=== PATIENT | female | born 1930 | race Caucasian/White ===

== ENCOUNTER 2018-04-16 12:32 | Emergency (ER) | payer MEDICARE, OTHER ==
[2018-04-16 13:40] LABS: INR 1.74 (0.85-1.17); PROTIME 19.8 SECONDS (11.6-15.0)
== END 2018-04-16 17:46 | disposition home or self-care (01) ==
LOC: D.ER 12:32
PROVIDERS: Family Medicine
DX: M54.5 Low back pain (principal); I48.2 Chronic atrial fibrillation; Z79.01 Long term (current) use of anticoagulants; E11.9 Type 2 diabetes mellitus without complications; I10 Essential (primary) hypertension; Z95.0 Presence of cardiac pacemaker

== ENCOUNTER 2018-04-19 23:12 | Inpatient (IN) | payer MEDICARE, OTHER ==
[~2018-04-19] VITALS: Ht 165.1 cm; Wt 57.2 kg
--- NOTE | ~2018-04-19 | MORECARE ---
CASE MANAGEMENT DISCHARGE SUMMARY PATIENT: MADELEINE WONG UNIT: [id number] ADM DATE: 04/20/18 AGE: 87 : [birth year] SEX: F ROOM/BED: D.2140 AUTHOR: BELINDA DICKINSON PHYSICIAN: REFERRING PHYSICIAN: JOVANNI KENYON MD DATE OF SERVICE: 04/25/18 Discharge Plan Patient Name: MADELEINE WONG Facility: [facility]:[place] : 1930 Planned Disposition: Inpatient Rehab Anticipated Discharge Date: 04/25/18 Discharge Date: Expected LOS: 5 Initial Reviewer: [id number] Initial Review Date: 04/20/2018 Generated: 04/25/18 12:41 pm Comments DCP- Discharge Planning Updated by [email or web address]: Akhil Song on 04/25/18 10:[address] Patient Name: MADELEINE WONG Encounter No: [id number] : 1930 Primary Insurance: MEDICARE A & B Anticipated DC Date: 04-25-2018 Planned Disposition: Inpatient Rehab External Planned Provider: [facility] DCP follow-up note: CM RECEIVED MESSAGE FROM [facility] OF INPATIENT REHAB, THEY PLAN TO ACCEPT PT TODAY FOR REHAB. PT NOTIFIED, IN AGREEMENT WITH DISCHARGE TO INPATIENT REHAB. [facility] TO CONTACT MED 2 NURSE WITH ROOM NUMBER WHEN READY TO ACCEPT PT AND NURSE REPORT. HIEN Dai DCP- Discharge Planning Updated by [email or web address]: Akhil Song on 04/24/18 4:[address] Patient Name: MADELEINE WONG Admission Status: ER Accout number: [id number] Admission Date: 04-20-2018 : 1930 Admission Diagnosis:COLLAPSED VERTEBRA, NEC, THORACIC REGION, INIT Attending: JOVANNI KENYON Current LOS: 4 Anticipated DC Date: 04-25-2018 Planned Disposition: Inpatient Rehab Primary Insurance: MEDICARE A & B PLANNED EXTERNAL PROVIDER: [facility] Discharge Planning Comments: CM RECEIVED ORDER FOR INPATIENT REHAB PRESCREENING. CM MET WITH PT IN ROOM TO DISCUSS DISCHARGE PLANNING AND NEEDS. PT REPORTS LIVING AT HOME INDEPENDENTLY WITH SIGNIFICANT OTHER. PT HAS A CANE WITH NO MEDICAL EQUIPMENT PROVIDER PREFERENCE. PT HAS NO OUTSIDE SERVICES ASSISTING IN THE HOME. CM DISCUSSED AVAILABILITY OF HOME HEALTH, REHAB SERVICES AND MEDICAL EQUIPMENT. PT WOULD LIKE REHAB AT [place], FEELS SHE CAN PARTICIPATE IN THREE HOURS OF PROGRESSIVE THERAPY AND REPORTS SHE DID PARTICIPATE TODAY AND FEELS WHEN SHE HAS HER BRACE, SHE WILL BE ABLE TO DO MORE. PT REPORTS HER SIGNIFICANT OTHER WILL PICK HER UP FOR DISCHARGE HOME. IMPORTANT MESSAGE FROM MEDICARE PROVIDED AND EXPLAINED. PT'S SECOND CHOICE IF DECLINED BY [facility] IS [facility], CHOICE SIGNED. CM WAITING COMPLETION OF INPATIENT REHAB PRESCREENING AND ADMISSION DETERMINATION BY [facility]. Seed Core Operator: Akhil Song DCPIA - Discharge Planning Initial Assessment Updated by [id number]: Akhil Song on 04/24/18 5:04 pm * Is the patient Alert and Oriented? Yes * How many steps to enter\exit or inside your home? * PCP DR. PONCE * Pharmacy [facility] * Preadmission Environment Home with Family * ADLs Independent * Equipment Cane * Other Equipment NO MEDICAL EQUIPMENT PROVIDER PREFERENCE * List name and contact numbers for known caregivers / representatives who currently or will assist patient after discharge: KARINA QUINN, SIGNIFICANT OTHER, * Verbal permission to speak to the caregivers and representatives has been obtained from the patient. Yes * Community resources currently utilized None * Please name any agencies selected above. NONE * Additional services required to return to the preadmission environment? Yes * Can the patient safely return to the preadmission environment? Yes * Has this patient been hospitalized within the prior 30 days at any hospital? No Coverage Notice Reviewer: [email or web address] Adriel Song Notice Issued Date-Time: 04/24/2018 15:00 Notice Type: IM Discharge Notice Notice Delivered To: Patient Relationship to Patient: Home Care Associate Name: Delivery Method: HAND - Hand Delivered Dawna Days: Prior Verbal Notification: Recipient Understood Notice: Yes Recipient Signature: Yes Med Rec Note Co-signed by Attending: Coverage Notice Comment: Reviewer: [id number] Adriel Song Notice Issued Date-Time: 04/24/2018 15:00 Notice Type: Patient Choice Letter Notice Delivered To: Patient Relationship to Patient: Home Care Associate Name: Delivery Method: HAND - Hand Delivered Dawna Days: Prior Verbal Notification: Recipient Understood Notice: Yes Recipient Signature: Yes Med Rec Note Co-signed by Attending: Coverage Notice Comment: LUIS KURTZ, SECOND CHOICE FOR REHAB IF DECLINED BY [facility] IP. Last DP export: 04/24/18 4:07 Patient Name: MADELEINE WONG Page 35685 at 1141 All edits/amendments must be made on the electronic document DICTATION DATE: 04/25/18 1140 CAFETERIA MANAGER: JULIA 04/25/18 1140 RPT#: [id number] DC DATE: STATUS: ADM IN [facility] [address] [place] [address] END OF REPORT
--- NOTE | ~2018-04-19 | MORECARE ---
CASE MANAGEMENT DISCHARGE SUMMARY PATIENT: MADELEINE WONG UNIT: [id number] ADM DATE: 04/20/18 AGE: 87 : [birth year] SEX: F ROOM/BED: D.2140 AUTHOR: BELINDA DICKINSON PHYSICIAN: REFERRING PHYSICIAN: JOVANNI KENYON MD DATE OF SERVICE: 04/24/18 Discharge Plan Patient Name: MADELEINE WONG [facility] [facility] 1930 Planned Disposition: Inpatient Rehab Anticipated Discharge Date: 04/25/18 Discharge Date: Expected LOS: 5 Initial Reviewer: [email or web address] Initial Review Date: 04/20/2018 Generated: 04/24/18 6:07 pm Comments DCP- Discharge Planning Updated by [email or web address]: Akhil Song on 04/24/18 4:[address] Patient Name: MADELEINE WONG Admission Status: ER Accout number: [id number] Admission Date: 04-20-2018 : 1930 Admission Diagnosis:COLLAPSED VERTEBRA, NEC, THORACIC REGION, INIT Attending: JOVANNI KENYON Current LOS: 4 Anticipated DC Date: 04-25-2018 Planned Disposition: Inpatient Rehab Primary Insurance: MEDICARE A & B PLANNED EXTERNAL PROVIDER: [facility] Discharge Planning Comments: CM RECEIVED ORDER FOR INPATIENT REHAB PRESCREENING. CM MET WITH PT IN ROOM TO DISCUSS DISCHARGE PLANNING AND NEEDS. PT REPORTS LIVING AT HOME INDEPENDENTLY WITH SIGNIFICANT OTHER. PT HAS A CANE WITH NO MEDICAL EQUIPMENT PROVIDER PREFERENCE. PT HAS NO OUTSIDE SERVICES ASSISTING IN THE HOME. CM DISCUSSED AVAILABILITY OF HOME HEALTH, REHAB SERVICES AND MEDICAL EQUIPMENT. PT WOULD LIKE REHAB AT [facility], FEELS SHE CAN PARTICIPATE IN THREE HOURS OF PROGRESSIVE THERAPY AND REPORTS SHE DID PARTICIPATE TODAY AND FEELS WHEN SHE HAS HER BRACE, SHE WILL BE ABLE TO DO MORE. PT REPORTS HER SIGNIFICANT OTHER WILL PICK HER UP FOR DISCHARGE HOME. IMPORTANT MESSAGE FROM MEDICARE PROVIDED AND EXPLAINED. PT'S SECOND CHOICE IF DECLINED BY [facility] INPAT[facility] IS [facility], CHOICE SIGNED. CM WAITING COMPLETION OF INPATIENT REHAB PRESCREENING AND ADMISSION DETERMINATION BY [facility]. Materials Handling Coordinator: Akhil Song DCPIA - Discharge Planning Initial Assessment Updated by [id number]: Akhil Song on 04/24/18 5:04 pm * Is the patient Alert and Oriented? Yes * How many steps to enter\exit or inside your home? * PCP DR. PONCE * Pharmacy [facility] * Preadmission Environment Home with Family * ADLs Independent * Equipment Cane * Other Equipment NO MEDICAL EQUIPMENT PROVIDER PREFERENCE * List name and contact numbers for known caregivers / representatives who currently or will assist patient after discharge: KARINA QUINN, SIGNIFICANT OTHER, * Verbal permission to speak to the caregivers and representatives has been obtained from the patient. Yes * Community resources currently utilized None * Please name any agencies selected above. NONE * Additional services required to return to the preadmission environment? Yes * Can the patient safely return to the preadmission environment? Yes * Has this patient been hospitalized within the prior 30 days at any hospital? No Patient Name: MADELEINE WONG Page 54724 at 1707 All edits/amendments must be made on the electronic document DICTATION DATE: 04/24/181706 VOIP ENGINEER: JULIA 04/24/181706 RPT#: [id number] DC DATE: STATUS: ADM IN [facility] [address] [place] [address] END OF REPORT
[~2018-04-19 23:12] MED LIST: ASPIRIN EC81 M1 PO; CALCIUM 500 +1 EAC3 PO; COUMADIN2 MG PO; COUMADIN4 MG PO; GLUCOPHAGE500 MG PO; K-DUR20 MEQ PO; LASIX80 MG PO; LEVOXYL75 MCG PO; METOPROLOL TART50 MG PO; PRINIVIL20 MG PO; TYLENOL W/CODEI1 TAB PO
[2018-04-20 01:10] LABS: BASOPHILS 0.3 % (0-2); EOSINOPHILS 0.5 % (0-7); HEMATOCRIT 34.9 % (36.0-48.0); IMMATURE GRANULOCYTES 0.3 % (0-5); LYMPHOCYTES 8.6 % (15-50); MCH 31.6 pg (26.0-34.0); MCHC 31.5 g/dL (31.0-37.0); MCV 100.3 fL (80.0-100.0); MEAN PLATELET VOLUME 10.7 fL (7.4-10.4); MONOCYTES 14.7 % (2-11); NEUTROPHILS 75.6 % (40-80); PLATELET COUNT 321 10x3/uL (130-400); RBC 3.48 10x6/uL (4.00-5.40); RDW 15.3 % (11.5-14.5); WBC 7.9 10x3/uL (4.8-10.8)
[2018-04-20 01:23] LABS: ALBUMIN 2.5 g/dL (3.4-5.0); ANION GAP 17.9 mmol/L (8-16); BILIRUBIN - TOTAL 0.95 mg/dL (0.2-1.3); CALCIUM 8.6 mg/dL (8.5-10.1); CARBON DIOXIDE 25.4 mmol/L (21.0-32.0); CREATININE - SERUM 2.7 mg/dL (0.6-1.3); PROTEIN - SERUM 6.4 g/dL (6.4-8.2)
[2018-04-20 01:26] LABS: POTASSIUM - SERUM 6.3 mmol/L (3.5-5.1)
[2018-04-20 03:53] VITALS: BP 130/61; BMI 21.0
[2018-04-20 08:34] VITALS: BP 128/65
[2018-04-20 09:40] LABS: BASOPHILS 0.2 % (0-2); EOSINOPHILS 0.6 % (0-7); HEMATOCRIT 34.8 % (36.0-48.0); HEMOGLOBIN 10.9 g/dL (12-16); IMMATURE GRANULOCYTES 0.3 % (0-5); LYMPHOCYTES 10.6 % (15-50); MCH 31.7 pg (26.0-34.0); MCHC 31.3 g/dL (31.0-37.0); MCV 101.2 fL (80.0-100.0); MEAN PLATELET VOLUME 10.5 fL (7.4-10.4); MONOCYTES 16.9 % (2-11); NEUTROPHILS 71.4 % (40-80); PLATELET COUNT 329 10x3/uL (130-400); RBC 3.44 10x6/uL (4.00-5.40); RDW 15.5 % (11.5-14.5); WBC 6.6 10x3/uL (4.8-10.8)
[2018-04-20 09:46] LABS: ALBUMIN 2.4 g/dL (3.4-5.0); BILIRUBIN - TOTAL 0.88 mg/dL (0.2-1.3); CARBON DIOXIDE 27.1 mmol/L (21.0-32.0); CREATININE - SERUM 2.6 mg/dL (0.6-1.3); MAGNESIUM - SERUM 2.6 mg/dL (1.8-2.4); PROTEIN - SERUM 6.1 g/dL (6.4-8.2)
[2018-04-20 09:47] LABS: ANION GAP 13.8 mmol/L (8-16); POTASSIUM - SERUM 4.9 mmol/L (3.5-5.1)
[2018-04-20 11:28] VITALS: BP 122/62
[2018-04-20 13:23] VITALS: BMI 20.9
[2018-04-20 14:19] LABS: APTT 37.8 SECONDS (22.8-39.4); INR 2.05 (0.85-1.17); PROTIME 22.5 SECONDS (11.6-15.0)
[2018-04-20 16:09] VITALS: BP 123/64
[2018-04-20 20:00] VITALS: BP 131/41
[2018-04-21] VITALS: BP 144/42
[2018-04-21 04:00] VITALS: BP 107/48
[2018-04-21 05:49] LABS: BASOPHILS 0.3 % (0-2); EOSINOPHILS 0.3 % (0-7); HEMATOCRIT 32.4 % (36.0-48.0); HEMOGLOBIN 9.9 g/dL (12-16); IMMATURE GRANULOCYTES 0.4 % (0-5); LYMPHOCYTES 8.2 % (15-50); MCH 31.1 pg (26.0-34.0); MCHC 30.6 g/dL (31.0-37.0); MCV 101.9 fL (80.0-100.0); MEAN PLATELET VOLUME 10.6 fL (7.4-10.4); MONOCYTES 14.6 % (2-11); NEUTROPHILS 76.2 % (40-80); PLATELET COUNT 339 10x3/uL (130-400); RBC 3.18 10x6/uL (4.00-5.40); RDW 15.4 % (11.5-14.5); WBC 7.2 10x3/uL (4.8-10.8)
[2018-04-21 05:59] LABS: INR 2.11 (0.85-1.17)
[2018-04-21 06:11] LABS: ALBUMIN 1.9 g/dL (3.4-5.0); ANION GAP 16.2 mmol/L (8-16); BILIRUBIN - TOTAL 0.51 mg/dL (0.2-1.3); CALCIUM 7.5 mg/dL (8.5-10.1); CARBON DIOXIDE 22.4 mmol/L (21.0-32.0); CREATININE - SERUM 2.6 mg/dL (0.6-1.3); MAGNESIUM - SERUM 2.5 mg/dL (1.8-2.4); POTASSIUM - SERUM 4.6 mmol/L (3.5-5.1); PROTEIN - SERUM 5.5 g/dL (6.4-8.2)
[2018-04-21 09:02] VITALS: BP 103/77
[2018-04-21 13:32] VITALS: BP 84/59
[2018-04-21 13:37] VITALS: Ht 165.1 cm; Wt 57.2 kg
[2018-04-21 14:28] LABS: APPEARANCE CLEAR (CLEAR); BILIRUBIN NEGATIVE (NEGATIVE); COLOR DK YELLOW (YELLOW); GLUCOSE NEGATIVE (NEGATIVE); KETONE NEGATIVE (NEGATIVE); NITRITE NEGATIVE (NEGATIVE); PROTEIN NEGATIVE (NEGATIVE); SPECIFIC GRAVITY 1.015 (1.005-1.020); UROBILINOGEN NORMAL (NORMAL)
[2018-04-21 16:49] VITALS: BP 148/61
[2018-04-21 20:30] VITALS: BP 146/65
[2018-04-22 00:30] VITALS: BP 144/50
[2018-04-22 04:30] VITALS: BP 157/52
[2018-04-22 06:13] LABS: BASOPHILS 0.1 % (0-2); EOSINOPHILS 0.3 % (0-7); HEMATOCRIT 31.6 % (36.0-48.0); HEMOGLOBIN 9.9 g/dL (12-16); IMMATURE GRANULOCYTES 0.8 % (0-5); LYMPHOCYTES 11.2 % (15-50); MCH 31.5 pg (26.0-34.0); MCHC 31.3 g/dL (31.0-37.0); MCV 100.6 fL (80.0-100.0); MEAN PLATELET VOLUME 10.1 fL (7.4-10.4); MONOCYTES 10.3 % (2-11); NEUTROPHILS 77.3 % (40-80); PLATELET COUNT 336 10x3/uL (130-400); RBC 3.14 10x6/uL (4.00-5.40); RDW 15.6 % (11.5-14.5); WBC 7.9 10x3/uL (4.8-10.8)
[2018-04-22 06:32] LABS: PROTIME 18.5 SECONDS (11.6-15.0)
[2018-04-22 06:34] LABS: INR 1.61 (0.85-1.17)
[2018-04-22 06:47] LABS: ALBUMIN 1.7 g/dL (3.4-5.0); BILIRUBIN - TOTAL 0.53 mg/dL (0.2-1.3); CALCIUM 7.4 mg/dL (8.5-10.1); CARBON DIOXIDE 21.3 mmol/L (21.0-32.0); MAGNESIUM - SERUM 2.4 mg/dL (1.8-2.4); PROTEIN - SERUM 5.4 g/dL (6.4-8.2)
[2018-04-22 06:48] LABS: ANION GAP 19.1 mmol/L (8-16); CREATININE - SERUM 1.9 mg/dL (0.6-1.3); POTASSIUM - SERUM 3.4 mmol/L (3.5-5.1)
[2018-04-22 09:32] VITALS: BP 142/58
[2018-04-22 13:17] VITALS: BP 130/53
[2018-04-22 17:22] VITALS: BP 149/47
[2018-04-22 20:30] VITALS: BP 167/58
[2018-04-23 00:30] VITALS: BP 135/64
[2018-04-23 04:30] VITALS: BP 135/61
[2018-04-23 06:08] LABS: BASOPHILS 0.1 % (0-2); EOSINOPHILS 0.4 % (0-7); HEMATOCRIT 31.3 % (36.0-48.0); IMMATURE GRANULOCYTES 0.9 % (0-5); LYMPHOCYTES 7.2 % (15-50); MCH 32.2 pg (26.0-34.0); MCHC 31.9 g/dL (31.0-37.0); MCV 100.6 fL (80.0-100.0); MEAN PLATELET VOLUME 9.8 fL (7.4-10.4); MONOCYTES 7.2 % (2-11); NEUTROPHILS 84.2 % (40-80); PLATELET COUNT 317 10x3/uL (130-400); RBC 3.11 10x6/uL (4.00-5.40); RDW 15.4 % (11.5-14.5); WBC 8.1 10x3/uL (4.8-10.8)
[2018-04-23 06:28] LABS: INR 1.39 (0.85-1.17); PROTIME 16.5 SECONDS (11.6-15.0)
[2018-04-23 06:41] LABS: ALBUMIN 1.7 g/dL (3.4-5.0); BILIRUBIN - TOTAL 0.38 mg/dL (0.2-1.3); CALCIUM 7.5 mg/dL (8.5-10.1); CREATININE - SERUM 1.5 mg/dL (0.6-1.3); MAGNESIUM - SERUM 2.3 mg/dL (1.8-2.4); PROTEIN - SERUM 5.2 g/dL (6.4-8.2)
[2018-04-23 06:56] LABS: ANION GAP 14.5 mmol/L (8-16)
[2018-04-23 06:58] LABS: POTASSIUM - SERUM 2.5 mmol/L (3.5-5.1)
[2018-04-23 08:24] VITALS: BP 131/68
[2018-04-23 10:59] VITALS: BP 122/66
[2018-04-23 15:55] VITALS: BP 129/72
[2018-04-23 20:00] VITALS: BP 112/72
[2018-04-24] VITALS: BP 120/70
[2018-04-24 04:00] VITALS: BP 124/66
[2018-04-24 06:22] LABS: BASOPHILS 0.3 % (0-2); EOSINOPHILS 0.7 % (0-7); HEMATOCRIT 34.5 % (36.0-48.0); HEMOGLOBIN 10.8 g/dL (12-16); IMMATURE GRANULOCYTES 1.5 % (0-5); LYMPHOCYTES 5.9 % (15-50); MCH 31.6 pg (26.0-34.0); MCHC 31.3 g/dL (31.0-37.0); MCV 100.9 fL (80.0-100.0); MEAN PLATELET VOLUME 10.3 fL (7.4-10.4); MONOCYTES 8.5 % (2-11); NEUTROPHILS 83.1 % (40-80); RBC 3.42 10x6/uL (4.00-5.40); RDW 15.6 % (11.5-14.5)
[2018-04-24 06:25] LABS: PLATELET COUNT 400 10x3/uL (130-400); WBC 11.4 10x3/uL (4.8-10.8)
[2018-04-24 06:49] LABS: ALBUMIN 1.7 g/dL (3.4-5.0); BILIRUBIN - TOTAL 0.32 mg/dL (0.2-1.3); CALCIUM 8.1 mg/dL (8.5-10.1); CREATININE - SERUM 1.5 mg/dL (0.6-1.3); MAGNESIUM - SERUM 2.3 mg/dL (1.8-2.4); PROTEIN - SERUM 5.6 g/dL (6.4-8.2)
[2018-04-24 06:50] LABS: ANION GAP 14.9 mmol/L (8-16); POTASSIUM - SERUM 3.9 mmol/L (3.5-5.1)
[2018-04-24 07:04] LABS: INR 1.39 (0.85-1.17); PROTIME 16.5 SECONDS (11.6-15.0)
[2018-04-24 08:05] VITALS: BP 140/58
[2018-04-24 11:21] VITALS: BP 118/68
[2018-04-24 16:50] VITALS: BP 126/59
[2018-04-24 21:02] VITALS: BP 158/60
[2018-04-25 01:14] VITALS: BP 135/64
[2018-04-25 05:43] LABS: BASOPHILS 0.2 % (0-2); EOSINOPHILS 0.6 % (0-7); HEMATOCRIT 32.2 % (36.0-48.0); HEMOGLOBIN 10.1 g/dL (12-16); IMMATURE GRANULOCYTES 3.1 % (0-5); LYMPHOCYTES 7.8 % (15-50); MCH 31.4 pg (26.0-34.0); MCHC 31.4 g/dL (31.0-37.0); MONOCYTES 8.2 % (2-11); NEUTROPHILS 80.1 % (40-80); PLATELET COUNT 404 10x3/uL (130-400); RBC 3.22 10x6/uL (4.00-5.40); RDW 15.3 % (11.5-14.5)
[2018-04-25 05:44] LABS: WBC 14.7 10x3/uL (4.8-10.8)
[2018-04-25 05:54] VITALS: BP 150/59
[2018-04-25 06:18] LABS: INR 1.31 (0.85-1.17); PROTIME 15.7 SECONDS (11.6-15.0)
[2018-04-25 06:35] LABS: ALBUMIN 1.7 g/dL (3.4-5.0); BILIRUBIN - TOTAL 0.35 mg/dL (0.2-1.3); CALCIUM 8.3 mg/dL (8.5-10.1); CARBON DIOXIDE 21.4 mmol/L (21.0-32.0); CREATININE - SERUM 1.4 mg/dL (0.6-1.3); MAGNESIUM - SERUM 2.1 mg/dL (1.8-2.4); POTASSIUM - SERUM 4.2 mmol/L (3.5-5.1); PROTEIN - SERUM 5.3 g/dL (6.4-8.2)
[2018-04-25 06:44] LABS: ANION GAP 13.8 mmol/L (8-16)
[2018-04-25 08:44] VITALS: BP 176/73
[2018-04-25 13:07] VITALS: BP 175/69
== END 2018-04-25 18:30 | DRG 543 ==
LOC: D.ER 23:12 → OBSVTIME 04-20 00:42 → D.EDHOLD 04-20 00:42 → D.M2 04-20 00:42
PROVIDERS: Family Medicine; Family Medicine Adult Medicine; Internal Medicine
DX: M48.54XA Collapsed vertebra, not elsewhere classified, thoracic region, initial encounter for fracture (principal); N17.9 Acute kidney failure, unspecified; M48.56XA Collapsed vertebra, not elsewhere classified, lumbar region, initial encounter for fracture; W19.XXXA Unspecified fall, initial encounter; I10 Essential (primary) hypertension; E87.5 Hyperkalemia; I48.91 Unspecified atrial fibrillation; E03.9 Hypothyroidism, unspecified; Z79.01 Long term (current) use of anticoagulants; E11.9 Type 2 diabetes mellitus without complications; D75.89 Other specified diseases of blood and blood-forming organs; Z86.73 Personal history of transient ischemic attack (TIA), and cerebral infarction without residual deficits

== ENCOUNTER 2018-04-25 18:25 | Inpatient (IN) | payer MEDICARE, OTHER ==
[~2018-04-25] VITALS: Ht 165.1 cm; Wt 63.5 kg
--- NOTE | ~2018-04-25 | RHP ---
PATIENT: MADELEINE WONG MEDICAL RECORD: [id number] ACCOUNT: [id number] LOCATION:[facility] [id number] : [birth year] ADMISSION DATE: 04/25/18 REHABILITATION HISTORY AND PHYSICAL EXAMINATION POST ADMISSION PHYSICIAN EXAMINATION DATE OF ADMISSION: 04/25/2018 ADMITTING DIAGNOSIS: Compression fracture and pain associated with that. HISTORY OF PRESENT ILLNESS: The patient is an 87-year-old female patient who was admitted under an orthopedic impairment group with a T12 compression fracture. She recently moved here to [place], has been seeing Dr. Jeffers. She presented to the ED with falls and back pain, increased pain with bending and stooping. She was admitted to the acute care hospital with compression fracture, hyperkalemia, atrial fib, chronic anticoagulation therapy, permanent pacemaker, history of CVA, hypertension, hypothyroidism, diabetes and macrocytosis. All listed comorbidities require continued medical management during her acute rehabilitation stay by and also RN. She had an x-ray of her lumbar spine, which showed an age indeterminate compression fracture of T12 with approximately 50% loss of vertebral body height, age indeterminate, but chronic appearing partial compression of L2 with approximately 20% loss of vertebral body height. She continues to have a great deal of pain, seen by Dr. Santillan on 04/21/2018, he recommended PT, OT and return to clinic in 3 weeks. Nephrology was consulted as well for her acute kidney injury, recommend increasing her IV fluids, get a renal ultrasound and a UA. Her ultrasound showed echogenic kidneys consistent with intrinsic renal disease in the left renal cyst. The patient's prior level of functioning was completely independent, living home with her significant other. She is currently max assist on ambulation, getting 4 feet with noted weakness, more proximal than distal. She is mod-to-max assist with ADLs and mod with instructions from speech therapy for swallowing strategies. She is on a mechanical soft diet and thin liquids. Barriers for her discharge includes loss of mobility, pain management, electrolyte protocol, bowel and bladder changing training, self-care deficit. She will require intensive therapy for PT, OT and speech therapy in order to return home at her prior level of functioning. COMORBIDITIES: In this patient include age indeterminate compression fracture, oropharyngeal dysphagia, lower back pain, acute kidney injury, chronic atrial fib, lumbar radiculopathy, dehydration, advanced age, impaired mobility, self-care deficit, tobacco use. PAST MEDICAL HISTORY: Significant for CVA, cataracts, diabetes, thyroid problems, hypertension, pacemaker placement, atrial fib, chronic back pain, hysterectomy and tobacco use. PAST SURGICAL HISTORY: Includes colon surgery, hysterectomy and pacemaker placement. ALLERGIES: SULFA AND PLAVIX. CURRENT MEDICATIONS: Include Coumadin 2 mg daily, potassium 20 mEq daily, metformin 500 mg b.i.d. with meals, lisinopril 20 mg daily, Synthroid 75 mcg daily, furosemide 80 mg daily, Os-Bill 500 mg daily, aspirin 81 mg daily, polyethylene glycol 17 grams in 8 ounces of water daily, metoprolol 50 mg HISTORY AND PHYSICAL [id number] WONG,MADELEINE b.i.d., Tylenol No. 3 one every 6 hours p.r.n. HABITS: No alcohol or tobacco use. FAMILY HISTORY: Noncontributory. SOCIAL HISTORY: The patient hopes to return back home with her and get back to her prior level of functioning. REVIEW OF SYSTEMS: GENERAL: Does complain of weakness and fatigue. HEENT: She denies cold, cough, or congestion. CARDIOVASCULAR: Denies chest pain. PHYSICAL EXAMINATION: VITAL SIGNS: Stable, afebrile. GENERAL: Thin female in no acute distress, alert upon exam. HEENT: Normocephalic and atraumatic. Mucosa moist. NECK: Supple. No lymphadenopathy. LUNGS: Clear in upper wong. HEART: Irregular rate and rhythm. ABDOMEN: Benign. EXTREMITIES: No clubbing, cyanosis or edema. NEUROLOGIC: She does have noted pain with movement. She has proximal muscle weakness. LABORATORY DATA: White count is 13.6, H&H of 9 and 32 and platelet count is noted to be 391. Sodium is 148, potassium 4.3, BUN and creatinine of 33 and 1.3 and blood sugar was noted to be 87. Her admit UA did show trace leukocyte esterase. She did have moderate bacteria. ASSESSMENT AND PLAN: This is an 87-year-old female patient admitted to the rehabilitation with working diagnosis of debility secondary to pain from a T12 compression fracture. The patient has potential to make improvement. We instituted the following multiple additional therapies include, but not limited to, physical, occupational, respiratory, speech, nutritional services, prosthetics and orthotics. Given her complex medical condition and risks for more complications, rehabilitation services cannot be provided at a low level of care such as a long term facility. PLAN: 1. Admit to [facility] for intensive inpatient therapy to include the following disciplines: A. Physical therapy to improve gait, all transfer skills and bed mobility to a modified independent level. B. Occupational therapy to a modified independent level. C. Case management to assist with discharge planning and placement options. D. Nutrition to assist with nutritional needs. E. Rehabilitation nursing to assist in monitoring the patient's underlying medical conditions and to assist with any type of bowel or bladder management. 2. The patient's current medications and medical care will be continued. 3. The patient will be placed on standard fall precautions. 4. The patient's estimated length of stay is approximately 7-10 days. 5. We will discuss this patient during care team staff meeting this week and I will see her again in the a.m. HISTORY AND PHYSICAL [id number] MADELEINE WONG TRANSINT:[id number] Voice Confirmation ID: [id number] DOCUMENT ID: [id number] 05/07/18 Editd for job type and chapis BROCK. DELMY notes whether there has been none or any medical/functional change since admission: - No change since preadmission screen. DELMY attests patient continues to be appropriate for IRF: - Continues to be appropriate. LEXA BENAVIDES MD CC: [id number] DICTATION DATE: 04/26/18 1312 ETHNOLOGY TEACHER: 04/26/18 1526 ADM IN [facility] [address] [place] [address]
[2018-04-25 23:09] VITALS: BP 143/46; BMI 23.3
[2018-04-26 06:13] LABS: APPEARANCE CLEAR (CLEAR); BILIRUBIN NEGATIVE (NEGATIVE); COLOR YELLOW (YELLOW); GLUCOSE NEGATIVE (NEGATIVE); KETONE NEGATIVE (NEGATIVE); NITRITE NEGATIVE (NEGATIVE); PROTEIN TRACE mg/dL (NEGATIVE); UROBILINOGEN NORMAL (NORMAL)
[2018-04-26 06:16] LABS: EPITHELIAL CELLS RARE /hpf (0-5); WHITE CELLS - URINE 0-5 /hpf (0-5)
[2018-04-26 06:17] LABS: BACTERIA MODERATE /hpf (NONE SEEN); GRANULAR CAST RARE /lpf (NONE SEEN); HYALINE CAST RARE /lpf (NONE SEEN)
[2018-04-26 06:50] LABS: BASOPHILS 0.2 % (0-2); EOSINOPHILS 1.2 % (0-7); HEMATOCRIT 32.1 % (36.0-48.0); HEMOGLOBIN 9.9 g/dL (12-16); IMMATURE GRANULOCYTES 3.7 % (0-5); LYMPHOCYTES 6.8 % (15-50); MCH 30.9 pg (26.0-34.0); MCHC 30.8 g/dL (31.0-37.0); MCV 100.3 fL (80.0-100.0); MEAN PLATELET VOLUME 10.1 fL (7.4-10.4); MONOCYTES 6.8 % (2-11); NEUTROPHILS 81.3 % (40-80); PLATELET COUNT 391 10x3/uL (130-400); RDW 15.5 % (11.5-14.5); WBC 13.6 10x3/uL (4.8-10.8)
[2018-04-26 07:03] LABS: ANION GAP 14.1 mmol/L (8-16); CALCIUM 8.4 mg/dL (8.5-10.1); CARBON DIOXIDE 23.2 mmol/L (21.0-32.0); CREATININE - SERUM 1.3 mg/dL (0.6-1.3); POTASSIUM - SERUM 4.3 mmol/L (3.5-5.1)
[2018-04-26 08:00] VITALS: BP 154/56
[2018-04-26 12:18] VITALS: Ht 165.1 cm; Wt 63.5 kg
[2018-04-26 19:00] VITALS: BP 123/36
[2018-04-27 07:09] LABS: BASOPHILS 0.2 % (0-2); HEMATOCRIT 30.9 % (36.0-48.0); HEMOGLOBIN 9.8 g/dL (12-16); IMMATURE GRANULOCYTES 2.6 % (0-5); LYMPHOCYTES 7.5 % (15-50); MCH 31.7 pg (26.0-34.0); MCHC 31.7 g/dL (31.0-37.0); MEAN PLATELET VOLUME 9.8 fL (7.4-10.4); MONOCYTES 5.9 % (2-11); NEUTROPHILS 82.8 % (40-80); PLATELET COUNT 347 10x3/uL (130-400); RBC 3.09 10x6/uL (4.00-5.40); RDW 15.4 % (11.5-14.5); WBC 11.2 10x3/uL (4.8-10.8)
[2018-04-27 07:21] LABS: INR 1.19 (0.85-1.17); PROTIME 14.5 SECONDS (11.6-15.0)
[2018-04-27 07:23] LABS: ANION GAP 14.5 mmol/L (8-16); CALCIUM 8.1 mg/dL (8.5-10.1); CARBON DIOXIDE 24.4 mmol/L (21.0-32.0); CREATININE - SERUM 1.3 mg/dL (0.6-1.3); POTASSIUM - SERUM 3.9 mmol/L (3.5-5.1)
[2018-04-27 08:00] VITALS: BP 137/58
[2018-04-27 19:00] VITALS: BP 165/55
[2018-04-28 07:23] LABS: INR 1.14 (0.85-1.17)
[2018-04-28 08:00] VITALS: BP 130/52
[2018-04-28 20:00] VITALS: BP 148/51
[2018-04-29 07:39] LABS: INR 1.36 (0.85-1.17); PROTIME 16.2 SECONDS (11.6-15.0)
[2018-04-29 11:29] VITALS: BP 112/46
[2018-04-30 00:12] VITALS: BP 131/65
[2018-04-30 06:53] LABS: BASOPHILS 0.2 % (0-2); EOSINOPHILS 2.5 % (0-7); HEMATOCRIT 31.1 % (36.0-48.0); HEMOGLOBIN 9.6 g/dL (12-16); IMMATURE GRANULOCYTES 1.2 % (0-5); LYMPHOCYTES 7.6 % (15-50); MCH 30.8 pg (26.0-34.0); MCHC 30.9 g/dL (31.0-37.0); MCV 99.7 fL (80.0-100.0); MEAN PLATELET VOLUME 10.1 fL (7.4-10.4); MONOCYTES 6.7 % (2-11); NEUTROPHILS 81.8 % (40-80); PLATELET COUNT 388 10x3/uL (130-400); RBC 3.12 10x6/uL (4.00-5.40); RDW 15.1 % (11.5-14.5)
[2018-04-30 06:58] LABS: ANION GAP 12.2 mmol/L (8-16); CALCIUM 8.2 mg/dL (8.5-10.1); CARBON DIOXIDE 27.5 mmol/L (21.0-32.0); CREATININE - SERUM 1.2 mg/dL (0.6-1.3); POTASSIUM - SERUM 3.7 mmol/L (3.5-5.1)
[2018-04-30 07:20] LABS: INR 1.73 (0.85-1.17); PROTIME 19.6 SECONDS (11.6-15.0)
[2018-04-30 08:00] VITALS: BP 129/55
[2018-04-30 19:02] VITALS: BP 122/46
[2018-05-01 07:02] LABS: INR 2.19 (0.85-1.17); PROTIME 23.7 SECONDS (11.6-15.0)
[2018-05-01 07:55] VITALS: BP 159/58
[2018-05-01 21:00] VITALS: BP 119/35
[2018-05-02 06:34] LABS: INR 2.77 (0.85-1.17); PROTIME 28.5 SECONDS (11.6-15.0)
[2018-05-02 08:00] VITALS: BP 152/56
[2018-05-02 21:00] VITALS: BP 125/45
[2018-05-03 08:00] VITALS: BP 143/48
[2018-05-03 08:16] LABS: INR 3.24 (0.85-1.17); PROTIME 32.3 SECONDS (11.6-15.0)
[2018-05-03 20:25] VITALS: BP 111/48
[2018-05-04 08:00] VITALS: BP 121/45
[2018-05-04 11:26] LABS: BASOPHILS 0.3 % (0-2); EOSINOPHILS 1.3 % (0-7); HEMATOCRIT 31.6 % (36.0-48.0); HEMOGLOBIN 9.8 g/dL (12-16); IMMATURE GRANULOCYTES 0.7 % (0-5); LYMPHOCYTES 6.6 % (15-50); MCH 31.6 pg (26.0-34.0); MCV 101.9 fL (80.0-100.0); MEAN PLATELET VOLUME 10.3 fL (7.4-10.4); MONOCYTES 8.7 % (2-11); NEUTROPHILS 82.4 % (40-80); PLATELET COUNT 416 10x3/uL (130-400); RDW 15.7 % (11.5-14.5); WBC 11.6 10x3/uL (4.8-10.8)
[2018-05-04 11:42] LABS: ANION GAP 13.6 mmol/L (8-16); CALCIUM 8.3 mg/dL (8.5-10.1); CARBON DIOXIDE 28.8 mmol/L (21.0-32.0); CREATININE - SERUM 2.8 mg/dL (0.6-1.3); POTASSIUM - SERUM 5.4 mmol/L (3.5-5.1)
[2018-05-04 11:44] LABS: INR 3.32 (0.85-1.17); PROTIME 32.9 SECONDS (11.6-15.0)
[2018-05-05 07:12] LABS: INR 3.41 (0.85-1.17); PROTIME 33.6 SECONDS (11.6-15.0)
[2018-05-05 08:04] VITALS: BP 133/55
[2018-05-05 19:41] VITALS: BP 113/37
[2018-05-06 07:02] LABS: INR 3.14 (0.85-1.17); PROTIME 31.5 SECONDS (11.6-15.0)
[2018-05-06 09:09] VITALS: BP 115/36
[2018-05-06 23:43] VITALS: BP 127/62
[2018-05-07 06:03] LABS: BASOPHILS 0.2 % (0-2); EOSINOPHILS 0.6 % (0-7); HEMATOCRIT 31.4 % (36.0-48.0); HEMOGLOBIN 9.8 g/dL (12-16); IMMATURE GRANULOCYTES 0.3 % (0-5); LYMPHOCYTES 10.5 % (15-50); MCH 31.1 pg (26.0-34.0); MCHC 31.2 g/dL (31.0-37.0); MCV 99.7 fL (80.0-100.0); MEAN PLATELET VOLUME 10.2 fL (7.4-10.4); MONOCYTES 9.1 % (2-11); NEUTROPHILS 79.3 % (40-80); PLATELET COUNT 439 10x3/uL (130-400); RBC 3.15 10x6/uL (4.00-5.40); RDW 16.2 % (11.5-14.5); WBC 10.4 10x3/uL (4.8-10.8)
[2018-05-07 06:17] LABS: ANION GAP 13.6 mmol/L (8-16); CALCIUM 8.1 mg/dL (8.5-10.1); CARBON DIOXIDE 29.1 mmol/L (21.0-32.0); CREATININE - SERUM 2.7 mg/dL (0.6-1.3); POTASSIUM - SERUM 4.7 mmol/L (3.5-5.1)
[2018-05-07 06:24] LABS: INR 2.88 (0.85-1.17); PROTIME 29.4 SECONDS (11.6-15.0)
[2018-05-07 08:22] VITALS: BP 135/46
[2018-05-08 05:55] LABS: APPEARANCE CLOUDY (CLEAR); BILIRUBIN NEGATIVE (NEGATIVE); COLOR YELLOW (YELLOW); GLUCOSE NEGATIVE (NEGATIVE); KETONE NEGATIVE (NEGATIVE); NITRITE NEGATIVE (NEGATIVE); PROTEIN 1+ mg/dL (NEGATIVE); SPECIFIC GRAVITY 1.005 (1.005-1.020); UROBILINOGEN NORMAL (NORMAL)
[2018-05-08 05:56] LABS: BACTERIA MANY /hpf (NONE SEEN); EPITHELIAL CELLS 0-5 /hpf (0-5); RED CELLS - URINE 0-5 /hpf (0-5)
[2018-05-08 08:00] VITALS: BP 109/33
[2018-05-08 19:00] VITALS: BP 103/35
[2018-05-09 05:59] LABS: BASOPHILS 0.1 % (0-2); EOSINOPHILS 0.1 % (0-7); HEMATOCRIT 31.2 % (36.0-48.0); HEMOGLOBIN 9.8 g/dL (12-16); IMMATURE GRANULOCYTES 0.3 % (0-5); LYMPHOCYTES 9.6 % (15-50); MCH 31.4 pg (26.0-34.0); MCHC 31.4 g/dL (31.0-37.0); MEAN PLATELET VOLUME 10.2 fL (7.4-10.4); MONOCYTES 8.9 % (2-11); PLATELET COUNT 466 10x3/uL (130-400); RBC 3.12 10x6/uL (4.00-5.40); RDW 16.3 % (11.5-14.5); WBC 11.7 10x3/uL (4.8-10.8)
[2018-05-09 06:41] LABS: ANION GAP 18.2 mmol/L (8-16); CALCIUM 8.1 mg/dL (8.5-10.1); CREATININE - SERUM 4.1 mg/dL (0.6-1.3); POTASSIUM - SERUM 5.2 mmol/L (3.5-5.1)
[2018-05-09 08:00] VITALS: BP 111/38
== END 2018-05-09 15:43 | disposition short-term general hospital (02) | DRG 560 ==
LOC: D.REHAB 18:25
PROVIDERS: ADMIT Emergency Medicine
DX: S22.089D Unspecified fracture of T11-T12 vertebra, subsequent encounter for fracture with routine healing (principal); N17.9 Acute kidney failure, unspecified; R13.12 Dysphagia, oropharyngeal phase; M54.5 Low back pain; I48.2 Chronic atrial fibrillation; M54.16 Radiculopathy, lumbar region; E86.0 Dehydration; F17.200 Nicotine dependence, unspecified, uncomplicated; I10 Essential (primary) hypertension

== ENCOUNTER 2018-05-09 14:45 | Inpatient (IN) | payer MEDICARE, OTHER ==
[~2018-05-09] VITALS: Ht 165.1 cm; Wt 65.4 kg
--- NOTE | ~2018-05-09 | HEMODYNAMI ---
PATIENT:MADELEINE WONG MEDICAL RECORD: [id number] : [birth year] LOCATION:[facility] [id number] ADMISSION DATE: 05/09/18 Generatedon:05/30/201816:16 Patient name: MADELEINE WONG Patient #: [id number] SSN: : 1930 Date of study: 05/30/2018 Page: Of Hemodynamic Procedure Report Patient Data Patient Demographics Procedure consent was obtained First Name: MADELEINE Gender: Female Last Name: MARVIN : 1930 Patient #: [id number] Age: 88 year(s) Race: Unknown Additional ID: [id number] Contact details [address]: [address] [place] [address] State: [place] City: [place] Zip code: [address] Past Medical History Allergies Allergen Reaction Date Comments Reported Penicillins 05/30/2018 Admission Admission Data Admission Date: 05/09/2018 Admission Time: 14:45 Room #: [facility] Height (in.): 65 BSA: 1.76 (m2) Height (cm.): 165.1 BMI: 25.13 (kg/m2) Weight (lbs.): 151 Weight (kg.): 68.49 Procedure Procedure Types Cath Procedure Peripheral Cath Diagnostic Procedure Plan Coordinator Peripheral Procedures Kyphoplasty Kyphoplasty Thoracic Procedure Description Procedure Date Procedure Date: 05/30/2018 Procedure Start Time: 15:29 Procedure Staff Name Function Earnest Roche MD Performing Physician Alexandra Streeter RT Ammonia Distiller Roxi Esparza CRNA Additional personnel Laurie Bruce RN Nurse Haven Ro RN Nurse Ricardo Wolf RT Scrub Procedure Data Cath Procedure Fluoroscopy Diagnostic fluoroscopy Total fluoroscopy Time: 9.1 time: 9.1 min min Diagnostic fluoroscopy Total fluoroscopy dose: 156 dose: 156 mGy mGy Procedure Medications Medication Administration Route Dosage Oxygen etCO2 Nasal cannula 4 l/min Vancomycin I.V.P.B 500 mg Lidocaine 1% added to field 20 Heparin Flush Bag added to field 1 bags (1000units/500ml NS) Hemodynamics Rest BSA: 1.76 (m2) O2 Consumption: Estimated: 167.61 (ml/min) O2 Consumption indexed : Estimated:95.23 (ml/min/m) Heart Rate: 88 (bpm) Snapshots Pre Cath Intra NCS Post Cath Vital Signs Time Heart Resp SPO2 etCO2 NIBP Rhythm Pain Sedation Rate (ipm) (%) (mmHg) (mmHg) Status Level (bpm) 15:21:09 89 17 100 24 88/62(79) A-Fib 0 (11) 10(A) , No pain 15:25:24 80 12 100 21 96/53(63) A-Fib 0 (11) 10(A) , No pain 15:29:42 86 12 100 27 93/46(74) A-Fib 0 (11) 10(A) , No pain 15:33:56 88 11 100 33 89/55(73) A-Fib 0 (11) 7(A) , No pain 15:38:10 92 11 100 27 99/50(58) NSR 0 (11) 7(A) , No pain 15:42:26 82 11 99 31.5 82/54(70) NSR 0 (11) 7(A) , No pain 15:47:25 86 23 100 36 Measuring NSR 0 (11) 7(A) , No pain 15:47:33 97 23 100 21.7 74/37(40) NSR 0 (11) 7(A) , No pain 15:49:17 84 11 99 21 92/59(76) NSR 0 (11) 7(A) , No pain 15:53:31 80 10 99 35.2 88/54(72) NSR 0 (11) 7(A) , No pain 15:57:43 90 10 99 21 98/51(73) NSR 0 (11) 7(A) , No pain 16:01:57 94 11 99 15.7 92/49(79) NSR 0 (11) 7(A) , No pain 16:06:11 82 13 98 13.5 93/56(71) NSR 0 (11) 7(A) , No pain 16:10:19 87 17 99 24 101/71(89) NSR 0 (11) 7(A) , No pain 16:15:02 25.5 No Cuff NSR 0 (11) 7(A) , No pain Medications Time Medication Route Dose Verified Delivered Reason Notes Effe ctiveness by by 15:30:34 Oxygen etCO2 4 Earnest Sullivan for Nasal l/min Teo Roche RN sedation cannula 15:31:02 Vancomycin I.V.P.B 500 Earnest Sullivan used for mg Teo Roche RN procedure 15:31:21 Lidocaine 1% added 20ml Earnest Tinoco used for to vial Melchor Roche MD procedure field 15:31:52 Heparin Flush added 1 Earnest Tinoco used for Bag to bags Melchor Roche MD procedure (1000units/500ml field NS) Procedure Log Time Note 14:53:48 Patient Weight : 151 lbs 14:53:53 Patient Height : 65 inches 14:54:26 Time tracking: Regular hours (M-F 7:00 - 5:00) 14:54:57 Use device set IR Diagnostic 14:54:58 Tegaderm 4 x 4 (1626W) opened to sterile field. 14:54:59 Sterile Angiographic Pack opened to sterile field. 14:55:00 Bag Decanter (2002S) opened to sterile field. 14:55:16 Plan of Care:Hemodynamics will remain stable., Cardiac rhythm will remain stable., Comfort level will be maintained., Respiratory function will remain adequate., Patient/ family verbilizes understanding of procedure., Procedure tolerated without complication., Recovers from procedure without complications.. 14:55:30 Patient received from Med II to IR Alert and oriented. Tansferred to table in Prone position. 14:55:43 Signed procedure consent form obtained from patient. 14:55:49 H&P Date Dictated: 05/30/2018 Within 30 days and on chart.. 14:55:52 Pre-procedure instructions explained to patient. 14:55:53 Pre-op teaching completed and patient verbalized understanding. 14:55:56 Family in waiting room. 14:55:58 Patient NPO since Midnight. 14:56:14 Patient allergic to Penicillins 14:56:22 - 14:56:25 ----Pre-sedation anethsthesia assessment.----see anesthesia notes for monitoring of patient during procedure 14:57:20 IV patent on arrival in Rt subclavian with D5/.45%NaCl at KVO. 14:57:37 Thoracic area was prepped with dura-prep and draped in sterile fashion 14:57:46 - 14:59:30 [employer] AUTOPLEX MIXER W/VHV opened to sterile field. 14:59:31 CLAUDETTE BNCMNT CURV BALLOON [id number] opened to sterile field. 14:59:32 Claudette BONE BX 11GA kit opened to sterile field. 15:19:48 ECG and BP/O2 sat monitors applied to patient. 15:19:49 Vital chart was started 15:19:52 Baseline sample Acquired. 15:19:56 Full Disclosure recording started 15:19:57 - 15:27:03 Physician arrived 15:27:05 --------ALL STOP TIME OUT------ 15:27:07 Final Timeout: patient, procedure, and site verified with staff and physician. All members of the team are in agreement. 15:27:17 Thoracic site verified by team. 15:27:35 Sedation plan: TIVA Medication:Propofol 15:28:24 Procedure started. 15:29:18 Local anesthetic to Thoracic area with Lidocaine 1% by Earnest Roche MD.INITIAL ACCESS ONLY 15:30:34 Oxygen 4 l/min etCO2 Nasal cannula was administered by Laurie Bruce RN; for sedation; 15:31:02 Vancomycin 500 mg I.V.P.B was administered by Laurie Teo RN; used for procedure; 15:31:21 Lidocaine 1% 20ml vial added to field was administered by Earnest Roche MD; used for procedure; 15:31:52 Heparin Flush Bag (1000units/500ml NS) 1 bags added to field was administered by Earnest Roche MD; used for procedure; 15:33:56 Jamshidi needle introduced. 15:41:16 Bone bx needle placed. 15:41:37 Kyphoplasty balloon introduced. 16:00:14 Cement introduced to vertebral body. 16:05:52 Jamshidi needle removed. 16:10:09 Procedure ended.(Physican Out) 16:10:24 Fluoroscopy time 09.10 minutes. 16:10:35 Fluoroscopy dose: 156 mGy 16:10:35 Flurop Dose total: 156 16:10:42 Procedure and supply charges have been captured, reviewed, submitted an d are correct. 16:15:48 Report given to Outpatients. 16:16:15 Patient transfered to [facility] with Bed. 16:16:37 Vital chart was stopped Device Usage Item Name Manufacture Quantity Catalog Hospital Part Current Minim al Lot# / Number Charge Number Stock Stock Serial# Code Tegaderm 4 x 3M 1 [id number] 5 4 (1626W) Sterile Cardinal 1 [id number] 5 Angiographic Health Pack Bag Decanter [employer] 1 2001S [id number] 5 (2001S) [employer] CLAUDETTE [place] 1 [id number] [id number] [id number] 5 AUTOPLEX MIXER W/VHV CLAUDETTE [place] 1 [id number] [id number] [id number] [id number] 9 BNCMNT CURV BALLOON [id number] [place] BONE [place] 1 [id number] [id number] 5 BX 11GA kit Signature Audit [place] Stage Time Signature Unsigned Intra-Procedure 05/30/2018 Alexandra Streeter 4:16:34 PM RT(R) [facility] [address] [place] [address]
--- NOTE | 2018-05-09 16:30 | NUR ---
PATIENT TO UNIT FROM REHAB UNIT. PATIENT IS AWAKE AND ALERT. ORIENTED X 4. SPEECH IS CLEAR. DEMONSTRATES RT SIDE GAZE AND LT SIDE NEGLECT.EQUAL STRENGTH TO UPPER AND LOWER EXTREMITIES. PACEMAKER IMPLANT INTACT. HEART RRR. LUNGS CLEAR HU[place]REY. VITAL SIGNS ARE GOOD. PATIENT DENIES ANY NEEDS OR PAIN. NO FAMILY AT BEDSIDE. WILL CONTINUE WITH PLAN OF CARE.
[2018-05-09 17:32] LABS: BASOPHILS 0.2 % (0-2); EOSINOPHILS 0.3 % (0-7); HEMATOCRIT 33.8 % (36.0-48.0); HEMOGLOBIN 10.5 g/dL (12-16); IMMATURE GRANULOCYTES 0.6 % (0-5); LYMPHOCYTES 12.8 % (15-50); MCH 31.4 pg (26.0-34.0); MCHC 31.1 g/dL (31.0-37.0); MCV 101.2 fL (80.0-100.0); MEAN PLATELET VOLUME 10.1 fL (7.4-10.4); MONOCYTES 8.9 % (2-11); NEUTROPHILS 77.2 % (40-80); PLATELET COUNT 470 10x3/uL (130-400); RBC 3.34 10x6/uL (4.00-5.40); RDW 16.4 % (11.5-14.5)
[2018-05-09 17:46] LABS: INR 3.57 (0.85-1.17); PROTIME 34.9 SECONDS (11.6-15.0)
[2018-05-09 17:49] LABS: ALBUMIN 2.2 g/dL (3.4-5.0); ANION GAP 17.8 mmol/L (8-16); BILIRUBIN - TOTAL 0.3 mg/dL (0.2-1.3); CARBON DIOXIDE 26.5 mmol/L (21.0-32.0); CREATININE - SERUM 4.2 mg/dL (0.6-1.3); POTASSIUM - SERUM 5.3 mmol/L (3.5-5.1); PROTEIN - SERUM 5.4 g/dL (6.4-8.2)
[2018-05-09 17:59] LABS: THYROID STIMULATING HORMONE 4.09 uIU/mL (0.36-3.74)
[2018-05-09 18:16] VITALS: BP 120/38; BMI 23.3
--- NOTE | 2018-05-09 18:30 | NUR ---
DR MICHELE IN ROOM. NEW ORDERS RECIEVED FOR NEW IV WITH NS TO INFUSE. ATTEMPT AT IV PLACEMENT UNSUCCESFUL. REPORT GIVEN TO NIGHT NURSE.
[2018-05-09 19:13] LABS: ERYTHROCYTE SEDIMENTATION RATE 10 mm/hr (0-42)
--- NOTE | 2018-05-09 19:30 | NUR ---
RESUME CARE. PT IN BED A&O NO C/O OF PAIN/ OR DISTRESS AT THIS TIME CALL LIGHT IN REACH WILL CONT TO PATTIE
[2018-05-09 20:00] VITALS: BP 123/46
--- NOTE | 2018-05-09 21:30 | NUR ---
IV PLACED IN LFT FOREARM BY RUDY RODRIGUES
[2018-05-10] VITALS: BP 112/50
[2018-05-10 04:00] VITALS: BP 123/44
[2018-05-10 05:57] LABS: BASOPHILS 0.1 % (0-2); EOSINOPHILS 0.3 % (0-7); HEMATOCRIT 30.9 % (36.0-48.0); HEMOGLOBIN 9.8 g/dL (12-16); IMMATURE GRANULOCYTES 0.3 % (0-5); LYMPHOCYTES 10.9 % (15-50); MCH 31.5 pg (26.0-34.0); MCHC 31.7 g/dL (31.0-37.0); MCV 99.4 fL (80.0-100.0); MEAN PLATELET VOLUME 9.9 fL (7.4-10.4); MONOCYTES 10.8 % (2-11); NEUTROPHILS 77.6 % (40-80); PLATELET COUNT 420 10x3/uL (130-400); RBC 3.11 10x6/uL (4.00-5.40); RDW 16.3 % (11.5-14.5); WBC 9.3 10x3/uL (4.8-10.8)
[2018-05-10 06:06] LABS: INR 3.52 (0.85-1.17); PROTIME 34.5 SECONDS (11.6-15.0)
[2018-05-10 06:14] LABS: CALCIUM 8.1 mg/dL (8.5-10.1); CARBON DIOXIDE 24.9 mmol/L (21.0-32.0); CREATININE - SERUM 3.9 mg/dL (0.6-1.3); POTASSIUM - SERUM 4.9 mmol/L (3.5-5.1)
--- NOTE | 2018-05-10 08:48 | NUR ---
PT NEEDS ASSISTANCE WITH MEALS. GENERAL INTERNAL MEDICINE PHYSICIAN ASSISTED PT WITH FEEDING AND PT ATE TWO BITES OF EGGS AND STATED TO HER "I DON'T WANT ANYMORE BECAUSE I'M GONNA BE SICK."
[2018-05-10 09:18] VITALS: BP 139/50
[2018-05-10 09:39] VITALS: BMI 23.2
--- NOTE | 2018-05-10 10:00 | NUR ---
RESTING QUIETLY NAD NOTED
--- NOTE | 2018-05-10 10:38 | NUR ---
PT'S FAMILY AT BEDSIDE THEY STATE THEY ARE IN TOWN FROM [facility]. QUESTIONS ANSWERED. BED LOW. CL IN REACH.
--- NOTE | 2018-05-10 11:20 | NUR ---
PER MAGDA GOSS SHE GAVE ME V.O. TO IN AND OUT CATH PT TO COLLECT UA. IN AND OUT CATH DONE AND UA COLLECTED. PT TOLERATED WELL.
--- NOTE | 2018-05-10 11:41 | NUR ---
LEFT FA 22G IV INFILTRATED. DC'D WITH CATH INTACT. RIGHT FA 20G IV INSERTED NS INFUSING AT 100.
[2018-05-10 12:13] LABS: APPEARANCE HAZY (CLEAR); BILIRUBIN NEGATIVE (NEGATIVE); COLOR YELLOW (YELLOW); GLUCOSE NEGATIVE (NEGATIVE); KETONE NEGATIVE (NEGATIVE); NITRITE POSITIVE (NEGATIVE); PROTEIN TRACE mg/dL (NEGATIVE); SPECIFIC GRAVITY 1.015 (1.005-1.020); UROBILINOGEN NORMAL (NORMAL)
[2018-05-10 12:14] LABS: BACTERIA MODERATE /hpf (NONE SEEN); EPITHELIAL CELLS 0-5 /hpf (0-5); MUCUS <1+ /lpf (NONE SEEN)
--- NOTE | 2018-05-10 12:30 | NUR ---
FAMILY FED PT LUNCH.
[2018-05-10 15:02] VITALS: BP 121/49
[2018-05-10 15:10] VITALS: BP 118/53
--- NOTE | 2018-05-10 15:43 | NUR ---
EOSINOPHIL URINE ORDERED. IN AND OUT DONE EARLIER TODAY FOR US. SPOKE WITH LAB AND THEY STATED THEY CAN USE THE SAME URINE FOR THE EOSINOPHIL URINE ORDERED.
--- NOTE | 2018-05-10 16:59 | NUR ---
PT RECEIVED BED BATH BY CHARGE WEIGHER AND COMPLETE BED LINEN CHANGE.
[2018-05-10 17:48] VITALS: Ht 165.1 cm; Wt 65.4 kg
--- NOTE | 2018-05-10 18:06 | NUR ---
ABBIE QUINN AND PT'S IS PATIENTS POA AND WANTS TO DISCUSS DISCHARGE PLANNING WITH PERSON NEED BE HIS PHONE NUMBER IS [phone] HIS IS NOLA QUINN AND HER NUMBER IS [phone].
--- NOTE | 2018-05-10 19:35 | NUR ---
RESUME CARE. PT IN BED ALERT BREATHS SOUNDS EVEN NO C/O OF PAIN OR DISTRESS AT THIS TIME CALL LIGHT IN REACH WILL CONT MONTIOR
[2018-05-11] VITALS: BP 148/57
--- NOTE | 2018-05-11 00:30 | NUR ---
CHECKED RESIDUAL PULLED BACK 10ML , FLUSHED WITH 60ML INCREASED FEED TO 30 PT TOLERATED WILL
[2018-05-11 04:00] VITALS: BP 145/73
[2018-05-11 08:31] VITALS: BP 149/64
[2018-05-11 08:59] LABS: BASOPHILS 0.2 % (0-2); EOSINOPHILS 1.1 % (0-7); HEMATOCRIT 31.1 % (36.0-48.0); HEMOGLOBIN 9.8 g/dL (12-16); IMMATURE GRANULOCYTES 0.7 % (0-5); LYMPHOCYTES 15.6 % (15-50); MCH 31.6 pg (26.0-34.0); MCHC 31.5 g/dL (31.0-37.0); MCV 100.3 fL (80.0-100.0); MEAN PLATELET VOLUME 9.6 fL (7.4-10.4); NEUTROPHILS 71.4 % (40-80); PLATELET COUNT 404 10x3/uL (130-400); RDW 16.2 % (11.5-14.5); WBC 8.3 10x3/uL (4.8-10.8)
[2018-05-11 09:31] LABS: ALBUMIN 2.1 g/dL (3.4-5.0); ANION GAP 13.4 mmol/L (8-16); BILIRUBIN - TOTAL 0.35 mg/dL (0.2-1.3); CALCIUM 8.2 mg/dL (8.5-10.1); CARBON DIOXIDE 25.1 mmol/L (21.0-32.0); MAGNESIUM - SERUM 1.8 mg/dL (1.8-2.4); PHOSPHOROUS 2.7 mg/dL (2.5-4.9); POTASSIUM - SERUM 4.5 mmol/L (3.5-5.1); PROTEIN - SERUM 5.7 g/dL (6.4-8.2)
[2018-05-11 09:33] LABS: CREATININE - SERUM 2.8 mg/dL (0.6-1.3)
[2018-05-11 09:34] LABS: PROTIME 30.4 SECONDS (11.6-15.0)
--- NOTE | 2018-05-11 09:46 | NUR ---
PT MORE ALERT AND ORIENTED TODAY. PT WONDERS IF SHE HAS HAD A STROKE LAST WEEK AND THAT'S WHAT HAS CAUSED THIS. ASKED PT IF SHE HAS HAD A STROKE BEFORE SHE STATED "YES YEARS AGO AND IT AFFECTED MY RIGHT HAND." I STATED TO PT THE CT OF HER HEAD SHE HAD ON 05/07/81 WAS NORMAL. SHE STATED "OK WELL THAT'S GOOD BECAUSE I'VE BEEN WORRIED ABOUT IT." PT THEN ALSO SHOWS CONCERNS REGARDING DISCHARGE PLANNING AND WHERE SHE'LL GO. SHE STATES "I THINK A [facility] IS BEST FOR ME." WHEN I SPOKE WITH FAMILY YESTERDAY THEY WERE ALSO WANTING TO SPEAK WITH CASE MANAGEMENT REGARDING PT'S DISCHARGE PLANNING. WILL SPEAK WITH MD ABOUT PLACING A CASE MANAGEMENT CONSULT.
--- NOTE | 2018-05-11 11:19 | NUR ---
SPOKE WITH FAUSTINA GOSS AND SHE STATED I CAN PUT IN A PHYSICAL THERPY AND CASE MANAGEMENT CONSULT.
[2018-05-11 13:05] VITALS: BP 138/86
--- NOTE | 2018-05-11 13:28 | NUR ---
PT EVALUATED BY DONNA FROM PHYSICAL THERAPY. HE STATES PT WON'T BE ABLE TO WALK WITH PHYSICAL THERAPY. HE ALSO STATES SHE IS A MAX/TOTAL ASSIST AND FAMILY WAS PRESENT DURING EVALUATION.
--- NOTE | 2018-05-11 15:12 | NUR ---
DR. ESQUEDA IN PT'S ROOM SPEAKING WITH PT AND FAMILY.
--- NOTE | 2018-05-11 15:33 | NUR ---
Nutrition consult: Received order for TF. When NGT placed, start Osmolite 1.0 gloria @ 20 ml/hr. Check residuals per protocol. If residuals are < 125 ml, increase TF 10 ml Q 6 hours to goal rate of 65 ml/hr Flush tube with 60 mlH2O q [address]N following.
--- NOTE | 2018-05-11 15:50 | NUR ---
PT AWARE OF NG TUBE PLACEMENT AND TF NEEDING TO BE STARTED. PT GAVE VERBAL CONSENT.
--- NOTE | 2018-05-11 17:05 | NUR ---
NGT TUB INSERTED IN RIGHT NARE. LISTENED WITH STETHOSCOPE AT ABDOMEN AND AIR HEARD. STAT XRAY ORDERED.
--- NOTE | 2018-05-11 17:06 | NUR ---
ORDER RECIEVED FOR NG TUBE TO BE DROPPED FOR A FEEDING TUBE. MEASURED FOR PLACEMENT. PROCEDURE EXPLAINED TO PT. NG INSERTED VIA L NARES. PT IS SWALLOWING WATER AND TUBE IS PROGRESSING. AIR INSERTED FOR PLACEMENT. AIR HEARD. XRAY ORDERED TO CONFIRM. NG TAPED.
--- NOTE | 2018-05-11 17:20 | NUR ---
SPOKE WITH JOEL THEY STATE THYE WILL OCME DO IT STAT.
--- NOTE | 2018-05-11 17:21 | NUR ---
SPOKE WITH DIETARY THEY STATE THEY WILL BRING OSMOLITE 1.0.
--- NOTE | 2018-05-11 17:27 | NUR ---
XRAY IN PT'S ROOM.
--- NOTE | 2018-05-11 17:30 | NUR ---
PT LEFT VIA BED FOR CT SCAN.
--- NOTE | 2018-05-11 17:34 | NUR ---
REJI FROM NUCLEAR MEDICINE STATES BONE SCAN WILL BE DONE IN TOMORROW.
--- NOTE | 2018-05-11 17:41 | NUR ---
SPOKE WITH XR THEY STATED THEY WILL CALL ME WITH RESULTS AND IF WE CAN USE NG TUBE OR NOT.
--- NOTE | 2018-05-11 17:46 | MORECARE ---
CASE MANAGEMENT DISCHARGE SUMMARY PATIENT: MADELEINE WONG UNIT: [id number] ADM DATE: 05/09/18 AGE: 87 : [birth year] SEX: F ROOM/BED: D.2112 AUTHOR: BELINDA DICKINSON PHYSICIAN: REFERRING PHYSICIAN: LEXA BENAVIDES MD DATE OF SERVICE: 05/11/18 Discharge Plan Patient Name: MADELEINE WONG [facility] [facility] 1930 Planned Disposition: Fpc Facility Anticipated Discharge Date: Discharge Date: Expected LOS: Initial Reviewer: [email or web address] Initial Review Date: 05/09/2018 Generated: 05/11/18 6:46 pm DCPIA - Discharge Planning Initial Assessment Updated by [email or web address]: Akhil Song on 05/11/18 5:43 pm * Is the patient Alert and Oriented? Yes * How many steps to enter\exit or inside your home? NONE * PCP DR. PONCE * Pharmacy [facility] * Preadmission Environment Acute Inpatient Rehab * Facility Name [facility] * ADLs Total Dependent * Equipment None * Other Equipment NO MEDICAL EQUIPMENT PROVIDER PREFERECE * List name and contact numbers for known caregivers / representatives who currently or will assist patient after discharge: KARINA QUINN, MANUEL/POA, * Verbal permission to speak to the caregivers and representatives has been obtained from the patient. Yes * Community resources currently utilized None * Please name any agencies selected above. NONE * Additional services required to return to the preadmission environment? Yes * Can the patient safely return to the preadmission environment? Yes * Has this patient been hospitalized within the prior 30 days at any hospital? Yes Patient Name: MADELEINE WONG Page [phone] at 1746 All edits/amendments must be made on the electronic document DICTATION DATE: 05/11/181744 MACHINE OPERATOR FARMWORKER: JULIA 05/11/181744 RPT#: [id number] DC DATE: STATUS: ADM IN [facility] [address] [place] [address] END OF REPORT
--- NOTE | 2018-05-11 17:52 | NUR ---
PT RETURNED FROM CT VIA BED.
--- NOTE | 2018-05-11 17:54 | MORECARE ---
CASE MANAGEMENT DISCHARGE SUMMARY PATIENT: MADELEINE WONG UNIT: [id number] ADM DATE: 05/09/18 AGE: 87 : [birth year] SEX: F ROOM/BED: D.2112 AUTHOR: BELINDA DICKINSON PHYSICIAN: REFERRING PHYSICIAN: LEXA BENAVIDES MD DATE OF SERVICE: 05/11/18 Discharge Plan Patient Name: MADELEINE WONG [facility] [facility] 1930 Planned Disposition: Halfway Facility Anticipated Discharge Date: Discharge Date: Expected LOS: Initial Reviewer: [email or web address] Initial Review Date: 05/09/2018 Generated: 05/11/18 6:54 pm Comments DCP- Discharge Planning Updated by [email or web address]: Akhil Song on 05/11/18 4:[address] Patient Name: MADELEINE WONG Admission Status: Elective Accout number: [id number] Admission Date: 05-09-2018 : 1930 Admission Diagnosis:ACUTE KIDNEY FAILURE, UNSPECIFIED Attending: LEXA BENAVIDES Current LOS: 2 Anticipated DC Date: Planned Disposition: Halfway Facility Primary Insurance: [employer] CHOICE PPO MCR ADVANT PLANNED EXTERNAL PROVIDER: [facility], MEDICARE REHAB BED Discharge Planning Comments: CM RECEIVED ORDER INDICATING PT WANTS SHELTER CARE. CM MET WITH PT AND SON IN ROOM TO DISCUSS DISCHARGE PLANNING AND NEEDS. PT REPORTS THAT BEFORE GETTING SICK, SHE WAS LIVING AT HOME WITH HER SON, INDEPENDENT IN HER CARE. PT REPORTS SHE DID TELL THE DOCTOR THAT SHE WOULD BE BETTER OFF IN A SHELTER BEFORE FAMILY ARRIVED TODAY. PT WANTS REHAB, NOT ELECTRONIC LAB TECHNICIAN CARE. PT HAS NO MEDICAL EQUIPMENT AND NO OUTSIDE SERVICES ASSISTING IN THE HOME. CM DISCUSSED AVAILABILITY OF HOME HEALTH, REHAB SERVICES AND MEDICAL EQUIPMENT. PT'S SON INITIALLY DECLINED TO PARTICIPATE IN DISCHARGE PLANNING REPORTING PT WAS SENT TO REHAB [facility] WHEN SHE WAS NOT ABLE TO WALK OR EVEN FEED HERSELF. SON WANTS PT CONSIDERED FOR INPATIENT REHAB AGAIN STATING THEY SENT HER BACK HERE BECAUSE SHE USED ALL OF HER DAYS DOWN THERE. PT DOES NOT THINK SHE CAN PARTICIPATE IN THREE HOURS OF PROGRESSIVE THERAPY PER DAY. CM EXPLAINED THAT IF PT IS NOT ABLE TO PARTICIPATE IN THE THREE HOURS OF PROGRESSIVE THERAPY, IS NOT ABLE TO STAND OR FEED HERSELF, SHE IS NOT GOING TO BE APPROPRIATE FOR READMISSION TO INPATENT REHAB. CM DISCUSSED AVAILABILITY OF LONGTERM REHAB SERVICES AND PROVIDED CHOICE FORM. PT'S SON REPORTS HE ALREADY SIGNED ONE OF THESE FOR [facility] THE LAST VISIT AND SPEAKING WITH THIS CM. CM EXPLAINED A NEW ONE WAS NEEDED. PT'S SON SIGNED THE FORM AND DOES NOT WANT PT SENT TO REHAB BEFORE SHE IS STABLE. CM EXPLAINED THAT ALL DOCTORS WOULD HAVE TO INDICATE PT IS READY TO DISCHARGE AND CM IS ONLY WANTING TO BE PROACTIVE ON PT'S BEHALF FOR DISCHARGE PLANNING AND SECURE REHAB BED AHEAD OF TIME TO ENSURE THAT PT IS ABLE TO GET INTO [facility] WHEN DISCHARGED [facility] POPULAR [facility] AND DOES FILL UP. PT'S SON WILL WANTS PT TO BE STABLE FOR DISCHARGE FOR CM TO SEND REFERRALS. CHOICE SIGNED. CM PROVIDED PT'S SON WITH CM CONTACT INFORMATION. CM TO SEND REFERRAL TO [facility] WHEN PROJECTED DISCHARGE DATE IS KNOWN, PT'S SON DOES NOT WANT REHAB REFERRAL SENT OUT PRIOR TO PT'S MEDICAL STABILITY FOR DISCHARGE TO REHAB. Qa Consultant: Akhil Song DCPIA - Discharge Planning Initial Assessment Updated by [id number]: Akhil Song on 05/11/18 5:43 pm * Is the patient Alert and Oriented? Yes * How many steps to enter\exit or inside your home? NONE * PCP DR. PONCE * Pharmacy [facility] * Preadmission Environment Acute Inpatient Rehab * Facility Name [facility] * ADLs Total Dependent * Equipment None * Other Equipment NO MEDICAL EQUIPMENT PROVIDER PREFERECE * List name and contact numbers for known caregivers / representatives who currently or will assist patient after discharge: KARINA QUINN, SON/POA, * Verbal permission to speak to the caregivers and representatives has been obtained from the patient. Yes * Community resources currently utilized None * Please name any agencies selected above. NONE * Additional services required to return to the preadmission environment? Yes * Can the patient safely return to the preadmission environment? Yes * Has this patient been hospitalized within the prior 30 days at any hospital? Yes External Providers External Provider: [facility] [place] Next Contact Date: 05/14/2018 Service Request Date: Service Type: Resolution: Reviewer: Comments: Coverage Notice Reviewer: [email or web address] - Akhil Song Notice Issued Date-Time: 05/11/2018 13:00 Notice Type: Patient Choice Letter Notice Delivered To: Family Member Relationship to Patient: Son Organic Gardening Teacher Name: KARINA QUINN Delivery Method: HAND - Hand Delivered Dawna Days: Prior Verbal Notification: Recipient Understood Notice: Yes Recipient Signature: Yes Med Rec Note Co-signed by Attending: Coverage Notice Comment: [facility] Last DP export: 05/11/18 4:46 pm Patient Name: MADELEINE WONG Page [phone] at 1754 All edits/amendments must be made on the electronic document DICTATION DATE: 05/11/181752 SEAM PRESSER: JULIA 05/11/181752 RPT#: [id number] DC DATE: STATUS: ADM IN [facility] [address] [place] [address] END OF REPORT
--- NOTE | 2018-05-11 17:59 | NUR ---
XR SHOWED SATISFACTORY PLACEMENT OF NG TUBE. WAITING ON DIETARY TO BRING OSMOLITE 1.0.
--- NOTE | 2018-05-11 18:06 | NUR ---
CALLED DIETARY AND THEY STATE THAT THE PERSON ALREADY LEFT WITH IT.
--- NOTE | 2018-05-11 18:33 | NUR ---
NG TUBE FLUSHED WITH 20ML OF WATER. NG TUBE FEEDINGS SET ON KANGAROO PUMP PER ODERS OF OSMOLITE 1.0 AT 20ML/HR AND FLUSH 60ML OF WATER Q4H AND TF STARTED. PT HOB AT 35 DEGREES. WILL CONTINUE TO MONITOR.
--- NOTE | 2018-05-11 19:30 | NUR ---
RESUME CARE, PT IN BED ALERT NG TUBE IN PLACE, ASKED PT HOW SHE WAS SHE FEELING STATED NOT TO GOOD SHE WAS UNCOMFORTABLE, HAD TECH TO ASSIST ME WITH ADJUSTING IN BED AND NOTICE HER FIRST STEP MATTRESS WAS UNPLUGED, READJUSTING AND PLUGGING UP MATTRESS PT STATED SHE FELT BETTER PT C/O PAIN IN HER BACK ADVISED HER O WOULD BRING SOMETHING FOR PAIN AFTER I ROUNDED SHE VOICED UNDERSTANDING NO OTHER COMPLAINTS OR DISTRESS AT THIS TIME CALL LIGHT IN REACH WILL CONT TO MONITOR
[2018-05-11 21:08] VITALS: BP 100/54
--- NOTE | 2018-05-12 03:01 | NUR ---
RESTING WITH EYES CLOSED. RR EVEN U/L. NO S/S OF DISCOMFORT. CL IN REACH.
--- NOTE | 2018-05-12 04:37 | NUR ---
FLUSHED NG TUBE WITH 60ML, HUNG NEW BAGS WITH FEEDING OSMOLITE RUNNING @30ML
[2018-05-12 08:05] LABS: BASOPHILS 0.1 % (0-2); EOSINOPHILS 0.6 % (0-7); HEMATOCRIT 28.5 % (36.0-48.0); IMMATURE GRANULOCYTES 1.6 % (0-5); MCH 31.6 pg (26.0-34.0); MCHC 31.6 g/dL (31.0-37.0); MEAN PLATELET VOLUME 9.8 fL (7.4-10.4); MONOCYTES 12.4 % (2-11); NEUTROPHILS 69.3 % (40-80); RBC 2.85 10x6/uL (4.00-5.40); RDW 16.1 % (11.5-14.5); WBC 6.8 10x3/uL (4.8-10.8)
[2018-05-12 08:07] LABS: PLATELET COUNT 323 10x3/uL (130-400)
[2018-05-12 08:20] LABS: ALBUMIN 1.8 g/dL (3.4-5.0); ANION GAP 16.5 mmol/L (8-16); BILIRUBIN - TOTAL 0.21 mg/dL (0.2-1.3); CALCIUM 7.6 mg/dL (8.5-10.1); CARBON DIOXIDE 19.8 mmol/L (21.0-32.0); CREATININE - SERUM 1.9 mg/dL (0.6-1.3); POTASSIUM - SERUM 4.3 mmol/L (3.5-5.1)
[2018-05-12 08:24] LABS: INR 2.69 (0.85-1.17); PROTIME 27.9 SECONDS (11.6-15.0)
[2018-05-12 09:01] VITALS: BP 173/81
--- NOTE | 2018-05-12 09:57 | NUR ---
Rory ESPINOSA CRIME SCENE EXAMINER INTO SEE PATIENT.
--- NOTE | 2018-05-12 10:14 | NUR ---
NGT INTACT. TF INFUSING. CALL LIGHT IN REACH. WILL MONITOR NEEDS.
--- NOTE | 2018-05-12 10:20 | NUR ---
LOVE CONSULT ORDERED. Amina ESPINOSA APN
--- NOTE | 2018-05-12 13:48 | NUR ---
Calorie count ordered Date: 05/11/18: Breakfast: 0 calories Lunch: 10 calories Dinner: Not recorded RD following
--- NOTE | 2018-05-12 13:53 | NUR ---
PATIENT TAKEN DOWN FOR WHOLE BODY BONE SCAN
[2018-05-12 14:03] VITALS: BP 175/82
--- NOTE | 2018-05-12 14:29 | NUR ---
PATIENT BACK IN ROOM AFTER WHOLE BODY BONE SCAN. IV NORMAL SALINE RECONNECTED. NO AT 75CC/HR RUNNING. G TUBE CHECKED FOR RESIDUAL. NO RESIDUAL. FEEDING ADVANCED TO 65CC/HR WITH 100CC FLUSH Q 4 HOURSE.
--- NOTE | 2018-05-12 16:16 | NUR ---
PATIENT TAKEN DOWN TO DIALYSIS CLINIC BY WHEELCHAIR
--- NOTE | 2018-05-12 17:22 | NUR ---
IV PAIN MEDICATION BROUGHT DOWN TO DIALYSIS CLINIC FOR REQUEST OF PAIN MEDICATION FOR RIGHT THIGH LEG
[2018-05-12 17:44] VITALS: BP 126/66
--- NOTE | 2018-05-12 19:30 | NUR ---
RECIEVED UP IN BED WITH HOB ELEVATED. NG TUBE IN PLACE WITH OSMOLITE 1.0 INFUSING AT 65ML/HR AND 100ML H20 FLUSH Q4 HR. AROUSES WITH VERBAL STIMULI. DENEIS ANY NEEDS AT THIS TIME. WILL CONT. POC.
[2018-05-12 20:23] VITALS: BP 132/65
[2018-05-13 01:46] VITALS: BP 157/61
--- NOTE | 2018-05-13 04:08 | NUR ---
RESTING IN BED WITH EYES CLOSED AT THIS TIME. HOB ELEVATED. NG INFUSINING OSMOLITE AT 65CC/HR. WILL CONT. POC.
[2018-05-13 05:34] VITALS: BP 181/65
--- NOTE | 2018-05-13 08:02 | NUR ---
PATIENT ALERT WITH SOME FORGETFULLNESS NOTED. ON A FIRST STEP MATTRESS. CALL LIGHT WITHIN REACH. VOICES NO NEEDS AT THIS TIME. WILL CONTINUE WITH PLAN OF CARE.
--- NOTE | 2018-05-13 08:03 | NUR ---
TF INFUSING PER NGT. SILVER SOLUTION MIXER AT BS. CALL LIGHT IN REACH. WILL CONT. PLAN OF CARE.
[2018-05-13 08:31] VITALS: BP 177/82
[2018-05-13 08:55] LABS: BASOPHILS 0.2 % (0-2); HEMATOCRIT 30.1 % (36.0-48.0); HEMOGLOBIN 9.3 g/dL (12-16); IMMATURE GRANULOCYTES 1.2 % (0-5); LYMPHOCYTES 10.5 % (15-50); MCH 31.1 pg (26.0-34.0); MCHC 30.9 g/dL (31.0-37.0); MCV 100.7 fL (80.0-100.0); MEAN PLATELET VOLUME 10.2 fL (7.4-10.4); MONOCYTES 10.5 % (2-11); NEUTROPHILS 76.6 % (40-80); RBC 2.99 10x6/uL (4.00-5.40); RDW 16.4 % (11.5-14.5)
[2018-05-13 08:56] LABS: PLATELET COUNT 411 10x3/uL (130-400); WBC 10.4 10x3/uL (4.8-10.8)
[2018-05-13 09:11] LABS: INR 1.69 (0.85-1.17); PROTIME 19.3 SECONDS (11.6-15.0)
[2018-05-13 09:22] LABS: ALBUMIN 1.8 g/dL (3.4-5.0); ANION GAP 13.1 mmol/L (8-16); BILIRUBIN - TOTAL 0.26 mg/dL (0.2-1.3); CALCIUM 7.5 mg/dL (8.5-10.1); CARBON DIOXIDE 20.3 mmol/L (21.0-32.0); POTASSIUM - SERUM 4.4 mmol/L (3.5-5.1); PROTEIN - SERUM 5.2 g/dL (6.4-8.2)
[2018-05-13 09:26] LABS: CREATININE - SERUM 1.4 mg/dL (0.6-1.3); PHOSPHOROUS 1.6 mg/dL (2.5-4.9)
--- NOTE | 2018-05-13 10:12 | NUR ---
NEW ORDERS FOR A REGULAR RENAL DIET.
[2018-05-13 11:56] VITALS: BP 154/87
--- NOTE | 2018-05-13 15:05 | NUR ---
NEW ORDER RECEIVED TO STOP IV NS AT 75CC/HR
[2018-05-13 15:35] VITALS: BP 109/76
--- NOTE | 2018-05-13 19:27 | NUR ---
RECIEVED UP IN BED WITH HOB ELEVATED. AROUSES WITH VERBAL STIMULI. N/B TUBE IN PLACE AND OSMOLITE 1.0 INFUSING AT 65CC/HR. ABD SOFT AND NONTENDER. 1ST STEP OVERLAY IN PLACE. DENIES ANY NEEDS. WILL CONT. POC.
[2018-05-13 20:00] VITALS: BP 179/81
--- NOTE | 2018-05-13 21:32 | NUR ---
ORAL CARE PROVIDED BY THIS NURSE. PT STATES IT FEELS MUCH BETTER.
[2018-05-14] VITALS: BP 137/80
[2018-05-14 04:00] VITALS: BP 161/62
[2018-05-14 05:49] LABS: BASOPHILS 0.2 % (0-2); EOSINOPHILS 0.7 % (0-7); HEMATOCRIT 32.2 % (36.0-48.0); HEMOGLOBIN 10.1 g/dL (12-16); IMMATURE GRANULOCYTES 2.4 % (0-5); LYMPHOCYTES 11.6 % (15-50); MCH 31.3 pg (26.0-34.0); MCHC 31.4 g/dL (31.0-37.0); MCV 99.7 fL (80.0-100.0); MEAN PLATELET VOLUME 9.9 fL (7.4-10.4); MONOCYTES 9.9 % (2-11); NEUTROPHILS 75.2 % (40-80); RBC 3.23 10x6/uL (4.00-5.40); RDW 16.2 % (11.5-14.5); WBC 12.9 10x3/uL (4.8-10.8)
[2018-05-14 06:05] LABS: PROTIME 15.8 SECONDS (11.6-15.0)
[2018-05-14 06:06] LABS: ANION GAP 14.5 mmol/L (8-16); BILIRUBIN - TOTAL 0.36 mg/dL (0.2-1.3); CALCIUM 8.1 mg/dL (8.5-10.1); CARBON DIOXIDE 23.5 mmol/L (21.0-32.0); CREATININE - SERUM 1.2 mg/dL (0.6-1.3); PROTEIN - SERUM 5.7 g/dL (6.4-8.2)
[2018-05-14 06:36] LABS: PLATELET COUNT 508 10x3/uL (130-400)
[2018-05-14 06:43] LABS: INR 1.32 (0.85-1.17)
--- NOTE | 2018-05-14 07:15 | NUR ---
RECIEVED PATIENT CARE/REPORT WITH PATIENT RESTING IN BED, SUPINE, LIGHTS AND TV OFF. REPORT GIVEN DID NOT INCLUDE THE ELECTROLYT PROTOCOL. LABS ORDERED PER PROTOCOL. PATIENT REPORT BACK PAIN. NG TUBE TO LEFT NARE INFUSING AT 65 ML/HR. CALL LIGHT IN REACH
--- NOTE | 2018-05-14 07:40 | NUR ---
STOOL COLLECTED AND TAKEN TO THE LAB AT THIS TIME
[2018-05-14 08:16] LABS: MAGNESIUM - SERUM 1.8 mg/dL (1.8-2.4)
--- NOTE | 2018-05-14 08:27 | NUR ---
CALLED TO ROOM, PATIENT TO COMPLAIN OF BEING NAUSEATED. NO MEDS ORDERED FOR THIS. WILL PLACE CALL TO MD.
[2018-05-14 08:30] LABS: PHOSPHOROUS 1.4 mg/dL (2.5-4.9)
--- NOTE | 2018-05-14 08:34 | NUR ---
CRITICAL PHOS 1.4. DR MICHELE HERE AND MADE AWARE OF THIS. HE ALSO IS MADE AWARE OF NEEDING NAUSEA MEDICATION.
[2018-05-14 08:37] VITALS: BP 150/76
--- NOTE | 2018-05-14 09:18 | NUR ---
CLEANED AGAIN FOR INCONT. OF URINE. COMPLETE LINEN CHANGE DONE.
--- NOTE | 2018-05-14 10:00 | NUR ---
LAB RESULTS RECIEVED, AND PHOS LEVEL 1.4 (CL). MAY 13, 2018 PHOS RESULT WAS 1.6 (L)AND WENT UNTREATED. WILL CONT TO MONITOR. LABS ORDERED FOR NEXT 5 DAYS PER PROTOCOL
--- NOTE | 2018-05-14 10:05 | NUR ---
PER DR MICHELE, THE PATIENT WILL HAVE IV PHOS TO COVER CRITICAL LOW RESULT VS FOLLOR THE PO PACKETS.
--- NOTE | 2018-05-14 10:50 | NUR ---
IN AND OUT CATH DONE ORDERED. 350 CC SLIGHTY CLOUDY URINE.
--- NOTE | 2018-05-14 11:00 | NUR ---
DR LEIJA IN ROOM AT THIS TIME WITH JUSTYNA COOK NURSE FROM [facility]. ASKED IF THEY WANTED US TO MAKE HER NPO AND SHE SAID THAT SHE WILL LET US KNOW.
[2018-05-14 11:13] LABS: AMORPHOUS SEDIMENT <1+ /lpf (NONE SEEN); APPEARANCE SL CLDY (CLEAR); BACTERIA MODERATE /hpf (NONE SEEN); BILIRUBIN NEGATIVE (NEGATIVE); COLOR YELLOW (YELLOW); EPITHELIAL CELLS RARE /hpf (0-5); GLUCOSE NEGATIVE (NEGATIVE); KETONE NEGATIVE (NEGATIVE); MUCUS <1+ /lpf (NONE SEEN); NITRITE NEGATIVE (NEGATIVE); PROTEIN NEGATIVE (NEGATIVE); RED CELLS - URINE 0-5 /hpf (0-5); SPECIFIC GRAVITY 1.015 (1.005-1.020); UROBILINOGEN NORMAL (NORMAL); WHITE CELLS - URINE 25-50 /hpf (0-5)
--- NOTE | 2018-05-14 11:46 | NUR ---
NG TUBE FEEDING FLUSHED WITH WATER AND CLAMPED.
[2018-05-14 11:56] VITALS: BP 160/91
--- NOTE | 2018-05-14 12:25 | NUR ---
CALLED AND SPOKE TO YINKA IN THE KITCHEN AND REQUESTED OSMOLIT 1.0 TO BE SENT UP FOR THE PATIENT.
--- NOTE | 2018-05-14 14:10 | NUR ---
ORDER TO RESUME PREVIOUS DIET AND RESTART NG FEEDING OF OSMOLITE, RESTARTED FEED TO NG TUBE AT THIS TIME
[2018-05-14 15:20] VITALS: BP 146/58
--- NOTE | 2018-05-14 16:27 | NUR ---
PATIENT IS PLACED ON LEFT SIDE WITH PILLOW BEHIND BACK FOR COMFORT. ROLLED UP SHEET PLACED IN BETWEEN KNEES FOR COMFORT.
--- NOTE | 2018-05-14 16:36 | NUR ---
THE PATIENT IS MORE CONFUSED, NOT KNOWING WHERE SHE IS, AND SHE IS SPEAKING OUT TO HER DOG. WILL CONT TO MONITOR
[2018-05-14 20:00] VITALS: BP 117/62
--- NOTE | 2018-05-14 21:33 | NUR ---
PT ALERT AND ORIENTED WHEN ENTERING THE ROOM. PT STATES NO PAIN AT THIS TIME. PT HAS NGT FOR NURTIRION WITH OSMOLITE 1.0 INFUSING CURRENTLY AT 60CC PER HOUR. WILL FLUSH ACCORDING TO ORDER. PT HAS SALINE LOCKED RIGHT HAND IV. PT ON FIRST STEP OVERLAY MATTRESS. NO DISTRESS. SLIGHT HAND CONTRACTURES NOTED TO THE RIGHT HAND/ARM. HEELS ARE BRIDGED WITH PINK BOOTIES ON. NO DISTRESS NOTED AT THIS TIME.
--- NOTE | 2018-05-14 21:41 | NUR ---
PT APPEARS TO BE CONFUSED AT TIMES. STATES SHE KNOWS HOW TO TAKE MEDS BUT HAS TO BE PROMPTED BY ASKING HER TO OPEN HER MOUTH TO ACTUALLY TAKE MEDICATIONS. PT DID TAKE AND TOLERATED WELL. NO OTHER ISSUES AT THIS TIME. ABDOULAYE ALARM IS ON FOR FALL PRECAUTIONS. FSBS 131. REPOSITIONED TO RIGHT SIDE FOR COMFORT. WILL CONTINUE TO MONITOR.
--- NOTE | 2018-05-14 23:26 | NUR ---
MACHINE FEATHEREDGER AND REDUCER AT BEDSIDE TO OBTAIN VITALS, CALL LIGHT IN REACH. WILL CONTINUE WITH PLAN OF CARE.
[2018-05-15] VITALS: BP 157/70
--- NOTE | 2018-05-15 02:45 | NUR ---
REPLACED TAPE ON NGT.
--- NOTE | 2018-05-15 03:28 | NUR ---
PT COMPLAINING OF BACK PAIN. ADMINISTERED PRN PAIN MEDICINE AND REPOSITIONED PT MULTIPLE TIMES IN ORDER TO BE COMFORTABLE.
[2018-05-15 04:00] VITALS: BP 139/68
[2018-05-15 05:32] LABS: BASOPHILS 0.2 % (0-2); HEMATOCRIT 30.9 % (36.0-48.0); HEMOGLOBIN 9.8 g/dL (12-16); MCH 31.5 pg (26.0-34.0); MCHC 31.7 g/dL (31.0-37.0); MCV 99.4 fL (80.0-100.0); MEAN PLATELET VOLUME 10.1 fL (7.4-10.4); MONOCYTES 10.8 % (2-11); PLATELET COUNT 446 10x3/uL (130-400); RBC 3.11 10x6/uL (4.00-5.40); RDW 16.4 % (11.5-14.5); WBC 10.2 10x3/uL (4.8-10.8)
[2018-05-15 06:05] LABS: ALBUMIN 1.8 g/dL (3.4-5.0); ANION GAP 12.4 mmol/L (8-16); BILIRUBIN - TOTAL 0.25 mg/dL (0.2-1.3); CALCIUM 7.9 mg/dL (8.5-10.1); CARBON DIOXIDE 24.9 mmol/L (21.0-32.0); CREATININE - SERUM 1.3 mg/dL (0.6-1.3); MAGNESIUM - SERUM 1.9 mg/dL (1.8-2.4); POTASSIUM - SERUM 5.3 mmol/L (3.5-5.1); PROTEIN - SERUM 5.7 g/dL (6.4-8.2)
[2018-05-15 06:22] LABS: PHOSPHOROUS 2.9 mg/dL (2.5-4.9)
[2018-05-15 08:19] VITALS: BP 131/54
--- NOTE | 2018-05-15 11:42 | NUR ---
ORAL AMD MOUTH CARE PERFORMMED. PATIENT TOOK SEVERAL SMALL SIPS OF WATER USING A STRAW. HEAD TILT CHIN POSITION TO SWALLOW. TOLERATED WELL. RE-POSTIONED TO LEFT SIDE WITH PILLOWS FOR COMFORT.
[2018-05-15 11:44] VITALS: BP 140/59
--- NOTE | 2018-05-15 12:38 | NUR ---
WITH MY ASSISTANCE, PATIENT TOOK 4 BITES EACH OF HER RICE AND GRAVY AND SOME CHICKEN BREAST. SITTING IN UPRIGHT POSITION WHILE EATING.
--- NOTE | 2018-05-15 14:47 | NUR ---
CHECKED PATIENT FOR INCONT. DRY AND CLEAN AT THIS TIME. PATIENT IS MORE ALERT THIS AFTERNOON, DENIES ANY NEEDS AT THIS TIME. ORAL CARE GIVEN AGAIN.
--- NOTE | 2018-05-15 15:25 | NUR ---
Intact blister noted on right heel measuring 2cm x 2cm (stage 2 pressure injury). Recommended covering blister with skin protectant (wipes) several times a day and keeping heels bridged. Pt has heel protectors in place. Also noted redness to right great toe (medial side of nail), possibly an ingrown nail but warrents continued assessment. Wound care will continue monitoring.
[2018-05-15 16:36] VITALS: BP 134/62
--- NOTE | 2018-05-15 17:45 | NUR ---
I ASSISTED PATIENT IN EATING GREENS BEANS AND RENAL SPAGHETTI, 4 BITES OF EACH. SHE DID NOT WANT A BITE OF HER CAKE OR DRINK OF TEA.
[2018-05-15 19:00] VITALS: BP 142/67
--- NOTE | 2018-05-15 19:30 | NUR ---
PT RESTING IN BED ALERT AND CONFUSED. PT HAS NG TUBE WITH RISIDUAL OF 30. FEEDING AT 65ML/HR WITH 100ML FLUSH. PT BED LOW CALL LIGHT WITHIN REACH. WILL CONTINUE TO MONITOR.
[2018-05-16] VITALS: BP 157/52
[2018-05-16 04:00] VITALS: BP 153/41
--- NOTE | 2018-05-16 04:13 | NUR ---
RESTING IN BED WITH EYES CLOSED. HOB ELEVATED. N/G TUBE IN PLACE WITH OSMOLITE 1.O INFUSING AT 65CC/HR. NO S/S OF DISTRESS OBSERVED.
--- NOTE | 2018-05-16 06:00 | NUR ---
PT ON CONTINOUS FEEDING VIA ND TUBE. PT IS LATHARGIC AND CONFUSED. PT RESPIRATIONS EVEN AND UNLABORED. PT BED LOW CALL LIGHT WITHIN REACH WILL CONTINUE TO MONITOR.
[2018-05-16 07:45] LABS: BASOPHILS 0.9 % (0-2); EOSINOPHILS 1.6 % (0-7); HEMATOCRIT 34.6 % (36.0-48.0); HEMOGLOBIN 11.2 g/dL (12-16); IMMATURE GRANULOCYTES 3.7 % (0-5); LYMPHOCYTES 10.3 % (15-50); MCH 31.9 pg (26.0-34.0); MCHC 32.4 g/dL (31.0-37.0); MCV 98.6 fL (80.0-100.0); MEAN PLATELET VOLUME 10.7 fL (7.4-10.4); NEUTROPHILS 72.5 % (40-80); PLATELET COUNT 455 10x3/uL (130-400); RBC 3.51 10x6/uL (4.00-5.40); RDW 16.4 % (11.5-14.5)
[2018-05-16 07:46] LABS: WBC 13.7 10x3/uL (4.8-10.8)
[2018-05-16 08:25] VITALS: BP 167/78
[2018-05-16 08:27] LABS: ALBUMIN 1.8 g/dL (3.4-5.0); BILIRUBIN - TOTAL 0.37 mg/dL (0.2-1.3); CARBON DIOXIDE 20.9 mmol/L (21.0-32.0); CREATININE - SERUM 1.2 mg/dL (0.6-1.3); MAGNESIUM - SERUM 2.2 mg/dL (1.8-2.4); PHOSPHOROUS 2.4 mg/dL (2.5-4.9); PROTEIN - SERUM 4.8 g/dL (6.4-8.2)
--- NOTE | 2018-05-16 08:30 | NUR ---
AM ROUNDS COMPLETED. SHIFT ASSESSMENT COMPLETED. INTRODUCED MYSELF TO PT PRIMARY RN FOR TODAYS SHIFT. PT IS A&O SITTING UP IN BED RESTING QUIETLY. PT IS VERY UNCOMFORTABLE IN BED. REPOSITIONED AND SHE WAS SOILED WITH URINE. CLEANED PT UP AND COMPLETE BED CHANGE PROVIDED. PULLED PT UP AND SHE C/O PAIN ALL OVER BUT IS NOW COMFORTABLE. PTS BILAT HEELS ARE BOGGY AND I PLACED IN BOOTIES FOR COMFORT AND TO PROTECT HEELS. PLACED PILLOW UNDER BILAT ARMS FOR COMFORT AND R.SIDE OF NECK IT APPEARS TO STAY KINKED TO R.SIDE. PT HAS A NGT TO L.NARE WITH OSMOLITE AT 65ML/HR INFUSING ROUNDED AND WANTS IT CHANGED TO RENAL FRIENDLY, WILL PASS ONTO THERMOGRAPH OPERATOR. PT IS ABLE TO SWALLOW PER SPEECH LAST NOTE YESTERDAY AND SHE CAN HAVE NGT OUT IF ABLE TO INCREASE APPETITE. PT C/O PAIN IN THROAT FROM NGT AND INQUIRING HOW CAN SHE BE HUNGRY IF WE ARE FEEDING HER THROUGH THE TUBE. WILL DISCUSS WITH PRIMARY AND SEE ABOUT REMOVING IT AND SEEING IF SHE CAN TOLERATE ORAL DIET. PT VOICED THANKS AND IS RESTING QUIETLY IN BED. DENIES ANY IMMEDIATE NEEDS AT THIS TIME. CL IN REACH, BED IN LOWEST, SIDE RAILS X2. ABDOULAYE PAD IN PLACE AND AIR MATTRESS INFLATED. WILL CTM.
[2018-05-16 08:33] LABS: ANION GAP 15.1 mmol/L (8-16)
--- NOTE | 2018-05-16 08:47 | NUR ---
Nutrition follow-up: Pt with Osmolite 1.0 gloria @ 65 ml/hr. K trending up; Dr. Torres wants TF formula changed to Nepro. Will change TF formula to Nepro @ 30 ml/hr. RDN following.
[2018-05-16 11:53] VITALS: BP 165/85
--- NOTE | 2018-05-16 12:00 | NUR ---
PT WANTING HER NGT OUT SO SHE CAN TRY TO EAT AND STATES ITS HURTING HER. PTS POTASSIUM WAS HIGH AND WILL NEED KAYEXELATE. PROVIDED VIA NGT AND FLUSHED WITHOUT ANY DIFFICULTIES. REMOVED NGT WITH TIP FULLY INTACT AND PT TOLERATED ALRIGHT HOWEVER SHE DID COMPLAIN PAIN WITH IT AND WANTS HER THROAT TO REST AND IS NOT WANTING LUNCH BUT WAS ABLE TO DRINK A FULL 120CC OF APPLE JUICE. ORAL CARE PROVIDED AND PROVIDED PT WITH LIP MOISTURIZOR HER LIPS WERE DRY AND CRACKING. PT VOICED THANKS AND IS VISITING WITH HER AT BEDSIDE. CL IN REACH, BED IN LOWEST, SIDE RAILS X2. WILL CTM.
--- NOTE | 2018-05-16 14:03 | NUR ---
PT JUST HOLLERED AT ME STATING "GET THE DOG OUT OF HERE AND OFF ME" EXPLAINED TO PT SHE IS IN THE HOSPITAL AND THERE IS NO DOG HERE HOWEVER SHE IS VERY CONVINCED THERE IS. PT WAS ORIENTED THIS MORNING BUT APPARENTLY HAS IN/OUT BOUTS OF CONFUSION. TOBACCO STRIPPER HAND AT BEDSIDE AND PROVIDED PT WITH COMPLETE BED BATH PT NOW LYING FLAT IN BED RESTING QUIETLY. CL IN REACH. WILL CTM.
--- NOTE | 2018-05-16 15:15 | NUR ---
PTS R.FA PIV IS LEAKING. D/C WITH CATHETER TIP FULLY INTACT. NEW 22 GUAGE PIV INSERTED TO R.FA X1 STICK. PT RESTING WITH AT BEDSIDE. NOW ORIENTED WILL CTM.
[2018-05-16 16:36] VITALS: BP 140/53
--- NOTE | 2018-05-16 17:29 | NUR ---
ASSISTED PT WITH REPOSITIONING IN BED. PT STATES SHE IS NOW COMFORTABLE. PT IS A&O NO LONGER THINKING A DOG IS AROUND. SHE STATES SHE KNOWS SHE IS IN HOSPITAL AND SITUATION. PT IS NEEDING TO EAT DINNER BUT STATES SHE STILL IS NOT REALLY HUNGRY BUT WILL TRY. PT WAS COOPERATIVE AND ATE ABOUT 5 BITES AND DRANK SOME OF HER SWEET TEA. WILL CONTINUE TO ENCOURAGE PTS INTAKE HOWEVER HER THROAT IS STILL SLIGHTLY SORE FROM THE NGT. PT NOW RESTING QUIETLY IN BED. DENIES ANY CURRENT PAIN OR NEEDS AT THIS TIME. WILL CTM.
--- NOTE | 2018-05-16 18:48 | NUR ---
PT RESTING QUIETLY IN BED WITH EYES CLOSED. RR NONLABORED ON RA. PT DENIES ANY CURRENT NEEDS. CL IN REACH. WILL PASS ON REPORT.
[2018-05-16 20:04] VITALS: BP 93/60
[2018-05-17] VITALS: BP 176/57
--- NOTE | 2018-05-17 01:04 | NUR ---
PT RECIEVED BATH FROM SEAN TORRES. PT COMPLAING OF PAIN. PRN PAIN MEDS ADMINSTERED. BED LOW CALL LIGHT WITHIN REACH. WILL CONTINUE TO MONITOR.
[2018-05-17 04:00] VITALS: BP 121/50
--- NOTE | 2018-05-17 04:39 | NUR ---
PT RESTING COMFORTABLY IN BED. RESPIRATIONS EVEN AND UNLABORED. BED LOW CALL LIGHT WITHIN REACH. WILL CONTINUE TO MONITOR
[2018-05-17 05:50] LABS: ALBUMIN 1.7 g/dL (3.4-5.0); ANION GAP 12.8 mmol/L (8-16); BILIRUBIN - TOTAL 0.36 mg/dL (0.2-1.3); CALCIUM 8.4 mg/dL (8.5-10.1); CARBON DIOXIDE 25.4 mmol/L (21.0-32.0); CREATININE - SERUM 1.3 mg/dL (0.6-1.3); MAGNESIUM - SERUM 2.1 mg/dL (1.8-2.4); POTASSIUM - SERUM 5.2 mmol/L (3.5-5.1); PROTEIN - SERUM 5.5 g/dL (6.4-8.2)
[2018-05-17 05:53] LABS: PHOSPHOROUS 3.5 mg/dL (2.5-4.9)
[2018-05-17 05:58] LABS: LYMPHOCYTES 10.6 % (15-50); MCH 32.5 pg (26.0-34.0); MCHC 33.2 g/dL (31.0-37.0); MCV 97.8 fL (80.0-100.0); MEAN PLATELET VOLUME 9.2 fL (7.4-10.4); NEUTROPHILS 77.7 % (40-80); PLATELET COUNT 405 10x3/uL (130-400); RDW 16.2 % (11.5-14.5)
[2018-05-17 05:59] LABS: HEMATOCRIT 26.8 % (36.0-48.0); HEMOGLOBIN 8.9 g/dL (12-16); RBC 2.74 10x6/uL (4.00-5.40); WBC 9.3 10x3/uL (4.8-10.8)
[2018-05-17 07:58] VITALS: BP 146/61
--- NOTE | 2018-05-17 08:30 | NUR ---
AM ROUNDS COMPLETED. INTRODUCED MYSELF TO PT PRIMARY RN FOR TODAYS SHIFT. PT IS MORE ORIENTED THIS AM AND ALERT. PT CAN STATE WHERE SHE IS AND SITUATION AND PERSON BUT DIDNT KNOW TIME, REORIENTS WITHOUT ANY ISSUES. PULLED PT UP IN BED AND REPOSITIONED FOR COMFORT. PT STILL C/O GENERALIZED PAIN BUT DENIES NEEDING ANY MEDICATION FOR IT AT THIS TIME. SHIFT ASSESSMENT COMPLETED. NO CHANGES NOTED FROM YESTERDAY. PT STATES SHE IS NOT A MORNING EATER AND DOESNT WANT BREAKFAST BUT UNDERSTANDS THE IMPORTANCE RIGHT NOW AND TOOK ABOUT 5-10 BITES OFF HER TRAY FOR ME. PT ALSO WAS ABLE TO DRINK SOME COFFEE AND APPLE JUICE AND SWALLOWED ALL HER PILLS WITHOUT ANY DIFFICULTIES. PT STATES SHE WILL TRY TO EAT MORE FOR LUNCH. NO FAMILY HERE CURRENTLY AND PT DENIES ANY FURTHER NEEDS. CL IN REACH, BED IN LOWEST, SIDE RAILS X2 AND ABDOULAYE PAD IN PLACE. WILL CTM.
--- NOTE | 2018-05-17 10:45 | NUR ---
IN/OUT PERFORMED TO COLLECT UA ORDERED. UPON PERFORMING IT PROVIDED ANTONINO CARE AND COLLECTED IT AND SENT TO LAB ORDERED. PT CONTINUED TO HAVE URINE DRAINAGE SO I LEFT IN PLACE TO COMPLETELY DRAIN AND PT HAD 700ML OF YELLOW CLOUDY URINE OUT. REMOVED IN/OUT CATH AND MAY HAVE TO PLACE TAMAYO PT DIDNT REALIZE SHE HAD RETENTION. PT ALSO WAS JUST NOW WET AND REQUIRED COMPLETE LINEN CHANGE R/T ALL HER URINE. CLEANED PT UP AND REPOSITIONED IN BED FOR COMFORT. NOW AT BEDSIDE. NO CURRENT NEEDS. WILL CTM.
[2018-05-17 11:46] VITALS: BP 137/64
[2018-05-17 12:21] LABS: APPEARANCE CLOUDY (CLEAR); BACTERIA MANY /hpf (NONE SEEN); BILIRUBIN NEGATIVE (NEGATIVE); COLOR YELLOW (YELLOW); EPITHELIAL CELLS 0-5 /hpf (0-5); GLUCOSE NEGATIVE (NEGATIVE); GRANULAR CAST RARE /lpf (NONE SEEN); HYALINE CAST RARE /lpf (NONE SEEN); KETONE NEGATIVE (NEGATIVE); MUCUS <1+ /lpf (NONE SEEN); NITRITE NEGATIVE (NEGATIVE); PROTEIN TRACE mg/dL (NEGATIVE); RED CELLS - URINE 0-5 /hpf (0-5); SPECIFIC GRAVITY 1.015 (1.005-1.020); UROBILINOGEN NORMAL (NORMAL); WHITE CELLS - URINE >50 /hpf (0-5)
--- NOTE | 2018-05-17 13:55 | NUR ---
PT FINALLY AGREED ON EATING SOMETHING AND STATES SHE LIKES SALAD. PROVIDED PT WITH SALAD AND JEANNINE WILDER REQUESTED AND ASSISTED PT AND SHE ATE 50% PT VOICED THANKS AND STATES IT WAS VERY GOOD. ORAL CARE PROVIDED AND PROVIDED MOISTURIZOR TO LIPS THEY ARE STILL DRY. PT STILL C/O SORE THROAT FROM NGT. NO CURRENT NEEDS. WILL CTM.
--- NOTE | 2018-05-17 14:52 | NUR ---
PTS R.FA PIV INFILTRATED WHILE VANCOMYCIN WAS INFUSING AND PTS R.AC AREA IS NOW SWOLLEN AND REDDENED. OFFERED HEAT/ICE AND WILL APPLY IF PT ALLOWS. D/C WITH CATHETER TIP FULLY INTACT AND ATTEMPTED TO RESITE PT IN THE L.ARM X2 STICKS HOWEVER UNSUCCESSFUL. WILL PAGE VASCULAR NURSE AT THIS TIME TO TRY.
--- NOTE | 2018-05-17 16:07 | NUR ---
VASCULAR NURSE UNABLE TO PLACE PIV AND RECCOMENDS MIDLINE. NOTIFIED PRIMARY AND PT WILL HAVE ONE PLACED.
[2018-05-17 16:25] VITALS: BP 125/62
--- NOTE | 2018-05-17 18:28 | NUR ---
PT REMAINS WITHOUT IV ACCESS VASCULAR NURSE WAS UNABLE AND UNABLE TO EVEN PLACE A MIDLINE. WILL DISCUSS WITH PRIMARY.
[2018-05-17 20:00] VITALS: BP 168/74
--- NOTE | 2018-05-17 20:00 | NUR ---
PT RESTING QUIETLY IN BED. NO S/S OF DISTRESS, NO PAIN OR DISCOMFORT NOTED. REPOSITIONED PT AND PULLED UP IN BED. PT STATES SHE FEELS BETTER FOR NOW. ADMINISTERED PM MEDS WITH APPLE SAUCE AND PT HAD SEVERAL SIPS OF NEPHRO DRINK. TOLERATED WELL. VSS. WCTM AND FOLLOW POC. SR UP X2, BED ALARM ON, CL IN REACH, BED IN LOW POSITION.
[2018-05-18 04:00] VITALS: BP 158/83
--- NOTE | 2018-05-18 06:33 | NUR ---
PT A/O WITH CONFUSION SPELLS. PT REPORTS HER NEPHRO DRINK "MAKES ME WANNA THROW UP." ENCOURAGED SIPS OF WATER AND BITES OF APPLE SAUCE, PT HAD BOTH. TOLERATED WELL. LINENS CLEANED AND PT CHANGED WITH BARRIER CREAM APPLIE PER PRINT OPERATOR. WILL CONTINUE TO ASSESS. SR UP X2, CL IN REACH, BED ALARM ON, BED IN LOWEST POSITION. NO PAIN OR DISCOMFORT NOTED AT THIS TIME.
--- NOTE | 2018-05-18 08:00 | NUR ---
RECIEVED BEDSIDE REPORT. AM ROUNDS COMPLETED. PT IN BED WITH BOTH EYES OPEN. VSS, PT AAO X2, BREATHING UNLABORED. PT HAD ONE BM THIS AM, PT DENIES NEEDS FOR PAIN AT THIS TIME. WILL CONTINUE POC. CL IN REACH BED IN LOW.
[2018-05-18 09:02] VITALS: BP 112/62
[2018-05-18 12:17] VITALS: BP 108/69
[2018-05-18 13:32] LABS: BASOPHILS 0.9 % (0-2); EOSINOPHILS 1.6 % (0-7); HEMATOCRIT 32.4 % (36.0-48.0); HEMOGLOBIN 10.6 g/dL (12-16); IMMATURE GRANULOCYTES 1.6 % (0-5); LYMPHOCYTES 9.6 % (15-50); MCH 32.2 pg (26.0-34.0); MCHC 32.7 g/dL (31.0-37.0); MCV 98.5 fL (80.0-100.0); MEAN PLATELET VOLUME 10.9 fL (7.4-10.4); MONOCYTES 11.5 % (2-11); NEUTROPHILS 74.8 % (40-80); PLATELET COUNT 324 10x3/uL (130-400); RBC 3.29 10x6/uL (4.00-5.40); RDW 16.7 % (11.5-14.5); WBC 10.3 10x3/uL (4.8-10.8)
[2018-05-18 13:43] LABS: ALBUMIN 1.9 g/dL (3.4-5.0); ANION GAP 17.4 mmol/L (8-16); BILIRUBIN - TOTAL 0.44 mg/dL (0.2-1.3); CALCIUM 8.3 mg/dL (8.5-10.1); CARBON DIOXIDE 21.5 mmol/L (21.0-32.0); CREATININE - SERUM 1.4 mg/dL (0.6-1.3); MAGNESIUM - SERUM 2.1 mg/dL (1.8-2.4); PHOSPHOROUS 4.2 mg/dL (2.5-4.9); POTASSIUM - SERUM 4.9 mmol/L (3.5-5.1)
--- NOTE | 2018-05-18 13:57 | NUR ---
Nutrition follow-up: NGT removed Diet: Renal mechanical soft as tolerated with Nepro TID PO intake ~25% of meals; pt sipping Nepro Labs reviewed +BM Wt: 140# Will need nutrition support restarted if PO intake does not imvprove. May need to consider PEG tube placement. RDN following.
--- NOTE | 2018-05-18 15:00 | NUR ---
PT PERIPHERAL IV ON RIGHT HAND INFILTRATED. REMOVED THE INFILTRATED IV, COVERED WITH 2X2 AND TAPE. CONSULT VASCULAR ACCESS. PT CURRENTLY RESTING IN BED WITH EYES CLOSE. CL IN REACH BED IN LOW, WILL CTM.
[2018-05-18 15:27] VITALS: BP 115/72
--- NOTE | 2018-05-18 15:45 | NUR ---
CVL PLACED IN PT, PT TOLERATED WELL, CONSULT RADIOLOGY FOR PLACEMENT VERIFICATION. PT CURRENTLY RESTING IN BED. PT DENIES NEEDS FOR PAIN AT THIS TIME. PT STATES SHE WILL LIKE TO REST. WILL CTM. CL IN REACH, BED IN LOW.
[2018-05-18 19:44] VITALS: BP 190/79
--- NOTE | 2018-05-18 19:50 | NUR ---
INITIAL ROUNDS COMPLETED - PT ALERT BUT DISORIENTED TO PLACE AND SITUATION. REPEATEDLY ASKS "WHY IS THAT DOG BARKING." REORIENTED THAT THERE WAS NO DOG IN THE ROOM. GED PREPARATION TEACHER IN TO GET VITALS. PT DENIES NEEDS AT THIS TIME. WCTM AND FOLLOW POC. SR UP X2, CL IN REACH, BED ALARM ON.
[2018-05-18 23:50] VITALS: BP 151/76
[2018-05-19 03:45] VITALS: BP 146/54
--- NOTE | 2018-05-19 05:41 | NUR ---
IN TO DRAW BLOOD FROM CENTRAL LINE. GREAT BLOOD RETURN NOTED FROM BOTH PORTS, AM LAB OBTAINED FROM PROXIMAL PORT. SENT TO LAB. READJUSTED PT IN BED, PT CLEAN AND DRY. NO PAIN OR DISCOMFORT NOTED. DENIES FURTHER NEEDS. WCTM. SR UP X2, CL IN REACH, BED ALARM ON AND FUNCTIONING PROPERLY.
[2018-05-19 06:34] LABS: BASOPHILS 0.3 % (0-2); EOSINOPHILS 0.6 % (0-7); HEMATOCRIT 28.3 % (36.0-48.0); HEMOGLOBIN 9.1 g/dL (12-16); IMMATURE GRANULOCYTES 0.5 % (0-5); LYMPHOCYTES 10.3 % (15-50); MCH 31.8 pg (26.0-34.0); MCHC 32.2 g/dL (31.0-37.0); MONOCYTES 10.4 % (2-11); NEUTROPHILS 77.9 % (40-80); RBC 2.86 10x6/uL (4.00-5.40); RDW 16.8 % (11.5-14.5); WBC 10.1 10x3/uL (4.8-10.8)
[2018-05-19 06:38] LABS: PLATELET COUNT 487 10x3/uL (130-400)
[2018-05-19 07:27] LABS: ALBUMIN 1.9 g/dL (3.4-5.0); ANION GAP 15.8 mmol/L (8-16); BILIRUBIN - TOTAL 0.43 mg/dL (0.2-1.3); CALCIUM 8.1 mg/dL (8.5-10.1); CREATININE - SERUM 1.4 mg/dL (0.6-1.3); MAGNESIUM - SERUM 2.1 mg/dL (1.8-2.4); PHOSPHOROUS 3.7 mg/dL (2.5-4.9); PROTEIN - SERUM 5.7 g/dL (6.4-8.2)
[2018-05-19 07:29] LABS: POTASSIUM - SERUM 3.8 mmol/L (3.5-5.1)
--- NOTE | 2018-05-19 07:47 | NUR ---
PT RESTING IN BED WITH EYES CLOSED. CHEST RISING AND FALLING. NO S/S OF ACUTE DISTRESS. CL IN PLACE.
--- NOTE | 2018-05-19 07:52 | NUR ---
PT RESTING IN BED. REPOSITIONED PT. NO S/S OF ACUTE DISTRESS. CL IN PLACE.
[2018-05-19 08:00] VITALS: BP 152/57
--- NOTE | 2018-05-19 12:45 | NUR ---
LATE ENTRY 0900. CLEANED PT. REPOSITIONED PT. OFFLOADED HEELS. APPLIED BEAUDREAUS TO BOTTOM. NO S/S OF ACUTE DISTRESS. (1030) FAMILY IN AT BEDSIDE. UPSET AND WANTING TO KNOW IF THE PT WAS STILL RECIEVING ABT. EXPLINED TO FAMILY PT WAS ON VANC AND 1 OF 7 HAVE BEEN GIVEN AND IT LOOKS IF SHE WILL HAVE 6 MORE DOSES UNLESS MD CHANGES. DID EXPLAIN WE WOULD NOT RECOLLECT UA/ANIMAL TECHNICIAN UNTIL PT WAS COMPLETE WITH ABT. PT UNDERSTOOD. PT COMPLAINED ABOUT THE CARE AND ASKED WHO THE WASHER REPAIRMAN WAS. TOLD THE FAMILY THEY COULD SPEAK WITH LUIS WITH ANY CONCERNS. PT UP IN CHAIR. REPOSITIONED PT. PINK HEEL PROTECTORS PLACED ON BOTH FEET. (1200) FAMILY AT BEDSIDE ATTEMPTING TO FEED PT. POOR APPETITE NOTED. PT REFUSING TO EAT. NO S/S OF ACUTE DISTRESS. CL IN PLACE.
--- NOTE | 2018-05-19 14:46 | NUR ---
LATE ENTRY FOR 0900. REC'D PT WITH CLEAN PAD AND BM IN BETWEEN BUTTOCKS AND IN ANTONINO AREA. CLEANED PT ANTONINO AREA AND IN BETWEEN BUTTOCKS. REPOSITIONED PT AND TURNED TO L SIDE AND OFFLOADED WITH A PILLOW TO R SIDE. NO S/S OF ACUTE DISTRESS. CL IN PLACE.
[2018-05-19 16:00] VITALS: BP 146/55
[2018-05-19 17:55] VITALS: BP 157/69
--- NOTE | 2018-05-19 18:48 | NUR ---
ATTEMPTED TO GET PT TO EAT DINNER. PT ATE X4 BITES OF CHICKEN AND DUMPLINGS AND DRANK 1/8 OF MILK SHAKE. PT STATES, "NO MORE". REPOSITIONED PT WITH X2 PILLOWS. PT TENDS TO LEAN TOWARD R SIDE. NO S/S OF ACUTE DISTRESS. PINK HEEL PROTECTORS ON BLE. CL IN PLACE.
--- NOTE | 2018-05-19 19:30 | NUR ---
RECEIVED REPORT, WILL ASSUME CARE OF PT, PT IS SLEEPING, BED IS LOW, SRX2, CALL LIGHT IN REACH, WILL CONTINUE PLAN OF CARE
--- NOTE | 2018-05-19 20:29 | NUR ---
[id number] COVERAGE NEEDED
--- NOTE | 2018-05-19 21:30 | NUR ---
REPOSTION TO RIGHT SIDE
--- NOTE | 2018-05-19 23:11 | NUR ---
ASSISTED SEAN MCGRAW WITH CLEAN UP, ALSO CHANGED CVL DRESSING
[2018-05-20 03:51] VITALS: BP 153/86
--- NOTE | 2018-05-20 04:02 | NUR ---
PT RESTING IN BED WITH RESPS EVEN/NONLABORED. NO DISTRESS. MONITOR AND CPOC.
--- NOTE | 2018-05-20 04:28 | NUR ---
LAB DRAW COMPLETE, GIVEN TO LEAN FACILITATOR, PT DRANK 120ML OF APPLE JUCIE
[2018-05-20 04:50] LABS: BASOPHILS 0.2 % (0-2); EOSINOPHILS 1.3 % (0-7); HEMATOCRIT 26.9 % (36.0-48.0); HEMOGLOBIN 8.6 g/dL (12-16); IMMATURE GRANULOCYTES 0.6 % (0-5); LYMPHOCYTES 12.9 % (15-50); MEAN PLATELET VOLUME 9.7 fL (7.4-10.4); MONOCYTES 8.6 % (2-11); NEUTROPHILS 76.4 % (40-80); PLATELET COUNT 420 10x3/uL (130-400); RBC 2.69 10x6/uL (4.00-5.40); RDW 16.9 % (11.5-14.5); WBC 8.8 10x3/uL (4.8-10.8)
[2018-05-20 05:13] LABS: ALBUMIN 1.9 g/dL (3.4-5.0); ANION GAP 12.2 mmol/L (8-16); BILIRUBIN - TOTAL 0.32 mg/dL (0.2-1.3); CALCIUM 8.1 mg/dL (8.5-10.1); CARBON DIOXIDE 26.5 mmol/L (21.0-32.0); CREATININE - SERUM 1.4 mg/dL (0.6-1.3); MAGNESIUM - SERUM 2.2 mg/dL (1.8-2.4); POTASSIUM - SERUM 3.7 mmol/L (3.5-5.1); PROTEIN - SERUM 5.2 g/dL (6.4-8.2)
--- NOTE | 2018-05-20 08:01 | NUR ---
PT RESTING IN BED. HOB ELEVATED 45. CVL DRSNG WET AND REPORTED TO EM FROM PREVIOUS SHIFT TO BE WET AND CHANGED. CHEST X RAY ORDERED. CVL IN PLACE. PT DRINKING APPLE JUICE AND COFFEE FOR ME THIS AM. NO S/S OF ACUTE DISTRESS. CL IN PLACE.
[2018-05-20 08:59] VITALS: BP 142/111
--- NOTE | 2018-05-20 10:31 | NUR ---
LATE ENTRY FOR 929. CLEANED PT ANTONINO AREA WITH SOAP AND WATER. BEAUDREAUS APPLIOED. IN BETWEEN BUTTOCK SLIGHTLY PINK. NO OPEN AREAS NOTED. MEPLILEX APPLIED TO R HEEL. REDDENED GOLF BALL SIZE AREA ON HEEL NOTED. MEPLILEX CHANGED TO UPPER MIDDLE BACK. CENTRAL LINE DRESSING CHANGED. OFFLOADED WITH A PILLOW TO L SIDE. R ARM ELEVATED. BRUSHED HAIR. PT DRANK A CARTON OF APPLE JUICE AND ATE 1 PUDDING. REFUSED BREAKFAST. " I DO NOT WANT ANYMORE" PT STATED. GAVE PT SOME COFFEE. DRANK A FEW SIPS. NO S/S OF ACUTE DISTRESS. NO FAMILY AT BEDSIDE. CL IN PLACE.
[2018-05-20 13:05] VITALS: BP 159/77
--- NOTE | 2018-05-20 14:42 | NUR ---
PT STATES, "SHE THINKS SHE HAS HAS A STROKE A WEEK AGO AND THAT IS WHY SHE IS HERE" FAMILY STATED, "PT HAS BEEN TELLING US THAT". NO ACUTE CHANGES NOTED FROM YESTERDAY. CVL DRESSING WET. CALLED [facility] TO SEE IF IT WAS SAFE TO USE AND TO REPORT WHAT THE PT HAD STATED OF HAVING A CVA. . XRAY CONFIRMED THE PLACEMENT OF THE CVL AND IT SHOWED IT TO BE IN THE VEIN. CALLED [facility] WHO STATED, "IT WOULD BE OK TO USE". FAMILY AT BEDSIDE NO S/S OF ACUTE DISTRESS. CL IN PLACE.
[2018-05-20 16:09] VITALS: BP 146/53
--- NOTE | 2018-05-20 18:21 | NUR ---
PT RESTING IN BED. SAGGER FILLER CLEANED, TURNED PT. CHEST RISING AND FALLING. NO S/S OF ACUTE DISTRESS. CL IN PLACE.
--- NOTE | 2018-05-20 18:29 | NUR ---
LATE ENTRY 1700 CHANGED CVL DRESSING DT DRESSING BEING SATURATED WITH CLEAR LIQUID. NO S/S OF ACUTE DISTRESS. CL IN PLACE.
--- NOTE | 2018-05-20 19:37 | NUR ---
RECEIVED REPORT, WILL ASSUME CARE OF PT, PT IS SLEEPING, NO DISTRESS NOTICED AT THIS TIME, BED IS LOW, SRX2, ALARM IS ON, CALL LIGHT IN REACH, WILL CONTINUE PLAN OF CARE
[2018-05-20 19:45] VITALS: BP 133/56
--- NOTE | 2018-05-20 23:03 | NUR ---
CALLED [facility] AGAIN. WAS TOLD THEY CLEARED IT WITH KEO AT [phone]
--- NOTE | 2018-05-20 23:26 | NUR ---
CALL CT RESULTS TO DR. NOEL
--- NOTE | 2018-05-20 23:29 | NUR ---
NO NEW ORDERS WERE GIVEN AT THIS TIME
[2018-05-20 23:41] VITALS: BP 137/45
[2018-05-21 03:49] VITALS: BP 132/55
--- NOTE | 2018-05-21 04:07 | NUR ---
PT RESTING IN BED WITH NO DISTRESS. RESPS NONLABORED. MONITOR AND CPOC. CALL LIGHT IN REACH.
[2018-05-21 06:27] LABS: BASOPHILS 0.3 % (0-2); EOSINOPHILS 1.6 % (0-7); HEMATOCRIT 27.1 % (36.0-48.0); HEMOGLOBIN 8.5 g/dL (12-16); IMMATURE GRANULOCYTES 0.6 % (0-5); LYMPHOCYTES 13.6 % (15-50); MCH 31.5 pg (26.0-34.0); MCHC 31.4 g/dL (31.0-37.0); MCV 100.4 fL (80.0-100.0); MEAN PLATELET VOLUME 9.8 fL (7.4-10.4); MONOCYTES 9.7 % (2-11); NEUTROPHILS 74.2 % (40-80); PLATELET COUNT 442 10x3/uL (130-400); RDW 16.9 % (11.5-14.5); WBC 8.9 10x3/uL (4.8-10.8)
[2018-05-21 06:45] LABS: ANION GAP 10.2 mmol/L (8-16); CALCIUM 7.9 mg/dL (8.5-10.1); CARBON DIOXIDE 27.2 mmol/L (21.0-32.0); CREATININE - SERUM 1.3 mg/dL (0.6-1.3); POTASSIUM - SERUM 3.4 mmol/L (3.5-5.1)
--- NOTE | 2018-05-21 07:18 | NUR ---
REPORT RECEIVED. WILL CONTINUE WITH POC. PT CURRENTLY LYING SUPINE. CALL LIGHT W/I REACH. PT IS ON A FIRST STEP OVERLAY. PT IS RESTING AT THE MOMENT. RR EVEN AND UNLABORED ON RA. R.SUB TRIALYSIS IS SALINE LOCKED. WILL CTM.
[2018-05-21 08:10] VITALS: BP 136/77
--- NOTE | 2018-05-21 09:21 | NUR ---
AM MEDICATIONS ADMINISTERED. SEAN BLANCA CURRENTLY FEEDING PT BREAKFAST. PT DENIES ANY NEEDS. WILL CTM.
--- NOTE | 2018-05-21 09:26 | NUR ---
RESTS ON 1ST STEP MATRESS WITHES CLOSED. CALL LIGHT IN REACH. WILL CONT. PLAN OF CARE.
--- NOTE | 2018-05-21 10:49 | NUR ---
Nutrition follow-up: Visited with family; upset due to pt not eating and NGT out. RDN discussed pt wanted tube out; however, family may want to consider placing a PEG tube for nutrition and hydration due to poor po intake. RDN changed diet order to regular mechanical soft from renal to encourage increased po intake. Labs reviewed Wt: 138# Will discuss pt with PCP re: PEG tube placement per family wishes. RDN following.
[2018-05-21 11:45] VITALS: BP 128/48
--- NOTE | 2018-05-21 15:32 | NUR ---
Right heel blister is ruptured and shows signs of healing. No drainage or odor noted. Area measures 2cm x 2cm. Cleansed and protected with mepilex border. Right great toe (medial) continues to be red. No drainage or odor noted. Pt states it is not tender anymore. Left heel has a 1cm x 1cm nonblanchable area. (stage 1 pressure injury). Covered with mepilex border to protect. Recommend: -continue bridging heels off of the mattress and pillow. -continue turn/repositioning q 2 hours -continue air overlay mattress -continue pericare as needed for incontinence and use calmoseptine cream Wound care continues to monitor
[2018-05-21 16:46] VITALS: BP 132/60
--- NOTE | 2018-05-21 19:30 | NUR ---
RECEIVED REPORT,WILL ASSUME CARE OF PT, DENIES ANY NEEDS, BED IS LOW, SRX2. CALL LIGHT IN REACH, WILL CONTINUE PLAN OF CARE
[2018-05-21 20:00] VITALS: BP 108/69
[2018-05-22] VITALS: BP 173/89
--- NOTE | 2018-05-22 02:27 | NUR ---
UNIT MANAGER IN ROOM, GIVING BEDBATH/LINEN CHANGE
--- NOTE | 2018-05-22 03:20 | NUR ---
LYING IN BED, RESPIRATIONS EVEN AND UNLABORED. CALL LIGHT IN REACH, WILL CONTINUE WITH PLAN OF CARE.
[2018-05-22 04:00] VITALS: BP 182/69
[2018-05-22 06:46] LABS: BASOPHILS 0.4 % (0-2); EOSINOPHILS 1.2 % (0-7); HEMATOCRIT 28.4 % (36.0-48.0); HEMOGLOBIN 8.8 g/dL (12-16); IMMATURE GRANULOCYTES 0.8 % (0-5); MCH 31.4 pg (26.0-34.0); MCV 101.4 fL (80.0-100.0); MONOCYTES 9.6 % (2-11); PLATELET COUNT 487 10x3/uL (130-400); RDW 16.9 % (11.5-14.5); WBC 9.9 10x3/uL (4.8-10.8)
[2018-05-22 07:02] LABS: ANION GAP 11.7 mmol/L (8-16); CALCIUM 8.1 mg/dL (8.5-10.1); CARBON DIOXIDE 25.2 mmol/L (21.0-32.0); CREATININE - SERUM 1.5 mg/dL (0.6-1.3); POTASSIUM - SERUM 3.9 mmol/L (3.5-5.1)
[2018-05-22 08:45] VITALS: BP 181/90
--- NOTE | 2018-05-22 10:19 | NUR ---
PT UP TO BEDSIDE CHAIR WANTING TO GET BACK IN BED HOWEVER SHE HAS ONLY BEEN UP FOR ABOUT 30MINS SO I ENCOURAGED HER TO STAY IN THE CHAIR LONGER AND SHE AGREED. PT DENIES ANY CURRENT NEEDS. FAMILY AT BEDSIDE. WILL CTM.
--- NOTE | 2018-05-22 11:29 | NUR ---
CHANGED BILAT DRSGS ON PTS HEELS. L.HEEL PROTECTED AND SKIN INTACT. R.HEEL IS A BLISTER THAT HAS POPPED OPEN. CURRENTLY SKIN STILL HANGING ON. CLEANSED WITH ASEPTIC FOAM SOAP. PATTED DRY AND THEN APPLIED MEPILEX BACK IN PLACE. PT SITTING UP IN BEDSIDE CHAIR RESTING WITH FAMILY AT BEDSIDE. NO CURRENT NEEDS. WILL CTM.
[2018-05-22 12:13] VITALS: BP 130/74
--- NOTE | 2018-05-22 12:45 | NUR ---
PTS R.CHEST CVL DRSG IS SOILED WITH FLUID, UNSURE HOW OR WHERE FROM. STERILE DRSG CHANGE COMPLETED AND NOW IS CLEAN DRY AND INTACT. BIOPATCH ADHERED TO SKIN, FLUSHED ALL LUMENS OF THE TRIPLE LUMEN WITHOUT ANY RESISTANCE MET, SWAB CAPS IN USE. WILL CTM.
--- NOTE | 2018-05-22 13:08 | NUR ---
PT IS REFUSING LUNCH AT THIS TIME. STATES SHE WILL TRY WITH HER FAMILY WHEN THEY RETURN. PT IS STILL NEEDING AN IN/OUT CATH FOR STERILE URINE SPECIMEN AND VERBALIZED UNDERSTANDING AND WE WILL OBTAIN WHEN SHE GETS BACK INTO BED WITH THERAPY. NO CURRENT NEEDS AT THIS TIME. CL IN REACH, BED IN LOWEST, SIDE RAILS X2. WILL CTM.
--- NOTE | 2018-05-22 13:29 | EC ---
PATIENT:MADELEINE WONG DATE OF SERVICE: 05/09/18 SEX: F MEDICAL RECORD: [id number] DATE OF : [birth year] LOCATION:D.M2 D.211 AGE OF PATIENT: 88 ADMISSION DATE: 05/09/18 REFERRING PHYSICIAN: INTERPRETING PHYSICIAN: ANDERS BLAKE MD ECHOCARDIOGRAM REPORT ECHO CHARGES 4 ECHO COMPLETE Date: 05/11/18 CLINICAL DIAGNOSIS: CHF/ HX OF MVR, MECHANICAL, AND PACEMAKER ECHOCARDIOGRAPHIC MEASUREMENTS (adult normal given) AC root (d.<3.7cm) 3.8 cm LV Septum d (<1.2 cm> 1.7 cm Valve Excursion 1.2 cm LV Septum (systole) 1.8 cm Left Atria (s.<4.0cm> 4.6 cm LVPW d(<1.2cm) 1.4 cm RV (d.<2.3cm) 4.9 cm LVPW (sytole) 1.7 cm LV diastole(<5.6CM) 3.7 cm MV E-F(>70mm/sec) cm LV systole 2.3 cm LVOT Diameter 1.5 cm MV exc.(>10mm) cm Est.ejection fraction (50-75%) % DOPPLER: LVIT cm/sec A 28.0 cm/sec E 142 cm/sec LA cm/sec RVSP 63 mmHg LVOT cm/sec AOP1/2T m/s Asc. Ao cm/sec RVOT 90 cm/sec RA cm/sec PA 121 cm/sec AV Gradient Peak mmHg AV Mean mmHg AV Area 1.6 cm MV Gradient Peak 13.99mmHg MV Mean 3.723mmHg MV Area cm COMMENTS: Fountain Helper: Jacob WOLF Monomer Purification Operator: 1 Dr. Blake TAPE# PACS Pericardial Effusion N DATE OF SERVICE: 05/11/2018 PROCEDURE: Echocardiogram. FINDINGS: 1. Left ventricular chamber size is within normal limits. Left ventricular systolic function is normal. Overall ejection fraction estimated at 55%. 2. Left atrium is enlarged at 4.6 cm. Right atrium and right ventricle chamber sizes are as well moderately dilated. 3. 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 The remaining valvular structures have normal structure and motion. 4. Doppler interrogation reveals mild mitral regurgitation, severe tricuspid regurgitation, no other valvular insufficiency or stenosis. Pulmonary systolic pressure is estimated at 63 mmHg. 5. No evidence of pericardial effusion or left ventricular thrombus. TRANSINT:[id number] Voice Confirmation ID: [id number] DOCUMENT ID: [id number] ANDERS BLAKE MD at 1329 CC: [id number] DICTATION DATE: 05/11/18 1256 OIL REFINERY PROCESS TECHNICIAN: 05/11/18 1305 [place] [address]
[2018-05-22 16:12] VITALS: BP 142/82
--- NOTE | 2018-05-22 17:08 | NUR ---
16 FR TAMAYO CATHETER PLACED ORDERED R/T RETENTION. STERILE UA COLLECTED AND SENT TO LAB ORDERED. STAT LOCK SECURED TO R.INNER THIGH. 600CC OF CLEAR YELLOW URINE IMMEDIATELY DRAINING.
[2018-05-22 18:25] LABS: APPEARANCE CLEAR (CLEAR); BILIRUBIN NEGATIVE (NEGATIVE); COLOR YELLOW (YELLOW); GLUCOSE NEGATIVE (NEGATIVE); KETONE NEGATIVE (NEGATIVE); NITRITE NEGATIVE (NEGATIVE); PROTEIN TRACE mg/dL (NEGATIVE); SPECIFIC GRAVITY 1.015 (1.005-1.020); UROBILINOGEN NORMAL (NORMAL)
--- NOTE | 2018-05-22 18:30 | NUR ---
RN ASSESSMETN COMPLETE. PT LYING IN BED. DENIES NEEDS AT THIS TIME. NO SIGNS OF DISTRESS
--- NOTE | 2018-05-22 19:45 | NUR ---
PT RESTING IN BED WITH EYES CLOSED RESPIRATIONS EVEN AND UNLABORED. BED LOW CALL LIGHT WITHIN REACH. WILL CONTINUE TO MONITOR.
[2018-05-22 20:00] VITALS: BP 169/84
[2018-05-23] VITALS: BP 173/71
[2018-05-23 03:14] LABS: BASOPHILS 0.5 % (0-2); EOSINOPHILS 1.4 % (0-7); HEMATOCRIT 24.8 % (36.0-48.0); HEMOGLOBIN 7.8 g/dL (12-16); IMMATURE GRANULOCYTES 0.8 % (0-5); MCH 31.8 pg (26.0-34.0); MCHC 31.5 g/dL (31.0-37.0); MCV 101.2 fL (80.0-100.0); MEAN PLATELET VOLUME 9.4 fL (7.4-10.4); MONOCYTES 7.9 % (2-11); NEUTROPHILS 77.4 % (40-80); PLATELET COUNT 366 10x3/uL (130-400); RBC 2.45 10x6/uL (4.00-5.40); WBC 7.6 10x3/uL (4.8-10.8)
[2018-05-23 03:24] LABS: CALCIUM 7.1 mg/dL (8.5-10.1); CARBON DIOXIDE 22.6 mmol/L (21.0-32.0); MAGNESIUM - SERUM 1.9 mg/dL (1.8-2.4); POTASSIUM - SERUM 3.6 mmol/L (3.5-5.1)
[2018-05-23 03:25] LABS: CREATININE - SERUM 1.1 mg/dL (0.6-1.3)
[2018-05-23 04:00] VITALS: BP 160/70
--- NOTE | 2018-05-23 04:49 | NUR ---
PT RESTING IN BED WITH EYES CLOSED RESPIRATIONS EVEN AND UNLABORED. BED LOW CALL LIGHT WITHIN REACH. WILL CONTINUE TO MONITOR.
--- NOTE | 2018-05-23 07:25 | NUR ---
AM ROUNDS COMPLETED. INTRODUCED MYSELF TO PT PRIMARY RN FOR TODAYS SHIFT. PT IS A&O RESTING QUIETLY IN BED AT THIS TIME. SHIFT ASSESSMENT COMPLETED. WILL REVIEW CHART AND PULL MORNING MEDICATIONS AND CPOC. NO CURRENT NEEDS. CL IN REACH.
[2018-05-23 08:15] VITALS: BP 178/83
--- NOTE | 2018-05-23 09:09 | NUR ---
MORNING MEDICATIONS GIVEN WITH SIP OF WATER WITH THE EXCEPTION OF HOLDING BLOOD THINNERS FOR PLANNED PROCEDURE TODAY. PT IS A&O AND VERBALIZED UNDERSTANDING OF PEG PLACEMENT AND WANTS IT SHE HAS NO APPETITE OR DESIRE TO EAT. PULLED PT UP IN BED AND REPOSITIONED FOR COMFORT. PT VOICED THANKS. PROVIDED LIP CARE FOR DRY LIPS. TAMAYO IN PLACE DRAINING TO GRAVITY OFF R.SIDE OF BED. NO CURRENT NEEDS. WILL CTM.
[2018-05-23 09:28] LABS: ALBUMIN 1.8 g/dL (3.4-5.0); PHOSPHOROUS 2.7 mg/dL (2.5-4.9); PRE-ALBUMIN 19.2 mg/dL (18.0-35.7)
--- NOTE | 2018-05-23 10:55 | NUR ---
THERAPY GOT PT UP TO CHAIR. PT IS RESTING QUIETLY DENIES ANY PAIN OR NEEDS. JUST SITTING UP IN CHAIR. CL IN REACH, WILL CTM.
[2018-05-23 11:14] VITALS: BP 170/66
--- NOTE | 2018-05-23 12:44 | NUR ---
CONSENTS OBTAINED AND PLACED IN CHART FOR PLANNED EGD AND PEG PLACEMENT. PT BACK IN BED AND RESTING QUIETLY. FAMILY WAS HERE AND LEFT FOR A BIT. UPDATED ON PLANS AND ALL AGREE. NO CURRENT NEEDS. WILL CTM.
--- NOTE | 2018-05-23 12:48 | NUR ---
Nutrition follow-up: Pt NPO for PEG tube placement today Pt has been refusing meals; no po intake in several days Labs reviewed Wt: 139# Recommend starting Osmolite 1.0 gloria @ 25 ml/hr with increas to goal rate of 65 ml/hr with 60 ml H2O flush Q [address] RDN following.
--- NOTE | 2018-05-23 13:55 | NUR ---
PTS R.CHEST CVL DRSG IS WET FROM LEAKING AGAIN. STERILE DRSG CHANGE PROVIDED AND BIOPATCH INTACT. DRSG CDI NOW AND ADHERED TO SKIN. CALLED PHARMACY BECAUSE THEY WERE DOSING VANCOMYCIN HOWEVER NO TROUGHS HAVE BEEN DRAWN X2 DAYS. THEY STATE TO HANG THIS DOSE AND THEY WILL LOOK INTO IT. PT SITTING UP IN BED RESTING QUIETLY. CL IN REACH, BED IN LOWEST, SIDE RAILS X2 AND ABDOULAYE PAD IN PLACE. NO CURRENT NEEDS. WILL CTM.
[2018-05-23 15:09] VITALS: BP 173/80
--- NOTE | 2018-05-23 15:10 | NUR ---
PRE-OP MEDICATIONS GIVEN AND PT IS READY FOR PROCEDURE. EKG COMPLETED AND SENT WITH ANESTHESIA. FAMILY AT BEDSIDE. NO CURRENT NEEDS. WILL CPOC.
--- NOTE | 2018-05-23 16:16 | MORECARE ---
CASE MANAGEMENT DISCHARGE SUMMARY PATIENT: MADELEINE WONG UNIT: [id number] ADM DATE: 05/09/18 AGE: 88 : [birth year] SEX: F ROOM/BED: D.2112 AUTHOR: BELINDA DICKINSON PHYSICIAN: REFERRING PHYSICIAN: LEXA BENAVIDES MD DATE OF SERVICE: 05/23/18 Discharge Plan Patient Name: [facility]ADELE[facility]ONG [facility] [facility] 1930 Planned Disposition: Assisted Facility Anticipated Discharge Date: 05/24/18 Discharge Date: Expected LOS: 15 Initial Reviewer: [email or web address] Initial Review Date: 05/09/2018 Generated: 05/23/18 5:16 pm Comments DCP- Discharge Planning Updated by [email or web address]: Akhil Song on 05/11/18 4:[address] Patient Name: MADELEINE WONG Admission Status: Elective Accout number: [id number] Admission Date: 05-09-2018 : 1930 Admission Diagnosis:ACUTE KIDNEY FAILURE, UNSPECIFIED Attending: LEXA BENAVIDES Current LOS: 2 Anticipated DC Date: Planned Disposition: Assisted Facility Primary Insurance: [employer] PPO MCR [employer] PLANNED EXTERNAL PROVIDER: [facility], MEDICARE REHAB BED Discharge Planning Comments: CM RECEIVED ORDER INDICATING PT WANTS SHELTER CARE. CM MET WITH PT AND SON IN ROOM TO DISCUSS DISCHARGE PLANNING AND NEEDS. PT REPORTS THAT BEFORE GETTING SICK, SHE WAS LIVING AT HOME WITH HER SON, INDEPENDENT IN HER CARE. PT REPORTS SHE DID TELL THE DOCTOR THAT SHE WOULD BE BETTER OFF IN A SHELTER BEFORE FAMILY ARRIVED TODAY. PT WANTS REHAB, NOT IN [facility]. PT HAS NO MEDICAL EQUIPMENT AND NO OUTSIDE SERVICES ASSISTING IN THE HOME. CM DISCUSSED AVAILABILITY OF HOME HEALTH, REHAB SERVICES AND MEDICAL EQUIPMENT. PT'S SON INITIALLY DECLINED TO PARTICIPATE IN DISCHARGE PLANNING REPORTING PT WAS SENT TO REHAB DOWNSTAIRS TOO SOON WHEN SHE WAS NOT ABLE TO WALK OR EVEN FEED HERSELF. SON WANTS PT CONSIDERED FOR INPATIENT REHAB AGAIN STATING THEY SENT HER BACK HERE BECAUSE SHE USED ALL OF HER DAYS DOWN THERE. PT DOES NOT THINK SHE CAN PARTICIPATE IN THREE HOURS OF PROGRESSIVE THERAPY PER DAY. CM EXPLAINED THAT IF PT IS NOT ABLE TO PARTICIPATE IN THE THREE HOURS OF PROGRESSIVE THERAPY, IS NOT ABLE TO STAND OR FEED HERSELF, SHE IS NOT GOING TO BE APPROPRIATE FOR READMISSION TO INPATENT REHAB. CM DISCUSSED AVAILABILITY OF RESIDENTIAL REHAB SERVICES AND PROVIDED CHOICE FORM. PT'S SON REPORTS HE ALREADY SIGNED ONE OF THESE FOR [facility] THE LAST VISIT AND SPEAKING WITH THIS CM. CM EXPLAINED A NEW ONE WAS NEEDED. PT'S SON SIGNED THE FORM AND DOES NOT WANT PT SENT TO REHAB BEFORE SHE IS STABLE. CM EXPLAINED THAT ALL DOCTORS WOULD HAVE TO INDICATE PT IS READY TO DISCHARGE AND CM IS ONLY WANTING TO BE PROACTIVE ON PT'S BEHALF FOR DISCHARGE PLANNING AND SECURE REHAB BED AHEAD OF TIME TO ENSURE THAT PT IS ABLE TO GET INTO [facility] WHEN DISCHARGED [facility] IS POPULAR [facility] AND DOES FILL UP. PT'S SON WILL WANTS PT TO BE STABLE FOR DISCHARGE FOR CM TO SEND REFERRALS. CHOICE SIGNED. CM PROVIDED PT'S SON WITH CM CONTACT INFORMATION. CM TO SEND REFERRAL TO [facility] WHEN PROJECTED DISCHARGE DATE IS KNOWN, PT'S SON DOES NOT WANT REHAB REFERRAL SENT OUT PRIOR TO PT'S MEDICAL STABILITY FOR DISCHARGE TO REHAB. Cage Unloader: Akhil Song DCPIA - Discharge Planning Initial Assessment Updated by [id number]: Akhil Song on 05/11/18 5:43 pm * Is the patient Alert and Oriented? Yes * How many steps to enter\exit or inside your home? NONE * PCP DR. PONCE * Pharm[facility] * Preadmission Environment Acute Inpatient Rehab * Facility Name [facility] * ADLs Total Dependent * Equipment None * Other Equipment NO MEDICAL EQUIPMENT PROVIDER PREFERECE * List name and contact numbers for known caregivers / representatives who currently or will assist patient after discharge: KARINA QUINN, MANUEL/POA, * Verbal permission to speak to the caregivers and representatives has been obtained from the patient. Yes * Community resources currently utilized None * Please name any agencies selected above. NONE * Additional services required to return to the preadmission environment? Yes * Can the patient safely return to the preadmission environment? Yes * Has this patient been hospitalized within the prior 30 days at any hospital? Yes Coverage Notice Reviewer: [id number] - Akhil Song Notice Issued Date-Time: 05/11/2018 13:00 Notice Type: Patient Choice Letter Notice Delivered To: Family Member Relationship to Patient: Son Fire Alarm Installer Name: KARINA QUINN Delivery Method: HAND - Hand Delivered Dawna Days: Prior Verbal Notification: Recipient Understood Notice: Yes Recipient Signature: Yes Med Rec Note Co-signed by Attending: [facility]age Notice [facility] Last DP export: 05/11/18 4:54 pm Patient Name: MADELEINE WONG Page [id number] at 1616 All edits/amendments must be made on the electronic document DICTATION DATE: 05/23/181615 SCRAPER LOADER OPERATOR: JULIA 05/23/181615 RPT#: [id number] DC DATE: STATUS: ADM IN [facility] [address] [place] [address] END OF REPORT
--- NOTE | 2018-05-23 16:35 | MORECARE ---
CASE MANAGEMENT DISCHARGE SUMMARY PATIENT: MADELEINE WONG UNIT: [id number] ADM DATE: 05/09/18 AGE: 88 : [birth year] SEX: F ROOM/BED: D.2112 AUTHOR: BELINDA DICKINSON PHYSICIAN: REFERRING PHYSICIAN: LEXA BENAVIDES MD DATE OF SERVICE: 05/23/18 Discharge Plan Patient Name: MADELEINE WONG Facility: [facility]:[place] : 1930 Planned Disposition: [facility] Facility Anticipated Discharge Date: 05/24/18 Discharge Date: Expected LOS: 15 Initial Reviewer: [id number] Initial Review Date: 05/09/2018 Generated: 05/23/18 5:35 pm Comments DCP- Discharge Planning Updated by [id number]: Akhil Song on 05/23/18 3:[address] Patient Name: MADELEINE WONG Encounter No: [id number] : 1930 Primary Insurance: HUMANA CHOICE PPO MCR ADVANT Anticipated DC Date: 05-24-2018 Planned Disposition: [facility] Facility External Planned Provider: [facility], MEDICARE REHAB BED DCP follow-up note: CM MET WITH PT AND SON/JANEAFORRESTVERENICE QUINN, AT FAMILY REQUEST. MR. QUINN REPORTS IT IS NOW TIME TO SEND REFERRAL TO [facility] FOR REHAB PLACEMENT. IMPORTANT MESSAGE FROM MEDICARE PROVIDED AND EXPLAINED. CM FAXED REFERRAL TO [facility], . CM WAITING ADMISSION DETERMINATION FROM [facility] FOR REHAB PLACEMENT. HIEN BARRY DCP- Discharge Planning Updated by [id number]: Akhil Song on 05/11/18 4:[address] Patient Name: MADELEINE WONG Admission Status: Elective Accout number: [id number] Admission Date: 05-09-2018 : 1930 Admission Diagnosis:ACUTE KIDNEY FAILURE, UNSPECIFIED Attending: LEXA BENAVIDES Current LOS: 2 Anticipated DC Date: Planned Disposition: [facility] Facility Primary Insurance: HUMANA CHOICE PPO MCR ADVANT PLANNED EXTERNAL PROVIDER: [facility], MEDICARE REHAB BED Discharge Planning Comments: CM RECEIVED ORDER INDICATING PT WANTS JAIL CARE. CM MET WITH PT AND SON IN ROOM TO DISCUSS DISCHARGE PLANNING AND NEEDS. PT REPORTS THAT BEFORE GETTING SICK, SHE WAS LIVING AT HOME WITH HER SON, INDEPENDENT IN HER CARE. PT REPORTS SHE DID TELL THE DOCTOR THAT SHE WOULD BE BETTER OFF IN A JAIL BEFORE FAMILY ARRIVED TODAY. PT WANTS REHAB, NOT GARDE MANAGER CARE. PT HAS NO MEDICAL EQUIPMENT AND NO OUTSIDE SERVICES ASSISTING IN THE HOME. CM DISCUSSED AVAILABILITY OF HOME HEALTH, REHAB SERVICES AND MEDICAL EQUIPMENT. PT'S SON INITIALLY DECLINED TO PARTICIPATE IN DISCHARGE PLANNING REPORTING PT WAS SENT TO REHAB DOWNSTAIRS TOO SOON WHEN SHE WAS NOT ABLE TO WALK OR EVEN FEED HERSELF. SON WANTS PT CONSIDERED FOR INPATIENT REHAB AGAIN STATING THEY SENT HER BACK HERE BECAUSE SHE USED ALL OF HER DAYS DOWN THERE. PT DOES NOT THINK SHE CAN PARTICIPATE IN THREE HOURS OF PROGRESSIVE THERAPY PER DAY. CM EXPLAINED THAT IF PT IS NOT ABLE TO PARTICIPATE IN THE THREE HOURS OF PROGRESSIVE THERAPY, IS NOT ABLE TO STAND OR FEED HERSELF, SHE IS NOT GOING TO BE APPROPRIATE FOR READMISSION TO INPATENT REHAB. CM DISCUSSED AVAILABILITY OF HALF-WAY REHAB SERVICES AND PROVIDED CHOICE FORM. PT'S SON REPORTS HE ALREADY SIGNED ONE OF THESE FOR [facility] THE LAST VISIT AND SPEAKING WITH THIS CM. CM EXPLAINED A NEW ONE WAS NEEDED. PT'S SON SIGNED THE FORM AND DOES NOT WANT PT SENT TO REHAB BEFORE SHE IS STABLE. CM EXPLAINED THAT ALL DOCTORS WOULD HAVE TO INDICATE PT IS READY TO DISCHARGE AND CM IS ONLY WANTING TO BE PROACTIVE ON PT'S BEHALF FOR DISCHARGE PLANNING AND SECURE REHAB BED AHEAD OF TIME TO ENSURE THAT PT IS ABLE TO GET INTO [facility] WHEN DISCHARGED [facility] IS POPULAR [facility] AND DOES FILL UP. PT'S SON WILL WANTS PT TO BE STABLE FOR DISCHARGE FOR CM TO SEND REFERRALS. CHOICE SIGNED. CM PROVIDED PT'S SON WITH CM CONTACT INFORMATION. CM TO SEND REFERRAL TO [facility] WHEN PROJECTED DISCHARGE DATE IS KNOWN, PT'S SON DOES NOT WANT REHAB REFERRAL SENT OUT PRIOR TO PT'S MEDICAL STABILITY FOR DISCHARGE TO REHAB. Manager Access: Akhil Song DCPIA - Discharge Planning Initial Assessment Updated by [id number]: Akhil Song on 05/11/18 5:43 pm * Is the patient Alert and Oriented? Yes * How many steps to enter\exit or inside your home? NONE * PCP DR. PONCE * Pharmacy [facility] * Preadmission Environment Acute Inpatient Rehab * Facility Name [facility] * ADLs Total Dependent * Equipment None * Other Equipment NO MEDICAL EQUIPMENT PROVIDER PREFERECE * List name and contact numbers for known caregivers / representatives who currently or will assist patient after discharge: MANUEL BRANNON/ISAIAH, * Verbal permission to speak to the caregivers and representatives has been obtained from the patient. Yes * Community resources currently utilized None * Please name any agencies selected above. NONE * Additional services required to return to the preadmission environment? Yes * Can the patient safely return to the preadmission environment? Yes * Has this patient been hospitalized within the prior 30 days at any hospital? Yes Coverage Notice Reviewer: [id number] Adriel Song Notice Issued Date-Time: 05/11/2018 13:00 Notice Type: Patient Choice Letter Notice Delivered To: Family Member Relationship to Patient: Manuel Machine Tech Name: KARINA QUINN Delivery Method: HAND - Hand Delivered Dawna Days: Prior Verbal Notification: Recipient Understood Notice: Yes Recipient Signature: Yes Med Rec Note Co-signed by Attending: Coverage [facility] Reviewer: [id number] Song Notice Issued Date-Time: 05/23/2018 12:20 Notice Type: IM Discharge Notice Notice Delivered To: Family Member Relationship to Patient: Manuel Machine Tech Name: KARINA QUINN Delivery Method: HAND - Hand Delivered Dawna Days: Prior Verbal Notification: Recipient Understood Notice: Yes Recipient Signature: Yes Med Rec Note Co-signed by Attending: Coverage Notice Comment: Last DP export: 05/23/18 3:16 p Patient Name: MADELEINE WONG Page [id number] at 1635 All edits/amendments must be made on the electronic document DICTATION DATE: 05/23/18 1635 PROCESS TECHNICIAN: JULIA 05/23/18 1635 RPT#: [id number] DC DATE: STATUS: ADM IN [facility] [address] [place] [address] END OF REPORT
--- NOTE | 2018-05-23 16:53 | NUR ---
PT BACK FROM [facility] A[facility]KE AND ASKING FOR TYLENOL WILL GET IT FOR HER. VSS AND BEING MONITERED PER POST PROCEDURE PROTOCOL. PT HAS A NEW PEG TUBE TO HER LUQ OF HER ABDOMEN, SITE IS SLIGHTLY BLOODY. CLEANED SITE WITH ASEPTIC FOAM CLEANSER AND PATTED DRY THEN PLACED DAWSON DRAINAGE SPONGE AND SECURED WITH TAPE. NO FAMILY PRESENT. WILL CPOC.
--- NOTE | 2018-05-23 18:28 | NUR ---
DID NOT COLLECT STOOL SPECIMEN FOR OCCULT BLOOD R/T PT NOT HAVING A BM AFTER IT WAS ORDERED. WILL PASS ON IN REPORT.
[2018-05-23 20:00] VITALS: BP 176/78
--- NOTE | 2018-05-23 23:37 | NUR ---
LYING IN BED WITH CALL LIGHT IN REACH. WILL CONTINUE TO MONITOR.
[2018-05-24 00:14] VITALS: BP 136/58
[2018-05-24 04:00] VITALS: BP 107/75
[2018-05-24 06:21] LABS: ANION GAP 12.9 mmol/L (8-16); CARBON DIOXIDE 23.4 mmol/L (21.0-32.0); CREATININE - SERUM 1.3 mg/dL (0.6-1.3); PHOSPHOROUS 2.9 mg/dL (2.5-4.9)
[2018-05-24 06:26] LABS: POTASSIUM - SERUM 4.3 mmol/L (3.5-5.1)
[2018-05-24 07:14] LABS: BASOPHILS 0.4 % (0-2); EOSINOPHILS 0.1 % (0-7); HEMATOCRIT 27.9 % (36.0-48.0); HEMOGLOBIN 8.7 g/dL (12-16); IMMATURE GRANULOCYTES 0.4 % (0-5); LYMPHOCYTES 7.3 % (15-50); MCH 31.6 pg (26.0-34.0); MCHC 31.2 g/dL (31.0-37.0); MCV 101.5 fL (80.0-100.0); MEAN PLATELET VOLUME 9.8 fL (7.4-10.4); MONOCYTES 5.6 % (2-11); NEUTROPHILS 86.2 % (40-80); PLATELET COUNT 449 10x3/uL (130-400); RBC 2.75 10x6/uL (4.00-5.40); RDW 17.1 % (11.5-14.5); WBC 13.5 10x3/uL (4.8-10.8)
--- NOTE | 2018-05-24 07:39 | NUR ---
Nutrition consult: Received order to start TF s/p PEG tube placement. Start Jevity 1.2 gloria @ 20 ml/hr @ 1400 today. Check residuals Q 4 hours. If residuals are < 100 ml, increase TF 10 ml Q 4 hours to goal rate of 60 ml/hr. Flush tube with 25 ml H2O q hour. RDN following.
[2018-05-24 08:03] VITALS: BP 139/70
--- NOTE | 2018-05-24 09:40 | NUR ---
PT REFUSED BREAKFAST AND STATES SHE IS JUST NOT HUNGRY. PROVIDED PT WITH PRN TYLENOL REQUESTED FOR GENERALIZED PAIN. PT SWALLOWED HER MORNING MEDICATIONS WITHOUT ANY DIFFICULTIES WITH . PT VOICED THANKS. PTS R.CHEST CVL DRSG IS SATURATED WITH FLUID AGAIN. CHANGED DRSG USING STERILE TECHNIQUE. NEW BIOPATCH CDI, CVL IS SUTURED IN NO S/S OF INFECTION OR REDDNESS NOTED. NEW DRSG CLEAN AND DRY AND ADHERED TO SKIN. DATED AND INITIALED. NO CURRENT NEEDS AT THIS TIME. CL IN REACH, BED IN LOWEST, SIDE RAILS X2 AND ABDOULAYE PAD IN PLACE, NO FAMILY PRESENT AT THIS TIME. WILL CTM.
--- NOTE | 2018-05-24 09:44 | NUR ---
X7 DAYS OF VANCOMYCIN THERAPY FOR UTI COMPLETE PLEASE REORDER IF EXTENDED DURATION IS NEEDED THANK YOU FOR THE CONSULT!
[2018-05-24 11:30] VITALS: BP 116/96
--- NOTE | 2018-05-24 12:18 | NUR ---
PROVIDED PT WITH NEW MEDICATIONS FOR THRUSH IN MOUTH AND PT IMMEDIATELY GOT NAUSEATED AND THREW IT UP. WILL HAVE TO JUST DO ORAL CARE WITH THE NYSTATIN SO SHE DOESNT HAVE TO HOLD IN HER MOUTH. PT SITTING UP WITH FAMILY AT BEDSIDE. FAMILY COMPLAINING THAT HER DRSGS ON HER HEELS KEEP FALLING OFF HOWEVER SHE IS CONSTANTLY MOVING AND KICKING THEM OFF. PROVIDED DRSG CHANGE AND ENFORCED WITH MESH WRAP. WILL CTM.
--- NOTE | 2018-05-24 14:30 | NUR ---
INITIATED TUBE FEEDING ORDERED. STARTED AT 20ML/HR WITH Q1H 25ML WATER FLUSH. PT VERBALIZED UNDERSTANDING NOT TO PULL AT TUBE AND WILL CALL FOR ANY DISCOMFORT. CL IN REACH, BED IN LOWEST, SIDE RAILS X2. NO FAMILY PRESENT. WILL CTM.
[2018-05-24 15:29] VITALS: BP 121/55
--- NOTE | 2018-05-24 16:51 | MORECARE ---
CASE MANAGEMENT DISCHARGE SUMMARY PATIENT: MADELEINE WONG UNIT: [id number] ADM DATE: 05/09/18 AGE: 88 : [birth year] SEX: F ROOM/BED: D.2112 AUTHOR: BELINDA DICKINSON PHYSICIAN: REFERRING PHYSICIAN: LEXA BENAVIDES MD DATE OF SERVICE: 05/24/18 Discharge Plan Patient Name: MADELEINE WONG Facility: [facility]:[place] : 1930 Planned Disposition: Correction Facility Anticipated Discharge Date: 05/24/18 Discharge Date: Expected LOS: 15 Initial Reviewer: [id number] Initial Review Date: 05/09/2018 Generated: 05/24/18 5:51 pm Comments DCP- Discharge Planning Updated by [id number]: Akhil Song on 05/24/18 3:[address] Patient Name: MADELEINE WONG Encounter No: [id number] : 1930 Primary Insurance: HUMANA CHOICE PPO MCR ADVANT Anticipated DC Date: 05-24-2018 Planned Disposition: Correction Facility External Planned Provider: [facility], MEDICARE REHAB BED DCP follow-up note: CM MET WITH PT'S HAN SALCEDO BY MARRIAGE, NOLA KAI, . N[place] STATES THAT KARINA QUINN IS PT'S FIANCE. PT HAS POWER OF MATERIAL CONTROLLER WITH [employer], REBECCA SPOUSE, JOON QUINN, WHO WORKS IN [employer]. [place] WILL GET JOON TO HOSPITAL ALONG WITH POWER OF MATERIAL CONTROLLER PAPERWORK SOON POSSIBLE. THEY ARE IN AGREEMENT WITH REHAB AT [facility], BUT [facility] MAY NOT ACCEPT PT HAS CONTINUED DECLINE. [facility] TO COME TOMORROW TO EVALUATE PT FOR REHAB. IF [facility] DOES NOT ACCEPT FOR REHAB, THEY ARE THINKING TO TAKE PT HOME TO [facility] HERE IN [place] AND NOLA ALONG WITH FAMILY WILL CARE FOR PT WITH HOME HOSPICE. NOLA REPORTS THEY WILL MAKE THAT DECISION TOMORROW. CM EXPLAINED THAT THE POWER OF MATERIAL CONTROLLER WILL HAVE TO BE IN AGREEMENT AND SIGN ANY NEEDED AUTHORIZATIONS FOR ENROLLMENT IN REHAB OR HOSPICE CARE. [place]OL[place] REPORTS UNDERSTANDING, PROVIDED CELL PHONE NUMBER FOR JOON QUINN, . CM WAITING ADMISSION DETERMINATION FROM [facility] FOR REHAB PLACEMENT. HIEN BARRY MANAGEMENT DCP- Discharge Planning Updated by [id number]: Akhil Song on 05/23/18 3:[address] Patient Name: MADELEINE WONG Encounter No: [id number] : 1930 Primary Insurance: HUMANA Fastly PPO MCR ADVANT Anticipated DC Date: 05-24-2018 Planned Disposition: Correction Facility External Planned Provider: [facility], MEDICARE REHAB BED DCP follow-up note: CM MET WITH PT AND SON/POA, KARINA QUINN, AT FAMILY REQUEST. MR. QUINN REPORTS IT IS NOW TIME TO SEND REFERRAL TO [facility] FOR REHAB PLACEMENT. IMPORTANT MESSAGE FROM MEDICARE PROVIDED AND EXPLAINED. CM FAXED REFERRAL TO [facility], . CM WAITING ADMISSION DETERMINATION FROM [facility] FOR REHAB PLACEMENT. HIEN BARRY DCP- Discharge Planning Updated by [id number]: Akhil Song on 05/11/18 4:[address] Patient Name: MADELEINE WONG Admission Status: Elective Accout number: [id number] Admission Date: 05-09-2018 : 1930 Admission Diagnosis:ACUTE KIDNEY FAILURE, UNSPECIFIED Attending: LEXA BENAVIDES Current LOS: 2 Anticipated DC Date: Planned Disposition: [facility] Facility Primary Insurance: HUMANA Fastly PPO MCR ADVANT PLANNED EXTERNAL PROVIDER: [facility], MEDICARE REHAB BED Discharge Planning Comments: CM RECEIVED ORDER INDICATING PT WANTS CUSTODIAL CARE. CM MET WITH PT AND SON IN ROOM TO DISCUSS DISCHARGE PLANNING AND NEEDS. PT REPORTS THAT BEFORE GETTING SICK, SHE WAS LIVING AT HOME WITH HER SON, INDEPENDENT IN HER CARE. PT REPORTS SHE DID TELL THE DOCTOR THAT SHE WOULD BE BETTER OFF IN A CUSTODIAL BEFORE FAMILY ARRIVED TODAY. PT WANTS REHAB, NOT HALFWAY CARE. PT HAS NO MEDICAL EQUIPMENT AND NO OUTSIDE SERVICES ASSISTING IN THE HOME. CM DISCUSSED AVAILABILITY OF HOME HEALTH, REHAB SERVICES AND MEDICAL EQUIPMENT. PT'S SON INITIALLY DECLINED TO PARTICIPATE IN DISCHARGE PLANNING REPORTING PT WAS SENT TO REHAB DOWNSTAIRS TOO SOON WHEN SHE WAS NOT ABLE TO WALK OR EVEN FEED HERSELF. SON WANTS PT CONSIDERED FOR INPATIENT REHAB AGAIN STATING THEY SENT HER BACK HERE BECAUSE SHE USED ALL OF HER DAYS DOWN THERE. PT DOES NOT THINK SHE CAN PARTICIPATE IN THREE HOURS OF PROGRESSIVE THERAPY PER DAY. CM EXPLAINED THAT IF PT IS NOT ABLE TO PARTICIPATE IN THE THREE HOURS OF PROGRESSIVE THERAPY, IS NOT ABLE TO STAND OR FEED HERSELF, SHE IS NOT GOING TO BE APPROPRIATE FOR READMISSION TO INPATENT REHAB. CM DISCUSSED AVAILABILITY OF PENITENTIARY REHAB SERVICES AND PROVIDED CHOICE FORM. PT'S SON REPORTS HE ALREADY SIGNED ONE OF THESE FOR [facility] THE LAST VISIT AND SPEAKING WITH THIS CM. CM EXPLAINED A NEW ONE WAS NEEDED. PT'S SON SIGNED THE FORM AND DOES NOT WANT PT SENT TO REHAB BEFORE SHE IS STABLE. CM EXPLAINED THAT ALL DOCTORS WOULD HAVE TO INDICATE PT IS READY TO DISCHARGE AND CM IS ONLY WANTING TO BE PROACTIVE ON PT'S BEHALF FOR DISCHARGE PLANNING AND SECURE REHAB BED AHEAD OF TIME TO ENSURE THAT PT IS ABLE TO GET INTO [facility] WHEN DISCHARGED [facility] IS POPULAR REH[facility] AND DOES FILL UP. PT'S SON WILL WANTS PT TO BE STABLE FOR DISCHARGE FOR CM TO SEND REFERRALS. CHOICE SIGNED. CM PROVIDED PT'S SON WITH CM CONTACT INFORMATION. CM TO SEND REFERRAL TO [facility] WHEN PROJECTED DISCHARGE DATE IS KNOWN, PT'S SON DOES NOT WANT REHAB REFERRAL SENT OUT PRIOR TO PT'S MEDICAL STABILITY FOR DISCHARGE TO REHAB. Die Cutter Apprentice: Akhil Song DCPIA - Discharge Planning Initial Assessment Updated by [id number]: Akhil Song on 05/11/18 5:43 pm * Is the patient Alert and Oriented? Yes * How many steps to enter\exit or inside your home? NONE * PCP DR. PONCE * Pharmacy [facility] * Preadmission Environment Acute Inpatient Rehab * Facility Name [facility] * ADLs Total Dependent * Equipment None * Other Equipment NO MEDICAL EQUIPMENT PROVIDER PREFERECE * List name and contact numbers for known caregivers / representatives who currently or will assist patient after discharge: KARINA QUINN, SON/POA, * Verbal permission to speak to the caregivers and representatives has been obtained from the patient. Yes * Community resources currently utilized None * Please name any agencies selected above. NONE * Additional services required to return to the preadmission environment? Yes * Can the patient safely return to the preadmission environment? Yes * Has this patient been hospitalized within the prior 30 days at any hospital? Yes Coverage Notice Reviewer: [id number] Adriel Song Notice Issued Date-Time: 05/11/2018 13:00 Notice Type: Patient Choice Letter Notice Delivered To: Family Member Relationship to Patient: Son Break Up Worker Name: KARINA QUINN Delivery Method: HAND - Hand Delivered Dawna Days: Prior Verbal Notification: Recipient Understood Notice: Yes Recipient Signature: Yes Med Rec Note Co-signed by Attending: Coverage Notice Comment[facility] Reviewer: [id number] Adriel Song Notice Issued Date-Time: 05/23/2018 12:20 Notice Type: IM Discharge Notice Notice Delivered To: Family Member Relationship to Patient: Son Break Up Worker Name: KARINA QUINN Delivery Method: HAND - Hand Delivered Dawna Days: Prior Verbal Notification: Recipient Understood Notice: Yes Recipient Signature: Yes Med Rec Note Co-signed by Attending: Coverage Notice Comment: Last DP export: 05/23/18 3:35 p Patient Name: MADELEINE WONG Page [id number] at 1651 All edits/amendments must be made on the electronic document DICTATION DATE: 05/24/181649 GEARCASE ASSEMBLER: JULIA 05/24/181649 RPT#: [id number] DC DATE: STATUS: ADM IN [facility] [address] [place] [address] END OF REPORT
--- NOTE | 2018-05-24 17:46 | NUR ---
PT RESTING QUIETLY IN BED RR NONLABORED ON RA. PT VOICED RELIEF FROM IV PAIN MEDICATION AND VOICED THANKS. PT DENIES ANY CURRENT NEEDS AT THIS TIME, TUBE FEEDING STILL GOING ORDERED AND NO ISSUES NOTED, PT REFUSED DINNER AND ISNT HUNGRY. CL IN REACH, BED IN LOWEST, SIDE RAILS X2 WILL CPOC.
--- NOTE | 2018-05-24 19:30 | NUR ---
RESUMING CARE. PI LAYING IN BED EYES CLOSED ON OVERLAY MATTERESS , PT ON RA , CVL ON RT CHEST SL PEG IN RUQ JEVITY RUNNING 20ML/HR W/ 25ML FLUSH Q HR BREATH SOUNDS EVEN UNLABORED NO C/O PAIN OR DISTRESS NOTED CALL LIGT IN REACH WILL CONT TO NERISSAIOR
[2018-05-24 20:00] VITALS: BP 178/70
--- NOTE | 2018-05-24 21:10 | NUR ---
CHECK RESIDUAL GOT 0 BACL INCREASES FEEDING TO 30ML PER ORDER
--- NOTE | 2018-05-24 21:36 | NUR ---
BS 143 WNL NO COVERAGE NEEDED
[2018-05-25] VITALS: BP 159/68
--- NOTE | 2018-05-25 02:15 | NUR ---
CHECKED RESIDUAL PULLED BACK 0 INCREASED FEEDING TO 40ML
[2018-05-25 04:00] VITALS: BP 106/73
--- NOTE | 2018-05-25 04:21 | NUR ---
ROTARY DRILL OPERATOR AT BEDSIDE TO OBTAIN VITALS, CALL LIGHT IN REACH. WILL CONTINUE WITH PLAN OF CARE.
--- NOTE | 2018-05-25 08:01 | NUR ---
AM ROUNDS COMPLETED. INTRODUCED MYSELF TO PT PRIMARY RN FOR TODAYS SHIFT. PT IS A&O SITTING UP IN BED RESTING QUIETLY. PT STATES SHE SLEPT GOOD AND DENIES ANY PAIN. CHECKED RESIDUAL ON PEG TUBE AND REC'D 10CC SO I INCREASED THE RATE BY 10ML ORDERED AND PT NOW RECIEVING JEVITY 1.2CAL @50ML/HR AND SEEMS TO BE TOLERATING WELL. PT STATES SHE WILL TRY TO EAT SOME BREAKFAST, WILL HAVE COMMERCIAL LITIGATION ATTORNEY ASSIST. TAMAYO CATHETER DRAINING OFF R.SIDE OF BED CONCENTRATED URINE. NO IMMEDATE NEEDS AT THIS TIME. CL IN REACH, BED IN LOWEST, SIDE RAILS X2 AND ABDOULAYE PAD IN PLACE. WILL CPOC.
--- NOTE | 2018-05-25 08:18 | MORECARE ---
CASE MANAGEMENT DISCHARGE SUMMARY PATIENT: MADELEINE WONG UNIT: [id number] ADM DATE: 05/09/18 AGE: 88 : [birth year] SEX: F ROOM/BED: D.2 AUTHOR: BELINDA DICKINSON PHYSICIAN: REFERRING PHYSICIAN: LEXA BENAVIDES MD DATE OF SERVICE: 05/25/18 Discharge Plan Patient Name: MADELEINE WONG Facility: [facility]:[place] : 1930 Planned Disposition: Longterm Facility Anticipated Discharge Date: 05/24/18 Discharge Date: Expected LOS: 15 Initial Reviewer: [id number] Initial Review Date: 05/09/2018 Generated: 05/25/18 9:18 am Comments DCP- Discharge Planning Updated by [id number]: Akhil Benítez on 05/25/18 7:[address] Patient Name: MADELEINE WONG Encounter No: [id number] : 1930 Primary Insurance: [employer] CHOICE PPO MCR ADVANT Anticipated DC Date: 05-24-2018 Planned Disposition: Longterm Facility External Planned Provider: [facility], MEDICARE REHAB BED DCP follow-up note: CM FAXED UPDATE TO [facility], FOR REHAB REQUEST. CM WAITING ADMISSION DETERMINATION FROM [facility] FOR REHAB PLACEMENT. AKHIL BENÍTEZ CASE KATIE DCP- Discharge Planning Updated by [email or web address]: Akhil Benítez on 05/24/18 3:[address] Patient Name: MADELEINE WONG Encounter No: [id number] : 1930 Primary Insurance: HU[employer]NA CHOICE PPO MCR ADVANT Anticipated DC Date: 05-24-2018 Planned Disposition: Longterm Facility External Planned Provider: [facility], MEDICARE REHAB BED DCP follow-up note: CM MET WITH PT'S HNA SALCEDO BY MARRIAGE, NOLA QUINN, . NOLA STATES THAT KARINA QUINN IS PT'S FIANCE. 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 NOLA WILL GET JOON TO HOSPITAL ALONG WITH POWER OF CLINICAL INFORMATICS MANAGER PAPERWORK SOON POSSIBLE. THEY ARE IN AGREEMENT WITH REHAB AT [facility], BUT [facility] MAY NOT ACCEPT PT HAS CONTINUED DECLINE. [facility] TO COME TOMORROW TO EVALUATE PT FOR REHAB. IF [facility] DOES NOT ACCEPT FOR REHAB, THEY ARE THINKING TO TAKE PT HOME TO [facility] HERE IN [place] AND [place] ALONG WITH FAMILY WILL CARE FOR PT WITH HOME HOSPICE. NOLA REPORTS THEY WILL MAKE THAT DECISION TOMORROW. CM EXPLAINED THAT THE POWER OF CLINICAL INFORMATICS MANAGER WILL HAVE TO BE IN AGREEMENT AND SIGN ANY NEEDED AUTHORIZATIONS FOR ENROLLMENT IN REHAB OR HOSPICE CARE. [place] REPORTS UNDERSTANDING, PROVIDED CELL PHONE NUMBER FOR JOON QUINN, . CM WAITING ADMISSION DETERMINATION FROM [facility] FOR REHAB PLACEMENT. HIEN BARRY MANAGEMENT DCP- Discharge Planning Updated by [id number]: Akhil Benítez on 05/23/18 3:[address] Patient Name: MADELEINE WONG Encounter No: [id number] : 1930 Primary Insurance: [employer] PPO [facility] ADVANT Anticipated DC Date: 05-24-2018 Planned Disposition: Longterm Facility External Planned Provider: [facility], MEDICARE REHAB BED DCP follow-up note: CM MET WITH PT AND SON/POA, KARINA QUINN, AT FAMILY REQUEST. MR. QUINN REPORTS IT IS NOW TIME TO SEND REFERRAL TO [facility] FOR REHAB PLACEMENT. IMPORTANT MESSAGE FROM MEDICARE PROVIDED AND EXPLAINED. CM FAXED REFERRAL TO [facility], . CM WAITING ADMISSION DETERMINATION FROM [facility] FOR REHAB PLACEMENT. HIEN BARRY DCP- Discharge Planning Updated by [id number]: Akhil Benítez on 05/11/18 4:[address] Patient Name: MADELEINE WONG Admission Status: Elective Accout number: [id number] Admission Date: 05-09-2018 : 1930 Admission Diagnosis:ACUTE KIDNEY FAILURE, UNSPECIFIED Attending: LEXA BENAVIDES Current LOS: 2 Anticipated DC Date: Planned Disposition: Longterm Facility Primary Insurance: [employer] CHOICE PPO MCR ADVANT PLANNED EXTERNAL PROVIDER: [facility], MEDICARE REHAB BED Discharge Planning Comments: CM RECEIVED ORDER INDICATING PT WANTS ALF CARE. CM MET WITH PT AND SON IN ROOM TO DISCUSS DISCHARGE PLANNING AND NEEDS. PT REPORTS THAT BEFORE GETTING SICK, SHE WAS LIVING AT HOME WITH HER SON, INDEPENDENT IN HER CARE. PT REPORTS SHE DID TELL THE DOCTOR THAT SHE WOULD BE BETTER OFF IN A ALF BEFORE FAMILY ARRIVED TODAY. PT WANTS REHAB, NOT RESPIRATORY MANAGER CARE. PT HAS NO MEDICAL EQUIPMENT AND NO OUTSIDE SERVICES ASSISTING IN THE HOME. CM DISCUSSED AVAILABILITY OF HOME HEALTH, REHAB SERVICES AND MEDICAL EQUIPMENT. PT'S SON INITIALLY DECLINED TO PARTICIPATE IN DISCHARGE PLANNING REPORTING PT WAS SENT TO REHAB DOWNSTAIRS TOO SOON WHEN SHE WAS NOT ABLE TO WALK OR EVEN FEED HERSELF. SON WANTS PT CONSIDERED FOR INPATIENT REHAB AGAIN STATING THEY SENT HER BACK HERE BECAUSE SHE USED ALL OF HER DAYS DOWN THERE. PT DOES NOT THINK SHE CAN PARTICIPATE IN THREE HOURS OF PROGRESSIVE THERAPY PER DAY. CM EXPLAINED THAT IF PT IS NOT ABLE TO PARTICIPATE IN THE THREE HOURS OF PROGRESSIVE THERAPY, IS NOT ABLE TO STAND OR FEED HERSELF, SHE IS NOT GOING TO BE APPROPRIATE FOR READMISSION TO INPATENT REHAB. CM DISCUSSED AVAILABILITY OF [facility] AND PROVIDED CHOICE FORM. PT'S SON REPORTS HE ALREADY SIGNED ONE OF THESE FOR [facility] THE LAST VISIT AND SPEAKING WITH THIS CM. CM EXPLAINED A NEW ONE WAS NEEDED. PT'S SON SIGNED THE FORM AND DOES NOT WANT PT SENT TO REHAB BEFORE SHE IS STABLE. CM EXPLAINED THAT ALL DOCTORS WOULD HAVE TO INDICATE PT IS READY TO DISCHARGE AND CM IS ONLY WANTING TO BE PROACTIVE ON PT'S BEHALF FOR DISCHARGE PLANNING AND SECURE REHAB BED AHEAD OF TIME TO ENSURE THAT PT IS ABLE TO GET INTO [facility] WHEN DISCHARGED [facility] IS POPULAR REHAB AND DOES FILL UP. PT'S SON WILL WANTS PT TO BE STABLE FOR DISCHARGE FOR CM TO SEND REFERRALS. CHOICE SIGNED. CM PROVIDED PT'S SON WITH CM CONTACT INFORMATION. CM TO SEND REFERRAL TO [facility] WHEN PROJECTED DISCHARGE DATE IS KNOWN, PT'S SON DOES NOT WANT REHAB REFERRAL SENT OUT PRIOR TO PT'S MEDICAL STABILITY FOR DISCHARGE TO REHAB. Set Up Mold Technician: Akhil Benítez DCPIA - Discharge Planning Initial Assessment Updated by [id number]: Akhil Benítez on 05/11/18 5:43 pm * Is the patient Alert and Oriented? Yes * How many steps to enter\exit or inside your home? NONE * PCP DR. PONCE * Pharmacy [facility] * Preadmission Environment Acute Inpatient Rehab * Facility Name [facility] INPATIENT REHAB * ADLs Total Dependent * Equipment None * Other Equipment NO MEDICAL EQUIPMENT PROVIDER PREFERECE * List name and contact numbers for known caregivers / representatives who currently or will assist patient after discharge: MANUEL BRANNON/ISAIAH, * Verbal permission to speak to the caregivers and representatives has been obtained from the patient. Yes * Community resources currently utilized None * Please name any agencies selected above. NONE * Additional services required to return to the preadmission environment? Yes * Can the patient safely return to the preadmission environment? Yes * Has this patient been hospitalized within the prior 30 days at any hospital? Yes Coverage Notice Reviewer: [id number] Benítez Notice Issued Date-Time: 05/11/2018 13:00 Notice Type: Patient Choice Letter Notice Delivered To: Family Member Relationship to Patient: Son Bookkeeping Manager Name: KARINA QUINN Delivery Method: HAND - Hand Delivered Dawna Days: Prior Verbal Notification: Recipient Understood Notice: Yes Recipient Signature: Yes Med Rec Note Co-signed by Attending: Coverage Notice Comment: [facility] Reviewer: [id number] Benítez Notice Issued Date-Time: 05/23/2018 12:20 Notice Type: IM Discharge Notice Notice Delivered To: Family Member Relationship to Patient: Son Bookkeeping Manager Name: KARINA QUINN Delivery Method: HAND - Hand Delivered Dawna Days: Prior Verbal Notification: Recipient Understood Notice: Yes Recipient Signature: Yes Med Rec Note Co-signed by Attending: Coverage Notice Comment: Last DP export: 05/24/18 3:51 p Patient Name: MADELEINE WONG Page [phone] at 0818 All edits/amendments must be made on the electronic document DICTATION DATE: 05/25/18817 CUSTOMER ENERGY SPECIALIST: JULIA 05/25/18817 RPT#: [id number] DC DATE: STATUS: ADM IN [facility] [address] [place] [address] END OF REPORT
[2018-05-25 08:21] LABS: BASOPHILS 0.2 % (0-2); EOSINOPHILS 2.2 % (0-7); HEMATOCRIT 27.7 % (36.0-48.0); HEMOGLOBIN 8.6 g/dL (12-16); IMMATURE GRANULOCYTES 0.4 % (0-5); MCH 31.6 pg (26.0-34.0); MCV 101.8 fL (80.0-100.0); MEAN PLATELET VOLUME 9.9 fL (7.4-10.4); MONOCYTES 8.4 % (2-11); NEUTROPHILS 81.8 % (40-80); PLATELET COUNT 431 10x3/uL (130-400); RBC 2.72 10x6/uL (4.00-5.40); RDW 17.6 % (11.5-14.5); WBC 12.1 10x3/uL (4.8-10.8)
[2018-05-25 08:30] LABS: ANION GAP 11.2 mmol/L (8-16); CALCIUM 8.1 mg/dL (8.5-10.1); CARBON DIOXIDE 24.5 mmol/L (21.0-32.0); CREATININE - SERUM 1.4 mg/dL (0.6-1.3); PHOSPHOROUS 2.9 mg/dL (2.5-4.9); POTASSIUM - SERUM 3.7 mmol/L (3.5-5.1)
[2018-05-25 09:21] VITALS: BP 171/70
[2018-05-25 12:52] VITALS: BP 152/64
--- NOTE | 2018-05-25 13:07 | NUR ---
Nutrition follow-up: Pt with PEG tube placed and jevity 1.2 gloria now infusing @ 50 ml/hr. Pt tolerating. Pt also eating a regular diet as tolerated. Labs reviewed Wt: 138# RDN following.
--- NOTE | 2018-05-25 13:15 | NUR ---
PTS FAMILY AT BEDSIDE FEEDING HER, SHE IS WANTING TO EAT A LITTLE BIT. STOPPED PTS TUBE FEEDING TO CHECK RESIDUAL AND WILL INCREASE IF TOLERATES. NO CURRENT NEEDS. WILL CTM.
--- NOTE | 2018-05-25 13:25 | NUR ---
THERAPY AT BEDSIDE AND ASSISTED PT BACK INTO BED. FLUSHED TRIPLE LUMEN OF R.CHEST CVL AND WHITE LUMEN HAD SLIGHT RESISTANCE BUT WAS ABLE TO BE FLUSHED AND HAS BLOOD RETURN. CHECKED RESIDUAL AND REC'D ALMOST 10CC OF FEED, RETURNED AND THEN TURNED FEEDING BACK ON AND INCREASED IT TO 60ML/HR. TUBE FEEDING NOW AT GOAL RATE AND PT TOLERATING WITHOUT ANY C/O PAIN OR STOMACH ISSUES. TAMAYO DRAINING TO GRAVITY OFF R.SIDE OF THE BED WITHOUT ANY ISSUES. TAMAYO CARE PROVIDED VIA MEDICAL TRANSCRIPTION EDITOR WASHED WITH SOAP AND WATER, STAT LOCK SECURED TO INNER THIGH AND NO KINKS NOTED. PT WOULD LIKE TO REST NOW, COVERED HER WITH BLANKETS AND SHE VOICED THANKS. CL IN REACH, BED IN LOWEST, SIDE RAILS X2 AND ABDOULAYE PAD IN PLACE. WILL CTM.
--- NOTE | 2018-05-25 17:14 | NUR ---
[facility] CAME TO [facility] PT AND SHE WAS SLINGER SEQUINS AND VISITING HOWEVER SHE DID VOICE SHE CAN DO THERAPY BUT NOT AGGRESSIVE AND DOESNT WANT TO WALK OR DO MUCH. PT IS HAPPY BUT APPEARS TO BE SO WEAK AND JUST FAILURE TO THRIVE. WILL DISCUSS WITH FAMILY BUT PT IS A&O AND SHOULDNT BE FORCED IF SHE IS NOT WANTING TO.
--- NOTE | 2018-05-25 18:02 | OP ---
PATIENT NAME: MADELEINE WONG MEDICAL RECORD: [id number] :[birth year] LOCATION:D.M2 D.2112 ADMISSION DATE:05/09/18 SURGEON: CHUNG ALONSO MD DATE OF OPERATION: 05/23/2018 PREOPERATIVE DIAGNOSES: 1. Failure to thrive. 2. Feeding problems. 3. Acute malnutrition. POSTOPERATIVE DIAGNOSES: 1. Failure to thrive. 2. Feeding problems. 3. Acute malnutrition. 4. Panesophagitis, likely due to Anabell esophagitis. 5. Moderate-size hiatal hernia. PROCEDURES: 1. Esophagogastroduodenoscopy with antral and mid esophageal biopsies. 2. Placement of a 20-Ukrainian percutaneous endoscopic gastrostomy tube. SURGEON: Chung Alonso MD LOCAL HAZMAT DRIVER: None. BLOOD LOSS: Minimal. ANESTHESIA: Local with IV sedation. COMPLICATIONS: None. The risks, possible complications and alternatives to the procedure were explained to the patient. She elects to proceed. Discussion specifically included, but was not limited to, bleeding requiring emergency reoperation, infection, intestinal injury as well as possible need for additional procedures should there be dislodgement of the gastrostomy tube. OPERATIVE COURSE: The patient was conveyed to the endoscopy suite electively on 05/23/2018. IV sedation was induced by the anesthesia staff. The abdomen was sterilely prepped and draped. A bite block was inserted. A gastroscope was inserted into the mouth. It was advanced easily into the hypopharynx. The esophagus was easily intubated as were the stomach and duodenum. Upon withdrawal, retroflexed and angulus views were obtained. Antral biopsies were obtained. I then indented the anterior abdominal wall skin. I was able to visualize this endoscopically. An area for insertion of the gastrostomy tube was noted and this is going to be in the left upper quadrant. This area was infiltrated with a local anesthetic. A transverse incision was accomplished. Through the transverse incision, I accessed the anterior portion of the stomach with an Angiocath. A guidewire was advanced through the Angiocath. This was grasped with an endoscopic snare and was withdrawn out through the mouth. The wire was attached to a pull-type gastrostomy tube, which was then pulled into place. Hub and flange devices were attached. I then re-endoscoped the patient's esophagus and stomach. There had been no evidence of false passage or perforation. Mid esophageal biopsies were obtained. The endoscope was then withdrawn under direct vision. OPERATIVE REPORT [id number] MADELEINE WONG We can begin tube feedings on the patient tomorrow. I went out and spoke to patient's family and discussed the endoscopic findings with them. TRANSINT:[id number] Voice Confirmation ID: [id number] DOCUMENT ID: [id number] CHUNG ALONSO MD at 1802 CC: SOFY ESQUEDA MD and LEXA BENAVIDES [id number] DICTATION DATE: 05/24/18 1036 PRODUCTION COUNTER: 05/24/18 1147 ADM IN [facility] [address] [place] [address]
[2018-05-25 20:00] VITALS: BP 171/63
--- NOTE | 2018-05-25 22:34 | NUR ---
PT COMPLAINING OF PAIN IN BACK. REQUESTED PRN PAIN MEDICATION. VITALS STABLE. R-16. SEE MAR. 24 OZ OF JEVITY GOING AT 60ML/HR WITH A 25ML FLUSH EVERY HOUR. RESIDUAL IS 20. PT RESTING COMFORTABLY AT THIS TIME. BED LOW CALL LIGHT WITHIN REACH. WILL CONTINUE TO MONITOR.
[2018-05-26] VITALS: BP 138/51
--- NOTE | 2018-05-26 03:37 | NUR ---
RN NOTE: PATIENT RESTING COMFORTABLY IN BED. RESPIRATIONS ARE EVEN AND UNLABORED. NO S/S OF DISTRESS. CALL LIGHT WITHIN REACH. WILL CPOC.
[2018-05-26 04:00] VITALS: BP 123/51
[2018-05-26 05:48] LABS: ANION GAP 8.9 mmol/L (8-16); CALCIUM 7.4 mg/dL (8.5-10.1); CARBON DIOXIDE 27.8 mmol/L (21.0-32.0); CREATININE - SERUM 1.5 mg/dL (0.6-1.3); MAGNESIUM - SERUM 1.9 mg/dL (1.8-2.4); PHOSPHOROUS 3.3 mg/dL (2.5-4.9)
[2018-05-26 05:49] LABS: POTASSIUM - SERUM 4.7 mmol/L (3.5-5.1)
[2018-05-26 10:34] VITALS: BP 136/63
--- NOTE | 2018-05-26 10:40 | NUR ---
RESTS ON 1ST STEP MATRESS. TF INFUSING. CALL LIGHT IN REACH. WILL CONT. PLAN OF CARE.
--- NOTE | 2018-05-26 10:59 | NUR ---
PATIENT IS ALERT AND ORIENTED AT TIMES. SHE IS LETHARGIC ANS IS SLUPED TO THE RIGHT. SHE WILL NOT SIT UP ALL THE WAY. PATIENT IS ABLE TO SWALLOW PILLS AND TAKE A FEW BITS OF FOOD WITH ASSISTANCE. I HAD TO SUPPORT HER WITH PILLOWS AND HOL HER HEAD UP TO TAKE PILLS. SHE IS WEAK. SHE DID NOT EAT VERY MUCH FOOD. JUST A FEW BITES.
[2018-05-26 13:06] VITALS: BP 136/64
[2018-05-26 16:17] VITALS: BP 130/51
[2018-05-26 19:54] VITALS: BP 145/60
--- NOTE | 2018-05-26 21:30 | NUR ---
ADMIN SCHED PO MEDS SWALLOWING WITHOUT DIFFICULTY. TOOK A FEW SIPS OF HER SODA. REPOSITIONED UP IN BED. LEFT DOOR OPEN TO MONITOR CLOSELY.
[2018-05-27 03:44] VITALS: BP 140/97
[2018-05-27 05:22] LABS: BASOPHILS 0.4 % (0-2); EOSINOPHILS 3.6 % (0-7); HEMATOCRIT 28.1 % (36.0-48.0); HEMOGLOBIN 8.4 g/dL (12-16); IMMATURE GRANULOCYTES 0.9 % (0-5); LYMPHOCYTES 9.4 % (15-50); MCH 31.6 pg (26.0-34.0); MCHC 29.9 g/dL (31.0-37.0); MEAN PLATELET VOLUME 9.9 fL (7.4-10.4); MONOCYTES 10.4 % (2-11); NEUTROPHILS 75.3 % (40-80); PLATELET COUNT 409 10x3/uL (130-400); RBC 2.66 10x6/uL (4.00-5.40); RDW 17.8 % (11.5-14.5); WBC 10.7 10x3/uL (4.8-10.8)
[2018-05-27 05:23] LABS: MCV 105.6 fL (80.0-100.0)
[2018-05-27 05:27] LABS: ANION GAP 10.7 mmol/L (8-16); CALCIUM 7.8 mg/dL (8.5-10.1); CARBON DIOXIDE 27.3 mmol/L (21.0-32.0); CREATININE - SERUM 1.3 mg/dL (0.6-1.3)
--- NOTE | 2018-05-27 08:02 | NUR ---
RESUMING PT CARE, PT LAYING IN BED WITH EYES CLOSED, RESPIRATIONS EVEN AND UNALBORED, BED IS IN LOWEST POSITION [facility] RAILS UP X2, CALL LIGHT IN REACH. WILL CONTINUE TO MONITOR AND FOLLOW PLAN OF CARE.
[2018-05-27 09:27] VITALS: BP 142/59
--- NOTE | 2018-05-27 09:54 | NUR ---
RESTS ON 1ST STEP MATRESS. TF INFUSING. CALL LIGHT IN REACH. WILL CONT. PLAN OF CARE.
[2018-05-27 11:42] VITALS: BP 140/75
[2018-05-27 15:57] VITALS: BP 104/66
--- NOTE | 2018-05-27 17:26 | MORECARE ---
CASE MANAGEMENT DISCHARGE SUMMARY PATIENT: MADELEINE WONG UNIT: [id number] ADM DATE: 05/09/18 AGE: 88 : [birth year] SEX: F ROOM/BED: D.2112 AUTHOR: BELINDA DICKINSON PHYSICIAN: REFERRING PHYSICIAN: LEXA BENAVIDES MD DATE OF SERVICE: 05/27/18 Discharge Plan Patient Name: MADELEINE WONG Facility: [facility]:[place] : 1930 Planned Disposition: Senior Care Facility Anticipated Discharge Date: 05/24/18 Discharge Date: Expected LOS: 15 Initial Reviewer: [email or web address] Initial Review Date: 05/09/2018 Generated: 05/27/18 6:25 pm Comments DCP- Discharge Planning Updated by [id number]: Josie Mccoy on 05/27/18 4:[address] CM RECEIVED AN ORDER REGARDING PLANS TO DISCHARGE TO HOME W/ HOSPITAL BED , TUBE FEEDING AND HOME HEALTH. PATIENT'S NUTRITION NOTE IS 05/25/18. WILL NEED NUTRITION NOTE REGARDING PATIENT NEEDS FOR DISCHARGE. CM UNDERSTANDS THE PATIENT DOES EAT AND TAKE HER MEDICATIONS BY MOUTH. SHE IS PRESENTLY ON FEEDINGS VIA PUMP. SHE HAS BEEN ADVANCED TO 60 CC/HR TODAY WHICH IS HER GOAL RATE. SPOKE WITH PRIMARY ARTURO AND SHE REPORTS NO RESIDUAL AT THIS TIME. WILL NEED TO HAVE [facility] PROVIDE BED AND SPECIALTY MATTRESS FOR HOME AND DETERMINE COVERAGE FOR TUBE FEEDING AND EQUIPMENT. CM TO FOLLOW UP IN AM. DCP- Discharge Planning Updated by [id number]: Akhil Benítez on 05/25/18 7:[address] Patient Name: MADELEINE WONG Encounter No: [id number] : 1930 Primary Insurance: [employer] CHOICE PPO MCR ADVANT Anticipated DC Date: 05-24-2018 Planned Disposition: Senior Care Facility External Planned Provider: [facility], MEDICARE REHAB BED DCP follow-up note: CM FAXED UPDATE TO [facility], FOR REHAB REQUEST. CM WAITING ADMISSION DETERMINATION FROM [facility] FOR REHAB PLACEMENT. AKHIL BENÍTEZ CASE MANAGEMENT DCP- Discharge Planning Updated by [id number]: Akhil Benítez on 05/24/18 3:[address] Patient Name: MADELEINE WONG Encounter No: [id number] : 1930 Primary Insurance: [employer] CHOICE PPO MCR ADVANT Anticipated DC Date: 05-24-2018 Planned Disposition: Senior Care Facility External Planned Provider: [facility], MEDICARE REHAB BED DCP follow-up note: CM MET WITH PT'S HAN SALCEDO BY MARRIAGE, NOLA QUINN, . NOLA STATES THAT KARINA QUINN IS PT'S FIANCE. PT HAS POWER OF WORK DISTRIBUTOR WITH [employer], REBECCA SPOUSE, JOON QUINN, WHO WORKS IN [place]. NOLA WILL GET JOON TO HOSPITAL ALONG WITH POWER OF WORK DISTRIBUTOR PAPERWORK SOON POSSIBLE. THEY ARE IN AGREEMENT WITH REHAB AT [facility], BUT [facility] MAY NOT ACCEPT PT HAS CONTINUED DECLINE. [facility] TO COME TOMORROW TO EVALUATE PT FOR REHAB. IF [facility] DOES NOT ACCEPT FOR REHAB, THEY ARE THINKING TO TAKE PT HOME TO [facility] HERE IN [place] AND N[place] ALONG WITH FAMILY WILL CARE FOR PT WITH HOME HOSPICE. NOLA REPORTS THEY WILL MAKE THAT DECISION TOMORROW. CM EXPLAINED THAT THE POWER OF WORK DISTRIBUTOR WILL HAVE TO BE IN AGREEMENT AND SIGN ANY NEEDED AUTHORIZATIONS FOR ENROLLMENT IN REHAB OR HOSPICE CARE. NOLA REPORTS UNDERSTANDING, PROVIDED CELL PHONE NUMBER FOR JOON QUINN, . CM WAITING ADMISSION DETERMINATION FROM [facility] FOR REHAB PLACEMENT. AKHIL BENÍTEZ, CASE MANAGEMENT DCP- Discharge Planning Updated by [id number]: Akhil Benítez on 05/23/18 3:[address] Patient Name: MADELEINE WONG Encounter No: [id number] : 1930 Primary Insurance: [employer] CHOICE PPO MCR ADVANT Anticipated DC Date: 05-24-2018 Planned Disposition: Senior Care Facility External Planned Provider[facility] DCP follow-up note: CM MET WITH PT AND SON/POA, KARINA QUINN, AT FAMILY REQUEST. MR. QUINN REPORTS IT IS NOW TIME TO SEND REFERRAL TO [facility] FOR REHAB PLACEMENT. IMPORTANT MESSAGE FROM MEDICARE PROVIDED AND EXPLAINED. [facility], . CM WAITING ADMISSION DETERMINATION FROM [facility] FOR REHAB PLACEMENT. AKHIL BENÍTEZ, CASE MANAGEMENT DCP- Discharge Planning Updated by [id number]: Akhil Nohemi on 05/11/18 4:[address] Patient Name: MADELEINE WONG Admission Status: Elective Accout number: [id number] Admission Date: 05-09-2018 : 1930 Admission Diagnosis:ACUTE KIDNEY FAILURE, UNSPECIFIED Attending: LEXA BENAVIDES Current LOS: 2 Anticipated DC Date: Planned Disposition: Senior Care Facility Primary Insurance: [employer] CHOICE PPO MCR ADVANT PLANNED EXTERNAL PROVIDER: [facility], MEDICARE REHAB BED Discharge Planning Comments: CM RECEIVED ORDER INDICATING PT WANTS LONGTERM CARE. CM MET WITH PT AND SON IN ROOM TO DISCUSS DISCHARGE PLANNING AND NEEDS. PT REPORTS THAT BEFORE GETTING SICK, SHE WAS LIVING AT HOME WITH HER SON, INDEPENDENT IN HER CARE. PT REPORTS SHE DID TELL THE DOCTOR THAT SHE WOULD BE BETTER OFF IN A LONGTERM BEFORE FAMILY ARRIVED TODAY. PT WANTS REHAB, NOT MARKETING GRAPHICS SPECIALIST CARE. PT HAS NO MEDICAL EQUIPMENT AND NO OUTSIDE SERVICES ASSISTING IN THE HOME. CM DISCUSSED AVAILABILITY OF HOME HEALTH, REHAB SERVICES AND MEDICAL EQUIPMENT. PT'S SON INITIALLY DECLINED TO PARTICIPATE IN DISCHARGE PLANNING REPORTING PT WAS SENT TO REHAB DOWNSTAIRS TOO SOON WHEN SHE WAS NOT ABLE TO WALK OR EVEN FEED HERSELF. SON WANTS PT CONSIDERED FOR INPATIENT REHAB AGAIN STATING THEY SENT HER BACK HERE BECAUSE SHE USED ALL OF HER DAYS DOWN THERE. PT DOES NOT THINK SHE CAN PARTICIPATE IN THREE HOURS OF PROGRESSIVE THERAPY PER DAY. CM EXPLAINED THAT IF PT IS NOT ABLE TO PARTICIPATE IN THE THREE HOURS OF PROGRESSIVE THERAPY, IS NOT ABLE TO STAND OR FEED HERSELF, SHE IS NOT GOING TO BE APPROPRIATE FOR READMISSION TO INPATENT REHAB. CM DISCUSSED AVAILABILITY OF ASSISTED REHAB SERVICES AND PROVIDED CHOICE FORM. PT'S SON REPORTS HE ALREADY SIGNED ONE OF THESE FOR [facility] THE LAST VISIT AND SPEAKING WITH THIS CM. CM EXPLAINED A NEW ONE WAS NEEDED. PT'S SON SIGNED THE FORM AND DOES NOT WANT PT SENT TO REHAB BEFORE SHE IS STABLE. CM EXPLAINED THAT ALL DOCTORS WOULD HAVE TO INDICATE PT IS READY TO DISCHARGE AND CM IS ONLY WANTING TO BE PROACTIVE ON PT'S BEHALF FOR DISCHARGE PLANNING AND SECURE REHAB BED AHEAD OF TIME TO ENSURE THAT PT IS ABLE TO GET INTO [facility] WHEN DISCHARGED [facility] IS POPULAR REHAB AND DOES FILL UP. PT'S SON WILL WANTS PT TO BE STABLE FOR DISCHARGE FOR CM TO SEND REFERRALS. CHOICE SIGNED. CM PROVIDED PT'S SON WITH CM CONTACT INFORMATION. CM TO SEND REFERRAL TO [facility] WHEN PROJECTED DISCHARGE DATE IS KNOWN, PT'S SON DOES NOT WANT REHAB REFERRAL SENT OUT PRIOR TO PT'S MEDICAL STABILITY FOR DISCHARGE TO REHAB. Set Up Mechanic Automatic Line: Akhil Benítez DCPIA - Discharge Planning Initial Assessment Updated by [id number]: Akhil Benítez on 05/11/18 5:43 pm * Is the patient Alert and Oriented? Yes * How many steps to enter\exit or inside your home? NONE * PCP DR. PONCE * Pharmacy [facility] * Preadmission Environment Acute Inpatient Rehab * Facility Name [facility] INPATIENT REH[facility] * ADLs Total Dependent * Equipment None * Other Equipment NO MEDICAL EQUIPMENT PROVIDER PREFERECE * List name and contact numbers for known caregivers / representatives who currently or will assist patient after discharge: MANUEL BRANNON/POA, * Verbal permission to speak to the caregivers and representatives has been obtained from the patient. Yes * Community resources currently utilized None * Please name any agencies selected above. NONE * Additional services required to return to the preadmission environment? Yes * Can the patient safely return to the preadmission environment? Yes * Has this patient been hospitalized within the prior 30 days at any hospital? Yes Coverage Notice Reviewer: [id number] Adriel Benítez Notice Issued Date-Time: 05/11/2018 13:00 Notice Type: Patient Choice Letter Notice Delivered To: Family Member Relationship to Patient: Son Business Development Associate Name: KARINA QUINN Delivery Method: HAND - Hand Delivered Dawna Days: Prior Verbal Notification: Recipient Understood Notice: Yes Recipient Signature: Yes Med Rec Note Co-signed by Attending: Coverage Notice Comment: [facility] Reviewer: [id number] Adriel Benítez Notice Issued Date-Time: 05/23/2018 12:20 Notice Type: IM Discharge Notice Notice Delivered To: Family Member Relationship to Patient: Son Business Development Associate Name: KARINA QUINN Delivery Method: HAND - Hand Delivered Dawna Days: Prior Verbal Notification: Recipient Understood Notice: Yes Recipient Signature: Yes Med Rec Note Co-signed by Attending: Coverage Notice Comment: Last DP export: 05/25/18 7:18 a Patient Name: MADELEINE WONG Page 11234 at 1726 All edits/amendments must be made on the electronic document DICTATION DATE: 05/27/181724 FOOD DEHYDRATOR OPERATOR: JULIA 05/27/181724 RPT#: [id number] DC DATE: STATUS: ADM IN [facility] [address] [place] [address] END OF REPORT
--- NOTE | 2018-05-27 19:05 | NUR ---
ALERT/AWAKE REQUESTED DINNER TRAY REMOVED. SHE DID NOT EAT ANY OF IT. INITIAL ASSESSMENTS PER NSG FLOWCHART DONE. LEFT DOOR OPENED TO MONITOR CLOSELY.
[2018-05-27 20:00] VITALS: BP 179/59
--- NOTE | 2018-05-28 00:05 | NUR ---
ADMIN TYLENOL 650MG PO FOR C/O "BACKACHE". REPOSITIONED TO LEFT SIDE WITH PILLOW TO HER BACK.
--- NOTE | 2018-05-28 00:59 | NUR ---
CHANGED TUBE FEED BAGS. REPOSITIONED. CONFUSED STATING "GET THE PUPPY OFF OF ME".
[2018-05-28 04:00] VITALS: BP 168/60
[2018-05-28 05:43] LABS: BASOPHILS 0.2 % (0-2); EOSINOPHILS 2.8 % (0-7); HEMATOCRIT 26.6 % (36.0-48.0); HEMOGLOBIN 8.1 g/dL (12-16); IMMATURE GRANULOCYTES 0.9 % (0-5); LYMPHOCYTES 11.2 % (15-50); MCH 31.5 pg (26.0-34.0); MCHC 30.5 g/dL (31.0-37.0); NEUTROPHILS 75.9 % (40-80); PLATELET COUNT 384 10x3/uL (130-400); RBC 2.57 10x6/uL (4.00-5.40); RDW 17.4 % (11.5-14.5); WBC 8.9 10x3/uL (4.8-10.8)
[2018-05-28 05:50] LABS: MCV 103.5 fL (80.0-100.0)
--- NOTE | 2018-05-28 06:15 | NUR ---
ADMIN SCHED ORAL MEDS, SWALLOWING WITHOUT DIFFICULTY. CHANGED CVL DRSG.
[2018-05-28 06:20] LABS: ANION GAP 8.9 mmol/L (8-16); CALCIUM 8.2 mg/dL (8.5-10.1); CARBON DIOXIDE 29.3 mmol/L (21.0-32.0); CREATININE - SERUM 1.1 mg/dL (0.6-1.3); POTASSIUM - SERUM 5.2 mmol/L (3.5-5.1)
--- NOTE | 2018-05-28 08:22 | MORECARE ---
CASE MANAGEMENT DISCHARGE SUMMARY PATIENT: MADELEINE WONG UNIT: [id number] ADM DATE: 05/09/18 AGE: 88 : [birth year] SEX: F ROOM/BED: D.2112 AUTHOR: BELINDA DICKINSON PHYSICIAN: REFERRING PHYSICIAN: LEXA BENAVIDES MD DATE OF SERVICE: 05/28/18 Discharge Plan Patient Name: MADELEINE WONG Facility: [facility]:[place] : 1930 Planned Disposition: Retirement Facility Anticipated Discharge Date: 05/24/18 Discharge Date: Expected LOS: 15 Initial Reviewer: [id number] Initial Review Date: 05/09/2018 Generated: 05/28/18 9:21 am Comments DCP- Discharge Planning Updated by [id number]: Josie Mccoy on 05/27/18 4:[address] CM RECEIVED AN ORDER REGARDING PLANS TO DISCHARGE TO HOME W/ HOSPITAL BED , TUBE FEEDING AND HOME HEALTH. PATIENT'S NUTRITION NOTE IS 05/25/18. WILL NEED NUTRITION NOTE REGARDING PATIENT NEEDS FOR DISCHARGE. CM UNDERSTANDS THE PATIENT DOES EAT AND TAKE HER MEDICATIONS BY MOUTH. SHE IS PRESENTLY ON FEEDINGS VIA PUMP. SHE HAS BEEN ADVANCED TO 60 CC/HR TODAY WHICH IS HER GOAL RATE. SPOKE WITH PRIMARY ARTURO AND SHE REPORTS NO RESIDUAL AT THIS TIME. WILL NEED TO HAVE [facility] PROVIDE BED AND SPECIALTY MATTRESS FOR HOME AND DETERMINE COVERAGE FOR TUBE FEEDING AND EQUIPMENT. CM TO FOLLOW UP IN AM. DCP- Discharge Planning Updated by [id number]: Akhil Benítez on 05/25/18 7:[address] Patient Name: MADELEINE WONG Encounter No: [id number] : 1930 Primary Insurance: HUMANA CHOICE PPO MCR ADVANT Anticipated DC Date: 05-24-2018 Planned Disposition: Retirement Facility External Planned Provider: [facility], MEDICARE REHAB BED DCP follow-up note: CM FAXED UPDATE TO [facility], FOR REHAB REQUEST. CM WAITING ADMISSION DETERMINATION FROM [facility] FOR REHAB PLACEMENT. AKHIL BENÍTEZ CASE MANAGEMENT DCP- Discharge Planning Updated by [id number]: Akhil Benítez on 05/24/18 3:[address] Patient Name: MADELEINE WONG Encounter No: [id number] : 1930 Primary Insurance: HUMANA CHOICE PPO MCR ADVANT Anticipated DC Date: 05-24-2018 Planned Disposition: Retirement Facility External Planned Provider: [facility], MEDICARE REHAB BED DCP follow-up note: CM MET WITH PT'S HAN SALCEDO BY MARRIAGE, NOLA QUINN, . NOLA STATES THAT KARINA QUINN IS PT'S FIANCE. 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 NOLA WILL GET JOON TO HOSPITAL ALONG WITH POWER OF FACILITY MAINTENANCE SUPERVISOR PAPERWORK SOON POSSIBLE. THEY ARE IN AGREEMENT WITH REHAB AT [facility], BUT [facility] MAY NOT ACCEPT PT HAS CONTINUED DECLINE. [facility] TO COME TOMORROW TO EVALUATE PT FOR REHAB. IF [facility] DOES NOT ACCEPT FOR REHAB, THEY ARE THINKING TO TAKE PT HOME TO [facility] HERE IN [place] AND NOLA ALONG WITH FAMILY WILL CARE FOR PT WITH HOME HOSPICE. NOLA REPORTS THEY WILL MAKE THAT DECISION TOMORROW. CM EXPLAINED THAT THE POWER OF FACILITY MAINTENANCE SUPERVISOR WILL HAVE TO BE IN AGREEMENT AND SIGN ANY NEEDED AUTHORIZATIONS FOR ENROLLMENT IN REHAB OR HOSPICE CARE. NOLA REPORTS UNDERSTANDING, PROVIDED CELL PHONE NUMBER FOR JOON QUINN, . CM WAITING ADMISSION DETERMINATION FROM [facility] FOR REHAB PLACEMENT. AKHIL BENÍTEZ, CASE MANAGEMENT DCP- Discharge Planning Updated by [id number]: Akhil Benítez on 05/23/18 3:[address] Patient Name: MADELEINE WONG Encounter No: [id number] : 1930 Primary Insurance: HUMANA CHOICE PPO MCR ADVANT Anticipated DC Date: 05-24-2018 Planned Disposition: Retirement Facility External Planned Provider: [facility], MEDICARE REHAB BED DCP follow-up note: CM MET WITH PT AND SON/POA, KARINA QUINN, AT FAMILY REQUEST. MR. QUINN REPORTS IT IS NOW TIME TO SEND REFERRAL TO [facility] FOR REHAB PLACEMENT. IMPORTANT MESSAGE FROM MEDICARE PROVIDED AND EXPLAINED. [facility], . CM WAITING ADMISSION DETERMINATION FROM [facility] FOR REHAB PLACEMENT. AKHIL BENÍTEZ, CASE MANAGEMENT DCP- Discharge Planning Updated by [id number]: Akhil Nohemi on 05/11/18 4:[address] Patient Name: MADELEINE WONG Admission Status: Elective Accout number: [id number] Admission Date: 05-09-2018 : 1930 Admission Diagnosis:ACUTE KIDNEY FAILURE, UNSPECIFIED Attending: LEXA BENAVIDES Current LOS: 2 Anticipated DC Date: Planned Disposition: Retirement Facility Primary Insurance: HUMANA CHOICE PPO MCR ADVANT PLANNED EXTERNAL PROVIDER: [facility], MEDICARE REHAB BED Discharge Planning Comments: CM RECEIVED ORDER INDICATING PT WANTS CORRECTION CARE. CM MET WITH PT AND SON IN ROOM TO DISCUSS DISCHARGE PLANNING AND NEEDS. PT REPORTS THAT BEFORE GETTING SICK, SHE WAS LIVING AT HOME WITH HER SON, INDEPENDENT IN HER CARE. PT REPORTS SHE DID TELL THE DOCTOR THAT SHE WOULD BE BETTER OFF IN A CORRECTION BEFORE FAMILY ARRIVED TODAY. PT WANTS REHAB, NOT NICKER CARE. PT HAS NO MEDICAL EQUIPMENT AND NO OUTSIDE SERVICES ASSISTING IN THE HOME. CM DISCUSSED AVAILABILITY OF HOME HEALTH, REHAB SERVICES AND MEDICAL EQUIPMENT. PT'S SON INITIALLY DECLINED TO PARTICIPATE IN DISCHARGE PLANNING REPORTING PT WAS SENT TO REHAB DOWNSTAIRS TOO SOON WHEN SHE WAS NOT ABLE TO WALK OR EVEN FEED HERSELF. SON WANTS PT CONSIDERED FOR INPATIENT REHAB AGAIN STATING THEY SENT HER BACK HERE BECAUSE SHE USED ALL OF HER DAYS DOWN THERE. PT DOES NOT THINK SHE CAN PARTICIPATE IN THREE HOURS OF PROGRESSIVE THERAPY PER DAY. CM EXPLAINED THAT IF PT IS NOT ABLE TO PARTICIPATE IN THE THREE HOURS OF PROGRESSIVE THERAPY, IS NOT ABLE TO STAND OR FEED HERSELF, SHE IS NOT GOING TO BE APPROPRIATE FOR READMISSION TO INPATENT REHAB. CM DISCUSSED AVAILABILITY OF HALFWAY REHAB SERVICES AND PROVIDED CHOICE FORM. PT'S SON REPORTS HE ALREADY SIGNED ONE OF THESE FOR [facility] THE LAST VISIT AND SPEAKING WITH THIS CM. CM EXPLAINED A NEW ONE WAS NEEDED. PT'S SON SIGNED THE FORM AND DOES NOT WANT PT SENT TO REHAB BEFORE SHE IS STABLE. CM EXPLAINED THAT ALL DOCTORS WOULD HAVE TO INDICATE PT IS READY TO DISCHARGE AND CM IS ONLY WANTING TO BE PROACTIVE ON PT'S BEHALF FOR DISCHARGE PLANNING AND SECURE REHAB BED AHEAD OF TIME TO ENSURE THAT PT IS ABLE TO GET INTO [facility] WHEN DISCHARGED [facility] IS POPULAR REHAB AND DOES FILL UP. PT'S SON WILL WANTS PT TO BE STABLE FOR DISCHARGE FOR CM TO SEND REFERRALS. CHOICE SIGNED. CM PROVIDED PT'S SON WITH CM CONTACT INFORMATION. CM TO SEND REFERRAL TO [facility] WHEN PROJECTED DISCHARGE DATE IS KNOWN, PT'S SON DOES NOT WANT REHAB REFERRAL SENT OUT PRIOR TO PT'S MEDICAL STABILITY FOR DISCHARGE TO REHAB. Fisher Clam: Akhil Benítez DCPIA - Discharge Planning Initial Assessment Updated by [id number]: Akhil Benítez on 05/11/18 5:43 pm * Is the patient Alert and Oriented? Yes * How many steps to enter\exit or inside your home? NONE * PCP DR. PNOCE * Pharmacy [facility] * Preadmission Environment Acute Inpatient Rehab * Facility Name [facility] * ADLs Total Dependent * Equipment None * Other Equipment NO MEDICAL EQUIPMENT PROVIDER PREFERECE * List name and contact numbers for known caregivers / representatives who currently or will assist patient after discharge: MANUEL BRANNON/POA, * Verbal permission to speak to the caregivers and representatives has been obtained from the patient. Yes * Community resources currently utilized None * Please name any agencies selected above. NONE * Additional services required to return to the preadmission environment? Yes * Can the patient safely return to the preadmission environment? Yes * Has this patient been hospitalized within the prior 30 days at any hospital? Yes Coverage Notice Reviewer: [id number] Adriel Benítez Notice Issued Date-Time: 05/11/2018 13:00 Notice Type: Patient Choice Letter Notice Delivered To: Family Member Relationship to Patient: Son Site Director Name: KARINA QUINN Delivery Method: HAND - Hand Delivered Dawna Days: Prior Verbal Notification: Recipient Understood Notice: Yes Recipient Signature: Yes Med Rec Note Co-signed by Attending: Coverage Notice Comment: [facility] Reviewer: [id number] Adriel Benítez Notice Issued Date-Time: 05/23/2018 12:20 Notice Type: IM Discharge Notice Notice Delivered To: Family Member Relationship to Patient: Son Site Director Name: KARINA QUINN Delivery Method: HAND - Hand Delivered Dawna Days: Prior Verbal Notification: Recipient Understood Notice: Yes Recipient Signature: Yes Med Rec Note Co-signed by Attending: Coverage Notice Comment: Last DP export: 05/27/18 4:26 p Patient Name: MADELEINE WONG Page [id number] at 0822 All edits/amendments must be made on the electronic document DICTATION DATE: 05/28/18820 COMMUNITY SERVICES COORDINATOR: JULIA 05/28/18820 RPT#: [id number] DC DATE: STATUS: ADM IN [facility] [address] [place] [address] END OF REPORT
[2018-05-28 08:56] VITALS: BP 179/71
--- NOTE | 2018-05-28 09:47 | NUR ---
AM MEDS GIVEN TO PT WITH [facility], PT HAD NO TROUBLE SWALLOWING. ALSO GAVE HER TYLENOL FOR PAIN LEVEL OF 9/10 TO BACK. PT DENIES ANY OTHER NEEDS AT THIS TIME. RESP EVEN AND NONLABORED ON RA. RT CVL INFUSING NS AT 10CC/HR, AND LEAKING A LITTLE AROUND SITE. CALL LIGHT IN REACH, FAMILY AT BEDSIDE,NAD NOTED, WILL CONTINUE PLAN OF CARE.
--- NOTE | 2018-05-28 11:16 | NUR ---
CALLED RADHA BRICENO AND INFOMRED HER THAT PT IS C/O SOB, AND ACCORDING TO PT'S FAMILY PT SEEMS MORE SWOLLEN TODAY. NEW ORDER FOR CHEST XRAY FOR SOB.
--- NOTE | 2018-05-28 11:33 | NUR ---
BLOOD SUGAR OF 125, NO COVERAGE NEEDED PER S/S. PT ALSO STATED THAT SHE FEELS A LOT BETTER AND CAN BREATH BETTER NOW THAT SHE IS IN BED. PT DENIES ANY NEEDS AT THIS TIME. CALL LIGHT IN REACH, NAD NOTED, WILL CONTINUE TO MONITOR.
--- NOTE | 2018-05-28 12:53 | MORECARE ---
CASE MANAGEMENT DISCHARGE SUMMARY PATIENT: MADELEINE WONG UNIT: [id number] ADM DATE: 05/09/18 AGE: 88 : [birth year] SEX: F ROOM/BED: D.2112 AUTHOR: BELINDA DICKINSON PHYSICIAN: REFERRING PHYSICIAN: LEXA BENAVIDES MD DATE OF SERVICE: 05/28/18 Discharge Plan Patient Name: MADELEINE WONG Facility: [facility]:[place] : 1930 Planned Disposition: Half-Way Facility Anticipated Discharge Date: 05/24/18 Discharge Date: Expected LOS: 15 Initial Reviewer: [id number] Initial Review Date: 05/09/2018 Generated: 05/28/18 1:53 pm Comments DCP- Discharge Planning Updated by [id number]: Roxi Greenfield on 05/28/18 11:[address] RECEIVED NOTICE THAT THE PATIENTS FAMILY WAS WANTING HER TO HAVE THE KYPHOPLASTY BEFORE SHE LEAVES THE HOSPITAL. IT WAS MENTIONED THAT THE PATIENTS POA HAS NOT BEEN HER AND THERE IS NO POA PAPERWORK IN THE CHART. I ASKED THE BEDSIDE NURSE RUDY BENJAMIN TO COME INTO THE ROOM WITH ME TO DISCUSS THE NEED FOR POA PAPERWORK IN ORDER TO HAVE ANY CONSENTS FOR PROCEDURES SIGNED SINCE THE PATIENT WAS NOT ABLE TO SIGN HERSELF, AND BY THE [place] OF LAW, THE POA OR NEXT OF KIN WOULD BE WHO NEEDED TO SIGN AND SINCE THEY (THE LADY AND FIJESSICA) WERE NOT BLOOD RELATED, THEY COULD NOT SIGN FOR HER THEY HAVE BEEN. AT THIS TIME I WAS QUICKLY TOLD THAT SHE WAS IN HER RIGHT MIND AND ABLE TO MAKE ALL HER OWN DECISIONS. THE LADY AT BEDSIDE PROCEEDED TO TELL ME ABOUT ALL THE TIMES PEOPLE CAME IN AND QUESTIONED HER ABOUT THE DATE, TIME, PRESIDENT, ETC AND SHE WAS ABLE TO ALWAYS ANSWER ALL THEIR QUESTIONS. SHE STATED THE PATIENT WAS ABLE TO SIGN FOR HERSELF. UP TO THIS POINT, THE PATIENT HAD NOT OPENED HER EYES AND HAD NOT SAID ANYTHING. IT TOOK ME TOUCHING THE PATIENT'S ARM TO GET HER TO OPEN HER EYES AND ACKNOWLEDGE MY PRESENCE AND ANSWER MY QUESTIONS. THE PATIENT IS WITH IT AND ABLE TO ANSWER QUESTIONS. AT THIS POINT I ASKED HER IF SHE WANTED TO HAVE THE KYPHOPLASTY DONE. SHE STATED YES. THE LADY AT BEDSIDE BECAME VERY AGITATED STATING THAT SHE KNEW ABOUT HIPPA LAWS AND WANTED TO KNOW WHY ANYONE EVEN ALLOWED THINGS TO HAPPEN UP UNTIL NOW. NO ONE HAD ASKED FOR ANYONE'S DRIVERS LICENES TO VERIFY THEY WERE WHO THEY SAID THEY WERE. I TRIED TO EXPLAINE THAT EVEN WITH THAT, WE HAD NO WAY TO ACTUALLY VERIFY THAT WITH A DRIVERS LICENSE BECAUSE ANYONE CAN SAY THEY ARE SOMEONES FAMILY AND WE DON'T KNOW OTHERWISE UNLESS THE PATIENT SAYS SO, BUT SHE CUT ME OFF I WAS TALKING. I STOOD AT BEDSIDE AND LISTENED TO HER RANT ABOUT ALL THE THINGS THAT SHE HAS WITNESSED HERE AT THIS HOSPITAL THAT HAS MADE HER SICK TO HER STOMACH ESPECIALLY ABOUT THE FACT THAT SHE CAME IN HERE WITH A HURT BACK AND NOW THEY ARE JUST WATCHING HER . I APOLOGIZED TO HER ABOUT ALL OF THE THINGS THAT WAS UPSET ABOUT, AND THEN DIRECTED MY CONVERSATION TO THE PATIENT, EXPLAINING THAT IF SHE WANTED THEY KYPHOPLASTY AND HER URINE WAS CLEAR THAT I WOULD EXPLAIN THIS TO THE NURSE PRACTITIONER. THAT ULTIMATELY I AM HERE TO TAKE CARE OF HER AND MAKE SURE WE ARE DOING WHAT SHE WANTS. I ALSO EXPLAINED TO HER THAT SHE NEEDS TO SIGN ALL OF HER OWN PAPERWORK, EVEN IF IT IS JUST WITH AN "X". THAT WE SIGN WITNESSES TO STATE WE KNOW SHE UNDERSTANDS AND SHE IS SIGNING. EXPLAINED THAT LONG SHE IS ABLE TO MAKE ALL HER OWN DECISIONS, WE DID NOT NEED HER POA PAPERWORK. SHE IS IN AGREEMENT. THE GREAT NEPHEWS WHO IS AT BEDSIDE CONTINUED WITH HER RANT, I AGAIN APOLOGIZED AND THE BEDSIDE NURSE AND I LEFT THE ROOM. I EXPLAINED TO RADHA THAT THE PATIENT WAS CURRENTLY IN HER RIGHT MIND AND SHE IS WANTING THEY KYPHOPLASTY, AND SHE RECONSULTED IR TO SEE THE PATIENT. DCP- Discharge Planning Updated by [id number]: Josie Mccoy on 05/27/18 4:[address] CM RECEIVED AN ORDER REGARDING PLANS TO DISCHARGE TO HOME W/ HOSPITAL BED , TUBE FEEDING AND HOME HEALTH. PATIENT'S NUTRITION NOTE IS 05/25/18. WILL NEED NUTRITION NOTE REGARDING PATIENT NEEDS FOR DISCHARGE. CM UNDERSTANDS THE PATIENT DOES EAT AND TAKE HER MEDICATIONS BY MOUTH. SHE IS PRESENTLY ON FEEDINGS VIA PUMP. SHE HAS BEEN ADVANCED TO 60 CC/HR TODAY WHICH IS HER GOAL RATE. SPOKE WITH BRANDON MORRIS AND SHE REPORTS NO RESIDUAL AT THIS TIME. WILL NEED TO HAVE [facility] PROVIDE BED AND SPECIALTY MATTRESS FOR HOME AND DETERMINE COVERAGE FOR TUBE FEEDING AND EQUIPMENT. CM TO FOLLOW UP IN AM. DCP- Discharge Planning Updated by [id number]: Ashia Benítez on 05/25/18 7:[address] Patient Name: MADELEINE WONG Encounter No: [id number] : 1930 Primary Insurance: HUMANA CHOICE PPO MCR ADVANT Anticipated DC Date: 05-24-2018 Planned Disposition: Half-Way Facility External Planned Provider: [facility], MEDICARE REHAB BED DCP follow-up note: CM FAXED UPDATE TO [facility], FOR REHAB REQUEST. CM WAITING ADMISSION DETERMINATION FROM [facility] FOR REHAB PLACEMENT. ASHIA BENÍTEZ, CASE MANAGEMENT DCP- Discharge Planning Updated by [id number]: Ashia Benítez on 05/24/18 3:[address] Patient Name: MADELEINE WONG Encounter No: [id number] : 1930 Primary Insurance: HUMANA CHOICE PPO MCR ADVANT Anticipated DC Date: 05-24-2018 Planned Disposition: Half-Way Facility External Planned Provider: [facility], MEDICARE REHAB BED DCP follow-up note: CM MET WITH PT'S HAN VERENICEMAR BY MARRIAGE, NOLA QUINN, . NOLA STATES THAT KARINA QUINN IS PT'S FIANCE. 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 NOLA WILL GET JOON TO HOSPITAL ALONG WITH POWER OF TRY OUT PERSON PAPERWORK SOON POSSIBLE. THEY ARE IN AGREEMENT WITH REHAB AT [facility], BUT [facility] MAY NOT ACCEPT PT HAS CONTINUED DECLINE. [facility] TO COME TOMORROW TO EVALUATE PT FOR REHAB. IF [facility] DOES NOT ACCEPT FOR REHAB, THEY ARE THINKING TO TAKE PT HOME TO [facility] HERE IN [place] AND NOLA ALONG WITH FAMILY WILL CARE FOR PT WITH HOME HOSPICE. NOLA REPORTS THEY WILL MAKE THAT DECISION TOMORROW. CM EXPLAINED THAT THE POWER OF TRY OUT PERSON WILL HAVE TO BE IN AGREEMENT AND SIGN ANY NEEDED AUTHORIZATIONS FOR ENROLLMENT IN REHAB OR HOSPICE CARE. [place] REPORTS UNDERSTANDING, PROVIDED CELL PHONE NUMBER FOR JOON QUINN, . CM WAITING ADMISSION DETERMINATION FROM [facility] FOR REHAB PLACEMENT. ASHIA BENÍTEZ CASE MANAGEMENT DCP- Discharge Planning Updated by [id number]: Ashia Benítez on 05/23/18 3:[address] Patient Name: MADELEINE WONG Encounter No: [id number] : 1930 Primary Insurance: HUMANA CHOICE PPO MCR ADVANT Anticipated DC Date: 05-24-2018 Planned Disposition: Half-Way Facility External Planned Provider: [facility], MEDICARE REHAB BED DCP follow-up note: CM MET WITH PT AND SON/POA, KARINA QUINN, AT FAMILY REQUEST. MR. QUINN REPORTS IT IS NOW TIME TO SEND REFERRAL TO [facility] FOR REHAB PLACEMENT. IMPORTANT MESSAGE FROM MEDICARE PROVIDED AND EXPLAINED. CM FAXED REFERRAL TO [facility], . CM WAITING ADMISSION DETERMINATION FROM [facility] FOR REHAB PLACEMENT. HIEN BARRY DCP- Discharge Planning Updated by [id number]: Ashia Benítez on 05/11/18 4:[address] Patient Name: MADELEINE WONG Admission Status: Elective Accout number: [id number] Admission Date: 05-09-2018 : 1930 Admission Diagnosis:ACUTE KIDNEY FAILURE, UNSPECIFIED Attending: LEXA BENAVIDES Current LOS: 2 Anticipated DC Date: Planned Disposition: Half-Way Facility Primary Insurance: HUMANA CHOICE PPO MCR ADVANT PLANNED EXTERNAL PROVIDER: [facility], MEDICARE REHAB BED Discharge Planning Comments: CM RECEIVED ORDER INDICATING PT WANTS RETIREMENT CARE. CM MET WITH PT AND SON IN ROOM TO DISCUSS DISCHARGE PLANNING AND NEEDS. PT REPORTS THAT BEFORE GETTING SICK, SHE WAS LIVING AT HOME WITH HER SON, INDEPENDENT IN HER CARE. PT REPORTS SHE DID TELL THE DOCTOR THAT SHE WOULD BE BETTER OFF IN A RETIREMENT BEFORE FAMILY ARRIVED TODAY. PT WANTS REHAB, NOT SENIOR LIVING CARE. PT HAS NO MEDICAL EQUIPMENT AND NO OUTSIDE SERVICES ASSISTING IN THE HOME. CM DISCUSSED AVAILABILITY OF HOME HEALTH, REHAB SERVICES AND MEDICAL EQUIPMENT. PT'S SON INITIALLY DECLINED TO PARTICIPATE IN DISCHARGE PLANNING REPORTING PT WAS SENT TO REHAB DOWNSTAIRS TOO SOON WHEN SHE WAS NOT ABLE TO WALK OR EVEN FEED HERSELF. SON WANTS PT CONSIDERED FOR INPATIENT REHAB AGAIN STATING THEY SENT HER BACK HERE BECAUSE SHE USED ALL OF HER DAYS DOWN THERE. PT DOES NOT THINK SHE CAN PARTICIPATE IN THREE HOURS OF PROGRESSIVE THERAPY PER DAY. CM EXPLAINED THAT IF PT IS NOT ABLE TO PARTICIPATE IN THE THREE HOURS OF PROGRESSIVE THERAPY, IS NOT ABLE TO STAND OR FEED HERSELF, SHE IS NOT GOING TO BE APPROPRIATE FOR READMISSION TO INPATENT REHAB. CM DISCUSSED AVAILABILITY OF HALF-WAY REHAB SERVICES AND PROVIDED CHOICE FORM. PT'S SON REPORTS HE ALREADY SIGNED ONE OF THESE FOR [facility] THE LAST VISIT AND SPEAKING WITH THIS CM. CM EXPLAINED A NEW ONE WAS NEEDED. PT'S SON SIGNED THE FORM AND DOES NOT WANT PT SENT TO REHAB BEFORE SHE IS STABLE. CM EXPLAINED THAT ALL DOCTORS WOULD HAVE TO INDICATE PT IS READY TO DISCHARGE AND CM IS ONLY WANTING TO BE PROACTIVE ON PT'S BEHALF FOR DISCHARGE PLANNING AND SECURE REHAB BED AHEAD OF TIME TO ENSURE THAT PT IS ABLE TO GET INTO [facility] WHEN DISCHARGED [facility] IS POPULAR REH[facility] AND DOES FILL UP. PT'S SON WILL WANTS PT TO BE STABLE FOR DISCHARGE FOR CM TO SEND REFERRALS. CHOICE SIGNED. CM PROVIDED PT'S SON WITH CM CONTACT INFORMATION. CM TO SEND REFERRAL TO [facility] WHEN PROJECTED DISCHARGE DATE IS KNOWN, PT'S SON DOES NOT WANT REHAB REFERRAL SENT OUT PRIOR TO PT'S MEDICAL STABILITY FOR DISCHARGE TO REHAB. Nurse Emergency Room: Ashia Benítez DCPIA - Discharge Planning Initial Assessment Updated by [id number]: Ashia Benítez on 05/11/18 5:43 pm * Is the patient Alert and Oriented? Yes * How many steps to enter\\exit or inside your home? NONE * PCP DR. PONCE * Pharmacy [facility] * Preadmission Environment Acute Inpatient Rehab * Facility Name [facility] * ADLs Total Dependent * Equipment None * Other Equipment NO MEDICAL EQUIPMENT PROVIDER PREFERECE * List name and contact numbers for known caregivers / representatives who currently or will assist patient after discharge: KARINA QUINN, SON/POA, * Verbal permission to speak to the caregivers and representatives has been obtained from the patient. Yes * Community resources currently utilized None * Please name any agencies selected above. NONE * Additional services required to return to the preadmission environment? Yes * Can the patient safely return to the preadmission environment? Yes * Has this patient been hospitalized within the prior 30 days at any hospital? Yes Coverage Notice Reviewer: [id number] - Ashia Benítez Notice Issued Date-Time: 05/11/2018 13:00 Notice Type: Patient Choice Letter Notice Delivered To: Family Member Relationship to Patient: Son Coordinate Measuring Machine Programmer Name: KARINA QUINN Delivery Method: HAND - Hand Delivered Dawna Days: Prior Verbal Notification: Recipient Understood Notice: Yes Recipient Signature: Yes Med Rec Note Co-signed by Attending: Coverage Notice Comment: [facility] Reviewer: [id number] Adriel Benítez Notice Issued Date-Time: 05/23/2018 12:20 Notice Type: IM Discharge Notice Notice Delivered To: Family Member Relationship to Patient: Son Coordinate Measuring Machine Programmer Name: KARINA QUINN Delivery Method: HAND - Hand Delivered Dawna Days: Prior Verbal Notification: Recipient Understood Notice: Yes Recipient Signature: Yes Med Rec Note Co-signed by Attending: Coverage Notice Comment: Last DP export: 05/28/18 7:21 a Patient Name: MADELEINE WONG Page [phone] at 1253 All edits/amendments must be made on the electronic document DICTATION DATE: 05/28/18 1253 RUBBER ENGRAVER: JULIA 05/28/18 1253 RPT#: [id number] DC DATE: STATUS: ADM IN [facility] [address] [place] [address] END OF REPORT
--- NOTE | 2018-05-28 13:12 | MORECARE ---
CASE MANAGEMENT DISCHARGE SUMMARY PATIENT: MADELEINE WONG UNIT: [id number] ADM DATE: 05/09/18 AGE: 88 : [birth year] SEX: F ROOM/BED: D.2112 AUTHOR: BELINDA DICKINSON PHYSICIAN: REFERRING PHYSICIAN: LEXA BENAVIDES MD DATE OF SERVICE: 05/28/18 Discharge Plan Patient Name: MADELEINE WONG Facility: [facility]:[place] : 1930 Planned Disposition: Shelter Facility Anticipated Discharge Date: 05/24/18 Discharge Date: Expected LOS: 15 Initial Reviewer: [id number] Initial Review Date: 05/09/2018 Generated: 05/28/18 2:12 pm Comments DCP- Discharge Planning Updated by [id number]: Roxi Greenfield on 05/28/18 11:[address] RECEIVED NOTICE THAT THE PATIENTS FAMILY WAS WANTING HER TO HAVE THE KYPHOPLASTY BEFORE SHE LEAVES THE HOSPITAL. IT WAS MENTIONED THAT THE PATIENTS POA HAS NOT BEEN HER AND THERE IS NO POA PAPERWORK IN THE CHART. I ASKED THE BEDSIDE NURSE RUDY BENJAMIN TO COME INTO THE ROOM WITH ME TO DISCUSS THE NEED FOR POA PAPERWORK IN ORDER TO HAVE ANY CONSENTS FOR PROCEDURES SIGNED SINCE THE PATIENT WAS NOT ABLE TO SIGN HERSELF, AND BY THE HIERACHY OF LAW, THE POA OR NEXT OF KIN WOULD BE WHO NEEDED TO SIGN AND SINCE THEY (THE LADY AND FIJESSICA) WERE NOT BLOOD RELATED, THEY COULD NOT SIGN FOR HER THEY HAVE BEEN. AT THIS TIME I WAS QUICKLY TOLD THAT SHE WAS IN HER RIGHT MIND AND ABLE TO MAKE ALL HER OWN DECISIONS. THE LADY AT BEDSIDE PROCEEDED TO TELL ME ABOUT ALL THE TIMES PEOPLE CAME IN AND QUESTIONED HER ABOUT THE DATE, TIME, PRESIDENT, ETC AND SHE WAS ABLE TO ALWAYS ANSWER ALL THEIR QUESTIONS. SHE STATED THE PATIENT WAS ABLE TO SIGN FOR HERSELF. UP TO THIS POINT, THE PATIENT HAD NOT OPENED HER EYES AND HAD NOT SAID ANYTHING. IT TOOK ME TOUCHING THE PATIENT'S ARM TO GET HER TO OPEN HER EYES AND ACKNOWLEDGE MY PRESENCE AND ANSWER MY QUESTIONS. THE PATIENT IS WITH IT AND ABLE TO ANSWER QUESTIONS. AT THIS POINT I ASKED HER IF SHE WANTED TO HAVE THE KYPHOPLASTY DONE. SHE STATED YES. THE LADY AT BEDSIDE BECAME VERY AGITATED STATING THAT SHE KNEW ABOUT HIPPA LAWS AND WANTED TO KNOW WHY ANYONE EVEN ALLOWED THINGS TO HAPPEN UP UNTIL NOW. NO ONE HAD ASKED FOR ANYONE'S DRIVERS LICENES TO VERIFY THEY WERE WHO THEY SAID THEY WERE. I TRIED TO EXPLAINE THAT EVEN WITH THAT, WE HAD NO WAY TO ACTUALLY VERIFY THAT WITH A DRIVERS LICENSE BECAUSE ANYONE CAN SAY THEY ARE SOMEONES FAMILY AND WE DON'T KNOW OTHERWISE UNLESS THE PATIENT SAYS SO, BUT SHE CUT ME OFF I WAS TALKING. I STOOD AT BEDSIDE AND LISTENED TO HER RANT ABOUT ALL THE THINGS THAT SHE HAS WITNESSED HERE AT THIS HOSPITAL THAT HAS MADE HER SICK TO HER STOMACH ESPECIALLY ABOUT THE FACT THAT SHE CAME IN HERE WITH A HURT BACK AND NOW THEY ARE JUST WATCHING HER . I APOLOGIZED TO HER ABOUT ALL OF THE THINGS THAT WAS UPSET ABOUT, AND THEN DIRECTED MY CONVERSATION TO THE PATIENT, EXPLAINING THAT IF SHE WANTED THEY KYPHOPLASTY AND HER URINE WAS CLEAR THAT I WOULD EXPLAIN THIS TO THE NURSE PRACTITIONER. THAT ULTIMATELY I AM HERE TO TAKE CARE OF HER AND MAKE SURE WE ARE DOING WHAT SHE WANTS. I ALSO EXPLAINED TO HER THAT SHE NEEDS TO SIGN ALL OF HER OWN PAPERWORK, EVEN IF IT IS JUST WITH AN "X". THAT WE SIGN WITNESSES TO STATE WE KNOW SHE UNDERSTANDS AND SHE IS SIGNING. EXPLAINED THAT LONG SHE IS ABLE TO MAKE ALL HER OWN DECISIONS, WE DID NOT NEED HER POA PAPERWORK. SHE IS IN AGREEMENT. THE GREAT NEPHEWS WHO IS AT BEDSIDE CONTINUED WITH HER RANT, I AGAIN APOLOGIZED AND THE BEDSIDE NURSE AND I LEFT THE ROOM. I EXPLAINED TO RADHA THAT THE PATIENT WAS CURRENTLY IN HER RIGHT MIND AND SHE IS WANTING THEY KYPHOPLASTY, AND SHE RECONSULTED IR TO SEE THE PATIENT. DCP- Discharge Planning Updated by [id number]: Josie Mccoy on 05/27/18 4:[address] CM RECEIVED AN ORDER REGARDING PLANS TO DISCHARGE TO HOME W/ HOSPITAL BED , TUBE FEEDING AND HOME HEALTH. PATIENT'S NUTRITION NOTE IS 05/25/18. WILL NEED NUTRITION NOTE REGARDING PATIENT NEEDS FOR DISCHARGE. CM UNDERSTANDS THE PATIENT DOES EAT AND TAKE HER MEDICATIONS BY MOUTH. SHE IS PRESENTLY ON FEEDINGS VIA PUMP. SHE HAS BEEN ADVANCED TO 60 CC/HR TODAY WHICH IS HER GOAL RATE. SPOKE WITH BRANDON MORRIS AND SHE REPORTS NO RESIDUAL AT THIS TIME. WILL NEED TO HAVE [facility] PROVIDE BED AND SPECIALTY MATTRESS FOR HOME AND DETERMINE COVERAGE FOR TUBE FEEDING AND EQUIPMENT. CM TO FOLLOW UP IN AM. DCP- Discharge Planning Updated by [id number]: Ashia Benítez on 05/25/18 7:[address] Patient Name: MADELEINE WONG Encounter No: [id number] : 1930 Primary Insurance: HUMANA CHOICE PPO MCR ADVANT Anticipated DC Date: 05-24-2018 Planned Disposition: Shelter Facility External Planned Provider: [facility], MEDICARE REHAB BED DCP follow-up note: CM FAXED UPDATE TO [facility], FOR REHAB REQUEST. CM WAITING ADMISSION DETERMINATION FROM [facility] FOR REHAB PLACEMENT. ASHIA BENÍTEZ, CASE MANAGEMENT DCP- Discharge Planning Updated by [id number]: Ashia Benítez on 05/24/18 3:[address] Patient Name: MADELEINE WONG Encounter No: [id number] : 1930 Primary Insurance: HUMANA CHOICE PPO MCR ADVANT Anticipated DC Date: 05-24-2018 Planned Disposition: Shelter Facility External Planned Provider: [facility], MEDICARE REHAB BED DCP follow-up note: CM MET WITH PT'S HAN VERENICEMAR BY MARRIAGE, NOLA QUINN, . NOLA STATES THAT KARINA QUINN IS PT'S FIANCE. 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 NOLA WILL GET JOON TO HOSPITAL ALONG WITH POWER OF FIBERGLASS CONTAINER WINDING OPERATOR PAPERWORK SOON POSSIBLE. THEY ARE IN AGREEMENT WITH REHAB AT [facility], BUT [facility] MAY NOT ACCEPT PT HAS CONTINUED DECLINE. [facility] TO COME TOMORROW TO EVALUATE PT FOR REHAB. IF [facility] DOES NOT ACCEPT FOR REHAB, THEY ARE THINKING TO TAKE PT HOME TO [facility] HERE IN [place] AND NOLA ALONG WITH FAMILY WILL CARE FOR PT WITH HOME HOSPICE. NOLA REPORTS THEY WILL MAKE THAT DECISION TOMORROW. CM EXPLAINED THAT THE POWER OF FIBERGLASS CONTAINER WINDING OPERATOR WILL HAVE TO BE IN AGREEMENT AND SIGN ANY NEEDED AUTHORIZATIONS FOR ENROLLMENT IN REHAB OR HOSPICE CARE. [place] REPORTS UNDERSTANDING, PROVIDED CELL PHONE NUMBER FOR JOON QUINN, . CM WAITING ADMISSION DETERMINATION FROM [facility] FOR REHAB PLACEMENT. ASHIA BENÍTEZ CASE MANAGEMENT DCP- Discharge Planning Updated by [id number]: Ashia Benítez on 05/23/18 3:[address] Patient Name: MADELEINE WONG Encounter No: [id number] : 1930 Primary Insurance: HUMANA CHOICE PPO MCR ADVANT Anticipated DC Date: 05-24-2018 Planned Disposition: Shelter Facility External Planned Provider: [facility], MEDICARE REHAB BED DCP follow-up note: CM MET WITH PT AND SON/POA, KARINA QUINN, AT FAMILY REQUEST. MR. QUINN REPORTS IT IS NOW TIME TO SEND REFERRAL TO [facility] FOR REHAB PLACEMENT. IMPORTANT MESSAGE FROM MEDICARE PROVIDED AND EXPLAINED. CM FAXED REFERRAL TO [facility], . CM WAITING ADMISSION DETERMINATION FROM [facility] FOR REHAB PLACEMENT. HIEN BARRY DCP- Discharge Planning Updated by [id number]: Ashia Benítez on 05/11/18 4:[address] Patient Name: MADELEINE WONG Admission Status: Elective Accout number: [id number] Admission Date: 05-09-2018 : 1930 Admission Diagnosis:ACUTE KIDNEY FAILURE, UNSPECIFIED Attending: LEXA BENAVIDES Current LOS: 2 Anticipated DC Date: Planned Disposition: Shelter Facility Primary Insurance: HUMANA CHOICE PPO MCR ADVANT PLANNED EXTERNAL PROVIDER: [facility], MEDICARE REHAB BED Discharge Planning Comments: CM RECEIVED ORDER INDICATING PT WANTS JAIL CARE. CM MET WITH PT AND SON IN ROOM TO DISCUSS DISCHARGE PLANNING AND NEEDS. PT REPORTS THAT BEFORE GETTING SICK, SHE WAS LIVING AT HOME WITH HER SON, INDEPENDENT IN HER CARE. PT REPORTS SHE DID TELL THE DOCTOR THAT SHE WOULD BE BETTER OFF IN A JAIL BEFORE FAMILY ARRIVED TODAY. PT WANTS REHAB, NOT SKILLED NURSING CARE. PT HAS NO MEDICAL EQUIPMENT AND NO OUTSIDE SERVICES ASSISTING IN THE HOME. CM DISCUSSED AVAILABILITY OF HOME HEALTH, REHAB SERVICES AND MEDICAL EQUIPMENT. PT'S SON INITIALLY DECLINED TO PARTICIPATE IN DISCHARGE PLANNING REPORTING PT WAS SENT TO REHAB DOWNSTAIRS TOO SOON WHEN SHE WAS NOT ABLE TO WALK OR EVEN FEED HERSELF. SON WANTS PT CONSIDERED FOR INPATIENT REHAB AGAIN STATING THEY SENT HER BACK HERE BECAUSE SHE USED ALL OF HER DAYS DOWN THERE. PT DOES NOT THINK SHE CAN PARTICIPATE IN THREE HOURS OF PROGRESSIVE THERAPY PER DAY. CM EXPLAINED THAT IF PT IS NOT ABLE TO PARTICIPATE IN THE THREE HOURS OF PROGRESSIVE THERAPY, IS NOT ABLE TO STAND OR FEED HERSELF, SHE IS NOT GOING TO BE APPROPRIATE FOR READMISSION TO INPATENT REHAB. CM DISCUSSED AVAILABILITY OF [facility] RE[facility]AB SERVICES AND PROVIDED CHOICE FORM. PT'S SON REPORTS HE ALREADY SIGNED ONE OF THESE FOR [facility] THE LAST VISIT AND SPEAKING WITH THIS CM. CM EXPLAINED A NEW ONE WAS NEEDED. PT'S SON SIGNED THE FORM AND DOES NOT WANT PT SENT TO REHAB BEFORE SHE IS STABLE. CM EXPLAINED THAT ALL DOCTORS WOULD HAVE TO INDICATE PT IS READY TO DISCHARGE AND CM IS ONLY WANTING TO BE PROACTIVE ON PT'S BEHALF FOR DISCHARGE PLANNING AND SECURE REHAB BED AHEAD OF TIME TO ENSURE THAT PT IS ABLE TO GET INTO [facility] WHEN DISCHARGED [facility] IS POPULAR REHAB AND DOES FILL UP. PT'S SON WILL WANTS PT TO BE STABLE FOR DISCHARGE FOR CM TO SEND REFERRALS. CHOICE SIGNED. CM PROVIDED PT'S SON WITH CM CONTACT INFORMATION. CM TO SEND REFERRAL TO [facility] WHEN PROJECTED DISCHARGE DATE IS KNOWN, PT'S SON DOES NOT WANT REHAB REFERRAL SENT OUT PRIOR TO PT'S MEDICAL STABILITY FOR DISCHARGE TO REHAB. Ensemble Member: Ashia Benítez DCPIA - Discharge Planning Initial Assessment Updated by [id number]: Ashia Benítez on 05/11/18 5:43 pm * Is the patient Alert and Oriented? Yes * How many steps to enter\\exit or inside your home? NONE * PCP DR. PONCE * Pharmacy [facility] * Preadmission Environment Acute Inpatient Rehab * Facility Name [facility] INPATIENT REHAB * ADLs Total Dependent * Equipment None * Other Equipment NO MEDICAL EQUIPMENT PROVIDER PREFERECE * List name and contact numbers for known caregivers / representatives who currently or will assist patient after discharge: KARINA QUINN, SON/POA, * Verbal permission to speak to the caregivers and representatives has been obtained from the patient. Yes * Community resources currently utilized None * Please name any agencies selected above. NONE * Additional services required to return to the preadmission environment? Yes * Can the patient safely return to the preadmission environment? Yes * Has this patient been hospitalized within the prior 30 days at any hospital? Yes Coverage Notice Reviewer: [id number] - Ashia Benítez Notice Issued Date-Time: 05/11/2018 13:00 Notice Type: Patient Choice Letter Notice Delivered To: Family Member Relationship to Patient: Son Director Medical Economics Name: KARINA QUINN Delivery Method: HAND - Hand Delivered Dawna Days: Prior Verbal Notification: Recipient Understood Notice: Yes Recipient Signature: Yes Med Rec Note Co-signed by Attending: Coverage Notice Comment: [facility] Reviewer: [id number] Adriel Benítez Notice Issued Date-Time: 05/23/2018 12:20 Notice Type: IM Discharge Notice Notice Delivered To: Family Member Relationship to Patient: Son Director Medical Economics Name: KARINA QUINN Delivery Method: HAND - Hand Delivered Dawna Days: Prior Verbal Notification: Recipient Understood Notice: Yes Recipient Signature: Yes Med Rec Note Co-signed by Attending: Coverage Notice Comment: Last DP export: 05/28/18 11:53 a Patient Name: MADELEINE WONG Page 22580 at 1312 All edits/amendments must be made on the electronic document DICTATION DATE: 05/28/18 1311 SKIP LOAD DRIVER: JULIA 05/28/18 1311 RPT#: [id number] DC DATE: STATUS: ADM IN [facility] [address] [place] [address] END OF REPORT
--- NOTE | 2018-05-28 13:22 | MORECARE ---
CASE MANAGEMENT DISCHARGE SUMMARY PATIENT: MADELEINE WONG UNIT: [id number] ADM DATE: 05/09/18 AGE: 88 : [birth year] SEX: F ROOM/BED: D.2112 AUTHOR: BELINDA DICKINSON PHYSICIAN: REFERRING PHYSICIAN: LEXA BENAVIDES MD DATE OF SERVICE: 05/28/18 Discharge Plan Patient Name: MADELEINE WONG Facility: [facility]:[place] : 1930 Planned Disposition: Prison Facility Anticipated Discharge Date: 05/24/18 Discharge Date: Expected LOS: 15 Initial Reviewer: [id number] Initial Review Date: 05/09/2018 Generated: 05/28/18 2:22 pm Comments DCP- Discharge Planning Updated by [id number]: Roxi Greenfield on 05/28/18 11:[address] RECEIVED NOTICE THAT THE PATIENTS FAMILY WAS WANTING HER TO HAVE THE KYPHOPLASTY BEFORE SHE LEAVES THE HOSPITAL. IT WAS MENTIONED THAT THE PATIENTS POA HAS NOT BEEN HER AND THERE IS NO POA PAPERWORK IN THE CHART. I ASKED THE BEDSIDE NURSE RUDY BENJAMIN TO COME INTO THE ROOM WITH ME TO DISCUSS THE NEED FOR POA PAPERWORK IN ORDER TO HAVE ANY CONSENTS FOR PROCEDURES SIGNED SINCE THE PATIENT WAS NOT ABLE TO SIGN HERSELF, AND BY THE HIERACHY OF LAW, THE POA OR NEXT OF KIN WOULD BE WHO NEEDED TO SIGN AND SINCE THEY (THE LADY AND FIJESSICA) WERE NOT BLOOD RELATED, THEY COULD NOT SIGN FOR HER THEY HAVE BEEN. AT THIS TIME I WAS QUICKLY TOLD THAT SHE WAS IN HER RIGHT MIND AND ABLE TO MAKE ALL HER OWN DECISIONS. THE LADY AT BEDSIDE PROCEEDED TO TELL ME ABOUT ALL THE TIMES PEOPLE CAME IN AND QUESTIONED HER ABOUT THE DATE, TIME, PRESIDENT, ETC AND SHE WAS ABLE TO ALWAYS ANSWER ALL THEIR QUESTIONS. SHE STATED THE PATIENT WAS ABLE TO SIGN FOR HERSELF. UP TO THIS POINT, THE PATIENT HAD NOT OPENED HER EYES AND HAD NOT SAID ANYTHING. IT TOOK ME TOUCHING THE PATIENT'S ARM TO GET HER TO OPEN HER EYES AND ACKNOWLEDGE MY PRESENCE AND ANSWER MY QUESTIONS. THE PATIENT IS WITH IT AND ABLE TO ANSWER QUESTIONS. AT THIS POINT I ASKED HER IF SHE WANTED TO HAVE THE KYPHOPLASTY DONE. SHE STATED YES. THE LADY AT BEDSIDE BECAME VERY AGITATED STATING THAT SHE KNEW ABOUT HIPPA LAWS AND WANTED TO KNOW WHY ANYONE EVEN ALLOWED THINGS TO HAPPEN UP UNTIL NOW. NO ONE HAD ASKED FOR ANYONE'S DRIVERS LICENES TO VERIFY THEY WERE WHO THEY SAID THEY WERE. I TRIED TO EXPLAINE THAT EVEN WITH THAT, WE HAD NO WAY TO ACTUALLY VERIFY THAT WITH A DRIVERS LICENSE BECAUSE ANYONE CAN SAY THEY ARE SOMEONES FAMILY AND WE DON'T KNOW OTHERWISE UNLESS THE PATIENT SAYS SO, BUT SHE CUT ME OFF I WAS TALKING. I STOOD AT BEDSIDE AND LISTENED TO HER RANT ABOUT ALL THE THINGS THAT SHE HAS WITNESSED HERE AT THIS HOSPITAL THAT HAS MADE HER SICK TO HER STOMACH ESPECIALLY ABOUT THE FACT THAT SHE CAME IN HERE WITH A HURT BACK AND NOW THEY ARE JUST WATCHING HER . I APOLOGIZED TO HER ABOUT ALL OF THE THINGS THAT WAS UPSET ABOUT, AND THEN DIRECTED MY CONVERSATION TO THE PATIENT, EXPLAINING THAT IF SHE WANTED THEY KYPHOPLASTY AND HER URINE WAS CLEAR THAT I WOULD EXPLAIN THIS TO THE NURSE PRACTITIONER. THAT ULTIMATELY I AM HERE TO TAKE CARE OF HER AND MAKE SURE WE ARE DOING WHAT SHE WANTS. I ALSO EXPLAINED TO HER THAT SHE NEEDS TO SIGN ALL OF HER OWN PAPERWORK, EVEN IF IT IS JUST WITH AN "X". THAT WE SIGN WITNESSES TO STATE WE KNOW SHE UNDERSTANDS AND SHE IS SIGNING. EXPLAINED THAT LONG SHE IS ABLE TO MAKE ALL HER OWN DECISIONS, WE DID NOT NEED HER POA PAPERWORK. SHE IS IN AGREEMENT. THE GREAT NEPHEWS WHO IS AT BEDSIDE CONTINUED WITH HER RANT, I AGAIN APOLOGIZED AND THE BEDSIDE NURSE AND I LEFT THE ROOM. I EXPLAINED TO RADHA THAT THE PATIENT WAS CURRENTLY IN HER RIGHT MIND AND SHE IS WANTING THEY KYPHOPLASTY, AND SHE RECONSULTED IR TO SEE THE PATIENT. DCP- Discharge Planning Updated by [id number]: Josie Mccoy on 05/27/18 4:[address] CM RECEIVED AN ORDER REGARDING PLANS TO DISCHARGE TO HOME W/ HOSPITAL BED , TUBE FEEDING AND HOME HEALTH. PATIENT'S NUTRITION NOTE IS 05/25/18. WILL NEED NUTRITION NOTE REGARDING PATIENT NEEDS FOR DISCHARGE. CM UNDERSTANDS THE PATIENT DOES EAT AND TAKE HER MEDICATIONS BY MOUTH. SHE IS PRESENTLY ON FEEDINGS VIA PUMP. SHE HAS BEEN ADVANCED TO 60 CC/HR TODAY WHICH IS HER GOAL RATE. SPOKE WITH BRANDON MORRIS AND SHE REPORTS NO RESIDUAL AT THIS TIME. WILL NEED TO HAVE [facility] PROVIDE BED AND SPECIALTY MATTRESS FOR HOME AND DETERMINE COVERAGE FOR TUBE FEEDING AND EQUIPMENT. CM TO FOLLOW UP IN AM. DCP- Discharge Planning Updated by [id number]: Ashia Benítez on 05/25/18 7:[address] Patient Name: MADELEINE WONG Encounter No: [id number] : 1930 Primary Insurance: HUMANA CHOICE PPO MCR ADVANT Anticipated DC Date: 05-24-2018 Planned Disposition: Prison Facility External Planned Provider: [facility], MEDICARE REHAB BED DCP follow-up note: CM FAXED UPDATE TO [facility], FOR REHAB REQUEST. CM WAITING ADMISSION DETERMINATION FROM [facility] FOR REHAB PLACEMENT. ASHIA BENÍTEZ, CASE MANAGEMENT DCP- Discharge Planning Updated by [id number]: Ashia Benítez on 05/24/18 3:[address] Patient Name: MADELEINE WONG Encounter No: [id number] : 1930 Primary Insurance: HUMANA CHOICE PPO MCR ADVANT Anticipated DC Date: 05-24-2018 Planned Disposition: Prison Facility External Planned Provider: [facility], MEDICARE REHAB BED DCP follow-up note: CM MET WITH PT'S HAN VERENICEMAR BY MARRIAGE, NOLA QUINN, . NOL[place] STATES THAT KARINA QUINN IS PT'S FIANCE. 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 N[place]A WILL GET JOON TO HOSPITAL ALONG WITH POWER OF LADLE PULLER PAPERWORK SOON POSSIBLE. THEY ARE IN AGREEMENT WITH REHAB AT [facility], BUT [facility] MAY NOT ACCEPT PT HAS CONTINUED DECLINE. [facility] TO COME TOMORROW TO EVALUATE PT FOR REHAB. IF [facility] DOES NOT ACCEPT FOR REHAB, THEY ARE THINKING TO TAKE PT HOME TO [facility] HERE IN [place] AND NOLA ALONG WITH FAMILY WILL CARE FOR PT WITH HOME HOSPICE. NOLA REPORTS THEY WILL MAKE THAT DECISION TOMORROW. CM EXPLAINED THAT THE POWER OF LADLE PULLER WILL HAVE TO BE IN AGREEMENT AND SIGN ANY NEEDED AUTHORIZATIONS FOR ENROLLMENT IN REHAB OR HOSPICE CARE. NOLA REPORTS UNDERSTANDING, PROVIDED CELL PHONE NUMBER FOR JOON QUINN, . CM WAITING ADMISSION DETERMINATION FROM [facility] FOR REHAB PLACEMENT. ASHIA BENÍTEZ CASE MANAGEMENT DCP- Discharge Planning Updated by [id number]: Ashia Benítez on 05/23/18 3:[address] Patient Name: MADELEINE WONG Encounter No: [id number] : 1930 Primary Insurance: HUMANA CHOICE PPO MCR ADVANT Anticipated DC Date: 05-24-2018 Planned Disposition: Prison Facility External Planned Provider: [facility], MEDICARE REHAB BED DCP follow-up note: CM MET WITH PT AND SON/POA, KARINA QUINN, AT FAMILY REQUEST. MR. QUINN REPORTS IT IS NOW TIME TO SEND REFERRAL TO [facility] FOR REHAB PLACEMENT. IMPORTANT MESSAGE FROM MEDICARE PROVIDED AND EXPLAINED. CM FAXED REFERRAL TO [facility], . CM WAITING ADMISSION DETERMINATION FROM [facility] FOR REHAB PLACEMENT. HIEN BARRY DCP- Discharge Planning Updated by [id number]: Ashia Benítez on 05/11/18 4:[address] Patient Name: MADELEINE WONG Admission Status: Elective Accout number: [id number] Admission Date: 05-09-2018 : 1930 Admission Diagnosis:ACUTE KIDNEY FAILURE, UNSPECIFIED Attending: LEXA BENAVIDES Current LOS: 2 Anticipated DC Date: Planned Disposition: Prison Facility Primary Insurance: HUMANA CHOICE PPO MCR ADVANT PLANNED EXTERNAL PROVIDER: [facility], MEDICARE REHAB BED Discharge Planning Comments: CM RECEIVED ORDER INDICATING PT WANTS CUSTODIAL CARE. CM MET WITH PT AND SON IN ROOM TO DISCUSS DISCHARGE PLANNING AND NEEDS. PT REPORTS THAT BEFORE GETTING SICK, SHE WAS LIVING AT HOME WITH HER SON, INDEPENDENT IN HER CARE. PT REPORTS SHE DID TELL THE DOCTOR THAT SHE WOULD BE BETTER OFF IN A CUSTODIAL BEFORE FAMILY ARRIVED TODAY. PT WANTS REHAB, NOT ALF CARE. PT HAS NO MEDICAL EQUIPMENT AND NO OUTSIDE SERVICES ASSISTING IN THE HOME. CM DISCUSSED AVAILABILITY OF HOME HEALTH, REHAB SERVICES AND MEDICAL EQUIPMENT. PT'S SON INITIALLY DECLINED TO PARTICIPATE IN DISCHARGE PLANNING REPORTING PT WAS SENT TO REHAB DOWNSTAIRS TOO SOON WHEN SHE WAS NOT ABLE TO WALK OR EVEN FEED HERSELF. SON WANTS PT CONSIDERED FOR INPATIENT REHAB AGAIN STATING THEY SENT HER BACK HERE BECAUSE SHE USED ALL OF HER DAYS DOWN THERE. PT DOES NOT THINK SHE CAN PARTICIPATE IN THREE HOURS OF PROGRESSIVE THERAPY PER DAY. CM EXPLAINED THAT IF PT IS NOT ABLE TO PARTICIPATE IN THE THREE HOURS OF PROGRESSIVE THERAPY, IS NOT ABLE TO STAND OR FEED HERSELF, SHE IS NOT GOING TO BE APPROPRIATE FOR READMISSION TO INPATENT REHAB. CM DISCUSSED AVAILABILITY OF ASSISTED REHAB SERVICES AND PROVIDED CHOICE FORM. PT'S SON REPORTS HE ALREADY SIGNED ONE OF THESE FOR [facility] THE LAST VISIT AND SPEAKING WITH THIS CM. CM EXPLAINED A NEW ONE WAS NEEDED. PT'S SON SIGNED THE FORM AND DOES NOT WANT PT SENT TO REHAB BEFORE SHE IS STABLE. CM EXPLAINED THAT ALL DOCTORS WOULD HAVE TO INDICATE PT IS READY TO DISCHARGE AND CM IS ONLY WANTING TO BE PROACTIVE ON PT'S BEHALF FOR DISCHARGE PLANNING AND SECURE REHAB BED AHEAD OF TIME TO ENSURE THAT PT IS ABLE TO GET INTO [facility] WHEN DISCHARGED [facility] IS POPULAR REHAB AND DOES FILL UP. PT'S SON WILL WANTS PT TO BE STABLE FOR DISCHARGE FOR CM TO SEND REFERRALS. CHOICE SIGNED. CM PROVIDED PT'S SON WITH CM CONTACT INFORMATION. CM TO SEND REFERRAL TO [facility] WHEN PROJECTED DISCHARGE DATE IS KNOWN, PT'S SON DOES NOT WANT REHAB REFERRAL SENT OUT PRIOR TO PT'S MEDICAL STABILITY FOR DISCHARGE TO REHAB. Bobbin Hauler: Ashia Benítez DCPIA - Discharge Planning Initial Assessment Updated by [id number]: Ashia Benítez on 05/28/18 1:21 pm * Is the patient Alert and Oriented? Yes * How many steps to enter\\exit or inside your home? NONE * PCP DR. PONCE * Pharmacy [facility] * Preadmission Environment Acute Inpatient Rehab * Facility Name [facility] INPATIENT REH[facility] * ADLs Total Dependent * Equipment None * Other Equipment NO MEDICAL EQUIPMENT PROVIDER PREFERECE * List name and contact numbers for known caregivers / representatives who currently or will assist patient after discharge: ADELINE BRANNON [phone] * Verbal permission to speak to the caregivers and representatives has been obtained from the patient. Yes * Community resources currently utilized None * Please name any agencies selected above. NONE * Additional services required to return to the preadmission environment? Yes * Can the patient safely return to the preadmission environment? Yes * Has this patient been hospitalized within the prior 30 days at any hospital? Yes Coverage Notice Reviewer: [id number] - Ashia Benítez Notice Issued Date-Time: 05/11/2018 13:00 Notice Type: Patient Choice Letter Notice Delivered To: Family Member Relationship to Patient: Son Field Broomer Name: KARINA QUINN Delivery Method: HAND - Hand Delivered Dawna Days: Prior Verbal Notification: Recipient Understood Notice: Yes Recipient Signature: Yes Med Rec Note Co-signed by Attending: Coverage Notice Comment[facility] Reviewer: [id number] Adriel Bneítez Notice Issued Date-Time: 05/23/2018 12:20 Notice Type: IM Discharge Notice Notice Delivered To: Family Member Relationship to Patient: Son Field Broomer Name: KARINA QUINN Delivery Method: HAND - Hand Delivered Dawna Days: Prior Verbal Notification: Recipient Understood Notice: Yes Recipient Signature: Yes Med Rec Note Co-signed by Attending: Coverage Notice Comment: Last DP export: 05/28/18 12:12 p Patient Name: MADELEINE WONG Page 12156 at 1322 All edits/amendments must be made on the electronic document DICTATION DATE: 05/28/18 1321 HANDSTITCHING MACHINE ARMHOLE FELLER: JULIA 05/28/18 1321 RPT#: [id number] DC DATE: STATUS: ADM IN [facility] [address] [place] [address] END OF REPORT
--- NOTE | 2018-05-28 13:26 | NUR ---
Nutrition follow-up: Pt with regular diet; po intake of some meals noted. Pt ate all her chicken pot pie today. Jevity 1.2 gloria infusing @ 50 ml/hr Labs reviewed Wt: 149# If po intake continues to improve man need to adjust TF rate. RDN following.
--- NOTE | 2018-05-28 15:59 | NUR ---
BLOOD SUGAR OF 113, NO COVERAGE NEEDED PER S/S. ALSO GAVE [place]STATIN AND LASIX ORDERED. PT DENIES ANY NEEDS AT THIS TIME. CALL LIGHT IN REACH,NAD NOTED.
--- NOTE | 2018-05-28 17:12 | MORECARE ---
CASE MANAGEMENT DISCHARGE SUMMARY PATIENT: MADELEINE WONG UNIT: [id number] ADM DATE: 05/09/18 AGE: 88 : [birth year] SEX: F ROOM/BED: D.2112 AUTHOR: BELINDA DICKINSON PHYSICIAN: REFERRING PHYSICIAN: LEXA BENAVIDES MD DATE OF SERVICE: 05/28/18 Discharge Plan Patient Name: MADELEINE WONG [facility] [facility] 1930 Planned Disposition: Assisted Facility Anticipated Discharge Date: 05/24/18 Discharge Date: Expected LOS: 15 Initial Reviewer: [id number] Initial Review Date: 05/09/2018 Generated: 05/28/18 6:12 pm DCP- Discharge Planning Updated by [id number]: Roxi Greenfield on 05/28/18 11:[address] RECEIVED NOTICE THAT THE PATIENTS FAMILY WAS WANTING HER TO HAVE THE KYPHOPLASTY BEFORE SHE LEAVES THE HOSPITAL. IT WAS MENTIONED THAT THE PATIENTS POA HAS NOT BEEN HER AND THERE IS NO POA PAPERWORK IN THE CHART. I ASKED THE BEDSIDE NURSE RUDY BENJAMIN TO COME INTO THE ROOM WITH ME TO DISCUSS THE NEED FOR POA PAPERWORK IN ORDER TO HAVE ANY CONSENTS FOR PROCEDURES SIGNED SINCE THE PATIENT WAS NOT ABLE TO SIGN HERSELF, AND BY THE [place] OF LAW, THE POA OR NEXT OF KIN WOULD BE WHO NEEDED TO SIGN AND SINCE THEY (THE LADY AND FIJESSICA) WERE NOT BLOOD RELATED, THEY COULD NOT SIGN FOR HER THEY HAVE BEEN. AT THIS TIME I WAS QUICKLY TOLD THAT SHE WAS IN HER RIGHT MIND AND ABLE TO MAKE ALL HER OWN DECISIONS. THE LADY AT BEDSIDE PROCEEDED TO TELL ME ABOUT ALL THE TIMES PEOPLE CAME IN AND QUESTIONED HER ABOUT THE DATE, TIME, PRESIDENT, ETC AND SHE WAS ABLE TO ALWAYS ANSWER ALL THEIR QUESTIONS. SHE STATED THE PATIENT WAS ABLE TO SIGN FOR HERSELF. UP TO THIS POINT, THE PATIENT HAD NOT OPENED HER EYES AND HAD NOT SAID ANYTHING. IT TOOK ME TOUCHING THE PATIENT'S ARM TO GET HER TO OPEN HER EYES AND ACKNOWLEDGE MY PRESENCE AND ANSWER MY QUESTIONS. THE PATIENT IS WITH IT AND ABLE TO ANSWER QUESTIONS. AT THIS POINT I ASKED HER IF SHE WANTED TO HAVE THE KYPHOPLASTY DONE. SHE STATED YES. THE LADY AT BEDSIDE BECAME VERY AGITATED STATING THAT SHE KNEW ABOUT HIPPA LAWS AND WANTED TO KNOW WHY ANYONE EVEN ALLOWED THINGS TO HAPPEN UP UNTIL NOW. NO ONE HAD ASKED FOR ANYONE'S DRIVERS LICENES TO VERIFY THEY WERE WHO THEY SAID THEY WERE. I TRIED TO EXPLAINE THAT EVEN WITH THAT, WE HAD NO WAY TO ACTUALLY VERIFY THAT WITH A DRIVERS LICENSE BECAUSE ANYONE CAN SAY THEY ARE SOMEONES FAMILY AND WE DON'T KNOW OTHERWISE UNLESS THE PATIENT SAYS SO, BUT SHE CUT ME OFF I WAS TALKING. I STOOD AT BEDSIDE AND LISTENED TO HER RANT ABOUT ALL THE THINGS THAT SHE HAS WITNESSED HERE AT THIS HOSPITAL THAT HAS MADE HER SICK TO HER STOMACH ESPECIALLY ABOUT THE FACT THAT SHE CAME IN HERE WITH A HURT BACK AND NOW THEY ARE JUST WATCHING HER . I APOLOGIZED TO HER ABOUT ALL OF THE THINGS THAT WAS UPSET ABOUT, AND THEN DIRECTED MY CONVERSATION TO THE PATIENT, EXPLAINING THAT IF SHE WANTED THEY KYPHOPLASTY AND HER URINE WAS CLEAR THAT I WOULD EXPLAIN THIS TO THE NURSE PRACTITIONER. THAT ULTIMATELY I AM HERE TO TAKE CARE OF HER AND MAKE SURE WE ARE DOING WHAT SHE WANTS. I ALSO EXPLAINED TO HER THAT SHE NEEDS TO SIGN ALL OF HER OWN PAPERWORK, EVEN IF IT IS JUST WITH AN "X". THAT WE SIGN WITNESSES TO STATE WE KNOW SHE UNDERSTANDS AND SHE IS SIGNING. EXPLAINED THAT LONG SHE IS ABLE TO MAKE ALL HER OWN DECISIONS, WE DID NOT NEED HER POA PAPERWORK. SHE IS IN AGREEMENT. THE GREAT NEPHEWS WHO IS AT BEDSIDE CONTINUED WITH HER RANT, I AGAIN APOLOGIZED AND THE BEDSIDE NURSE AND I LEFT THE ROOM. I EXPLAINED TO RADHA THAT THE PATIENT WAS CURRENTLY IN HER RIGHT MIND AND SHE IS WANTING THEY KYPHOPLASTY, AND SHE RECONSULTED IR TO SEE THE PATIENT. DCP- Discharge Planning Updated by [id number]: Josie Mccoy on 05/27/18 4:[address] CM RECEIVED AN ORDER REGARDING PLANS TO DISCHARGE TO HOME W/ HOSPITAL BED , TUBE FEEDING AND HOME HEALTH. PATIENT'S NUTRITION NOTE IS 05/25/18. WILL NEED NUTRITION NOTE REGARDING PATIENT NEEDS FOR DISCHARGE. CM UNDERSTANDS THE PATIENT DOES EAT AND TAKE HER MEDICATIONS BY MOUTH. SHE IS PRESENTLY ON FEEDINGS VIA PUMP. SHE HAS BEEN ADVANCED TO 60 CC/HR TODAY WHICH IS HER GOAL RATE. SPOKE WITH BRANDON MORRIS AND SHE REPORTS NO RESIDUAL AT THIS TIME. WILL NEED TO HAVE [facility] PROVIDE BED AND SPECIALTY MATTRESS FOR HOME AND DETERMINE COVERAGE FOR TUBE FEEDING AND EQUIPMENT. CM TO FOLLOW UP IN AM. DCP- Discharge Planning Updated by [id number]: Ashia Benítez on 05/25/18 7:[address] Patient Name: MADELEINE WONG Encounter No: [id number] : 1930 Primary Insurance: [employer] CHOICE PPO MCR ADVANT Anticipated DC Date: 05-24-2018 Planned Disposition: Assisted Facility External Planned Provider: [facility], MEDICARE REHAB BED DCP follow-up note: CM FAXED UPDATE TO [facility], FOR REHAB REQUEST. CM WAITING ADMISSION DETERMINATION FROM [facility] FOR REHAB PLACEMENT. ASHIA BENÍTEZ, CASE MANAGEMENT DCP- Discharge Planning Updated by [id number]: Ashia Benítez on 05/24/18 3:[address] Patient Name: MADELEINE WONG Encounter No: [id number] : 1930 Primary Insurance: [employer] CHOICE PPO MCR ADVANT Anticipated DC Date: 05-24-2018 Planned Disposition: Assisted Facility External Planned Provider: [facility], MEDICARE REHAB BED DCP follow-up note: CM MET WITH PT'S HAN VERENICEMAR BY MARRIAGE, NOLA QUINN, . N[place] STATES THAT KARINA QUINN IS PT'S FIANCE. PT HAS POWER OF HOURLY TEAM MEMBERS WITH GRE[employer]HEW, REBECCA SPOUSE, JOON QUINN, WHO WORKS IN [place]. [place] WILL GET JOON TO HOSPITAL ALONG WITH POWER OF HOURLY TEAM MEMBERS PAPERWORK SOON POSSIBLE. THEY ARE IN AGREEMENT WITH REHAB AT [facility], BUT [facility] MAY NOT ACCEPT PT HAS CONTINUED DECLINE. [facility] TO COME TOMORROW TO EVALUATE PT FOR REHAB. IF [facility] DOES NOT ACCEPT FOR REHAB, THEY ARE THINKING TO TAKE PT HOME TO [facility] HERE IN [place] AND [place] ALONG WITH FAMILY WILL CARE FOR PT WITH HOME HOSPICE. NOLA REPORTS THEY WILL MAKE THAT DECISION TOMORROW. CM EXPLAINED THAT THE POWER OF HOURLY TEAM MEMBERS WILL HAVE TO BE IN AGREEMENT AND SIGN ANY NEEDED AUTHORIZATIONS FOR ENROLLMENT IN REHAB OR HOSPICE CARE. NOLA REPORTS UNDERSTANDING, PROVIDED CELL PHONE NUMBER FOR JOON QUINN, . CM WAITING ADMISSION DETERMINATION FROM [facility] FOR REHAB PLACEMENT. ASHIA BENÍTEZ CASE MANAGEMENT DCP- Discharge Planning Updated by [id number]: Ashia Benítez on 05/23/18 3:[address] Patient Name: MADELEINE WONG Encounter No: [id number] : 1930 Primary Insurance: [employer]NA CHOICE PPO MCR ADVANT Anticipated DC Date: 05-24-2018 Planned Disposition: Assisted Facility External Planned Provider: [facility], MEDICARE REHAB BED DCP follow-up note: CM MET WITH PT AND SON/POA, KARINA QUINN, AT FAMILY REQUEST. MR. QUINN REPORTS IT IS NOW TIME TO SEND REFERRAL TO [facility] FOR REHAB PLACEMENT. IMPORTANT MESSAGE FROM MEDICARE PROVIDED AND EXPLAINED. CM FAXED REFERRAL TO [facility], . CM WAITING ADMISSION DETERMINATION FROM [facility] FOR REHAB PLACEMENT. HIEN BARRY DCP- Discharge Planning Updated by [id number]: Ashia Benítez on 05/11/18 4:[address] Patient Name: MADELEINE WONG Admission Status: Elective Accout number: [id number] Admission Date: 05-09-2018 : 1930 Admission Diagnosis:ACUTE KIDNEY FAILURE, UNSPECIFIED Attending: LEXA BENAVIDES Current LOS: 2 Anticipated DC Date: Planned Disposition: Assisted Facility Primary Insurance: HUMANA CHOICE PPO MCR ADVANT PLANNED EXTERNAL PROVIDER: [facility], MEDICARE REHAB BED Discharge Planning Comments: CM RECEIVED ORDER INDICATING PT WANTS LONG TERM CARE. CM MET WITH PT AND SON IN ROOM TO DISCUSS DISCHARGE PLANNING AND NEEDS. PT REPORTS THAT BEFORE GETTING SICK, SHE WAS LIVING AT HOME WITH HER SON, INDEPENDENT IN HER CARE. PT REPORTS SHE DID TELL THE DOCTOR THAT SHE WOULD BE BETTER OFF IN A LONG TERM BEFORE FAMILY ARRIVED TODAY. PT WANTS REHAB, NOT COMMUNITY PROGRAM ASSISTANT CARE. PT HAS NO MEDICAL EQUIPMENT AND NO OUTSIDE SERVICES ASSISTING IN THE HOME. CM DISCUSSED AVAILABILITY OF HOME HEALTH, REHAB SERVICES AND MEDICAL EQUIPMENT. PT'S SON INITIALLY DECLINED TO PARTICIPATE IN DISCHARGE PLANNING REPORTING PT WAS SENT TO REHAB DOWNSTAIRS TOO SOON WHEN SHE WAS NOT ABLE TO WALK OR EVEN FEED HERSELF. SON WANTS PT CONSIDERED FOR INPATIENT REHAB AGAIN STATING THEY SENT HER BACK HERE BECAUSE SHE USED ALL OF HER DAYS DOWN THERE. PT DOES NOT THINK SHE CAN PARTICIPATE IN THREE HOURS OF PROGRESSIVE THERAPY PER DAY. CM EXPLAINED THAT IF PT IS NOT ABLE TO PARTICIPATE IN THE THREE HOURS OF PROGRESSIVE THERAPY, IS NOT ABLE TO STAND OR FEED HERSELF, SHE IS NOT GOING TO BE APPROPRIATE FOR READMISSION TO INPATENT REHAB. CM DISCUSSED AVAILABILITY OF [facility] REHAB SERVICES AND PROVIDED CHOICE FORM. PT'S SON REPORTS HE ALREADY SIGNED ONE OF THESE FOR [facility] THE LAST VISIT AND SPEAKING WITH THIS CM. CM EXPLAINED A NEW ONE WAS NEEDED. PT'S SON SIGNED THE FORM AND DOES NOT WANT PT SENT TO REHAB BEFORE SHE IS STABLE. CM EXPLAINED THAT ALL DOCTORS WOULD HAVE TO INDICATE PT IS READY TO DISCHARGE AND CM IS ONLY WANTING TO BE PROACTIVE ON PT'S BEHALF FOR DISCHARGE PLANNING AND SECURE REHAB BED AHEAD OF TIME TO ENSURE THAT PT IS ABLE TO GET INTO [facility] WHEN DISCHARGED [facility] IS POPULAR REHAB AND DOES FILL UP. PT'S SON WILL WANTS PT TO BE STABLE FOR DISCHARGE FOR CM TO SEND REFERRALS. CHOICE SIGNED. CM PROVIDED PT'S SON WITH CM CONTACT INFORMATION. CM TO SEND REFERRAL TO [facility] WHEN PROJECTED DISCHARGE DATE IS KNOWN, PT'S SON DOES NOT WANT REHAB REFERRAL SENT OUT PRIOR TO PT'S MEDICAL STABILITY FOR DISCHARGE TO REHAB. Cardiovascular Radiologic Technologist: Ashia Benítez DCPIA - Discharge Planning Initial Assessment Updated by [id number]: Ashia Benítez on 05/28/18 1:21 pm * Is the patient Alert and Oriented? Yes * How many steps to enter\\exit or inside your home? NONE * PCP DR. PONCE * Pharmacy [facility] * Preadmission Environment Acute Inpatient Rehab * Facility Name [facility] IN[facility] * ADLs Total Dependent * Equipment None * Other Equipment NO MEDICAL EQUIPMENT PROVIDER PREFERECE * List name and contact numbers for known caregivers / representatives who currently or will assist patient after discharge: ADELINE BRANNON [phone] * Verbal permission to speak to the caregivers and representatives has been obtained from the patient. Yes * Community resources currently utilized None * Please name any agencies selected above. NONE * Additional services required to return to the preadmission environment? Yes * Can the patient safely return to the preadmission environment? Yes * Has this patient been hospitalized within the prior 30 days at any hospital? Yes Coverage Notice Reviewer: [id number] - Ashia Benítez Notice Issued Date-Time: 05/11/2018 13:00 Notice Type: Patient Choice Letter Notice Delivered To: Family Member Relationship to Patient: Son Agriculture Instructor Name: KARINA QUINN Delivery Method: HAND - Hand Delivered Dawna Days: Prior Verbal Notification: Recipient Understood Notice: Yes Recipient Signature: Yes Med Rec Note Co-signed by Attending: Coverage [facility] Reviewer: [id number] Adriel Benítez Notice Issued Date-Time: 05/23/2018 12:20 Notice Type: IM Discharge Notice Notice Delivered To: Family Member Relationship to Patient: Son Agriculture Instructor Name: KARINA QUINN Delivery Method: HAND - Hand Delivered Dawna Days: Prior Verbal Notification: Recipient Understood Notice: Yes Recipient Signature: Yes Med Rec Note Co-signed by Attending: Coverage Notice Comment: Last DP export: 05/28/18 12:22 p Patient Name: MADELEINE WONG Page [id number] at 1712 All edits/amendments must be made on the electronic document DICTATION DATE: 05/28/181711 ACQUISITION CONSULTANT: JULIA 05/28/181711 RPT#: [id number] DC DATE: STATUS: ADM IN [facility] [address] [place] [address] END OF REPORT
--- NOTE | 2018-05-28 17:33 | MORECARE ---
CASE MANAGEMENT DISCHARGE SUMMARY PATIENT: MADELEINE WONG UNIT: [id number] ADM DATE: 05/09/18 AGE: 88 : [birth year] SEX: F ROOM/BED: D.2112 AUTHOR: TEENADOC PHYSICIAN: REFERRING PHYSICIAN: LEXA BENAVIDES MD DATE OF SERVICE: 05/28/18 Discharge Plan Patient Name: MADELEINE WONG Facility: [facility]:[place] : 1930 Planned Disposition: [facility] Facility Anticipated Discharge Date: 05/24/18 Discharge Date: Expected LOS: 15 Initial Reviewer: [id number] Initial Review Date: 05/09/2018 Generated: 05/28/18 6:33 pm Comments DCP- Discharge Planning Updated by [id number]: Ashia Benítez on 05/28/18 4:[address] Patient Name: MADELEINE WONG Encounter No: [id number] : 1930 Primary Insurance: HUMANA CHOICE PPO MCR ADVANT Anticipated DC Date: 05-24-2018 Planned Disposition: HOME WITH HOME HEALTH External Planned Provider: [facility] DCP follow-up note: CM RECEIVED ORDER FOR HOME HEALTH, TUBE FEEDING AND HOSPITAL BED. CM MET WITH PT AND GRAND NEPHEW'S SPOUSE IN ROOM. CM BEGAN DISCUSSING ORDER, PT'S GRAND NEPHEW'S SPOUSE INFORMED CM THAT PT PLANS TO DISCHARGE TO [facility] FOR [facility]AB AND ASKED IF CM HAS HEARD FROM [facility] SHE DID NOT SEE THEM MONDAY THEY WERE SUPPOSED TO EVALUATE PT THEN. CM CALLED [facility], SPOKE TO SHAWN WHO WILL CHECK WITH CELIA TO FIND OUT WHAT HAS HAPPENED. SHAWN WILL HAVE CELIA CALL CM SOON POSSIBLE. CM MET WITH PT, PT'S ADELINE AND PT'S GRAND NEPHEW'S NIECE. PT'S ADELINE INFORMED CM THAT CM DOES NOT NEED TO SEE THEM AND THAT DR. DIXON HAS TAKEN CARE OF EVERYTHING. CM ASKED WHAT HAD BEEN WORKED OUT. CM WAS ADVISED THAT PT WILL HAVE THE KYPHOPLASTY ON MONDAY AND THEN GO TO [facility] FOR REHAB, DR. DIXON WILL TALK TO CELIA AT [facility] AND WORK THIS OUT. CM NOTIFIED CELSO BRICENO AND DR. DIXON. CM RECEIVED CALL BACK FROM [facility] WHO SPOKE TO FAMILY, INFORMED THEM THAT PT IS NOT APPROPRIATE CANDIDATE FOR REHAB SHE IS REFUSING THERAPY SERICES AND INFORMED CM THAT FAMILY HAS REFUSED DETENTION CARE PLACEMENT AT [facility]. CM MET WITH PT AND PT'S GRAND NEPHEWS SPOUSE IN ROOM. OSVALDO DISCUSSED IMPORTANT MESSAGE FROM MEDICARE AND DISCUSSED HOW TO COMPLAIN IF NEEDED TO MANAGER DATA, ADMINISTRATION AND IF NEEDED, QUALITY IMPROVEMENT OFFICE FOR MEDICARE. NOLA INFORMED CM THAT SHE HAS COMPLAINED TO THE DOCTORS BUT HAS BEEN THINKING SHE NEEDS TO COMPLAIN TO SOMEONE ELSE. CM DISCUSSED DISCHARGE PLAN. NOLA HAS TALKED TO PT, PT'S ADELINE AND CELIA AT [facility]. THEY ARE NOT GOING TO PUT PT INTO DETENTION CARE AND WILL BE TAKING PT HOME DISCUSSED LAST WEEK; NOLA STATES PT IS NOT READY FOR HOSPICE BUT WANTS HOME HEALTH. HOME HEALTH LISTING PROVIDED AND DISCUSSED, NOLA WANTS TO USE [employer], PT TOLD NOLA TO SIGN THE FORMS. NOLA SIGNED THE IMPORTANT MESSAGE FROM MEDICARE AND CHOICE FOR [employer]. NOLA STATES THAT THEY WILL NEED A HOSPITAL BED, BEDSIDE COMMODE, OXYGEN AND TUBE FEEDING SET UP FOR PT AT HOME. OSVALDO EXPLAINED THAT PT'S INSURANCE HAS TO PRE AUTHORIZE ALL MEDICAL EQUIPMENT AND THAT SINCE PT IS ABLE TO EAT, INSURANCE MAY NOT COVER TUBE FEEDING. THEY HAVE NO PREFERENCE ON PROVIDER AND NOLA ASKED TO BE CONTACTED REGARDING ANY COPAYS FOR EQUIPMENT AT [phone]. CM HAS ORDER FOR HOME HEALTH, HOSPITAL BED AND TUBE FEEDING. CM WILL NEED ADDITIONAL ORDERS FOR BEDSIDE COMMODE AND OXYGEN TESTING. CM TO FIND IN NETWORK PROVIDER FOR PT'S INSURANCE TO ARRANGE NEEDED MEDICAL EQUIPMENT SOON POSSIBLE. CM TO COMPLETE HOME HEALTH ARRANGEMENTS WITH [employer]. Ashia Benítez DCP- Discharge Planning Updated by [id number]: Roxi Greenfield on 05/28/18 11:[address] RECEIVED NOTICE THAT THE PATIENTS FAMILY WAS WANTING HER TO HAVE THE KYPHOPLASTY BEFORE SHE LEAVES THE HOSPITAL. IT WAS MENTIONED THAT THE PATIENTS POA HAS NOT BEEN HER AND THERE IS NO POA PAPERWORK IN THE CHART. I ASKED THE BEDSIDE NURSE RUDY BENJAMIN TO COME INTO THE ROOM WITH ME TO DISCUSS THE NEED FOR POA PAPERWORK IN ORDER TO HAVE ANY CONSENTS FOR PROCEDURES SIGNED SINCE THE PATIENT WAS NOT ABLE TO SIGN HERSELF, AND BY THE [place]ERACHY OF LAW, THE POA OR NEXT OF KIN WOULD BE WHO NEEDED TO SIGN AND SINCE THEY (THE LADY AND ADELINE) WERE NOT BLOOD RELATED, THEY COULD NOT SIGN FOR HER THEY HAVE BEEN. AT THIS TIME I WAS QUICKLY TOLD THAT SHE WAS IN HER RIGHT MIND AND ABLE TO MAKE ALL HER OWN DECISIONS. THE LADY AT BEDSIDE PROCEEDED TO TELL ME ABOUT ALL THE TIMES PEOPLE CAME IN AND QUESTIONED HER ABOUT THE DATE, TIME, PRESIDENT, ETC AND SHE WAS ABLE TO ALWAYS ANSWER ALL THEIR QUESTIONS. SHE STATED THE PATIENT WAS ABLE TO SIGN FOR HERSELF. UP TO THIS POINT, THE PATIENT HAD NOT OPENED HER EYES AND HAD NOT SAID ANYTHING. IT TOOK ME TOUCHING THE PATIENT'S ARM TO GET HER TO OPEN HER EYES AND ACKNOWLEDGE MY PRESENCE AND ANSWER MY QUESTIONS. THE PATIENT IS WITH IT AND ABLE TO ANSWER QUESTIONS. AT THIS POINT I ASKED HER IF SHE WANTED TO HAVE THE KYPHOPLASTY DONE. SHE STATED YES. THE LADY AT BEDSIDE BECAME VERY AGITATED STATING THAT SHE KNEW ABOUT HIPPA LAWS AND WANTED TO KNOW WHY ANYONE EVEN ALLOWED THINGS TO HAPPEN UP UNTIL NOW. NO ONE HAD ASKED FOR ANYONE'S DRIVERS LICENES TO VERIFY THEY WERE WHO THEY SAID THEY WERE. I TRIED TO EXPLAINE THAT EVEN WITH THAT, WE HAD NO WAY TO ACTUALLY VERIFY THAT WITH A DRIVERS LICENSE BECAUSE ANYONE CAN SAY THEY ARE SOMEONES FAMILY AND WE DON'T KNOW OTHERWISE UNLESS THE PATIENT SAYS SO, BUT SHE CUT ME OFF I WAS TALKING. I STOOD AT BEDSIDE AND LISTENED TO HER RANT ABOUT ALL THE THINGS THAT SHE HAS WITNESSED HERE AT THIS HOSPITAL THAT HAS MADE HER SICK TO HER STOMACH ESPECIALLY ABOUT THE FACT THAT SHE CAME IN HERE WITH A HURT BACK AND NOW THEY ARE JUST WATCHING HER . I APOLOGIZED TO HER ABOUT ALL OF THE THINGS THAT [facility] WAS UPSET ABOUT, AND THEN DIRECTED MY CONVERSATION TO THE PATIENT, EXPLAINING THAT IF SHE WANTED THEY KYPHOPLASTY AND HER URINE WAS CLEAR THAT I WOULD EXPLAIN THIS TO THE NURSE PRACTITIONER. THAT ULTIMATELY I AM HERE TO TAKE CARE OF HER AND MAKE SURE WE ARE DOING WHAT SHE WANTS. I ALSO EXPLAINED TO HER THAT SHE NEEDS TO SIGN ALL OF HER OWN PAPERWORK, EVEN IF IT IS JUST WITH AN "X". THAT WE SIGN WITNESSES TO STATE WE KNOW SHE UNDERSTANDS AND SHE IS SIGNING. EXPLAINED THAT LONG SHE IS ABLE TO MAKE ALL HER OWN DECISIONS, WE DID NOT NEED HER POA PAPERWORK. SHE IS IN AGREEMENT. THE GREAT NEPHEWS WHO IS AT BEDSIDE CONTINUED WITH HER RANT, I AGAIN APOLOGIZED AND THE BEDSIDE NURSE AND I LEFT THE ROOM. I EXPLAINED TO RADHA THAT THE PATIENT WAS CURRENTLY IN HER RIGHT MIND AND SHE IS WANTING THEY KYPHOPLASTY, AND SHE RECONSULTED IR TO SEE THE PATIENT. DCP- Discharge Planning Updated by [id number]: Josie Mccoy on 05/27/18 4:[address] CM RECEIVED AN ORDER REGARDING PLANS TO DISCHARGE TO HOME W/ HOSPITAL BED , TUBE FEEDING AND HOME HEALTH. PATIENT'S NUTRITION NOTE IS 05/25/18. WILL NEED NUTRITION NOTE REGARDING PATIENT NEEDS FOR DISCHARGE. CM UNDERSTANDS THE PATIENT DOES EAT AND TAKE HER MEDICATIONS BY MOUTH. SHE IS PRESENTLY ON FEEDINGS VIA PUMP. SHE HAS BEEN ADVANCED TO 60 CC/HR TODAY WHICH IS HER GOAL RATE. SPOKE WITH PRIMARY ARTURO AND SHE REPORTS NO RESIDUAL AT THIS TIME. WILL NEED TO HAVE [facility] PROVIDE BED AND SPECIALTY MATTRESS FOR HOME AND DETERMINE COVERAGE FOR TUBE FEEDING AND EQUIPMENT. CM TO FOLLOW UP IN AM. DCP- Discharge Planning Updated by [id number]: Ashia Benítez on 05/25/18 7:[address] Patient Name: MADELEINE WONG Encounter No: [id number] : 1930 Primary Insurance: HUMANA CHOICE PPO [facility] ADVANT Anticipated DC Date: 05-24-2018 Planned Disposition: [facility] Facility External Planned Provider: [facility], MEDICARE REHAB BED DCP follow-up note: CM FAXED UPDATE TO [facility], FOR REHAB REQUEST. CM WAITING ADMISSION DETERMINATION FROM [facility] FOR REHAB PLACEMENT. ASHIA BENÍTEZ, CASE MANAGEMENT DCP- Discharge Planning Updated by [id number]: Ashia Benítez on 05/24/18 3:[address] Patient Name: MADELEINE WONG Encounter No: [id number] : 1930 Primary Insurance: HUMANA CHOICE PPO MCR ADVANT Anticipated DC Date: 05-24-2018 Planned Disposition: [facility] Facility External Planned Provider: [facility], MEDICARE REHAB BED DCP follow-up note: CM MET WITH PT'S HAN SALCEDO BY NOLA BISHOP, . NOLA STATES THAT KARINA QUINN IS PT'S FIANCE. PT HAS POWER OF PAYROLL EXAMINER WITH REBECCA MOSLEY SPOUSE, JOON QUINN, WHO WORKS IN [employer]. NOLA WILL GET JOON TO HOSPITAL ALONG WITH POWER OF PAYROLL EXAMINER PAPERWORK SOON POSSIBLE. THEY ARE IN AGREEMENT WITH REHAB AT [facility], BUT [facility] MAY NOT ACCEPT PT HAS CONTINUED DECLINE. [facility] TO COME TOMORROW TO EVALUATE PT FOR REHAB. IF [facility] DOES NOT ACCEPT FOR REHAB, THEY ARE THINKING TO TAKE PT HOME TO [facility] HERE IN [place] AND NOLA ALONG WITH FAMILY WILL CARE FOR PT WITH HOME HOSPICE. NOLA REPORTS THEY WILL MAKE THAT DECISION TOMORROW. CM EXPLAINED THAT THE POWER OF PAYROLL EXAMINER WILL HAVE TO BE IN AGREEMENT AND SIGN ANY NEEDED AUTHORIZATIONS FOR ENROLLMENT IN REHAB OR HOSPICE CARE. NOLA REPORTS UNDERSTANDING, PROVIDED CELL PHONE NUMBER FOR JOON QUINN, . CM WAITING ADMISSION DETERMINATION FROM [facility] FOR REHAB PLACEMENT. ASHIA BENÍTEZ, CASE MANAGEMENT DCP- Discharge Planning Updated by [id number]: Ashia Benítez on 05/23/18 3:[address] Patient Name: MADELEINE WONG Encounter No: [id number] : 1930 Primary Insurance: HUMANA CHOICE PPO MCR ADVANT Anticipated DC Date: 05-24-2018 Planned Disposition: [facility] Facility External Planned Provider: [facility], MEDICARE REHAB BED DCP follow-up note: CM MET WITH PT AND SON/POA, KARINA QUINN, AT FAMILY REQUEST. MR. QUINN REPORTS IT IS NOW TIME TO SEND REFERRAL TO [facility] FOR REHAB PLACEMENT. IMPORTANT MESSAGE FROM MEDICARE PROVIDED AND EXPLAINED. [facility], . CM WAITING ADMISSION DETERMINATION FROM [facility] FOR REHAB PLACEMENT. ASHIA BENÍTEZ, CASE MANAGEMENT DCP- Discharge Planning Updated by [id number]: Ashia Benítez on 05/11/18 4:[address] Patient Name: MADELEINE WONG Admission Status: Elective Accout number: [id number] Admission Date: 05-09-2018 : 1930 Admission Diagnosis:ACUTE KIDNEY FAILURE, UNSPECIFIED Attending: LEXA BENAVIDES Current LOS: 2 Anticipated DC Date: Planned Disposition: [facility] Facility Primary Insurance: HUMANA CHOICE PPO MCR [employer] PLANNED EXTERNAL PROVIDER: [facility], MEDICARE REHAB BED Discharge Planning Comments: CM RECEIVED ORDER INDICATING PT WANTS [facility] CARE. CM MET WITH PT AND SON IN ROOM TO DISCUSS DISCHARGE PLANNING AND NEEDS. PT REPORTS THAT BEFORE GETTING SICK, SHE WAS LIVING AT HOME WITH HER SON, INDEPENDENT IN HER CARE. PT REPORTS SHE DID TELL THE DOCTOR THAT SHE WOULD BE BETTER OFF IN A [facility] BEFORE FAMILY ARRIVED TODAY. PT WANTS REHAB, NOT DETENTION CARE. PT HAS NO MEDICAL EQUIPMENT AND NO OUTSIDE SERVICES ASSISTING IN THE HOME. CM DISCUSSED AVAILABILITY OF HOME HEALTH, REHAB SERVICES AND MEDICAL EQUIPMENT. PT'S SON INITIALLY DECLINED TO PARTICIPATE IN DISCHARGE PLANNING REPORTING PT WAS SENT TO REHAB [place] TOO SOON WHEN SHE WAS NOT ABLE TO WALK OR EVEN FEED HERSELF. SON WANTS PT CONSIDERED FOR INPATIENT REHAB AGAIN STATING THEY SENT HER BACK HERE BECAUSE SHE USED ALL OF HER DAYS DOWN THERE. PT DOES NOT THINK SHE CAN PARTICIPATE IN THREE HOURS OF PROGRESSIVE THERAPY PER DAY. CM EXPLAINED THAT IF PT IS NOT ABLE TO PARTICIPATE IN THE THREE HOURS OF PROGRESSIVE THERAPY, IS NOT ABLE TO STAND OR FEED HERSELF, SHE IS NOT GOING TO BE APPROPRIATE [facility]. CM DISCUSSED AVAILABILITY OF [facility] AND PROVIDED CHOICE FORM. PT'S SON REPORTS HE ALREADY SIGNED ONE OF THESE FOR [facility] THE LAST VISIT AND SPEAKING WITH THIS CM. CM EXPLAINED A NEW ONE WAS NEEDED. PT'S SON SIGNED THE FORM AND DOES NOT WANT PT SENT TO REHAB BEFORE SHE IS STABLE. CM EXPLAINED THAT ALL DOCTORS WOULD HAVE TO INDICATE PT IS READY TO DISCHARGE AND CM IS ONLY WANTING TO BE PROACTIVE ON PT'S BEHALF FOR DISCHARGE PLANNING AND SECURE REHAB BED AHEAD OF TIME TO ENSURE THAT PT IS ABLE TO GET INTO [facility] WHEN DISCHARGED [facility] IS POPULAR REHAB AND DOES FILL UP. PT'S SON WILL WANTS PT TO BE STABLE FOR DISCHARGE FOR CM TO SEND REFERRALS. CHOICE SIGNED. CM PROVIDED PT'S SON WITH CM CONTACT INFORMATION. CM TO SEND REFERRAL TO [facility] WHEN PROJECTED DISCHARGE DATE IS KNOWN, PT'S SON DOES NOT WANT REHAB REFERRAL SENT OUT PRIOR TO PT'S MEDICAL STABILITY FOR DISCHARGE TO REHAB. Tension Machine Operator: Ashia Benítez DCPIA - Discharge Planning Initial Assessment Updated by [id number]: Ashia Benítez on 05/28/18 1:21 pm * Is the patient Alert and Oriented? Yes * How many steps to enter\\exit or inside your home? NONE * PCP DR. PONCE * Pharmacy [facility] * Preadmission Environment Acute Inpatient Rehab * Facility Name [facility] * ADLs Total Dependent * Equipment None * Other Equipment NO MEDICAL EQUIPMENT PROVIDER PREFERECE * List name and contact numbers for known caregivers / representatives who currently or will assist patient after discharge: ADELINE BRANNON [phone] * Verbal permission to speak to the caregivers and representatives has been obtained from the patient. Yes * Community resources currently utilized None * Please name any agencies selected above. NONE * Additional services required to return to the preadmission environment? Yes * Can the patient safely return to the preadmission environment? Yes * Has this patient been hospitalized within the prior 30 days at any hospital? Yes Coverage Notice Reviewer: JEWEL Benítez Notice Issued Date-Time: 05/11/2018 13:00 Notice Type: Patient Choice Letter Notice Delivered To: Family Member Relationship to Patient: Other Relationship Associate Professor Of Sociology Name: KARINA QUINN Delivery Method: HAND - Hand Delivered Dawna Days: Prior Verbal Notification: Recipient Understood Notice: Yes Recipient Signature: Yes Med Rec Note Co-signed by Attending: Coverage Notice Comment: [facility] Reviewer: JEWEL Benítez Notice Issued Date-Time: 05/23/2018 12:20 Notice Type: IM Discharge Notice Notice Delivered To: Family Member Relationship to Patient: Other Relationship Associate Professor Of Sociology Name: KARINA QUINN Delivery Method: HAND - Hand Delivered Dawna Days: Prior Verbal Notification: Recipient Understood Notice: Yes Recipient Signature: Yes Med Rec Note Co-signed by Attending: Coverage Notice Comment: Reviewer: JEWEL Benítez Notice Issued Date-Time: 05/28/2018 16:20 Notice Type: IM Discharge Notice Notice Delivered To: Family Member Relationship to Patient: Other Relationship Associate Professor Of Sociology Name: NOLA QUINN Delivery Method: HAND - Hand Delivered Dawna Days: Prior Verbal Notification: Recipient Understood Notice: Yes Recipient Signature: Yes Med Rec Note Co-signed by Attending: Coverage Notice Comment: Reviewer: JEWEL Benítez Notice Issued Date-Time: 05/28/2018 16:20 Notice Type: Patient Choice Letter Notice Delivered To: Family Member Relationship to Patient: Other Relationship Associate Professor Of Sociology Name: NOLA QUINN Delivery Method: HAND - Hand Delivered Dawna Days: Prior Verbal Notification: Recipient Understood Notice: Yes Recipient Signature: Yes Med Rec Note Co-signed by Attending: Coverage Notice Comment: [facility] Last DP export: 05/28/18 4:12 p Patient Name: MADELEINE WONG Page [id number] at 1733 All edits/amendments must be made on the electronic document DICTATION DATE: 05/28/181732 MECHANICAL MAINTENANCE ENGINEER: JULIA 05/28/181732 RPT#: [id number] DC DATE: STATUS: ADM IN [facility] [address] [place] [address] END OF REPORT
--- NOTE | 2018-05-28 19:30 | NUR ---
RESUMING PATIENT CARE. PATIENT IS ALERT AND ORIENTED. RESTING COMFORTABLY IN BED. RESPIRATIONS ARE EVEN AND UNLABORED. NO S/S OF DISTRESS. NO C/O PAIN. PATIENT VERBALIZED NO NEEDS AT THIS TIME. CALL LIGHT WITHIN REACH. WILL CPOC.
[2018-05-28 20:00] VITALS: BP 141/46
[2018-05-29 00:30] VITALS: BP 167/67
--- NOTE | 2018-05-29 02:08 | NUR ---
PATIENT RESTING COMFORTAABLY IN BED. RESPIRATIONS ARE EVEN AND UNLABORED. NO S/S OF DISTRESS. NO C/O PAIN. CALL LIGHT WITHIN REACH. WILL CPOC.
[2018-05-29 04:00] VITALS: BP 149/61
[2018-05-29 06:52] LABS: CALCIUM 8.1 mg/dL (8.5-10.1); CARBON DIOXIDE 29.7 mmol/L (21.0-32.0); CREATININE - SERUM 1.3 mg/dL (0.6-1.3); POTASSIUM - SERUM 5.7 mmol/L (3.5-5.1)
[2018-05-29 07:00] VITALS: BP 118/65
[2018-05-29 07:24] LABS: BASOPHILS 0.5 % (0-2); EOSINOPHILS 3.6 % (0-7); HEMATOCRIT 27.7 % (36.0-48.0); HEMOGLOBIN 8.6 g/dL (12-16); IMMATURE GRANULOCYTES 0.5 % (0-5); LYMPHOCYTES 10.8 % (15-50); MCH 31.5 pg (26.0-34.0); MONOCYTES 9.3 % (2-11); NEUTROPHILS 75.3 % (40-80); PLATELET COUNT 411 10x3/uL (130-400); RBC 2.73 10x6/uL (4.00-5.40); RDW 17.4 % (11.5-14.5)
[2018-05-29 07:25] LABS: MCV 101.5 fL (80.0-100.0); WBC 12.9 10x3/uL (4.8-10.8)
--- NOTE | 2018-05-29 08:00 | NUR ---
AM ROUNDS COMPLETED. INTRODUCED MYSELF TO PT PRIMARY RN FOR TODAYS SHIFT. PT IS A&O SITTING UP IN BED RESTING QUIETLY. PT IS C/O NAUSEA AND DOESNT WANT TO EAT. STOPPED TUBE FEED AND CHECKED RESIDUAL AND ONLY REC'D 12CC OF STOMACH CONTENT. PROVIDED PT WITH TYLENOL FOR THE DISCOMFORT AND WILL CONTINUE FEEDS SINCE NO RESIDUAL NOTED. REPOSITIONED PT UP IN BED FOR COMFORT AND ELEVATED BILAT HEELS TO HELP PREVENT BREAKDOWN AND RELIEVE PRESSURE. PT HAS A TAMAYO CATHETER DRAINING TO GRAVITY OFF R.SIDE OF BED TAMAYO IS IN R/T RETENTION. PTS R.CHEST CVL DRSG IS SATURATED AND FALLING OFF. STERILE DRSG CHANGE PROVIDED AND BIOPATCH INTACT, DRSG NOW ADHERED TO SKIN AND SWAB CAPS IN USE. PEG INSERTION SITE IS SOILED WITH BLOOD AND LOOKS VERY GROSS. CLEANED SITE WITH [employer] FOAM CLEANSER AND PATTED DRY THEN PLACED DAWSON DRAINAGE SPONGE AND SECURED WITH TAPE. PT DENIES ANY FURTHER NEEDS AT THIS TIME AND WANTS TO REST. NO FAMILY PRESENT. CL IN REACH, BED IN LOWEST, SIDE RAILS X2. WILL CTM.
--- NOTE | 2018-05-29 09:41 | NUR ---
PT RESTING QUIETLY IN BED AND STATES SHE IS FEELING A LITTLE BETTER BUT WANTS TO REST. CL IN REACH, BED IN LOWEST, SIDE RAILS X2 AND NO FAMILY PRESENT WILL CTM.
--- NOTE | 2018-05-29 10:01 | MORECARE ---
CASE MANAGEMENT DISCHARGE SUMMARY PATIENT: MADELEINE WONG UNIT: [id number] ADM DATE: 05/09/18 AGE: 88 : [birth year] SEX: F ROOM/BED: D.2112 AUTHOR: TEENADOC PHYSICIAN: REFERRING PHYSICIAN: LEXA BENAVIDES MD DATE OF SERVICE: 05/29/18 Discharge Plan Patient Name: MADELEINE WONG Facility: [facility] : 1930 Planned Disposition: Fpc Facility Anticipated Discharge Date: 05/30/18 Discharge Date: Expected LOS: 21 Initial Reviewer: [id number] Initial Review Date: 05/09/2018 Generated: 05/29/18 11:01 am Comments DCP- Discharge Planning Updated by [id number]: Ashia Benítez on 05/28/18 4:[address] Patient Name: MADELEINE WONG Encounter No: [id number] : 1930 Primary Insurance: HU[employer]NA CHOICE PPO [employer] ADVANT Anticipated DC Date: 05-24-2018 Planned Disposition: HOME WITH HOME HEALTH External Planned Provider: [facility] DCP follow-up note: CM RECEIVED ORDER FOR HOME HEALTH, TUBE FEEDING AND HOSPITAL BED. CM MET WITH PT AND GRAND NEPHEW'S SPOUSE IN ROOM. CM BEGAN DISCUSSING ORDER, PT'S GRAND NEPHEW'S SPOUSE INFORMED CM THAT PT PLANS TO DISCHARGE TO [facility] FOR REHAB AND ASKED IF CM HAS HEARD FROM [facility] SHE DID NOT SEE THEM MONDAY THEY WERE SUPPOSED TO EVALUATE PT THEN. CM CALLED [facility], SPOKE TO SHAWN WHO WILL CHECK WITH CELIA TO FIND OUT WHAT HAS HAPPENED. SHAWN WILL HAVE CELIA CALL CM SOON POSSIBLE. CM MET WITH PT, PT'S ADELINE AND PT'S GRAND NEPHEW'S NIECE. PT'S ADELINE INFORMED CM THAT CM DOES NOT NEED TO SEE THEM AND THAT DR. DIXON HAS TAKEN CARE OF EVERYTHING. CM ASKED WHAT HAD BEEN WORKED OUT. CM WAS ADVISED THAT PT WILL HAVE THE KYPHOPLASTY ON MONDAY AND THEN GO TO [facility] FOR REHAB, DR. DIXON WILL TALK TO CELIA AT [facility] AND WORK THIS OUT. CM NOTIFIED CELSO BRICENO AND DR. DIXON. CM RECEIVED CALL BACK FROM [facility] WHO SPOKE TO FAMILY, INFORMED THEM THAT PT IS NOT APPROPRIATE CANDIDATE FOR REHAB SHE IS REFUSING THERAPY SERICES AND INFORMED CM THAT FAMILY HAS REFUSED POLYMER SCIENTIST CARE PLACEMENT AT [facility]. CM MET WITH PT AND PT'S GRAND NEPHEWS SPOUSE IN ROOM. OSVALDO DISCUSSED IMPORTANT MESSAGE FROM MEDICARE AND DISCUSSED HOW TO COMPLAIN IF NEEDED TO FONDANT MACHINE OPERATOR, ADMINISTRATION AND IF NEEDED, QUALITY IMPROVEMENT OFFICE FOR MEDICARE. NOLA INFORMED CM THAT SHE HAS COMPLAINED TO THE DOCTORS BUT HAS BEEN THINKING SHE NEEDS TO COMPLAIN TO SOMEONE ELSE. CM DISCUSSED DISCHARGE PLAN. NOLA HAS TALKED TO PT, PT'S ADELINE AND CELIA AT [facility]. THEY ARE NOT GOING TO PUT PT INTO [facility] AND WILL BE TAKING PT HOME DISCUSSED LAST WEEK; NOLA STATES PT IS NOT READY FOR HOSPICE BUT WANTS HOME HEALTH. HOME HEALTH LISTING PROVIDED AND DISCUSSED, NOLA WANTS TO USE THE [employer], PT TOLD NOLA TO SIGN THE FORMS. NOLA SIGNED THE IMPORTANT MESSAGE FROM MEDICARE AND CHOICE FOR [employer]. NOLA STATES THAT THEY WILL NEED A HOSPITAL BED, BEDSIDE COMMODE, OXYGEN AND TUBE FEEDING SET UP FOR PT AT HOME. OSVALDO EXPLAINED THAT PT'S INSURANCE HAS TO PRE AUTHORIZE ALL MEDICAL EQUIPMENT AND THAT SINCE PT IS ABLE TO EAT, INSURANCE MAY NOT COVER TUBE FEEDING. THEY HAVE NO PREFERENCE ON PROVIDER AND NOLA ASKED TO BE CONTACTED REGARDING ANY COPAYS FOR EQUIPMENT AT [phone]. CM HAS ORDER FOR HOME HEALTH, HOSPITAL BED AND TUBE FEEDING. CM WILL NEED ADDITIONAL ORDERS FOR BEDSIDE COMMODE AND OXYGEN TESTING. CM TO FIND IN NETWORK PROVIDER FOR PT'S INSURANCE TO ARRANGE NEEDED MEDICAL EQUIPMENT SOON POSSIBLE. CM TO COMPLETE HOME HEALTH ARRANGEMENTS WITH [employer]. Ashia Benítez DCP- Discharge Planning Updated by [id number]: Roxi Greenfield on 05/28/18 11:[address] RECEIVED NOTICE THAT THE PATIENTS FAMILY WAS WANTING HER TO HAVE THE KYPHOPLASTY BEFORE SHE LEAVES THE HOSPITAL. IT WAS MENTIONED THAT THE PATIENTS POA HAS NOT BEEN HER AND THERE IS NO POA PAPERWORK IN THE CHART. I ASKED THE BEDSIDE NURSE RUDY BENJAMIN TO COME INTO THE ROOM WITH ME TO DISCUSS THE NEED FOR POA PAPERWORK IN ORDER TO HAVE ANY CONSENTS FOR PROCEDURES SIGNED SINCE THE PATIENT WAS NOT ABLE TO SIGN HERSELF, AND BY THE HIERACHY OF LAW, THE POA OR NEXT OF KIN WOULD BE WHO NEEDED TO SIGN AND SINCE THEY (THE LADY AND ADELINE) WERE NOT BLOOD RELATED, THEY COULD NOT SIGN FOR HER THEY HAVE BEEN. AT THIS TIME I WAS QUICKLY TOLD THAT SHE WAS IN HER RIGHT MIND AND ABLE TO MAKE ALL HER OWN DECISIONS. THE LADY AT BEDSIDE PROCEEDED TO TELL ME ABOUT ALL THE TIMES PEOPLE CAME IN AND QUESTIONED HER ABOUT THE DATE, TIME, PRESIDENT, ETC AND SHE WAS ABLE TO ALWAYS ANSWER ALL THEIR QUESTIONS. SHE STATED THE PATIENT WAS ABLE TO SIGN FOR HERSELF. UP TO THIS POINT, THE PATIENT HAD NOT OPENED HER EYES AND HAD NOT SAID ANYTHING. IT TOOK ME TOUCHING THE PATIENT'S ARM TO GET HER TO OPEN HER EYES AND ACKNOWLEDGE MY PRESENCE AND ANSWER MY QUESTIONS. THE PATIENT IS WITH IT AND ABLE TO ANSWER QUESTIONS. AT THIS POINT I ASKED HER IF SHE WANTED TO HAVE THE KYPHOPLASTY DONE. SHE STATED YES. THE LADY AT BEDSIDE BECAME VERY AGITATED STATING THAT SHE KNEW ABOUT HIPPA LAWS AND WANTED TO KNOW WHY ANYONE EVEN ALLOWED THINGS TO HAPPEN UP UNTIL NOW. NO ONE HAD ASKED FOR ANYONE'S DRIVERS LICENES TO VERIFY THEY WERE WHO THEY SAID THEY WERE. I TRIED TO EXPLAINE THAT EVEN WITH THAT, WE HAD NO WAY TO ACTUALLY VERIFY THAT WITH A DRIVERS LICENSE BECAUSE ANYONE CAN SAY THEY ARE SOMEONES FAMILY AND WE DON'T KNOW OTHERWISE UNLESS THE PATIENT SAYS SO, BUT SHE CUT ME OFF I WAS TALKING. I STOOD AT BEDSIDE AND LISTENED TO HER RANT ABOUT ALL THE THINGS THAT SHE HAS WITNESSED HERE AT THIS HOSPITAL THAT HAS MADE HER SICK TO HER STOMACH ESPECIALLY ABOUT THE FACT THAT SHE CAME IN HERE WITH A HURT BACK AND NOW THEY ARE JUST WATCHING HER . I APOLOGIZED TO HER ABOUT ALL OF THE THINGS THAT [facility] WAS UPSET ABOUT, AND THEN DIRECTED MY CONVERSATION TO THE PATIENT, EXPLAINING THAT IF SHE WANTED THEY KYPHOPLASTY AND HER URINE WAS CLEAR THAT I WOULD EXPLAIN THIS TO THE NURSE PRACTITIONER. THAT ULTIMATELY I AM HERE TO TAKE CARE OF HER AND MAKE SURE WE ARE DOING WHAT SHE WANTS. I ALSO EXPLAINED TO HER THAT SHE NEEDS TO SIGN ALL OF HER OWN PAPERWORK, EVEN IF IT IS JUST WITH AN "X". THAT WE SIGN WITNESSES TO STATE WE KNOW SHE UNDERSTANDS AND SHE IS SIGNING. EXPLAINED THAT LONG SHE IS ABLE TO MAKE ALL HER OWN DECISIONS, WE DID NOT NEED HER POA PAPERWORK. SHE IS IN AGREEMENT. THE GREAT NEPHEWS WHO IS AT BEDSIDE CONTINUED WITH HER RANT, I AGAIN APOLOGIZED AND THE BEDSIDE NURSE AND I LEFT THE ROOM. I EXPLAINED TO RADHA THAT THE PATIENT WAS CURRENTLY IN HER RIGHT MIND AND SHE IS WANTING THEY KYPHOPLASTY, AND SHE RECONSULTED IR TO SEE THE PATIENT. DCP- Discharge Planning Updated by [id number]: Josie Mccoy on 05/27/18 4:[address] CM RECEIVED AN ORDER REGARDING PLANS TO DISCHARGE TO HOME W/ HOSPITAL BED , TUBE FEEDING AND HOME HEALTH. PATIENT'S NUTRITION NOTE IS 05/25/18. WILL NEED NUTRITION NOTE REGARDING PATIENT NEEDS FOR DISCHARGE. CM UNDERSTANDS THE PATIENT DOES EAT AND TAKE HER MEDICATIONS BY MOUTH. SHE IS PRESENTLY ON FEEDINGS VIA PUMP. SHE HAS BEEN ADVANCED TO 60 CC/HR TODAY WHICH IS HER GOAL RATE. SPOKE WITH PRIMARY [facility]URO AND SHE REPORTS NO RESIDUAL AT THIS TIME. WILL NEED TO HAVE [facility] PROVIDE BED AND SPECIALTY MATTRESS FOR HOME AND DETERMINE COVERAGE FOR TUBE FEEDING AND EQUIPMENT. CM TO FOLLOW UP IN AM. DCP- Discharge Planning Updated by [id number]: Ashia Benítez on 05/25/18 7:[address] Patient Name: MADELEINE WONG Encounter No: [id number] : 1930 Primary Insurance: HUMANA CHOICE PPO [facility] ADVANT Anticipated DC Date: 05-24-2018 Planned Disposition: Fpc Facility External Planned Provider: [facility], MEDICARE REHAB BED DCP follow-up note: CM FAXED UPDATE TO [facility], FOR REHAB REQUEST. CM WAITING ADMISSION DETERMINATION FROM [facility] FOR REHAB PLACEMENT. ASHIA BENÍTEZ, CASE MANAGEMENT DCP- Discharge Planning Updated by [id number]: Ashia Benítez on 05/24/18 3:[address] Patient Name: MADELEINE WONG Encounter No: [id number] : 1930 Primary Insurance: HUMANA CHOICE PPO M[employer] ADVANT Anticipated DC Date: 05-24-2018 Planned Disposition: Fpc Facility External Planned Provider: [facility], MEDICARE REHAB BED DCP follow-up note: CM MET WITH PT'S HAN SALCEDO BY NOLA BISHOP, . NOLA STATES THAT KARINA QUINN IS PT'S FIANCE. PT HAS POWER OF MAILROOM MANAGER WITH REBECCA MOSLEY SPOUSE, JOON QUINN, WHO WORKS IN [employer]. NOLA WILL GET JOON TO HOSPITAL ALONG WITH POWER OF MAILROOM MANAGER PAPERWORK SOON POSSIBLE. THEY ARE IN AGREEMENT WITH REHAB AT [facility], BUT [facility] MAY NOT ACCEPT PT HAS CONTINUED DECLINE. [facility] TO COME TOMORROW TO EVALUATE PT FOR REHAB. IF [facility] DOES NOT ACCEPT FOR REHAB, THEY ARE THINKING TO TAKE PT HOME TO [facility] HERE IN [place] AND NOLA ALONG WITH FAMILY WILL CARE FOR PT WITH HOME HOSPICE. NOLA REPORTS THEY WILL MAKE THAT DECISION TOMORROW. CM EXPLAINED THAT THE POWER OF MAILROOM MANAGER WILL HAVE TO BE IN AGREEMENT AND SIGN ANY NEEDED AUTHORIZATIONS FOR ENROLLMENT IN REHAB OR HOSPICE CARE. NOLA REPORTS UNDERSTANDING, PROVIDED CELL PHONE NUMBER FOR JOON QUINN, . CM WAITING ADMISSION DETERMINATION FROM [facility] FOR REHAB PLACEMENT. ASHIA BENÍTEZ, CASE MANAGEMENT DCP- Discharge Planning Updated by [id number]: Ashia Benítez on 05/23/18 3:[address] Patient Name: MADELEINE WONG Encounter No: [id number] : 1930 Primary Insurance: HUMANA CHOICE PPO MCR ADVANT Anticipated DC Date: 05-24-2018 Planned Disposition: Fpc Facility External Planned Provider: [facility], MEDICARE REHAB BED DCP follow-up note: CM MET WITH PT AND SON/POA, KARINA QUINN, AT FAMILY REQUEST. MR. QUINN REPORTS IT IS NOW TIME TO SEND REFERRAL TO [facility] FOR REHAB PLACEMENT. IMPORTANT MESSAGE FROM MEDICARE PROVIDED AND EXPLAINED. [facility], . CM WAITING ADMISSION DETERMINATION FROM [facility] FOR REHAB PLACEMENT. ASHIA BENÍTEZ, CASE MANAGEMENT DCP- Discharge Planning Updated by [id number]: Ashia Benítez on 05/11/18 4:[address] Patient Name: MADELEINE WONG Admission Status: Elective Accout number: [id number] Admission Date: 05-09-2018 : 1930 Admission Diagnosis:ACUTE KIDNEY FAILURE, UNSPECIFIED Attending: LEXA BENAVIDES Current LOS: 2 Anticipated DC Date: Planned Disposition: Fpc Facility Primary Insurance: HUMANA CHOICE PPO MCR ADVANT PLANNED EXTERNAL PROVIDER: [facility], MEDICARE REHAB BED Discharge Planning Comments: CM RECEIVED ORDER INDICATING PT WANTS SNF CARE. CM MET WITH PT AND SON IN ROOM TO DISCUSS DISCHARGE PLANNING AND NEEDS. PT REPORTS THAT BEFORE GETTING SICK, SHE WAS LIVING AT HOME WITH HER SON, INDEPENDENT IN HER CARE. PT REPORTS SHE DID TELL THE DOCTOR THAT SHE WOULD BE BETTER OFF IN A SNF BEFORE FAMILY ARRIVED TODAY. PT WANTS REHAB, NOT POLYMER SCIENTIST CARE. PT HAS NO MEDICAL EQUIPMENT AND NO OUTSIDE SERVICES ASSISTING IN THE HOME. CM DISCUSSED AVAILABILITY OF HOME HEALTH, REHAB SERVICES AND MEDICAL EQUIPMENT. PT'S SON INITIALLY DECLINED TO PARTICIPATE IN DISCHARGE PLANNING REPORTING PT WAS SENT TO REHAB DOWNSTAIRS TOO SOON WHEN SHE WAS NOT ABLE TO WALK OR EVEN FEED HERSELF. SON WANTS PT CONSIDERED FOR INPATIENT REHAB AGAIN STATING THEY SENT HER BACK HERE BECAUSE SHE USED ALL OF HER DAYS DOWN THERE. PT DOES NOT THINK SHE CAN PARTICIPATE IN THREE HOURS OF PROGRESSIVE THERAPY PER DAY. CM EXPLAINED THAT IF PT IS NOT ABLE TO PARTICIPATE IN THE THREE HOURS OF PROGRESSIVE THERAPY, IS NOT ABLE TO STAND OR FEED HERSELF, SHE IS NOT GOING TO BE APPROPRIATE FOR [facility]ION [facility]. CM DISCUSSED AVAILABILITY OF SENIOR CARE REHAB SERVICES AND PROVIDED CHOICE FORM. PT'S SON REPORTS HE ALREADY SIGNED ONE OF THESE FOR [facility] THE LAST VISIT AND SPEAKING WITH THIS CM. CM EXPLAINED A NEW ONE WAS NEEDED. PT'S SON SIGNED THE FORM AND DOES NOT WANT PT SENT TO REHAB BEFORE SHE IS STABLE. CM EXPLAINED THAT ALL DOCTORS WOULD HAVE TO INDICATE PT IS READY TO DISCHARGE AND CM IS ONLY WANTING TO BE PROACTIVE ON PT'S BEHALF FOR DISCHARGE PLANNING AND SECURE REHAB BED AHEAD OF TIME TO ENSURE THAT PT IS ABLE TO GET INTO [facility] WHEN DISCHARGED [facility] IS POPULAR REHAB AND DOES FILL UP. PT'S SON WILL WANTS PT TO BE STABLE FOR DISCHARGE FOR CM TO SEND REFERRALS. CHOICE SIGNED. CM PROVIDED PT'S SON WITH CM CONTACT INFORMATION. CM TO SEND REFERRAL TO [facility] WHEN PROJECTED DISCHARGE DATE IS KNOWN, PT'S SON DOES NOT WANT REHAB REFERRAL SENT OUT PRIOR TO PT'S MEDICAL STABILITY FOR DISCHARGE TO REHAB. Wood Panel Inspector: Ashia Benítez DCPIA - Discharge Planning Initial Assessment Updated by [id number]: Ashia Benítez on 05/28/18 1:21 pm * Is the patient Alert and Oriented? Yes * How many steps to enter\\exit or inside your home? NONE * PCP DR. PONCE * Pharmacy [facility] * Preadmission Environment Acute Inpatient Rehab * Facility Name [facility] IN[facility]IENT [facility] * ADLs Total Dependent * Equipment None * Other Equipment NO MEDICAL EQUIPMENT PROVIDER PREFERECE * List name and contact numbers for known caregivers / representatives who currently or will assist patient after discharge: ADELINE BRANNON [phone] * Verbal permission to speak to the caregivers and representatives has been obtained from the patient. Yes * Community resources currently utilized None * Please name any agencies selected above. NONE * Additional services required to return to the preadmission environment? Yes * Can the patient safely return to the preadmission environment? Yes * Has this patient been hospitalized within the prior 30 days at any hospital? Yes External Providers External Provider: [facility] Next Contact Date: 05/30/2018 Service Request Date: Service Type: Resolution: Reviewer: Comments: External Provider: OTHER-OTHER Next Contact Date: 05/29/2018 Service Request Date: Service Type: Resolution: Reviewer: Comments: External Provider: Sharlene Next Contact Date: 05/29/2018 Service Request Date: Service Type: Resolution: Reviewer: Comments: Coverage Notice Reviewer: [id number] Benítez Notice Issued Date-Time: 05/11/2018 13:00 Notice Type: Patient Choice Letter Notice Delivered To: Family Member Relationship to Patient: Other Relationship Emery Grinder Name: KARINA QUINN Delivery Method: HAND - Hand Delivered Dawna Days: Prior Verbal Notification: Recipient Understood Notice: Yes Recipient Signature: Yes Med Rec Note Co-signed by Attending: Coverage Notice Comment: [facility] Reviewer: [email or web address] Benítez Notice Issued Date-Time: 05/23/2018 12:20 Notice Type: IM Discharge Notice Notice Delivered To: Family Member Relationship to Patient: Other Relationship Emery Grinder Name: KARINA QUINN Delivery Method: HAND - Hand Delivered Dawna Days: Prior Verbal Notification: Recipient Understood Notice: Yes Recipient Signature: Yes Med Rec Note Co-signed by Attending: Coverage Notice Comment: Reviewer: [id number] Benítez Notice Issued Date-Time: 05/28/2018 16:20 Notice Type: IM Discharge Notice Notice Delivered To: Family Member Relationship to Patient: Other Relationship Emery Grinder Name: NOLA QUINN Delivery Method: HAND - Hand Delivered Dawna Days: Prior Verbal Notification: Recipient Understood Notice: Yes Recipient Signature: Yes Med Rec Note Co-signed by Attending: Coverage Notice Comment: Reviewer: [id number] - Ashia Benítez Notice Issued Date-Time: 05/28/2018 16:20 Notice Type: Patient Choice Letter Notice Delivered To: Family Member Relationship to Patient: Other Relationship Emery Grinder Name: NOLA QUINN Delivery Method: HAND - Hand Delivered Dawna Days: Prior Verbal Notification: Recipient Understood Notice: Yes Recipient Signature: Yes Med Rec Note Co-signed by Attending: Coverage Notice Comment: [facility] Last DP export: 05/28/18 4:33 p Patient Name: MADELEINE WONG Page [id number] at 1001 All edits/amendments must be made on the electronic document DICTATION DATE: 05/29/18 1001 [employer] BUSINESS SEGMENT LEADER: JULIA 05/29/18 1001 RPT#: [id number] DC DATE: STATUS: ADM IN [facility] [address] [place] [address] END OF REPORT
--- NOTE | 2018-05-29 10:31 | NUR ---
IR STAFF CAME AND DISCUSSED PLANNING AND PT WILL BE GOING FOR KYPHOPLASTY TOMORROW. NO FAMILY PRESENT, WILL DISCUSS LATER.
--- NOTE | 2018-05-29 11:00 | NUR ---
ATTEMPTED TO WEAN PTS O2 DOWN SHE DOESNT NORMALLY REQUIRE IT. KEPT PT OFF FOR ABOUT AN HOUR AND SHE REMAINED WITH NORMAL EVEN RR. PULSE OX STAYED IN NORMAL RANGE AND IS 98% ON RA. WILL CTM.
--- NOTE | 2018-05-29 11:24 | MORECARE ---
CASE MANAGEMENT DISCHARGE SUMMARY PATIENT: MADELEINE WONG UNIT: [id number] ADM DATE: 05/09/18 AGE: 88 : [birth year] SEX: F ROOM/BED: D.2112 AUTHOR: TEENA,DOC PHYSICIAN: REFERRING PHYSICIAN: LEXA BENAVIDES MD DATE OF SERVICE: 05/29/18 Discharge Plan Patient Name: MADELEINE WONG Facility: [facility]:[place] : 1930 Planned Disposition: Home with Home Health Anticipated Discharge Date: 05/30/18 Discharge Date: Expected LOS: 21 Initial Reviewer: [id number] Initial Review Date: 05/09/2018 Generated: 05/29/18 12:24 pm Comments DCP- Discharge Planning Updated by [id number]: Ashia Benítez on 05/28/18 4:[address] Patient Name: MADELEINE WONG Encounter No: [id number] : 1930 Primary Insurance: HU[employer]NA CHOICE PPO MCR ADVANT Anticipated DC Date: 05-24-2018 Planned Disposition: HOME WITH HOME HEALTH External Planned Provider: [facility] DCP follow-up note: CM RECEIVED ORDER FOR HOME HEALTH, TUBE FEEDING AND HOSPITAL BED. CM MET WITH PT AND GRAND NEPHEW'S SPOUSE IN ROOM. CM BEGAN DISCUSSING ORDER, PT'S GRAND NEPHEW'S SPOUSE INFORMED CM THAT PT PLANS TO DISCHARGE TO [facility] FOR REHAB AND ASKED IF CM HAS HEARD FROM [facility] SHE DID NOT SEE THEM MONDAY THEY WERE SUPPOSED TO EVALUATE PT THEN. CM CALLED [facility], SPOKE TO SHAWN WHO WILL CHECK WITH CELIA TO FIND OUT WHAT HAS HAPPENED. SHAWN WILL HAVE CELIA CALL CM SOON POSSIBLE. CM MET WITH PT, PT'S ADELINE AND PT'S GRAND NEPHEW'S NIECE. PT'S ADELINE INFORMED CM THAT CM DOES NOT NEED TO SEE THEM AND THAT DR. DIXON HAS TAKEN CARE OF EVERYTHING. CM ASKED WHAT HAD BEEN WORKED OUT. CM WAS ADVISED THAT PT WILL HAVE THE KYPHOPLASTY ON MONDAY AND THEN GO TO [facility] FOR REHAB, DR. DIXON WILL TALK TO CELIA AT [facility] AND WORK THIS OUT. CM NOTIFIED CELSO BRICENO AND DR. DIXON. CM RECEIVED CALL BACK FROM [facility] WHO SPOKE TO FAMILY, INFORMED THEM THAT PT IS NOT APPROPRIATE CANDIDATE FOR REHAB SHE IS REFUSING THERAPY SERICES AND INFORMED CM THAT FAMILY HAS REFUSED LOOM FIXER HELPER CARE PLACEMENT AT [facility]. CM MET WITH PT AND PT'S GRAND NEPHEWS SPOUSE IN ROOM. OSVALDO DISCUSSED IMPORTANT MESSAGE FROM MEDICARE AND DISCUSSED HOW TO COMPLAIN IF NEEDED TO ROUGHER HELPER, ADMINISTRATION AND IF NEEDED, QUALITY IMPROVEMENT OFFICE FOR MEDICARE. NOLA INFORMED CM THAT SHE HAS COMPLAINED TO THE DOCTORS BUT HAS BEEN THINKING SHE NEEDS TO COMPLAIN TO SOMEONE ELSE. CM DISCUSSED DISCHARGE PLAN. NOLA HAS TALKED TO PT, PT'S ADELINE AND CELIA AT [facility]. THEY ARE NOT GOING TO PUT PT INTO SNF CARE AND WILL BE TAKING PT HOME DISCUSSED LAST WEEK; NOLA STATES PT IS NOT READY FOR HOSPICE BUT WANTS HOME HEALTH. HOME HEALTH LISTING PROVIDED AND DISCUSSED, NOLA WANTS TO USE THE HIGHEST RATED [employer], PT TOLD NOLA TO SIGN THE FORMS. NOLA SIGNED THE IMPORTANT MESSAGE FROM MEDICARE AND CHOICE FOR [employer] [facility]. NOLA STATES THAT THEY WILL NEED A HOSPITAL BED, BEDSIDE COMMODE, OXYGEN AND TUBE FEEDING SET UP FOR PT AT HOME. OSVALDO EXPLAINED THAT PT'S INSURANCE HAS TO PRE AUTHORIZE ALL MEDICAL EQUIPMENT AND THAT SINCE PT IS ABLE TO EAT, INSURANCE MAY NOT COVER TUBE FEEDING. THEY HAVE NO PREFERENCE ON PROVIDER AND NOLA ASKED TO BE CONTACTED REGARDING ANY COPAYS FOR EQUIPMENT AT [phone]. CM HAS ORDER FOR HOME HEALTH, HOSPITAL BED AND TUBE FEEDING. CM WILL NEED ADDITIONAL ORDERS FOR BEDSIDE COMMODE AND OXYGEN TESTING. CM TO FIND IN NETWORK PROVIDER FOR PT'S INSURANCE TO ARRANGE NEEDED MEDICAL EQUIPMENT SOON POSSIBLE. CM TO COMPLETE HOME HEALTH ARRANGEMENTS WITH [employer]. Ashia Benítez DCP- Discharge Planning Updated by [id number]: Roxi Greenfield on 05/28/18 11:[address] RECEIVED NOTICE THAT THE PATIENTS FAMILY WAS WANTING HER TO HAVE THE KYPHOPLASTY BEFORE SHE LEAVES THE HOSPITAL. IT WAS MENTIONED THAT THE PATIENTS POA HAS NOT BEEN HER AND THERE IS NO POA PAPERWORK IN THE CHART. I ASKED THE BEDSIDE NURSE RUDY BENJAMIN TO COME INTO THE ROOM WITH ME TO DISCUSS THE NEED FOR POA PAPERWORK IN ORDER TO HAVE ANY CONSENTS FOR PROCEDURES SIGNED SINCE THE PATIENT WAS NOT ABLE TO SIGN HERSELF, AND BY THE [place] OF LAW, THE POA OR NEXT OF KIN WOULD BE WHO NEEDED TO SIGN AND SINCE THEY (THE LADY AND ADELINE) WERE NOT BLOOD RELATED, THEY COULD NOT SIGN FOR HER THEY HAVE BEEN. AT THIS TIME I WAS QUICKLY TOLD THAT SHE WAS IN HER RIGHT MIND AND ABLE TO MAKE ALL HER OWN DECISIONS. THE LADY AT BEDSIDE PROCEEDED TO TELL ME ABOUT ALL THE TIMES PEOPLE CAME IN AND QUESTIONED HER ABOUT THE DATE, TIME, PRESIDENT, ETC AND SHE WAS ABLE TO ALWAYS ANSWER ALL THEIR QUESTIONS. SHE STATED THE PATIENT WAS ABLE TO SIGN FOR HERSELF. UP TO THIS POINT, THE PATIENT HAD NOT OPENED HER EYES AND HAD NOT SAID ANYTHING. IT TOOK ME TOUCHING THE PATIENT'S ARM TO GET HER TO OPEN HER EYES AND ACKNOWLEDGE MY PRESENCE AND ANSWER MY QUESTIONS. THE PATIENT IS WITH IT AND ABLE TO ANSWER QUESTIONS. AT THIS POINT I ASKED HER IF SHE WANTED TO HAVE THE KYPHOPLASTY DONE. SHE STATED YES. THE LADY AT BEDSIDE BECAME VERY AGITATED STATING THAT SHE KNEW ABOUT HIPPA LAWS AND WANTED TO KNOW WHY ANYONE EVEN ALLOWED THINGS TO HAPPEN UP UNTIL NOW. NO ONE HAD ASKED FOR ANYONE'S DRIVERS LICENES TO VERIFY THEY WERE WHO THEY SAID THEY WERE. I TRIED TO EXPLAINE THAT EVEN WITH THAT, WE HAD NO WAY TO ACTUALLY VERIFY THAT WITH A DRIVERS LICENSE BECAUSE ANYONE CAN SAY THEY ARE SOMEONES FAMILY AND WE DON'T KNOW OTHERWISE UNLESS THE PATIENT SAYS SO, BUT SHE CUT ME OFF I WAS TALKING. I STOOD AT BEDSIDE AND LISTENED TO HER RANT ABOUT ALL THE THINGS THAT SHE HAS WITNESSED HERE AT THIS HOSPITAL THAT HAS MADE HER SICK TO HER STOMACH ESPECIALLY ABOUT THE FACT THAT SHE CAME IN HERE WITH A HURT BACK AND NOW THEY ARE JUST WATCHING HER . I APOLOGIZED TO HER ABOUT ALL OF THE THINGS THAT [facility] WAS UPSET ABOUT, AND THEN DIRECTED MY CONVERSATION TO THE PATIENT, EXPLAINING THAT IF SHE WANTED THEY KYPHOPLASTY AND HER URINE WAS CLEAR THAT I WOULD EXPLAIN THIS TO THE NURSE PRACTITIONER. THAT ULTIMATELY I AM HERE TO TAKE CARE OF HER AND MAKE SURE WE ARE DOING WHAT SHE WANTS. I ALSO EXPLAINED TO HER THAT SHE NEEDS TO SIGN ALL OF HER OWN PAPERWORK, EVEN IF IT IS JUST WITH AN "X". THAT WE SIGN WITNESSES TO STATE WE KNOW SHE UNDERSTANDS AND SHE IS SIGNING. EXPLAINED THAT LONG SHE IS ABLE TO MAKE ALL HER OWN DECISIONS, WE DID NOT NEED HER POA PAPERWORK. SHE IS IN AGREEMENT. THE GREAT NEPHEWS WHO IS AT BEDSIDE CONTINUED WITH HER RANT, I AGAIN APOLOGIZED AND THE BEDSIDE NURSE AND I LEFT THE ROOM. I EXPLAINED TO RADHA THAT THE PATIENT WAS CURRENTLY IN HER RIGHT MIND AND SHE IS WANTING THEY KYPHOPLASTY, AND SHE RECONSULTED IR TO SEE THE PATIENT. DCP- Discharge Planning Updated by [id number]: Josie Mccoy on 05/27/18 4:[address] CM RECEIVED AN ORDER REGARDING PLANS TO DISCHARGE TO HOME W/ HOSPITAL BED , TUBE FEEDING AND HOME HEALTH. PATIENT'S NUTRITION NOTE IS 05/25/18. WILL NEED NUTRITION NOTE REGARDING PATIENT NEEDS FOR DISCHARGE. CM UNDERSTANDS THE PATIENT DOES EAT AND TAKE HER MEDICATIONS BY MOUTH. SHE IS PRESENTLY ON FEEDINGS VIA PUMP. SHE HAS BEEN ADVANCED TO 60 CC/HR TODAY WHICH IS HER GOAL RATE. SPOKE WITH PRIMARY [facility]URO AND SHE REPORTS NO RESIDUAL AT THIS TIME. WILL NEED TO HAVE [facility] PROVIDE BED AND SPECIALTY MATTRESS FOR HOME AND DETERMINE COVERAGE FOR TUBE FEEDING AND EQUIPMENT. CM TO FOLLOW UP IN AM. DCP- Discharge Planning Updated by [id number]: Ashia Benítez on 05/25/18 7:[address] Patient Name: MADELEINE WONG Encounter No: [id number] : 1930 Primary Insurance: HUMANA CHOICE PPO MCR ADVANT Anticipated DC Date: 05-24-2018 Planned Disposition: Longterm Facility External Planned Provider: [facility], MEDICARE REHAB BED DCP follow-up note: CM FAXED UPDATE TO [facility], FOR REHAB REQUEST. CM WAITING ADMISSION DETERMINATION FROM [facility] FOR REHAB PLACEMENT. ASHIA BENÍTEZ, CASE MANAGEMENT DCP- Discharge Planning Updated by [id number]: Ashia Benítez on 05/24/18 3:[address] Patient Name: MADELEINE WONG Encounter No: [id number] : 1930 Primary Insurance: HUMANA CHOICE PPO MCR ADVANT Anticipated DC Date: 05-24-2018 Planned Disposition: Longterm Facility External Planned Provider: [facility], MEDICARE REHAB BED DCP follow-up note: CM MET WITH PT'S HAN SALCEDO BY NOLA BISHOP, . NOLA STATES THAT KARINA QUINN IS PT'S FIANCE. PT HAS POWER OF METAL TRIM ERECTOR WITH [employer] SPOUSE, JOON QUINN, WHO WORKS IN [employer]. NOLA WILL GET JOON TO HOSPITAL ALONG WITH POWER OF METAL TRIM ERECTOR PAPERWORK SOON POSSIBLE. THEY ARE IN AGREEMENT WITH REHAB AT [facility], BUT [facility] MAY NOT ACCEPT PT HAS CONTINUED DECLINE. [facility] TO COME TOMORROW TO EVALUATE PT FOR REHAB. IF [facility] DOES NOT ACCEPT FOR REHAB, THEY ARE THINKING TO TAKE PT HOME TO [facility] HERE IN [place] AND NOLA ALONG WITH FAMILY WILL CARE FOR PT WITH HOME HOSPICE. NOLA REPORTS THEY WILL MAKE THAT DECISION TOMORROW. CM EXPLAINED THAT THE POWER OF METAL TRIM ERECTOR WILL HAVE TO BE IN AGREEMENT AND SIGN ANY NEEDED AUTHORIZATIONS FOR ENROLLMENT IN REHAB OR HOSPICE CARE. NOLA REPORTS UNDERSTANDING, PROVIDED CELL PHONE NUMBER FOR JOON QUINN, . CM WAITING ADMISSION DETERMINATION FROM [facility] FOR REHAB PLACEMENT. ASHIA BENÍTEZ, CASE MANAGEMENT DCP- Discharge Planning Updated by [id number]: Ashia Benítez on 05/23/18 3:[address] Patient Name: MADELEINE WONG Encounter No: [id number] : 1930 Primary Insurance: HUMANA [employer] PPO MCR ADVANT Anticipated DC Date: 05-24-2018 Planned Disposition: Longterm Facility External Planned Provider: [facility], MEDICARE REHAB BED DCP follow-up note: CM MET WITH PT AND SON/POA, KARINA QUINN, AT FAMILY REQUEST. MR. QUINN REPORTS IT IS NOW TIME TO SEND REFERRAL TO [facility] FOR REHAB PLACEMENT. IMPORTANT MESSAGE FROM MEDICARE PROVIDED AND EXPLAINED. CM [facility], . CM WAITING ADMISSION DETERMINATION FROM [facility] FOR REHAB PLACEMENT. ASHIA BENÍTEZ, CASE MANAGEMENT DCP- Discharge Planning Updated by [id number]: Ashia Benítez on 05/11/18 4:[address] Patient Name: MADELEINE WONG Admission Status: Elective Accout number: [id number] Admission Date: 05-09-2018 : 1930 Admission Diagnosis:ACUTE KIDNEY FAILURE, UNSPECIFIED Attending: LEXA BENAVIDES Current LOS: 2 Anticipated DC Date: Planned Disposition: Longterm Facility Primary Insurance: HUMANA CHOICE PPO MCR ADVANT PLANNED EXTERNAL PROVIDER: [facility], MEDICARE REHAB BED Discharge Planning Comments: CM RECEIVED ORDER INDICATING PT WANTS CARE HOME CARE. CM MET WITH PT AND SON IN ROOM TO DISCUSS DISCHARGE PLANNING AND NEEDS. PT REPORTS THAT BEFORE GETTING SICK, SHE WAS LIVING AT HOME WITH HER SON, INDEPENDENT IN HER CARE. PT REPORTS SHE DID TELL THE DOCTOR THAT SHE WOULD BE BETTER OFF IN A CARE HOME BEFORE FAMILY ARRIVED TODAY. PT WANTS REHAB, NOT LOOM FIXER HELPER CARE. PT HAS NO MEDICAL EQUIPMENT AND NO OUTSIDE SERVICES ASSISTING IN THE HOME. CM DISCUSSED AVAILABILITY OF HOME HEALTH, REHAB SERVICES AND MEDICAL EQUIPMENT. PT'S SON INITIALLY DECLINED TO PARTICIPATE IN DISCHARGE PLANNING REPORTING PT WAS SENT TO REHAB DOWNSTA[place] TOO SOON WHEN SHE WAS NOT ABLE TO WALK OR EVEN FEED HERSELF. SON WANTS PT CONSIDERED FOR INPATIENT REHAB AGAIN STATING THEY SENT HER BACK HERE BECAUSE SHE USED ALL OF HER DAYS DOWN THERE. PT DOES NOT THINK SHE CAN PARTICIPATE IN THREE HOURS OF PROGRESSIVE THERAPY PER DAY. CM EXPLAINED THAT IF PT IS NOT ABLE TO PARTICIPATE IN THE THREE HOURS OF PROGRESSIVE THERAPY, IS NOT ABLE TO STAND OR FEED HERSELF, SHE IS NOT GOING TO BE APPROPRIATE FOR [facility]. CM DISCUSSED AVAILABILITY OF SNF REHAB SERVICES AND PROVIDED CHOICE FORM. PT'S SON REPORTS HE ALREADY SIGNED ONE OF THESE FOR [facility] THE LAST VISIT AND SPEAKING WITH THIS CM. CM EXPLAINED A NEW ONE WAS NEEDED. PT'S SON SIGNED THE FORM AND DOES NOT WANT PT SENT TO REHAB BEFORE SHE IS STABLE. CM EXPLAINED THAT ALL DOCTORS WOULD HAVE TO INDICATE PT IS READY TO DISCHARGE AND CM IS ONLY WANTING TO BE PROACTIVE ON PT'S BEHALF FOR DISCHARGE PLANNING AND SECURE REHAB BED AHEAD OF TIME TO ENSURE THAT PT IS ABLE TO GET INTO [facility] WHEN DISCHARGED [facility] IS POPULAR [facility] AND DOES FILL UP. PT'S SON WILL WANTS PT TO BE STABLE FOR DISCHARGE FOR CM TO SEND REFERRALS. CHOICE SIGNED. CM PROVIDED PT'S SON WITH CM CONTACT INFORMATION. CM TO SEND REFERRAL TO [facility] WHEN PROJECTED DISCHARGE DATE IS KNOWN, PT'S SON DOES NOT WANT REHAB REFERRAL SENT OUT PRIOR TO PT'S MEDICAL STABILITY FOR DISCHARGE TO REHAB. Medical Collections Specialist: Ashia Benítez DCPIA - Discharge Planning Initial Assessment Updated by [id number]: Ashia Benítez on 05/28/18 1:21 pm * Is the patient Alert and Oriented? Yes * How many steps to enter\\exit or inside your home? NONE * PCP DR. PONCE * Pharmacy [facility] * Preadmission Environment Acute Inpatient Rehab * Facility Name [facility] * ADLs Total Dependent * Equipment None * Other Equipment NO MEDICAL EQUIPMENT PROVIDER PREFERECE * List name and contact numbers for known caregivers / representatives who currently or will assist patient after discharge: ADELINE BRANNON [phone] * Verbal permission to speak to the caregivers and representatives has been obtained from the patient. Yes * Community resources currently utilized None * Please name any agencies selected above. NONE * Additional services required to return to the preadmission environment? Yes * Can the patient safely return to the preadmission environment? Yes * Has this patient been hospitalized within the prior 30 days at any hospital? Yes Coverage Notice Reviewer: JEWEL Benítez Notice Issued Date-Time: 05/11/2018 13:00 Notice Type: Patient Choice Letter Notice Delivered To: Family Member Relationship to Patient: Other Relationship Special Events Driver Name: KARINA QUINN Delivery Method: HAND - Hand Delivered Dawna Days: Prior Verbal Notification: Recipient Understood Notice: Yes Recipient Signature: Yes Med Rec Note Co-signed by Attending: Coverage Notice Comment: [facility] Reviewer: JEWEL Benítez Notice Issued Date-Time: 05/23/2018 12:20 Notice Type: IM Discharge Notice Notice Delivered To: Family Member Relationship to Patient: Other Relationship Special Events Driver Name: KARINA QUINN Delivery Method: HAND - Hand Delivered Dawna Days: Prior Verbal Notification: Recipient Understood Notice: Yes Recipient Signature: Yes Med Rec Note Co-signed by Attending: Coverage Notice Comment: Reviewer: JEWEL Benítez Notice Issued Date-Time: 05/28/2018 16:20 Notice Type: IM Discharge Notice Notice Delivered To: Family Member Relationship to Patient: Other Relationship Special Events Driver Name: NOLA QUINN Delivery Method: HAND - Hand Delivered Dawna Days: Prior Verbal Notification: Recipient Understood Notice: Yes Recipient Signature: Yes Med Rec Note Co-signed by Attending: Coverage Notice Comment: Reviewer: JEWEL Benítez Notice Issued Date-Time: 05/28/2018 16:20 Notice Type: Patient Choice Letter Notice Delivered To: Family Member Relationship to Patient: Other Relationship Special Events Driver Name: NOLA QUINN Delivery Method: HAND - Hand Delivered Dawna Days: Prior Verbal Notification: Recipient Understood Notice: Yes Recipient Signature: Yes Med Rec Note Co-signed by Attending: Coverage Notice Comment: [facility] Last DP export: 05/29/18 9:01 a Patient Name: MADELEINE WONG Page [phone] at 1124 All edits/amendments must be made on the electronic document DICTATION DATE: 05/29/181123 SALES PROCESS MANAGER: JULIA 05/29/181123 RPT#: [id number] DC DATE: STATUS: ADM IN [facility] [address] [place] [address] END OF REPORT
--- NOTE | 2018-05-29 11:39 | MORECARE ---
CASE MANAGEMENT DISCHARGE SUMMARY PATIENT: MADELEINE WONG UNIT: [id number] ADM DATE: 05/09/18 AGE: 88 : [birth year] SEX: F ROOM/BED: D.2118 AUTHOR: TEENA,DOC PHYSICIAN: REFERRING PHYSICIAN: LEXA BENAVIDES MD DATE OF SERVICE: 05/29/18 Discharge Plan Patient Name: MADELEINE WONG Facility: [facility]:[place] : 1930 Planned Disposition: Home with Home Health Anticipated Discharge Date: 05/30/18 Discharge Date: Expected LOS: 21 Initial Reviewer: [id number] Initial Review Date: 05/09/2018 Generated: 05/29/18 12:39 pm Comments DCP- Discharge Planning Updated by [id number]: Ashia Benítez on 05/29/18 10:[address] Patient Name: MADELEINE WONG Encounter No: [id number] : 1930 Primary Insurance: HUMANA CHOICE PPO MCR ADVANT Anticipated DC Date: 05-30-2018 Planned Disposition: Home with Home Health External Planned Provider: [facility] DCP follow-up note: CM CALLED PAYAL AT [facility], , PROVIDED INFORMATION FOR HOSPITAL BED AND BEDSIDE COMMODE, INFORMED OF PLANNED DISCHARGE TOMORROW. CM FAXED ORDER AND REFERRAL INFORMATION TO [facility] AT [phone]. [facility] TO ARRANGE DELIVERY OF MEDICAL EQUIPMENT WITH PT'S FAMILY. CM CALLED [facility], , SPOKE TO [facility] REGARDING TUBE FEEDING ORDER; [facility] ADVISED THAT PT'S INSURANCE WILL NOT PAY FOR SUPPLEMENTAL NUTRITION PT IS ON REGULAR DIET AND ABLE TO EAT BY MOUTH. [facility] WILL REVIEW REFERRAL TO SEE IF THERE IS SOME WAY THAT INSURANCE MAY COVER THE SERVICE. CM SPOKE TO PT IN ROOM, INFORMED OF ABOVE; PT ASKED FOR CM TO GET TINSLEY PAY SHAY FOR TUBE FEEDING AND DISCUSS WITH NOLA, HER NIECE. CM FAXED REFERRAL TO [facility] AT [phone]. CM CALLED [facility], , SPOKE TO NEGRA, PROVIDED REFERRAL INFORMATION AND ADVISED OF PLANNED DISCHARGE 05-30-18. THEY WILL ACCEPT PT FOR ADMIT ON 05-31-18. CM FAXED HOME HEALTH REFERRAL TO [facility] AT [phone]. CM SPOKE TO NOLA QUINN IN HALLWAY DIRECTED BY PT; INFORMED OF ABOVE ARRANGEMENTS. CM SPOKE TO BEDSIDE NURSE REGARDING FAMILY CONCERN OF OXYGEN NEED, BEDSIDE NURSE INFORMED CM THAT SHE WOULD ATTEMPT OXYGEN WEANING. [facility] BED AND BEDSIDE COMMODE WITH FAMILY. PT'S INSURANCE WILL NOT PAY FOR TUBE FEEDING MATERIALS OR SUPPLIES - [facility] GETTING QUOTE FOR TINSLEY PAY. [facility] WILL ACCEPT PT AT DISCHARGE. FOR DISCHARGE, NOTIFY [facility] AT [phone], FAX DISCHARGE INFORMATION TO [facility] AT [phone]. CM TO CONTINUE TO FOLLOW AND ASSIST NEEDED. Ashia Benítez, CASE MANGEMENT DCP- Discharge Planning Updated by [id number]: Ashia Benítez on 05/28/18 4:[address] Patient Name: MADELEINE WONG Encounter No: [id number] : 1930 Primary Insurance: HUMANA CHOICE PPO MCR ADVANT Anticipated DC Date: 05-24-2018 Planned Disposition: HOME WITH HOME HEALTH External Planned Provider: [facility] DCP follow-up note: CM RECEIVED ORDER FOR HOME HEALTH, TUBE FEEDING AND HOSPITAL BED. CM MET WITH PT AND GRAND NEPHEW'S SPOUSE IN ROOM. CM BEGAN DISCUSSING ORDER, PT'S GRAND NEPHEW'S SPOUSE INFORMED CM THAT PT PLANS TO DISCHARGE TO [facility] FOR REHAB AND ASKED IF CM HAS HEARD FROM [facility] SHE DID NOT SEE THEM MONDAY THEY WERE SUPPOSED TO EVALUATE PT THEN. CM CALLED [facility], SPOKE TO SHAWN WHO WILL CHECK WITH CELIA TO FIND OUT WHAT HAS HAPPENED. SHAWN WILL HAVE CELIA CALL CM SOON POSSIBLE. CM MET WITH PT, PT'S ADELINE AND PT'S GRAND NEPHEW'S NIECE. PT'S ADELINE INFORMED CM THAT CM DOES NOT NEED TO SEE THEM AND THAT DR. DIXON HAS TAKEN CARE OF EVERYTHING. CM ASKED WHAT HAD BEEN WORKED OUT. CM WAS ADVISED THAT PT WILL HAVE THE KYPHOPLASTY ON MONDAY AND THEN GO TO [facility] FOR REHAB, DR. DIXON WILL TALK TO CELIA AT [facility] AND WORK THIS OUT. CM NOTIFIED CELSO BRICENO AND DR. DIXON. CM RECEIVED CALL BACK FROM [facility] WHO SPOKE TO FAMILY, INFORMED THEM THAT PT IS NOT APPROPRIATE CANDIDATE FOR REHAB SHE IS REFUSING THERAPY SERICES AND INFORMED CM THAT FAMILY HAS REFUSED GEOLOGICAL ENGINEER CARE PLACEMENT AT [facility]. CM MET WITH PT AND PT'S GRAND NEPHEWS SPOUSE IN ROOM. CM DISCUSSED IMPORTANT MESSAGE FROM MEDICARE AND DISCUSSED HOW TO COMPLAIN IF NEEDED TO WEALTH MANAGEMENT DIRECTOR, ADMINISTRATION AND IF NEEDED, QUALITY IMPROVEMENT OFFICE FOR MEDICARE. NOLA INFORMED CM THAT SHE HAS COMPLAINED TO THE DOCTORS BUT HAS BEEN THINKING SHE NEEDS TO COMPLAIN TO SOMEONE ELSE. CM DISCUSSED DISCHARGE PLAN. NOLA HAS TALKED TO PT, PT'S ADELINE AND CELIA AT [facility]. THEY ARE NOT GOING TO PUT PT INTO GEOLOGICAL ENGINEER CARE AND WILL BE TAKING PT HOME DISCUSSED LAST WEEK; NOLA STATES PT IS NOT READY FOR HOSPICE BUT WANTS HOME HEALTH. HOME HEALTH LISTING PROVIDED AND DISCUSSED, NOLA WANTS TO USE [employer], PT TOLD NOLA TO SIGN THE FORMS. NOLA SIGNED THE IMPORTANT MESSAGE FROM MEDICARE AND CHOICE FOR [facility]. NOLA STATES THAT THEY WILL NEED A HOSPITAL BED, BEDSIDE COMMODE, OXYGEN AND TUBE FEEDING SET UP FOR PT AT HOME. OSVALDO EXPLAINED THAT PT'S INSURANCE HAS TO PRE AUTHORIZE ALL MEDICAL EQUIPMENT AND THAT SINCE PT IS ABLE TO EAT, INSURANCE MAY NOT COVER TUBE FEEDING. THEY HAVE NO PREFERENCE ON PROVIDER AND NOLA ASKED TO BE CONTACTED REGARDING ANY COPAYS FOR EQUIPMENT AT [phone]. CM HAS ORDER FOR HOME HEALTH, HOSPITAL BED AND TUBE FEEDING. CM WILL NEED ADDITIONAL ORDERS FOR BEDSIDE COMMODE AND OXYGEN TESTING. CM TO FIND IN NETWORK PROVIDER FOR PT'S INSURANCE TO ARRANGE NEEDED MEDICAL EQUIPMENT SOON POSSIBLE. CM TO COMPLETE HOME HEALTH ARRANGEMENTS WITH [employer]. Ashia Benítez DCP- Discharge Planning Updated by [id number]: Roxi Greenfield on 05/28/18 11:[address] RECEIVED NOTICE THAT THE PATIENTS FAMILY WAS WANTING HER TO HAVE THE KYPHOPLASTY BEFORE SHE LEAVES THE HOSPITAL. IT WAS MENTIONED THAT THE PATIENTS POA HAS NOT BEEN HER AND THERE IS NO POA PAPERWORK IN THE CHART. I ASKED THE BEDSIDE NURSE RUDY BENJAMIN TO COME INTO THE ROOM WITH ME TO DISCUSS THE NEED FOR POA PAPERWORK IN ORDER TO HAVE ANY CONSENTS FOR PROCEDURES SIGNED SINCE THE PATIENT WAS NOT ABLE TO SIGN HERSELF, AND BY THE HIERACHY OF LAW, THE POA OR NEXT OF KIN WOULD BE WHO NEEDED TO SIGN AND SINCE THEY (THE LADY AND ADELINE) WERE NOT BLOOD RELATED, THEY COULD NOT SIGN FOR HER THEY HAVE BEEN. AT THIS TIME I WAS QUICKLY TOLD THAT SHE WAS IN HER RIGHT MIND AND ABLE TO MAKE ALL HER OWN DECISIONS. THE LADY AT BEDSIDE PROCEEDED TO TELL ME ABOUT ALL THE TIMES PEOPLE CAME IN AND QUESTIONED HER ABOUT THE DATE, TIME, PRESIDENT, ETC AND SHE WAS ABLE TO ALWAYS ANSWER ALL THEIR QUESTIONS. SHE STATED THE PATIENT WAS ABLE TO SIGN FOR HERSELF. UP TO THIS POINT, THE PATIENT HAD NOT OPENED HER EYES AND HAD NOT SAID ANYTHING. IT TOOK ME TOUCHING THE PATIENT'S ARM TO GET HER TO OPEN HER EYES AND ACKNOWLEDGE MY PRESENCE AND ANSWER MY QUESTIONS. THE PATIENT IS WITH IT AND ABLE TO ANSWER QUESTIONS. AT THIS POINT I ASKED HER IF SHE WANTED TO HAVE THE KYPHOPLASTY DONE. SHE STATED YES. THE LADY AT BEDSIDE BECAME VERY AGITATED STATING THAT SHE KNEW ABOUT HIPPA LAWS AND WANTED TO KNOW WHY ANYONE EVEN ALLOWED THINGS TO HAPPEN UP UNTIL NOW. NO ONE HAD ASKED FOR ANYONE'S DRIVERS LICENES TO VERIFY THEY WERE WHO THEY SAID THEY WERE. I TRIED TO EXPLAINE THAT EVEN WITH THAT, WE HAD NO WAY TO ACTUALLY VERIFY THAT WITH A DRIVERS LICENSE BECAUSE ANYONE CAN SAY THEY ARE SOMEONES FAMILY AND WE DON'T KNOW OTHERWISE UNLESS THE PATIENT SAYS SO, BUT SHE CUT ME OFF I WAS TALKING. I STOOD AT BEDSIDE AND LISTENED TO HER RANT ABOUT ALL THE THINGS THAT SHE HAS WITNESSED HERE AT THIS HOSPITAL THAT HAS MADE HER SICK TO HER STOMACH ESPECIALLY ABOUT THE FACT THAT SHE CAME IN HERE WITH A HURT BACK AND NOW THEY ARE JUST WATCHING HER . I APOLOGIZED TO HER ABOUT ALL OF THE THINGS THAT [facility] WAS UPSET ABOUT, AND THEN DIRECTED MY CONVERSATION TO THE PATIENT, EXPLAINING THAT IF SHE WANTED THEY KYPHOPLASTY AND HER URINE WAS CLEAR THAT I WOULD EXPLAIN THIS TO THE NURSE PRACTITIONER. THAT ULTIMATELY I AM HERE TO TAKE CARE OF HER AND MAKE SURE WE ARE DOING WHAT SHE WANTS. I ALSO EXPLAINED TO HER THAT SHE NEEDS TO SIGN ALL OF HER OWN PAPERWORK, EVEN IF IT IS JUST WITH AN "X". THAT WE SIGN WITNESSES TO STATE WE KNOW SHE UNDERSTANDS AND SHE IS SIGNING. EXPLAINED THAT LONG SHE IS ABLE TO MAKE ALL HER OWN DECISIONS, WE DID NOT NEED HER POA PAPERWORK. SHE IS IN AGREEMENT. THE GREAT NEPHEWS WHO IS AT BEDSIDE CONTINUED WITH HER RANT, I AGAIN APOLOGIZED AND THE BEDSIDE NURSE AND I LEFT THE ROOM. I EXPLAINED TO RADHA THAT THE PATIENT WAS CURRENTLY IN HER RIGHT MIND AND SHE IS WANTING THEY KYPHOPLASTY, AND SHE RECONSULTED IR TO SEE THE PATIENT. DCP- Discharge Planning Updated by [id number]: Josieclif Mccoy on 05/27/18 4:[address] CM RECEIVED AN ORDER REGARDING PLANS TO DISCHARGE TO HOME W/ HOSPITAL BED , TUBE FEEDING AND HOME HEALTH. PATIENT'S NUTRITION NOTE IS 05/25/18. WILL NEED NUTRITION NOTE REGARDING PATIENT NEEDS FOR DISCHARGE. CM UNDERSTANDS THE PATIENT DOES EAT AND TAKE HER MEDICATIONS BY MOUTH. SHE IS PRESENTLY ON FEEDINGS VIA PUMP. SHE HAS BEEN ADVANCED TO 60 CC/HR TODAY WHICH IS HER GOAL RATE. SPOKE WITH PRIMARY [facility]URO AND SHE REPORTS NO RESIDUAL AT THIS TIME. WILL NEED TO HAVE [facility] PROVIDE BED AND SPECIALTY MATTRESS FOR HOME AND DETERMINE COVERAGE FOR TUBE FEEDING AND EQUIPMENT. CM TO FOLLOW UP IN AM. DCP- Discharge Planning Updated by [id number]: Ashia Benítez on 05/25/18 7:[address] Patient Name: MADELEINE WONG Encounter No: [id number] : 1930 Primary Insurance: HUMANA CHOICE PPO [facility] ADVANT Anticipated DC Date: 05-24-2018 Planned Disposition: Jail Facility External Planned Provider: [facility], MEDICARE REHAB BED DCP follow-up note: CM FAXED UPDATE TO [facility], FOR REHAB REQUEST. CM WAITING ADMISSION DETERMINATION FROM [facility] FOR REHAB PLACEMENT. ASHIA BENÍTEZ, CASE MANAGEMENT DCP- Discharge Planning Updated by [id number]: Ashia Benítez on 05/24/18 3:[address] Patient Name: MADELEINE WONG Encounter No: [id number] : 1930 Primary Insurance: HUMANA CHOICE PPO [facility] ADVANT Anticipated DC Date: 05-24-2018 Planned Disposition: Jail Facility External Planned Provider: [facility], MEDICARE REHAB BED DCP follow-up note: CM MET WITH PT'S HAN SALCEDO BY NOLA BISHOP, . NOLA STATES THAT KARINA QUINN IS PT'S FIANCE. 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 NOLA WILL GET JOON TO HOSPITAL ALONG WITH POWER OF CERTIFIED MASTER SAFE TECHNICIAN PAPERWORK SOON POSSIBLE. THEY ARE IN AGREEMENT WITH REHAB AT [facility], BUT [facility] MAY NOT ACCEPT PT HAS CONTINUED DECLINE. [facility] TO COME TOMORROW TO EVALUATE PT FOR REHAB. IF [facility] DOES NOT ACCEPT FOR REHAB, THEY ARE THINKING TO TAKE PT HOME TO [facility] HERE IN [place] AND NOLA ALONG WITH FAMILY WILL CARE FOR PT WITH HOME HOSPICE. NOLA REPORTS THEY WILL MAKE THAT DECISION TOMORROW. CM EXPLAINED THAT THE POWER OF CERTIFIED MASTER SAFE TECHNICIAN WILL HAVE TO BE IN AGREEMENT AND SIGN ANY NEEDED AUTHORIZATIONS FOR ENROLLMENT IN REHAB OR HOSPICE CARE. NOLA REPORTS UNDERSTANDING, PROVIDED CELL PHONE NUMBER FOR JOON QUINN, . CM WAITING ADMISSION DETERMINATION FROM [facility] FOR REHAB PLACEMENT. ASHIA BENÍTEZ, CASE MANAGEMENT DCP- Discharge Planning Updated by [id number]: Ashia Benítez on 05/23/18 3:[address] Patient Name: MADELEINE WONG Encounter No: [id number] : 1930 Primary Insurance: [id number] PPO [facility] ADVANT Anticipated DC Date: 05-24-2018 Planned Disposition: Jail Facility External Planned Provider: [facility], MEDICARE REHAB BED DCP follow-up note: CM MET WITH PT AND SON/POA, KARINA QUINN, AT FAMILY REQUEST. MR. QUINN REPORTS IT IS NOW TIME TO SEND REFERRAL TO [facility] FOR REHAB PLACEMENT. IMPORTANT MESSAGE FROM MEDICARE PROVIDED AND EXPLAINED. CM FAXED REFERRAL TO [facility], . CM WAITING ADMISSION DETERMINATION FROM [facility] FOR REHAB PLACEMENT. ASHIA BENÍTEZ CASE MANAGEMENT DCP- Discharge Planning Updated by [id number]: Ashia Benítez on 05/11/18 4:[address] Patient Name: MADELEINE WONG Admission Status: Elective Accout number: [id number] Admission Date: 05-09-2018 : 1930 Admission Diagnosis:ACUTE KIDNEY FAILURE, UNSPECIFIED Attending: LEXA BENAVIDES Current LOS: 2 Anticipated DC Date: Planned Disposition: Jail Facility Primary Insurance: HUMANA CHOICE PPO MCR ADVANT PLANNED EXTERNAL PROVIDER: [facility], MEDICARE REHAB BED Discharge Planning Comments: CM RECEIVED ORDER INDICATING PT WANTS SENIOR CARE CARE. CM MET WITH PT AND SON IN ROOM TO DISCUSS DISCHARGE PLANNING AND NEEDS. PT REPORTS THAT BEFORE GETTING SICK, SHE WAS LIVING AT HOME WITH HER SON, INDEPENDENT IN HER CARE. PT REPORTS SHE DID TELL THE DOCTOR THAT SHE WOULD BE BETTER OFF IN A SENIOR CARE BEFORE FAMILY ARRIVED TODAY. PT WANTS REHAB, NOT GEOLOGICAL ENGINEER CARE. PT HAS NO MEDICAL EQUIPMENT AND NO OUTSIDE SERVICES ASSISTING IN THE HOME. CM DISCUSSED AVAILABILITY OF HOME HEALTH, REHAB SERVICES AND MEDICAL EQUIPMENT. PT'S SON INITIALLY DECLINED TO PARTICIPATE IN DISCHARGE PLANNING REPORTING PT WAS SENT TO REHAB [place] TOO SOON WHEN SHE WAS NOT ABLE TO WALK OR EVEN FEED HERSELF. SON WANTS PT CONSIDERED FOR INPATIENT REHAB AGAIN STATING THEY SENT HER BACK HERE BECAUSE SHE USED ALL OF HER DAYS DOWN THERE. PT DOES NOT THINK SHE CAN PARTICIPATE IN THREE HOURS OF PROGRESSIVE THERAPY PER DAY. CM EXPLAINED THAT IF PT IS NOT ABLE TO PARTICIPATE IN THE THREE HOURS OF PROGRESSIVE THERAPY, IS NOT ABLE TO STAND OR FEED HERSELF, SHE IS NOT GOING TO BE APPROPRIATE FOR READMISSION TO INVTTENT REHAB. CM DISCUSSED AVAILABILITY OF PENITENTIARY REHAB SERVICES AND PROVIDED CHOICE FORM. PT'S SON REPORTS HE ALREADY SIGNED ONE OF THESE FOR [facility] THE LAST VISIT AND SPEAKING WITH THIS CM. CM EXPLAINED A NEW ONE WAS NEEDED. PT'S SON SIGNED THE FORM AND DOES NOT WANT PT SENT TO REHAB BEFORE SHE IS STABLE. CM EXPLAINED THAT ALL DOCTORS WOULD HAVE TO INDICATE PT IS READY TO DISCHARGE AND CM IS ONLY WANTING TO BE PROACTIVE ON PT'S BEHALF FOR DISCHARGE PLANNING AND SECURE REHAB BED AHEAD OF TIME TO ENSURE THAT PT IS ABLE TO GET INTO [facility] WHEN DISCHARGED [facility] IS POPULAR REHAB AND DOES FILL UP. PT'S SON WILL WANTS PT TO BE STABLE FOR DISCHARGE FOR CM TO SEND REFERRALS. CHOICE SIGNED. CM PROVIDED PT'S SON WITH CM CONTACT INFORMATION. CM TO SEND REFERRAL TO [facility] WHEN PROJECTED DISCHARGE DATE IS KNOWN, PT'S SON DOES NOT WANT REHAB REFERRAL SENT OUT PRIOR TO PT'S MEDICAL STABILITY FOR DISCHARGE TO REHAB. Lunchroom Aide: Ashia Benítez DCPIA - Discharge Planning Initial Assessment Updated by [id number]: Ashia Benítez on 05/28/18 1:21 pm * Is the patient Alert and Oriented? Yes * How many steps to enter\\exit or inside your home? NONE * PCP DR. PONCE * Pharmacy [facility] * Preadmission Environment Acute Inpatient Rehab * Facility Name [facility] * ADLs Total Dependent * Equipment None * Other Equipment NO MEDICAL EQUIPMENT PROVIDER PREFERECE * List name and contact numbers for known caregivers / representatives who currently or will assist patient after discharge: ADELINE BRANNON [phone] * Verbal permission to speak to the caregivers and representatives has been obtained from the patient. Yes * Community resources currently utilized None * Please name any agencies selected above. NONE * Additional services required to return to the preadmission environment? Yes * Can the patient safely return to the preadmission environment? Yes * Has this patient been hospitalized within the prior 30 days at any hospital? Yes Coverage Notice Reviewer: JEWEL Benítez Notice Issued Date-Time: 05/11/2018 13:00 Notice Type: Patient Choice Letter Notice Delivered To: Family Member Relationship to Patient: Other Relationship Seed Yeast Operator Name: KARINA QUINN Delivery Method: HAND - Hand Delivered Dawna Days: Prior Verbal Notification: Recipient Understood Notice: Yes Recipient Signature: Yes Med Rec Note Co-signed by Attending: Coverage Notice Comment: [facility] Reviewer: JEWEL Benítez Notice Issued Date-Time: 05/23/2018 12:20 Notice Type: IM Discharge Notice Notice Delivered To: Family Member Relationship to Patient: Other Relationship Seed Yeast Operator Name: KARINA QUINN Delivery Method: HAND - Hand Delivered Dawna Days: Prior Verbal Notification: Recipient Understood Notice: Yes Recipient Signature: Yes Med Rec Note Co-signed by Attending: Coverage Notice Comment: Reviewer: JEWEL Benítez Notice Issued Date-Time: 05/28/2018 16:20 Notice Type: IM Discharge Notice Notice Delivered To: Family Member Relationship to Patient: Other Relationship Seed Yeast Operator Name: NOLA QUINN Delivery Method: HAND - Hand Delivered Dawna Days: Prior Verbal Notification: Recipient Understood Notice: Yes Recipient Signature: Yes Med Rec Note Co-signed by Attending: Coverage Notice Comment: Reviewer: JEWEL Benítez Notice Issued Date-Time: 05/28/2018 16:20 Notice Type: Patient Choice Letter Notice Delivered To: Family Member Relationship to Patient: Other Relationship Seed Yeast Operator Name: NOLA QUINN Delivery Method: HAND - Hand Delivered Dawna Days: Prior Verbal Notification: Recipient Understood Notice: Yes Recipient Signature: Yes Med Rec Note Co-signed by Attending: Coverage Notice Comment: [facility] Last DP export: 05/29/18 10:24 a Patient Name: MADELEINE WONG Page [id number] at 1139 All edits/amendments must be made on the electronic document DICTATION DATE: 05/29/18 113 SUPPLIES PACKER: JULIA 05/29/18 1139 RPT#: [id number] DC DATE: STATUS: ADM IN [facility] [address] [place] [address] END OF REPORT
--- NOTE | 2018-05-29 11:44 | NUR ---
THERAPY AT BEDSIDE TO ASSIST PT INTO BEDSIDE CHAIR. PT C/O NOT WANTING TO BE "THROWN AROUND" EXPLAINED TO PT WE WILL BE VERY GENTLE. ASSISTED PT INTO CHAIR AND SHE IS NOW PROPPED UP WITH MULTIPLE PILLOWS AROUND HER TO HOLD HER UP, PT IS NOT HOLDING HERSELF UP AT ALL. CHECKED O2 SAT DURING THIS TRANSFER I WAS TOLD HER SATS WERE DROPPING HOWEVER PT REMAINED @98% THE ENTIRE TIME AND IS RESTING QUIETLY SITTING UP IN BEDSIDE CHAIR AT 98% ON RA CURRENTLY AND PT DENIES ANY TROUBLE BREATHING JUST C/O NOT WANTING TO SIT UP.
--- NOTE | 2018-05-29 12:54 | NUR ---
PT C/O HER BACK STILL HURTING AND SHE IS WANTING BACK IN BED. FAMILY AT BEDSIDE INSISTING SHE STAYS UP. CALLED THERAPY AND THEY WILL COME AFTER LUNCH. PROVIDED PT WITH PRN TYLENOL REQUESTED. NO IMMEDIATE NEEDS AT THIS TIME. CL IN REACH. WILL CTM.
[2018-05-29 13:02] VITALS: BP 138/54
--- NOTE | 2018-05-29 14:38 | NUR ---
Nutrition consult: Pt with Jevity 1.2 gloria infusing @ 60 ml/hr PO intake today very poor K trending up -> 5.7 Noted Certified Pediatric Nurse Practitioner order to change TF formula to Nepro due to elevated K. TF off at this time due to pt feeling full. Recommend continue to hold TF D/T pt going for kyphoplasty 05/30. Pt discharging to home per CM. Insurance will not pay for TF formula due to pt with a functional swallow. After discharge, PEG tube will only be safe for hydration with H2O flushes. There is no safe wwgy-[id number]-[id number] liquid nutritional supplement available for TF. Szer-zah-zymsakh liquid nutritional supplements will clog the PEG tube. Thank you for the consult.
--- NOTE | 2018-05-29 14:57 | MORECARE ---
CASE MANAGEMENT DISCHARGE SUMMARY PATIENT: MADELEINE WONG UNIT: [id number] ADM DATE: 05/09/18 AGE: 88 : [birth year] SEX: F ROOM/BED: D.2118 AUTHOR: TEENA,DOC PHYSICIAN: REFERRING PHYSICIAN: LEXA BENAVIDES MD DATE OF SERVICE: 05/29/18 Discharge Plan Patient Name: MADELEINE WONG Facility: [facility] : 1930 Planned Disposition: Home with Home Health Anticipated Discharge Date: 05/30/18 Discharge Date: Expected LOS: 21 Initial Reviewer: [id number] Initial Review Date: 05/09/2018 Generated: 05/29/18 3:56 pm Comments DCP- Discharge Planning Updated by [id number]: Ashia Benítez on 05/29/18 10:[address] Patient Name: MADELEINE WONG Encounter No: [id number] : 1930 Primary Insurance: [employer]NA CHOICE PPO MCR ADVANT Anticipated DC Date: 05-30-2018 Planned Disposition: Home with Home Health External Planned Provider: [facility] DCP follow-up note: CM CALLED PAYAL AT [facility], , PROVIDED INFORMATION FOR HOSPITAL BED AND BEDSIDE COMMODE, INFORMED OF PLANNED DISCHARGE TOMORROW. CM FAXED ORDER AND REFERRAL INFORMATION TO [facility] AT [phone]. [facility] TO ARRANGE DELIVERY OF MEDICAL EQUIPMENT WITH PT'S FAMILY. CM CALLED [facility], , SPOKE TO [facility] REGARDING TUBE FEEDING ORDER; [facility] ADVISED THAT PT'S INSURANCE WILL NOT PAY FOR SUPPLEMENTAL NUTRITION PT IS ON REGULAR DIET AND ABLE TO EAT BY MOUTH. [facility] WILL REVIEW REFERRAL TO SEE IF THERE IS SOME WAY THAT INSURANCE MAY COVER THE SERVICE. CM SPOKE TO PT IN ROOM, INFORMED OF ABOVE; PT ASKED FOR CM TO GET TINSLEY PAY SHAY FOR TUBE FEEDING AND DISCUSS WITH NOLA, HER NIECE. CM FAXED REFERRAL TO [facility] AT [phone]. CM CALLED [facility], , SPOKE TO NEGRA, PROVIDED REFERRAL INFORMATION AND ADVISED OF PLANNED DISCHARGE 05-30-18. THEY WILL ACCEPT PT FOR ADMIT ON 05-31-18. CM FAXED HOME HEALTH REFERRAL TO [facility] AT [phone]. CM SPOKE TO NOLA QUINN IN HALLWAY DIRECTED BY PT; INFORMED OF ABOVE ARRANGEMENTS. CM SPOKE TO BEDSIDE NURSE REGARDING FAMILY CONCERN OF OXYGEN NEED, BEDSIDE NURSE INFORMED CM THAT SHE WOULD ATTEMPT OXYGEN WEANING. [facility] BED AND BEDSIDE COMMODE WITH FAMILY. PT'S INSURANCE WILL NOT PAY FOR TUBE FEEDING MATERIALS OR SUPPLIES - [facility] GETTING QUOTE FOR TINSLEY PAY. [facility] WILL ACCEPT PT AT DISCHARGE. FOR DISCHARGE, NOTIFY [facility] AT [phone], FAX DISCHARGE INFORMATION TO [facility] AT [phone]. CM TO CONTINUE TO FOLLOW AND ASSIST NEEDED. Ashia Benítez, CASE MANGEMENT DCP- Discharge Planning Updated by [id number]: Ashia Benítez on 05/28/18 4:[address] Patient Name: MADELEINE WONG Encounter No: [id number] : 1930 Primary Insurance: HUMANA CHOICE PPO MCR ADVANT Anticipated DC Date: 05-24-2018 Planned Disposition: HOME WITH HOME HEALTH External Planned Provider: [facility] DCP follow-up note: CM RECEIVED ORDER FOR HOME HEALTH, TUBE FEEDING AND HOSPITAL BED. CM MET WITH PT AND GRAND NEPHEW'S SPOUSE IN ROOM. CM BEGAN DISCUSSING ORDER, PT'S GRAND NEPHEW'S SPOUSE INFORMED CM THAT PT PLANS TO DISCHARGE TO [facility] FOR REHAB AND ASKED IF CM HAS HEARD FROM [facility] SHE DID NOT SEE THEM MONDAY THEY WERE SUPPOSED TO EVALUATE PT THEN. CM CALLED [facility], SPOKE TO SHAWN WHO WILL CHECK WITH CELIA TO FIND OUT WHAT HAS HAPPENED. SHAWN WILL HAVE CELIA CALL CM SOON POSSIBLE. CM MET WITH PT, PT'S ADELINE AND PT'S GRAND NEPHEW'S NIECE. PT'S ADELINE INFORMED CM THAT CM DOES NOT NEED TO SEE THEM AND THAT DR. DIXON HAS TAKEN CARE OF EVERYTHING. CM ASKED WHAT HAD BEEN WORKED OUT. CM WAS ADVISED THAT PT WILL HAVE THE KYPHOPLASTY ON MONDAY AND THEN GO TO [facility] FOR REHAB, DR. DIXON WILL TALK TO CELIA AT [facility] AND WORK THIS OUT. CM NOTIFIED CELSO BRICENO AND DR. DIXON. CM RECEIVED CALL BACK FROM [facility] WHO SPOKE TO FAMILY, INFORMED THEM THAT PT IS NOT APPROPRIATE CANDIDATE FOR REHAB SHE IS REFUSING THERAPY SERICES AND INFORMED CM THAT FAMILY HAS REFUSED [facility] CARE PLACEMENT AT [facility]. CM MET WITH PT AND PT'S GRAND NEPHEWS SPOUSE IN ROOM. CM DISCUSSED IMPORTANT MESSAGE FROM MEDICARE AND DISCUSSED HOW TO COMPLAIN IF NEEDED TO DONATION WORKER, ADMINISTRATION AND IF NEEDED, QUALITY IMPROVEMENT OFFICE FOR MEDICARE. NOLA INFORMED CM THAT SHE HAS COMPLAINED TO THE DOCTORS BUT HAS BEEN THINKING SHE NEEDS TO COMPLAIN TO SOMEONE ELSE. CM DISCUSSED DISCHARGE PLAN. NOLA HAS TALKED TO PT, PT'S ADELINE AND CELIA AT [facility]. THEY ARE NOT GOING TO PUT PT INTO STAKING TECHNICIAN CARE AND WILL BE TAKING PT HOME DISCUSSED LAST WEEK; NOLA STATES PT IS NOT READY FOR HOSPICE BUT WANTS HOME HEALTH. HOME HEALTH LISTING PROVIDED AND DISCUSSED, NOLA WANTS TO USE [facility], PT TOLD NOLA TO SIGN THE FORMS. NOLA SIGNED THE IMPORTANT MESSAGE FROM MEDICARE AND CHOICE FOR [facility]. NOLA STATES THAT THEY WILL NEED A HOSPITAL BED, BEDSIDE COMMODE, OXYGEN AND TUBE FEEDING SET UP FOR PT AT HOME. OSVALDO EXPLAINED THAT PT'S INSURANCE HAS TO PRE AUTHORIZE ALL MEDICAL EQUIPMENT AND THAT SINCE PT IS ABLE TO EAT, INSURANCE MAY NOT COVER TUBE FEEDING. THEY HAVE NO PREFERENCE ON PROVIDER AND NOLA ASKED TO BE CONTACTED REGARDING ANY [facility] FOR EQUIPMENT AT [phone]. CM HAS ORDER FOR HOME HEALTH, HOSPITAL BED AND TUBE FEEDING. CM WILL NEED ADDITIONAL ORDERS FOR BEDSIDE COMMODE AND OXYGEN TESTING. CM TO FIND IN NETWORK PROVIDER FOR PT'S INSURANCE TO ARRANGE NEEDED MEDICAL EQUIPMENT SOON POSSIBLE. CM TO COMPLETE HOME HEALTH ARRANGEMENTS WITH [employer]. Ashia Benítez DCP- Discharge Planning Updated by [id number]: Roxi Greenfield on 05/28/18 11:[address] RECEIVED NOTICE THAT THE PATIENTS FAMILY WAS WANTING HER TO HAVE THE KYPHOPLASTY BEFORE SHE LEAVES THE HOSPITAL. IT WAS MENTIONED THAT THE PATIENTS POA HAS NOT BEEN HER AND THERE IS NO POA PAPERWORK IN THE CHART. I ASKED THE BEDSIDE NURSE RUDY BENJAMIN TO COME INTO THE ROOM WITH ME TO DISCUSS THE NEED FOR POA PAPERWORK IN ORDER TO HAVE ANY CONSENTS FOR PROCEDURES SIGNED SINCE THE PATIENT WAS NOT ABLE TO SIGN HERSELF, AND BY THE HIERACHY OF LAW, THE POA OR NEXT OF KIN WOULD BE WHO NEEDED TO SIGN AND SINCE THEY (THE LADY AND ADELINE) WERE NOT BLOOD RELATED, THEY COULD NOT SIGN FOR HER THEY HAVE BEEN. AT THIS TIME I WAS QUICKLY TOLD THAT SHE WAS IN HER RIGHT MIND AND ABLE TO MAKE ALL HER OWN DECISIONS. THE LADY AT BEDSIDE PROCEEDED TO TELL ME ABOUT ALL THE TIMES PEOPLE CAME IN AND QUESTIONED HER ABOUT THE DATE, TIME, PRESIDENT, ETC AND SHE WAS ABLE TO ALWAYS ANSWER ALL THEIR QUESTIONS. SHE STATED THE PATIENT WAS ABLE TO SIGN FOR HERSELF. UP TO THIS POINT, THE PATIENT HAD NOT OPENED HER EYES AND HAD NOT SAID ANYTHING. IT TOOK ME TOUCHING THE PATIENT'S ARM TO GET HER TO OPEN HER EYES AND ACKNOWLEDGE MY PRESENCE AND ANSWER MY QUESTIONS. THE PATIENT IS WITH IT AND ABLE TO ANSWER QUESTIONS. AT THIS POINT I ASKED HER IF SHE WANTED TO HAVE THE KYPHOPLASTY DONE. SHE STATED YES. THE LADY AT BEDSIDE BECAME VERY AGITATED STATING THAT SHE KNEW ABOUT HIPPA LAWS AND WANTED TO KNOW WHY ANYONE EVEN ALLOWED THINGS TO HAPPEN UP UNTIL NOW. NO ONE HAD ASKED FOR ANYONE'S DRIVERS LICENES TO VERIFY THEY WERE WHO THEY SAID THEY WERE. I TRIED TO EXPLAINE THAT EVEN WITH THAT, WE HAD NO WAY TO ACTUALLY VERIFY THAT WITH A DRIVERS LICENSE BECAUSE ANYONE CAN SAY THEY ARE SOMEONES FAMILY AND WE DON'T KNOW OTHERWISE UNLESS THE PATIENT SAYS SO, BUT SHE CUT ME OFF I WAS TALKING. I STOOD AT BEDSIDE AND LISTENED TO HER RANT ABOUT ALL THE THINGS THAT SHE HAS WITNESSED HERE AT THIS HOSPITAL THAT HAS MADE HER SICK TO HER STOMACH ESPECIALLY ABOUT THE FACT THAT SHE CAME IN HERE WITH A HURT BACK AND NOW THEY ARE JUST WATCHING HER . I APOLOGIZED TO HER ABOUT ALL OF THE THINGS THAT [facility] WAS UPSET ABOUT, AND THEN DIRECTED MY CONVERSATION TO THE PATIENT, EXPLAINING THAT IF SHE WANTED THEY KYPHOPLASTY AND HER URINE WAS CLEAR THAT I WOULD EXPLAIN THIS TO THE NURSE PRACTITIONER. THAT ULTIMATELY I AM HERE TO TAKE CARE OF HER AND MAKE SURE WE ARE DOING WHAT SHE WANTS. I ALSO EXPLAINED TO HER THAT SHE NEEDS TO SIGN ALL OF HER OWN PAPERWORK, EVEN IF IT IS JUST WITH AN "X". THAT WE SIGN WITNESSES TO STATE WE KNOW SHE UNDERSTANDS AND SHE IS SIGNING. EXPLAINED THAT LONG SHE IS ABLE TO MAKE ALL HER OWN DECISIONS, WE DID NOT NEED HER POA PAPERWORK. SHE IS IN AGREEMENT. THE GREAT NEPHEWS WHO IS AT BEDSIDE CONTINUED WITH HER RANT, I AGAIN APOLOGIZED AND THE BEDSIDE NURSE AND I LEFT THE ROOM. I EXPLAINED TO RADHA THAT THE PATIENT WAS CURRENTLY IN HER RIGHT MIND AND SHE IS WANTING THEY KYPHOPLASTY, AND SHE RECONSULTED IR TO SEE THE PATIENT. DCP- Discharge Planning Updated by [id number]: Josieclif Mccoy on 05/27/18 4:[address] CM RECEIVED AN ORDER REGARDING PLANS TO DISCHARGE TO HOME W/ HOSPITAL BED , TUBE FEEDING AND HOME HEALTH. PATIENT'S NUTRITION NOTE IS 05/25/18. WILL NEED NUTRITION NOTE REGARDING PATIENT NEEDS FOR DISCHARGE. CM UNDERSTANDS THE PATIENT DOES EAT AND TAKE HER MEDICATIONS BY MOUTH. SHE IS PRESENTLY ON FEEDINGS VIA PUMP. SHE HAS BEEN ADVANCED TO 60 CC/HR TODAY WHICH IS HER GOAL RATE. SPOKE WITH PRIMARY ARTURO AND SHE REPORTS NO RESIDUAL AT THIS TIME. WILL NEED TO HAVE [facility] PROVIDE BED AND SPECIALTY MATTRESS FOR HOME AND DETERMINE COVERAGE FOR TUBE FEEDING AND EQUIPMENT. CM TO FOLLOW UP IN AM. DCP- Discharge Planning Updated by [id number]: Ashia Benítez on 05/25/18 7:[address] Patient Name: MADELEINE WONG Encounter No: [id number] : 1930 Primary Insurance: HUMANA CHOICE PPO [facility] ADVANT Anticipated DC Date: 05-24-2018 Planned Disposition: Care Home Facility External Planned Provider: [facility], MEDICARE REHAB BED DCP follow-up note: CM FAXED UPDATE TO [facility], FOR REHAB REQUEST. CM WAITING ADMISSION DETERMINATION FROM [facility] FOR REHAB PLACEMENT. ASHIA BENÍTEZ, CASE MANAGEMENT DCP- Discharge Planning Updated by [id number]: Ashia Benítez on 05/24/18 3:[address] Patient Name: MADELEINE WONG Encounter No: [id number] : 1930 Primary Insurance: HUMANA CHOICE PPO [facility] ADVANT Anticipated DC Date: 05-24-2018 Planned Disposition: Care Home Facility External Planned Provider: [facility], MEDICARE REHAB BED DCP follow-up note: CM MET WITH PT'S HAN SALCEDO BY NOLA BISHOP, . NOLA STATES THAT KARINA QUINN IS PT'S FIANCE. PT HAS POWER OF ITALIAN TUTOR WITH GREAT NEPHEW, REBECCA SPOUSE, JOON QUINN, WHO WORKS IN [employer]. NOLA WILL GET JOON TO HOSPITAL ALONG WITH POWER OF ITALIAN TUTOR PAPERWORK SOON POSSIBLE. THEY ARE IN AGREEMENT WITH REHAB AT [facility], BUT [facility] MAY NOT ACCEPT PT HAS CONTINUED DECLINE. [facility] TO COME TOMORROW TO EVALUATE PT FOR REHAB. IF [facility] DOES NOT ACCEPT FOR REHAB, THEY ARE THINKING TO TAKE PT HOME TO [facility] HERE IN [place] AND NOLA ALONG WITH FAMILY WILL CARE FOR PT WITH HOME HOSPICE. NOLA REPORTS THEY WILL MAKE THAT DECISION TOMORROW. CM EXPLAINED THAT THE POWER OF ITALIAN TUTOR WILL HAVE TO BE IN AGREEMENT AND SIGN ANY NEEDED AUTHORIZATIONS FOR ENROLLMENT IN REHAB OR HOSPICE CARE. NOLA REPORTS UNDERSTANDING, PROVIDED CELL PHONE NUMBER FOR JOON QUINN, . CM WAITING ADMISSION DETERMINATION FROM [facility] FOR REHAB PLACEMENT. ASHIA BENÍTEZ, CASE MANAGEMENT DCP- Discharge Planning Updated by [id number]: Ashia Benítez on 05/23/18 3:[address] Patient Name: MADELEINE WONG Encounter No: [id number] : 1930 Primary Insurance: [employer] PPO [facility] ADVANT Anticipated DC Date: 05-24-2018 Planned Disposition: Care Home Facility External Planned Provider: [facility], MEDICARE REHAB BED DCP follow-up note: CM MET WITH PT AND SON/POA, KARINA QUINN, AT FAMILY REQUEST. MR. QUINN REPORTS IT IS NOW TIME TO SEND REFERRAL TO [facility] FOR REHAB PLACEMENT. IMPORTANT MESSAGE FROM MEDICARE PROVIDED AND EXPLAINED. CM FAXED REFERRAL TO [facility], . CM WAITING ADMISSION DETERMINATION FROM [facility] FOR REHAB PLACEMENT. ASHIA BENÍTEZ CASE MANAGEMENT DCP- Discharge Planning Updated by [id number]: Ashia Benítez on 05/11/18 4:[address] Patient Name: MADELEINE WONG Admission Status: Elective Accout number: [id number] Admission Date: 05-09-2018 : 1930 Admission Diagnosis:ACUTE KIDNEY FAILURE, UNSPECIFIED Attending: LEXA BENAVIDES Current LOS: 2 Anticipated DC Date: Planned Disposition: Care Home Facility Primary Insurance: HUMANA CHOICE PPO MCR ADVANT PLANNED EXTERNAL PROVIDER: [facility], MEDICARE REHAB BED Discharge Planning Comments: CM RECEIVED ORDER INDICATING PT WANTS PENITENTIARY CARE. CM MET WITH PT AND SON IN ROOM TO DISCUSS DISCHARGE PLANNING AND NEEDS. PT REPORTS THAT BEFORE GETTING SICK, SHE WAS LIVING AT HOME WITH HER SON, INDEPENDENT IN HER CARE. PT REPORTS SHE DID TELL THE DOCTOR THAT SHE WOULD BE BETTER OFF IN A PENITENTIARY BEFORE FAMILY ARRIVED TODAY. PT WANTS REHAB, NOT [facility] CARE. PT HAS NO MEDICAL EQUIPMENT AND NO OUTSIDE SERVICES ASSISTING IN THE HOME. CM DISCUSSED AVAILABILITY OF HOME HEALTH, REHAB SERVICES AND MEDICAL EQUIPMENT. PT'S SON INITIALLY DECLINED TO PARTICIPATE IN DISCHARGE PLANNING REPORTING PT WAS SENT TO REHAB DOWNSTAIRS TOO SOON WHEN SHE WAS NOT ABLE TO WALK OR EVEN FEED HERSELF. SON WANTS PT CONSIDERED FOR INPATIENT REHAB AGAIN STATING THEY SENT HER BACK HERE BECAUSE SHE USED ALL OF HER DAYS DOWN THERE. PT DOES NOT THINK SHE CAN PARTICIPATE IN THREE HOURS OF PROGRESSIVE THERAPY PER DAY. CM EXPLAINED THAT IF PT IS NOT ABLE TO PARTICIPATE IN THE THREE HOURS OF PROGRESSIVE THERAPY, IS NOT ABLE TO STAND OR FEED HERSELF, SHE IS NOT GOING TO BE APPROPRIATE FOR READMISSION TO INMDTENT REHAB. CM DISCUSSED AVAILABILITY OF [facility] REHAB SERVICES AND PROVIDED CHOICE FORM. PT'S SON REPORTS HE ALREADY SIGNED ONE OF THESE FOR [facility] THE LAST VISIT AND SPEAKING WITH THIS CM. CM EXPLAINED A NEW ONE WAS NEEDED. PT'S SON SIGNED THE FORM AND DOES NOT WANT PT SENT TO REHAB BEFORE SHE IS STABLE. CM EXPLAINED THAT ALL DOCTORS WOULD HAVE TO INDICATE PT IS READY TO DISCHARGE AND CM IS ONLY WANTING TO BE PROACTIVE ON PT'S BEHALF FOR DISCHARGE PLANNING AND SECURE REHAB BED AHEAD OF TIME TO ENSURE THAT PT IS ABLE TO GET INTO [facility] WHEN DISCHARGED [facility] IS POPULAR REHAB AND DOES FILL UP. PT'S SON WILL WANTS PT TO BE STABLE FOR DISCHARGE FOR CM TO SEND REFERRALS. CHOICE SIGNED. CM PROVIDED PT'S SON WITH CM CONTACT INFORMATION. CM TO SEND REFERRAL TO [facility] WHEN PROJECTED DISCHARGE DATE IS KNOWN, PT'S SON DOES NOT WANT REHAB REFERRAL SENT OUT PRIOR TO PT'S MEDICAL STABILITY FOR DISCHARGE TO REHAB. Director Ehs: Ashia Benítez DCPIA - Discharge Planning Initial Assessment Updated by [id number]: Ashia Benítez on 05/28/18 1:21 pm * Is the patient Alert and Oriented? Yes * How many steps to enter\\exit or inside your home? NONE * PCP DR. PONCE * Pharmacy [facility] * Preadmission Environment Acute Inpatient Rehab * Facility Name [facility] IN[facility]IENT [facility]HAB * ADLs Total Dependent * Equipment None * Other Equipment NO MEDICAL EQUIPMENT PROVIDER PREFERECE * List name and contact numbers for known caregivers / representatives who currently or will assist patient after discharge: ADELINE BRANNON [phone] * Verbal permission to speak to the caregivers and representatives has been obtained from the patient. Yes * Community resources currently utilized None * Please name any agencies selected above. NONE * Additional services required to return to the preadmission environment? Yes * Can the patient safely return to the preadmission environment? Yes * Has this patient been hospitalized within the prior 30 days at any hospital? Yes Coverage Notice Reviewer: JEWEL Benítez Notice Issued Date-Time: 05/11/2018 13:00 Notice Type: Patient Choice Letter Notice Delivered To: Family Member Relationship to Patient: Other Relationship Product Marketing Manager Name: KARINA QUINN Delivery Method: HAND - Hand Delivered Dawna Days: Prior Verbal Notification: Recipient Understood Notice: Yes Recipient Signature: Yes Med Rec Note Co-signed by Attending: Coverage Notice Comment: [facility] Reviewer: JEWEL Benítez Notice Issued Date-Time: 05/23/2018 12:20 Notice Type: IM Discharge Notice Notice Delivered To: Family Member Relationship to Patient: Other Relationship Product Marketing Manager Name: KARINA QUINN Delivery Method: HAND - Hand Delivered Dawna Days: Prior Verbal Notification: Recipient Understood Notice: Yes Recipient Signature: Yes Med Rec Note Co-signed by Attending: Coverage Notice Comment: Reviewer: JEWEL Benítez Notice Issued Date-Time: 05/28/2018 16:20 Notice Type: IM Discharge Notice Notice Delivered To: Family Member Relationship to Patient: Other Relationship Product Marketing Manager Name: NOLA QUINN Delivery Method: HAND - Hand Delivered Dawna Days: Prior Verbal Notification: Recipient Understood Notice: Yes Recipient Signature: Yes Med Rec Note Co-signed by Attending: Coverage Notice Comment: Reviewer: JEWEL Benítez Notice Issued Date-Time: 05/28/2018 16:20 Notice Type: Patient Choice Letter Notice Delivered To: Family Member Relationship to Patient: Other Relationship Product Marketing Manager Name: NOLA QUINN Delivery Method: HAND - Hand Delivered Dawna Days: Prior Verbal Notification: Recipient Understood Notice: Yes Recipient Signature: Yes Med Rec Note Co-signed by Attending: Coverage Notice Comment: [facility] Last DP export: 05/29/18 10:39 a Patient Name: MADELEINE WONG Page [id number] at 1457 All edits/amendments must be made on the electronic document DICTATION DATE: 05/29/181455 FOOD TASTER: JULIA 05/29/181455 RPT#: [id number] DC DATE: STATUS: ADM IN [facility] [address] [place] [address] END OF REPORT
--- NOTE | 2018-05-29 16:09 | MORECARE ---
CASE MANAGEMENT DISCHARGE SUMMARY PATIENT: MADELEINE WONG UNIT: [id number] ADM DATE: 05/09/18 AGE: 88 : [birth year] SEX: F ROOM/BED: D.2111 AUTHOR: TEENA,DOC PHYSICIAN: REFERRING PHYSICIAN: LEXA BENAVIDES MD DATE OF SERVICE: 05/29/18 Discharge Plan Patient Name: MADELEINE WONG Facility: [facility]:[place] : 1930 Planned Disposition: Home with Home Health Anticipated Discharge Date: 05/30/18 Discharge Date: Expected LOS: 21 Initial Reviewer: [id number] Initial Review Date: 05/09/2018 Generated: 05/29/18 5:09 pm Comments DCP- Discharge Planning Updated by [id number]: Ashia Benítez on 05/29/18 3:[address] Patient Name: MADELEINE WONG Encounter No: [id number] : 1930 Primary Insurance: HUMANA CHOICE PPO MCR ADVANT Anticipated DC Date: 05-30-2018 Planned Disposition: Home with Home Health External Planned Provider: [facility] DCP follow-up note: CM CALLED PAYAL AT [facility] [place], , PROVIDED INFORMATION FOR HOSPITAL BED AND BEDSIDE COMMODE, INFORMED OF PLANNED DISCHARGE TOMORROW. CM FAXED ORDER AND REFERRAL INFORMATION TO [facility] [place] AT [phone]. [facility] [place] TO ARRANGE DELIVERY OF MEDICAL EQUIPMENT WITH PT'S FAMILY. CM CALLED [facility] [place], , SPOKE TO [facility] REGARDING TUBE FEEDING ORDER; [facility] ADVISED THAT PT'S INSURANCE WILL NOT PAY FOR SUPPLEMENTAL NUTRITION PT IS ON REGULAR DIET AND ABLE TO EAT BY MOUTH. [facility] WILL REVIEW REFERRAL TO SEE IF THERE IS SOME WAY THAT INSURANCE MAY COVER THE SERVICE. CM SPOKE TO PT IN ROOM, INFORMED OF ABOVE; PT ASKED FOR CM TO GET TINSLEY PAY SHAY FOR TUBE FEEDING AND DISCUSS WITH NOLA, HER NIECE. CM FAXED REFERRAL TO [facility] AT [phone]. CM CALLED [facility], , SPOKE TO NEGRA, PROVIDED REFERRAL INFORMATION AND ADVISED OF PLANNED DISCHARGE 05-30-18. THEY WILL ACCEPT PT FOR ADMIT ON 05-31-18. CM FAXED HOME HEALTH REFERRAL TO [facility] AT [phone]. CM SPOKE TO NOLA QUINN IN HALLWAY DIRECTED BY PT; INFORMED OF ABOVE ARRANGEMENTS. CM SPOKE TO BEDSIDE NURSE REGARDING FAMILY CONCERN OF OXYGEN NEED, BEDSIDE NURSE INFORMED CM THAT SHE WOULD ATTEMPT OXYGEN WEANING. [facility] ARRANGING HOSPITAL BED AND BEDSIDE COMMODE WITH FAMILY. PT'S INSURANCE WILL NOT PAY FOR TUBE FEEDING MATERIALS OR SUPPLIES - [facility] GETTING QUOTE FOR TINSLEY PAY. [facility] WILL ACCEPT PT AT DISCHARGE. FOR DISCHARGE, NOTIFY [facility] AT [phone], FAX DISCHARGE INFORMATION TO [facility] AT [phone]. CM TO CONTINUE TO FOLLOW AND ASSIST NEEDED. Ashia Benítez, CASE MANGEMENT Appended by Ashia Benítez on 05/29/2018 16:06 THROUGH OPERATOR: CM SPOKE TO PT'S GREAT NIECE IN LAW WHO INFORMED CM THAT [facility] [place] HAS CALLED TO ARRANGE DELIVERY OF HOSPITAL BED AND BEDSIDE COMMODE. SHE HAS NOT HEARD FROM [facility] REGARDING TUBE FEEDING. CM CALLED [facility], , SPOKE TO FRANKY WHO REPORTS INSURANCE WILL NOT COVER COSTS OF TUBE FEEDING AND PROVIDED QUOTE OVER THE PHONE AND WILL FAX QUOTE TO CM FOR PT'S FAMILY. BEDSIDE NURSE NOTIFIED. PT'S FAMILY ARE NOT IN ROOM, CM LEFT NOTE ON WHITE BOARD FOR FAMILY NOTIFYING THAT TUBE FEEDING COSTS ARE NOT COVERED BY INSURANCE WITH QUOTED PRICES. [facility] ARRANGING HOSPITAL BED AND BEDSIDE COMMODE WITH FAMILY. PT'S INSURANCE WILL NOT PAY FOR TUBE FEEDING MATERIALS OR SUPPLIES - [facility] QUOTED FOR TINSLEY PAY OF $8 PER DAY FOR PUMP AND SUPPLIES / $1.50 PER CAN FOR JEVITY 1.2. [facility] WILL ACCEPT PT AT DISCHARGE. FOR DISCHARGE, NOTIFY [facility] AT [phone], FAX DISCHARGE INFORMATION TO [facility] AT [phone]. CM TO CONTINUE TO FOLLOW AND ASSIST NEEDED. Ashia Benítez, CASE MANGEMENT DCP- Discharge Planning Updated by [id number]: Ashia Benítez on 05/28/18 4:[address] Patient Name: MADELEINE WONG Encounter No: [id number] : 1930 Primary Insurance: HUMANA CHOICE PPO MCR ADVANT Anticipated DC Date: 05-24-2018 Planned Disposition: HOME WITH HOME HEALTH External Planned Provider: [facility] DCP follow-up note: CM RECEIVED ORDER FOR HOME HEALTH, TUBE FEEDING AND HOSPITAL BED. CM MET WITH PT AND GRAND NEPHEW'S SPOUSE IN ROOM. CM BEGAN DISCUSSING ORDER, PT'S GRAND NEPHEW'S SPOUSE INFORMED CM THAT PT PLANS TO DISCHARGE TO [facility] FOR REHAB AND ASKED IF CM HAS HEARD FROM [facility] SHE DID NOT SEE THEM MONDAY THEY WERE SUPPOSED TO EVALUATE PT THEN. CM CALLED [facility], SPOKE TO SHAWN WHO WILL CHECK WITH [facility] TO FIND OUT WHAT HAS HAPPENED. SHAWN WILL HAVE [facility] CALL CM SOON POSSIBLE. CM MET WITH PT, PT'S ADELINE AND PT'S GRAND NEPHEW'S NIECE. PT'S ADELINE INFORMED CM THAT CM DOES NOT NEED TO SEE THEM AND THAT DR. DIXON HAS TAKEN CARE OF EVERYTHING. CM ASKED WHAT HAD BEEN WORKED OUT. CM WAS ADVISED THAT PT WILL HAVE THE KYPHOPLASTY ON MONDAY AND THEN GO TO [facility] FOR REHAB, DR. DIXON WILL TALK TO CELIA AT [facility] AND WORK THIS OUT. CM NOTIFIED CELSO BRICENO AND DR. DIXON. CM RECEIVED CALL BACK FROM [facility] WHO SPOKE TO FAMILY, INFORMED THEM THAT PT IS NOT APPROPRIATE CANDIDATE FOR REHAB SHE IS REFUSING THERAPY SERICES AND INFORMED CM THAT FAMILY HAS REFUSED HOBBER CARE PLACEMENT AT [facility]. CM MET WITH PT AND PT'S GRAND NEPHEWS SPOUSE IN ROOM. CM DISCUSSED IMPORTANT MESSAGE FROM MEDICARE AND DISCUSSED HOW TO COMPLAIN IF NEEDED TO MARKET INTELLIGENCE CONSULTANT, ADMINISTRATION AND IF NEEDED, QUALITY IMPROVEMENT OFFICE FOR MEDICARE. NOLA INFORMED CM THAT SHE HAS COMPLAINED TO THE DOCTORS BUT HAS BEEN THINKING SHE NEEDS TO COMPLAIN TO SOMEONE ELSE. CM DISCUSSED DISCHARGE PLAN. NOLA HAS TALKED TO PT, PT'S ADELINE AND CELIA AT [facility]. THEY ARE NOT GOING TO PUT PT INTO [facility] AND WILL BE TAKING PT HOME DISCUSSED LAST WEEK; NOLA STATES PT IS NOT READY FOR HOSPICE BUT WANTS HOME HEALTH. HOME HEALTH LISTING PROVIDED AND DISCUSSED, NOLA WANTS TO USE THE [employer], PT TOLD NOLA TO SIGN THE FORMS. NOLA SIGNED THE IMPORTANT MESSAGE FROM MEDICARE AND [facility] FOR [facility]. NOLA STATES THAT THEY WILL NEED A HOSPITAL BED, BEDSIDE COMMODE, OXYGEN AND TUBE FEEDING SET UP FOR PT AT HOME. CM EXPLAINED THAT PT'S INSURANCE HAS TO PRE AUTHORIZE ALL MEDICAL EQUIPMENT AND THAT SINCE PT IS ABLE TO EAT, INSURANCE MAY NOT COVER TUBE FEEDING. THEY HAVE NO PREFERENCE ON PROVIDER AND NOLA ASKED TO BE CONTACTED REGARDING ANY COPAYS FOR EQUIPMENT AT [phone]. CM HAS ORDER FOR HOME HEALTH, HOSPITAL BED AND TUBE FEEDING. CM WILL NEED ADDITIONAL ORDERS FOR BEDSIDE COMMODE AND OXYGEN TESTING. CM TO FIND IN NETWORK PROVIDER FOR PT'S INSURANCE TO ARRANGE NEEDED MEDICAL EQUIPMENT SOON POSSIBLE. CM TO COMPLETE HOME HEALTH ARRANGEMENTS WITH [employer]. Ashia Benítez DCP- Discharge Planning Updated by [id number]: Roxi Greenfield on 05/28/18 11:[address] RECEIVED NOTICE THAT THE PATIENTS FAMILY WAS WANTING HER TO HAVE THE KYPHOPLASTY BEFORE SHE LEAVES THE HOSPITAL. IT WAS MENTIONED THAT THE PATIENTS POA HAS NOT BEEN HER AND THERE IS NO POA PAPERWORK IN THE CHART. I ASKED THE BEDSIDE NURSE RUDY BENJAMIN TO COME INTO THE ROOM WITH ME TO DISCUSS THE NEED FOR POA PAPERWORK IN ORDER TO HAVE ANY CONSENTS FOR PROCEDURES SIGNED SINCE THE PATIENT WAS NOT ABLE TO SIGN HERSELF, AND BY THE HIERACHY OF LAW, THE POA OR NEXT OF KIN WOULD BE WHO NEEDED TO SIGN AND SINCE THEY (THE LADY AND FIJESSICA) WERE NOT BLOOD RELATED, THEY COULD NOT SIGN FOR HER THEY HAVE BEEN. AT THIS TIME I WAS QUICKLY TOLD THAT SHE WAS IN HER RIGHT MIND AND ABLE TO MAKE ALL HER OWN DECISIONS. THE LADY AT BEDSIDE PROCEEDED TO TELL ME ABOUT ALL THE TIMES PEOPLE CAME IN AND QUESTIONED HER ABOUT THE DATE, TIME, PRESIDENT, ETC AND SHE WAS ABLE TO ALWAYS ANSWER ALL THEIR QUESTIONS. SHE STATED THE PATIENT WAS ABLE TO SIGN FOR HERSELF. UP TO THIS POINT, THE PATIENT HAD NOT OPENED HER EYES AND HAD NOT SAID ANYTHING. IT TOOK ME TOUCHING THE PATIENT'S ARM TO GET HER TO OPEN HER EYES AND ACKNOWLEDGE MY PRESENCE AND ANSWER MY QUESTIONS. THE PATIENT IS WITH IT AND ABLE TO ANSWER QUESTIONS. AT THIS POINT I ASKED HER IF SHE WANTED TO HAVE THE KYPHOPLASTY DONE. SHE STATED YES. THE LADY AT BEDSIDE BECAME VERY AGITATED STATING THAT SHE KNEW ABOUT HIPPA LAWS AND WANTED TO KNOW WHY ANYONE EVEN ALLOWED THINGS TO HAPPEN UP UNTIL NOW. NO ONE HAD ASKED FOR ANYONE'S DRIVERS LICENES TO VERIFY THEY WERE WHO THEY SAID THEY WERE. I TRIED TO EXPLAINE THAT EVEN WITH THAT, WE HAD NO WAY TO ACTUALLY VERIFY THAT WITH A DRIVERS LICENSE BECAUSE ANYONE CAN SAY THEY ARE SOMEONES FAMILY AND WE DON'T KNOW OTHERWISE UNLESS THE PATIENT SAYS SO, BUT SHE CUT ME OFF I WAS TALKING. I STOOD AT BEDSIDE AND LISTENED TO HER RANT ABOUT ALL THE THINGS THAT SHE HAS WITNESSED HERE AT THIS HOSPITAL THAT HAS MADE HER SICK TO HER STOMACH ESPECIALLY ABOUT THE FACT THAT SHE CAME IN HERE WITH A HURT BACK AND NOW THEY ARE JUST WATCHING HER . I APOLOGIZED TO HER ABOUT ALL OF THE THINGS THAT MICHAEL WAS UPSET ABOUT, AND THEN DIRECTED MY CONVERSATION TO THE PATIENT, EXPLAINING THAT IF SHE WANTED THEY KYPHOPLASTY AND HER URINE WAS CLEAR THAT I WOULD EXPLAIN THIS TO THE NURSE PRACTITIONER. THAT ULTIMATELY I AM HERE TO TAKE CARE OF HER AND MAKE SURE WE ARE DOING WHAT SHE WANTS. I ALSO EXPLAINED TO HER THAT SHE NEEDS TO SIGN ALL OF HER OWN PAPERWORK, EVEN IF IT IS JUST WITH AN "X". THAT WE SIGN WITNESSES TO STATE WE KNOW SHE UNDERSTANDS AND SHE IS SIGNING. EXPLAINED THAT LONG SHE IS ABLE TO MAKE ALL HER OWN DECISIONS, WE DID NOT NEED HER POA PAPERWORK. SHE IS IN AGREEMENT. THE GREAT NEPHEWS WHO IS AT BEDSIDE CONTINUED WITH HER RANT, I AGAIN APOLOGIZED AND THE BEDSIDE NURSE AND I LEFT THE ROOM. I EXPLAINED TO RADHA THAT THE PATIENT WAS CURRENTLY IN HER RIGHT MIND AND SHE IS WANTING THEY KYPHOPLASTY, AND SHE RECONSULTED IR TO SEE THE PATIENT. DCP- Discharge Planning Updated by [id number]: Josie Mccoy on 05/27/18 4:[address] CM RECEIVED AN ORDER REGARDING PLANS TO DISCHARGE TO HOME W/ HOSPITAL BED , TUBE FEEDING AND HOME HEALTH. PATIENT'S NUTRITION NOTE IS 05/25/18. WILL NEED NUTRITION NOTE REGARDING PATIENT NEEDS FOR DISCHARGE. CM UNDERSTANDS THE PATIENT DOES EAT AND TAKE HER MEDICATIONS BY MOUTH. SHE IS PRESENTLY ON FEEDINGS VIA PUMP. SHE HAS BEEN ADVANCED TO 60 CC/HR TODAY WHICH IS HER GOAL RATE. SPOKE WITH BRANDON MORRIS AND SHE REPORTS NO RESIDUAL AT THIS TIME. WILL NEED TO HAVE [facility] PROVIDE BED AND SPECIALTY MATTRESS FOR HOME AND DETERMINE COVERAGE FOR TUBE FEEDING AND EQUIPMENT. CM TO FOLLOW UP IN AM. DCP- Discharge Planning Updated by [id number]: Ashia Benítez on 05/25/18 7:[address] Patient Name: MADELEINE WONG Encounter No: [id number] : 1930 Primary Insurance: HUMANA CHOICE PPO MCR ADVANT Anticipated DC Date: 05-24-2018 Planned Disposition: Long-Term Facility External Planned Provider: [facility], MEDICARE REHAB BED DCP follow-up note: CM FAXED UPDATE TO [facility], FOR REHAB REQUEST. CM WAITING ADMISSION DETERMINATION FROM [facility] FOR REHAB PLACEMENT. ASHIA BENÍTEZ CASE MANAGEMENT DCP- Discharge Planning Updated by [id number]: Ashia Benítez on 05/24/18 3:[address] Patient Name: MADELEINE WONG Encounter No: [id number] : 1930 Primary Insurance: HUMANA CHOICE PPO MCR ADVANT Anticipated DC Date: 05-24-2018 Planned Disposition: Long-Term Facility External Planned Provider: [facility], MEDICARE REHAB BED DCP follow-up note: CM MET WITH PT'S HAN CALDERAMAR BY MARRIAGE, NOLA QUINN, . NOLA STATES THAT KARINA QUINN IS PT'S FIANCE. PT HAS POWER OF PORT CAPTAIN WITH GREAT NEPHEW, SUZETTEOLGA SPOUSE, JOON QUINN, WHO WORKS IN [employer]. NOLA WILL GET JOON TO HOSPITAL ALONG WITH POWER OF PORT CAPTAIN PAPERWORK SOON POSSIBLE. THEY ARE IN AGREEMENT WITH REHAB AT [facility], BUT [facility] MAY NOT ACCEPT PT HAS CONTINUED DECLINE. [facility] TO COME TOMORROW TO EVALUATE PT FOR REHAB. IF [facility] DOES NOT ACCEPT FOR REHAB, THEY ARE THINKING TO TAKE PT HOME TO [facility] HERE IN [place] AND NOLA ALONG WITH FAMILY WILL CARE FOR PT WITH HOME HOSPICE. NOLA REPORTS THEY WILL MAKE THAT DECISION TOMORROW. CM EXPLAINED THAT THE POWER OF PORT CAPTAIN WILL HAVE TO BE IN AGREEMENT AND SIGN ANY NEEDED AUTHORIZATIONS FOR ENROLLMENT IN REHAB OR HOSPICE CARE. NOLA REPORTS UNDERSTANDING, PROVIDED CELL PHONE NUMBER FOR JOON QUINN, . CM WAITING ADMISSION DETERMINATION FROM [facility]AC[facility]. ASHIA BENÍTEZ CASE MANAGEMENT DCP- Discharge Planning Updated by [id number]: Ashia Benítez on 05/23/18 3:[address] Patient Name: MADELEINE WONG Encounter No: [id number] : 1930 Primary Insurance: HUMANA CHOICE PPO MCR ADVANT Anticipated DC Date: 05-24-2018 Planned Disposition: Long-Term Facility External Planned Provider: [facility], MEDICARE REHAB BED DCP follow-up note: CM MET WITH PT AND SON/POA, KARINA QUINN, AT FAMILY REQUEST. MR. QUINN REPORTS IT IS NOW TIME TO SEND REFERRAL TO [facility] FOR REHAB PLACEMENT. IMPORTANT MESSAGE FROM MEDICARE PROVIDED AND EXPLAINED. CM FAXED REFERRAL TO [facility], . CM WAITING ADMISSION DETERMINATION FROM [facility] FOR REHAB PLACEMENT. ASHIA BENÍTEZ, CASE MANAGEMENT DCP- Discharge Planning Updated by [id number]: Ashia Benítez on 05/11/18 4:[address] Patient Name: MADELEINE WONG Admission Status: Elective Accout number: [id number] Admission Date: 05-09-2018 : 1930 Admission Diagnosis:ACUTE KIDNEY FAILURE, UNSPECIFIED Attending: LEXA BENAVIDES Current LOS: 2 Anticipated DC Date: Planned Disposition: Long-Term Facility Primary Insurance: HUMANA CHOICE PPO MCR ADVANT PLANNED EXTERNAL PROVIDER: [facility], MEDICARE REHAB BED Discharge Planning Comments: CM RECEIVED ORDER INDICATING PT WANTS [facility] C[facility]. CM MET WITH PT AND SON IN ROOM TO DISCUSS DISCHARGE PLANNING AND NEEDS. PT REPORTS THAT BEFORE GETTING SICK, SHE WAS LIVING AT HOME WITH HER SON, INDEPENDENT IN HER CARE. PT REPORTS SHE DID TELL THE DOCTOR THAT SHE WOULD BE BETTER OFF IN A [facility] BEFORE FAMILY ARRIVED TODAY. PT WANTS REHAB, NOT [facility]. PT HAS NO MEDICAL EQUIPMENT AND NO OUTSIDE SERVICES ASSISTING IN THE HOME. CM DISCUSSED AVAILABILITY OF HOME HEALTH, REHAB SERVICES AND MEDICAL EQUIPMENT. PT'S SON INITIALLY DECLINED TO PARTICIPATE IN DISCHARGE PLANNING REPORTING PT WAS SENT TO REHAB [place] TOO SOON WHEN SHE WAS NOT ABLE TO WALK OR EVEN FEED HERSELF. SON WANTS PT CONSIDERED FOR INPATIENT REHAB AGAIN STATING THEY SENT HER BACK HERE BECAUSE SHE USED ALL OF HER DAYS DOWN THERE. PT DOES NOT THINK SHE CAN PARTICIPATE IN THREE HOURS OF PROGRESSIVE THERAPY PER DAY. CM EXPLAINED THAT IF PT IS NOT ABLE TO PARTICIPATE IN THE THREE HOURS OF PROGRESSIVE THERAPY, IS NOT ABLE TO STAND OR FEED HERSELF, SHE IS NOT GOING TO BE APPROPRIATE FOR READMISSION TO INPATENT REHAB. CM DISCUSSED AVAILABILITY OF [facility] REHAB SERVICES AND PROVIDED CHOICE FORM. PT'S SON REPORTS HE ALREADY SIGNED ONE OF THESE FOR [facility] THE LAST VISIT AND SPEAKING WITH THIS CM. CM EXPLAINED A NEW ONE WAS NEEDED. PT'S SON SIGNED THE FORM AND DOES NOT WANT PT SENT TO REHAB BEFORE SHE IS STABLE. CM EXPLAINED THAT ALL DOCTORS WOULD HAVE TO INDICATE PT IS READY TO DISCHARGE AND CM IS ONLY WANTING TO BE PROACTIVE ON PT'S BEHALF FOR DISCHARGE PLANNING AND SECURE REHAB BED AHEAD OF TIME TO ENSURE THAT PT IS ABLE TO GET INTO [facility] WHEN DISCHARGED [facility] IS POPULAR [facility] AND DOES FILL UP. PT'S SON WILL WANTS PT TO BE STABLE FOR DISCHARGE FOR CM TO SEND REFERRALS. CHOICE SIGNED. CM PROVIDED PT'S SON WITH CM CONTACT INFORMATION. CM TO SEND REFERRAL TO [facility] WHEN PROJECTED DISCHARGE DATE IS KNOWN, PT'S SON DOES NOT WANT REHAB REFERRAL SENT OUT PRIOR TO PT'S MEDICAL STABILITY FOR DISCHARGE TO REHAB. Medical Device Sales Consultant: Ashia Benítez DCPIA - Discharge Planning Initial Assessment Updated by [id number]: Ashia Benítez on 05/28/18 1:21 pm * Is the patient Alert and Oriented? Yes * How many steps to enter\\exit or inside your home? NONE * PCP DR. PONCE * Pharmacy [facility] * Preadmission Environment Acute Inpatient Rehab * Facility Name [facility] * ADLs Total Dependent * Equipment None * Other Equipment NO MEDICAL EQUIPMENT PROVIDER PREFERECE * List name and contact numbers for known caregivers / representatives who currently or will assist patient after discharge: ADELINE BRANNON [phone] * Verbal permission to speak to the caregivers and representatives has been obtained from the patient. Yes * Community resources currently utilized None * Please name any agencies selected above. NONE * Additional services required to return to the preadmission environment? Yes * Can the patient safely return to the preadmission environment? Yes * Has this patient been hospitalized within the prior 30 days at any hospital? Yes Coverage Notice Reviewer: [id number] - Ashia Benítez Notice Issued Date-Time: 05/11/2018 13:00 Notice Type: Patient Choice Letter Notice Delivered To: Family Member Relationship to Patient: Other Relationship It Corporate Recruiter Name: KARINA QUINN Delivery Method: HAND - Hand Delivered Dawna Days: Prior Verbal Notification: Recipient Understood Notice: Yes Recipient Signature: Yes Med Rec Note Co-signed by Attending: Coverage Notice Comment: [facility] Reviewer: JEWEL Benítez Notice Issued Date-Time: 05/23/2018 12:20 Notice Type: IM Discharge Notice Notice Delivered To: Family Member Relationship to Patient: Other Relationship It Corporate Recruiter Name: KARINA QUINN Delivery Method: HAND - Hand Delivered Dawna Days: Prior Verbal Notification: Recipient Understood Notice: Yes Recipient Signature: Yes Med Rec Note Co-signed by Attending: Coverage Notice Comment: Reviewer: JEWEL Benítez Notice Issued Date-Time: 05/28/2018 16:20 Notice Type: IM Discharge Notice Notice Delivered To: Family Member Relationship to Patient: Other Relationship It Corporate Recruiter Name: NOLA QUINN Delivery Method: HAND - Hand Delivered Dawna Days: Prior Verbal Notification: Recipient Understood Notice: Yes Recipient Signature: Yes Med Rec Note Co-signed by Attending: Coverage Notice Comment: Reviewer: JEWEL Benítez Notice Issued Date-Time: 05/28/2018 16:20 Notice Type: Patient Choice Letter Notice Delivered To: Family Member Relationship to Patient: Other Relationship It Corporate Recruiter Name: NOLA QUINN Delivery Method: HAND - Hand Delivered Dawna Days: Prior Verbal Notification: Recipient Understood Notice: Yes Recipient Signature: Yes Med Rec Note Co-signed by Attending: Coverage Notice Comment: [facility] Last DP export: 05/29/18 1:57 p Patient Name: MADELEINE WONG Page [id number] at 1609 All edits/amendments must be made on the electronic document DICTATION DATE: 05/29/181608 CRAFT WORKER: JULIA 05/29/18 1609 RPT#: [id number] DC DATE: STATUS: ADM IN [facility] [address] [place] [address] END OF REPORT
[2018-05-29 16:31] VITALS: BP 132/45
--- NOTE | 2018-05-29 17:24 | NUR ---
EMPTIED TAMAYO CATHETER OF 925CC CLOUDY YELLOW URINE. PT IS NOT WANTING TO EAT DINNER AND HAS JUST BEEN VERY TIRED AND SLEEPY ALL DAY. PT IS NORMALLY MORE BOX MAKER THAN THIS HOWEVER JUST HAS SEEMED TO HAVE A BAD DAY TODAY. UPON GOING TO PERFORM TAMAYO CARE NOTED PT IS INCONTINENT OF DIARRHEA, LOAN CLERK ZEE AT BEDSIDE TO PERFORM BED CHANGED AND TAMAYO CARE. NO FAMILY PRESENT. NO CURRENT NEEDS. WILL CTM.
--- NOTE | 2018-05-29 19:46 | NUR ---
PT RESTING IN BED COMFORTABLY. PT AWAKENS TO VOICE. PT IS PLEASENT BUT LATHATGIC. RESPIRATIONS EVEN AND SHALLOW. PT DENIES ANY PAIN OR NEEDS AT THIS TIME. BED LOW SIDE RAILS UP X2. CALL LIGHT WITHIN REACH. WILL CONTINUE TO MONITOR.
[2018-05-29 20:00] VITALS: BP 154/42
[2018-05-30] VITALS (9 sets, daily range): BP systolic 123–165; BP diastolic 53–92
--- NOTE | 2018-05-30 04:18 | NUR ---
RN NOTE: PATIENT RESTING COMFORTABLY. RESPIRATIONS ARE EVEN AND UNLABORED. NO S/S OF DISTRESS. NO C/O PAIN. CALL LIGHT WITHIN REACH. WILL CPOC.
[2018-05-30 04:56] LABS: APTT 33.7 SECONDS (22.8-39.4); INR 1.14 (0.85-1.17); PROTIME 14.1 SECONDS (11.6-15.0)
[2018-05-30 05:09] LABS: BASOPHILS 0.6 % (0-2); EOSINOPHILS 3.5 % (0-7); HEMOGLOBIN 8.1 g/dL (12-16); IMMATURE GRANULOCYTES 0.5 % (0-5); LYMPHOCYTES 15.7 % (15-50); MCH 31.3 pg (26.0-34.0); MCHC 31.2 g/dL (31.0-37.0); MCV 100.4 fL (80.0-100.0); MEAN PLATELET VOLUME 10.1 fL (7.4-10.4); MONOCYTES 11.2 % (2-11); NEUTROPHILS 68.5 % (40-80); PLATELET COUNT 377 10x3/uL (130-400); RBC 2.59 10x6/uL (4.00-5.40); RDW 17.4 % (11.5-14.5); WBC 8.3 10x3/uL (4.8-10.8)
[2018-05-30 05:19] LABS: ANION GAP 9.5 mmol/L (8-16); CALCIUM 7.2 mg/dL (8.5-10.1); CARBON DIOXIDE 28.6 mmol/L (21.0-32.0); CREATININE - SERUM 1.2 mg/dL (0.6-1.3); POTASSIUM - SERUM 5.1 mmol/L (3.5-5.1)
--- NOTE | 2018-05-30 07:38 | NUR ---
AM ROUNDS COMPLETED. INTRODUCED MYSELF TO PT PRIMARY RN FOR TODAYS SHIFT. FOCUSED SHIFT ASSESSMENT COMPLETED. PT IS RESTING QUIETLY IN BED WITH EYES CLOSED RR NONLABORED. NO S/S OF DISTRESS OR ANY CURRENT NEEDS AT THIS TIME. CL IN REACH, BED IN LOWEST, SIDE RAILS X2. WILL CTM.
--- NOTE | 2018-05-30 08:45 | NUR ---
PROVIDED PT WITH AM MEDICATIONS WITH A SIP OF WATER. PT IS NPO FOR PROCEDURE TODAY AND VEBRALIZED UNDERSTANDING. CONSENTS OBTAINED AND PLACED IN CHART. PT DENIES ANY CURRENT NEEDS. WILL CTM.
--- NOTE | 2018-05-30 11:14 | NUR ---
PT LYING IN BED RESTING QUIETLY WITH VISITORS AT BEDSIDE. NO CURRENT NEEDS, STILL NPO AND WAITING FOR PROCEDURE. CL IN REACH, BED IN LOWEST, SIDE RAILS X2. WILL CTM.
--- NOTE | 2018-05-30 12:10 | MORECARE ---
CASE MANAGEMENT DISCHARGE SUMMARY PATIENT: MADELEINE WONG UNIT: [id number] ADM DATE: 05/09/18 AGE: 88 : [birth year] SEX: F ROOM/BED: D.2112 AUTHOR: TEENADOC PHYSICIAN: REFERRING PHYSICIAN: LEXA BENAVIDES MD DATE OF SERVICE: 05/30/18 Discharge Plan Patient Name: MADELEINE WONG Facility: [facility]:[place] : 1930 Planned Disposition: Home with Home Health Anticipated Discharge Date: 05/30/18 Discharge Date: Expected LOS: 21 Initial Reviewer: [id number] Initial Review Date: 05/09/2018 Generated: 05/30/18 1:10 pm Comments DCP- Discharge Planning Updated by [id number]: Ashia Benítez on 05/30/18 11:[address] Patient Name: MADELEINE WONG Encounter No: [id number] : 1930 Primary Insurance: HUMANA CHOICE PPO MCR ADVANT Anticipated DC Date: 05-30-2018 Planned Disposition: Home with Home Health External Planned Provider: [facility] DCP follow-up note: CM SPOKE TO PT IN ROOM THIS MORNING, PT REPORTS SHE IS HAVING KYPHOPLASTY TODAY BEFORE GOING HOME. CM INFORMED PT THAT QUOTE FOR TUBE FEEDING MATERIALS RECEIVED, CM PROVIDED TO PT. PT REPORTS SHE WILL NOTIFY NOLA THIS MORNING WHEN SHE GETS HERE. PT DENIES NEEDS. OSVALDO SPOKE TO NOLA QUINN, , IN PERSON AT NURSES STATION. NOLA REPORTS [facility] M[facility] ARRAGMENTS FOR DELIVERY OF THE HOSPITAL BED AND BEDSIDE COMMODE TODAY. SHE HAS NOT HEARD FROM [facility] ABOUT TUBE FEEDING; SHE DID RECEIVE THE QUOTE FOR PRIVATE PAY AND WANTS TO MAKE THE ARRAGNEMENTS. NOLA HAS NOT CALLED [facility] HERSELF. CM CALLED [facility], , NOTIFED FRANKY THAT PT'S FAMILY WANTS TO PRIVATE PAY THE PUMP AND FEEDING SUPPLIES AND ASKED HER TO CALL [facility]OL[facility] SOON POSSIBLE AND MAKE ARRANGEMENTS FOR DELIVERY TODAY. ADRIANA REPORTS MATERIALS AND SUPPLIES ARE [place] ON DELIVERY AND SHE WILL CALL NOL[facility] IMMEDIATELY TO MAKE DELIVERY AND EDUCATION ARRANGEMENTS. NOTIFY [facility], , OF DISCHARGE. FAX DISCHARGE TO [facility], . Ashia Benítez, CASE MANAGEMENT DCP- Discharge Planning Updated by [id number]: Ashia Benítez on 05/29/18 3:[address] Patient Name: MADELEINE WONG Encounter No: [id number] : 1930 Primary Insurance: HUMANA CHOICE PPO MCR ADVANT Anticipated DC Date: 05-30-2018 Planned Disposition: Home with Home Health External Planned Provider: [facility] DCP follow-up note: CM CALLED PAYAL AT [facility], , PROVIDED INFORMATION FOR HOSPITAL BED AND BEDSIDE COMMODE, INFORMED OF PLANNED DISCHARGE TOMORROW. CM FAXED ORDER AND REFERRAL INFORMATION TO [facility] AT [phone]. [facility] TO ARRANGE DELIVERY OF MEDICAL EQUIPMENT WITH PT'S FAMILY. CM CALLED [facility], [facility], , SPOKE TO [place] REGARDING TUBE FEEDING ORDER; [facility] ADVISED THAT PT'S INSURANCE WILL NOT PAY FOR SUPPLEMENTAL NUTRITION PT IS ON REGULAR DIET AND ABLE TO EAT BY MOUTH. [facility] WILL REVIEW REFERRAL TO SEE IF THERE IS SOME WAY THAT INSURANCE MAY COVER THE SERVICE. CM SPOKE TO PT IN ROOM, INFORMED OF ABOVE; PT ASKED FOR CM TO GET [place] PAY SHAY FOR TUBE FEEDING AND DISCUSS WITH NOLA, HER NIECE. CM FAXED REFERRAL TO [facility] AT [phone]. CM CALLED [facility], , SPOKE TO NEGRA, PROVIDED REFERRAL INFORMATION AND ADVISED OF PLANNED DISCHARGE 05-30-18. THEY WILL ACCEPT PT FOR ADMIT ON 05-31-18. CM FAXED HOME HEALTH REFERRAL TO [facility] AT [phone]. CM SPOKE TO NOLA QUINN IN HALLWAY DIRECTED BY PT; INFORMED OF ABOVE ARRANGEMENTS. CM SPOKE TO BEDSIDE NURSE REGARDING FAMILY CONCERN OF OXYGEN NEED, BEDSIDE NURSE INFORMED CM THAT SHE WOULD ATTEMPT OXYGEN WEANING. [facility] BED AND BEDSIDE COMMODE WITH FAMILY. PT'S INSURANCE WILL NOT PAY FOR TUBE FEEDING MATERIALS OR SUPPLIES - [facility] / [facility] GETTING QUOTE FOR TINSLEY PAY. [facility] WILL ACCEPT PT AT DISCHARGE. FOR DISCHARGE, NOTIFY [facility] AT [phone], FAX DISCHARGE INFORMATION TO [facility] AT [phone]. CM TO CONTINUE TO FOLLOW AND ASSIST NEEDED. Ashia Mccloudwell, HIEN EDWARD Appended by Ashia Benítez on 05/29/2018 16:06 PIANO CASE MAKER: CM SPOKE TO PT'S GREAT NIECE IN LAW WHO INFORMED CM THAT [facility] HAS CALLED TO ARRANGE DELIVERY OF HOSPITAL BED AND BEDSIDE COMMODE. SHE HAS NOT HEARD FROM [facility] REGARDING TUBE FEEDING. CM CALLED [facility], , SPOKE TO FRANKY WHO REPORTS INSURANCE WILL NOT COVER COSTS OF TUBE FEEDING AND PROVIDED QUOTE OVER THE PHONE AND WILL FAX QUOTE TO CM FOR PT'S FAMILY. BEDSIDE NURSE NOTIFIED. PT'S FAMILY ARE NOT IN ROOM, CM LEFT NOTE ON WHITE BOARD FOR FAMILY NOTIFYING THAT TUBE FEEDING COSTS ARE NOT COVERED BY INSURANCE WITH QUOTED PRICES. [facility] BED AND BEDSIDE COMMODE WITH FAMILY. PT'S INSURANCE WILL NOT PAY FOR TUBE FEEDING MATERIALS OR SUPPLIES - [facility] QUOTED FOR TINSLEY PAY OF $8 PER DAY FOR PUMP AND SUPPLIES / $1.50 PER CAN FOR JEVITY 1.2. [facility] WILL ACCEPT PT AT DISCHARGE. FOR DISCHARGE, NOTIFY [facility] AT [phone], FAX DISCHARGE INFORMATION TO [facility] AT [phone]. CM TO CONTINUE TO FOLLOW AND ASSIST NEEDED. HIEN Dai DCP- Discharge Planning Updated by [id number]: Ashia Benítez on 05/28/18 4:[address] Patient Name: MADELEINE WONG Encounter No: [id number] : 1930 Primary Insurance: HUMANA CHOICE PPO MCR ADVANT Anticipated DC Date: 05-24-2018 Planned Disposition: HOME WITH HOME HEALTH External [facility] follow[facility]: CM RECEIVED ORDER FOR HOME HEALTH, TUBE FEEDING AND HOSPITAL BED. CM MET WITH PT AND GRAND NEPHEW'S SPOUSE IN ROOM. CM BEGAN DISCUSSING ORDER, PT'S GRAND NEPHEW'S SPOUSE INFORMED CM THAT PT PLANS TO DISCHARGE TO [facility] FOR REHAB AND ASKED IF CM HAS HEARD FROM [facility] SHE DID NOT SEE THEM MONDAY THEY WERE SUPPOSED TO EVALUATE PT THEN. CM CALLED [facility], SPOKE TO SHAWN WHO WILL CHECK WITH CELIA TO FIND OUT WHAT HAS HAPPENED. SHAWN WILL HAVE CELIA CALL CM SOON POSSIBLE. CM MET WITH PT, PT'S FIJESSICA AND PT'S GRAND NEPHEW'S NIECE. PT'S ADELINE INFORMED CM THAT CM DOES NOT NEED TO SEE THEM AND THAT DR. DIXON HAS TAKEN CARE OF EVERYTHING. CM ASKED WHAT HAD BEEN WORKED OUT. CM WAS ADVISED THAT PT WILL HAVE THE KYPHOPLASTY ON MONDAY AND THEN GO TO [facility] FOR REHAB, DR. DIXON WILL TALK TO CELIA AT [facility] AND WORK THIS OUT. CM NOTIFIED CELSO BRICENO AND DR. DIXON. CM RECEIVED CALL BACK FROM CEL[facility] WHO SPOKE TO FAMILY, INFORMED THEM THAT PT IS NOT APPROPRIATE CANDIDATE FOR REHAB SHE IS REFUSING THERAPY SERICES AND INFORMED CM THAT FAMILY HAS REFUSED CAMPUS RECRUITER CARE PLACEMENT AT [facility]. CM MET WITH PT AND PT'S GRAND NEPHEWS SPOUSE IN ROOM. OSVALDO DISCUSSED IMPORTANT MESSAGE FROM MEDICARE AND DISCUSSED HOW TO COMPLAIN IF NEEDED TO MEAT GRADING MACHINE OPERATOR, ADMINISTRATION AND IF NEEDED, QUALITY IMPROVEMENT OFFICE FOR MEDICARE. NOLA INFORMED CM THAT SHE HAS COMPLAINED TO THE DOCTORS BUT HAS BEEN THINKING SHE NEEDS TO COMPLAIN TO SOMEONE ELSE. CM DISCUSSED DISCHARGE PLAN. NOLA HAS TALKED TO PT, PT'S ADELINE AND CELIA AT [facility]. THEY ARE NOT GOING TO PUT PT INTO CAMPUS RECRUITER CARE AND WILL BE TAKING PT HOME DISCUSSED LAST WEEK; NOLA STATES PT IS NOT READY FOR HOSPICE BUT WANTS HOME HEALTH. HOME HEALTH LISTING PROVIDED AND DISCUSSED, NOLA WANTS TO USE THE [employer], PT TOLD NOLA TO SIGN THE FORMS. NOLA SIGNED THE IMPORTANT MESSAGE FROM MEDICARE AND CHOICE FOR [facility]. NOLA STATES THAT THEY WILL NEED A HOSPITAL BED, BEDSIDE COMMODE, OXYGEN AND TUBE FEEDING SET UP FOR PT AT HOME. OSVALDO EXPLAINED THAT PT'S INSURANCE HAS TO PRE AUTHORIZE ALL MEDICAL EQUIPMENT AND THAT SINCE PT IS ABLE TO EAT, INSURANCE MAY NOT COVER TUBE FEEDING. THEY HAVE NO PREFERENCE ON PROVIDER AND NOLA ASKED TO BE CONTACTED REGARDING ANY COPAYS FOR EQUIPMENT AT [phone]. CM HAS ORDER FOR HOME HEALTH, HOSPITAL BED AND TUBE FEEDING. CM WILL NEED ADDITIONAL ORDERS FOR BEDSIDE COMMODE AND OXYGEN TESTING. CM TO FIND IN NETWORK PROVIDER FOR PT'S INSURANCE TO ARRANGE NEEDED MEDICAL EQUIPMENT SOON POSSIBLE. CM TO COMPLETE HOME HEALTH ARRANGEMENTS WITH [employer]. Ashia Benítez DCP- Discharge Planning Updated by [id number]: Roxi Greenfield on 05/28/18 11:[address] RECEIVED NOTICE THAT THE PATIENTS FAMILY WAS WANTING HER TO HAVE THE KYPHOPLASTY BEFORE SHE LEAVES THE HOSPITAL. IT WAS MENTIONED THAT THE PATIENTS POA HAS NOT BEEN HER AND THERE IS NO POA PAPERWORK IN THE CHART. I ASKED THE BEDSIDE NURSE RUDY BENJAMIN TO COME INTO THE ROOM WITH ME TO DISCUSS THE NEED FOR POA PAPERWORK IN ORDER TO HAVE ANY CONSENTS FOR PROCEDURES SIGNED SINCE THE PATIENT WAS NOT ABLE TO SIGN HERSELF, AND BY THE HIERACHY OF LAW, THE POA OR NEXT OF KIN WOULD BE WHO NEEDED TO SIGN AND SINCE THEY (THE LADY AND ADELINE) WERE NOT BLOOD RELATED, THEY COULD NOT SIGN FOR HER THEY HAVE BEEN. AT THIS TIME I WAS QUICKLY TOLD THAT SHE WAS IN HER RIGHT MIND AND ABLE TO MAKE ALL HER OWN DECISIONS. THE LADY AT BEDSIDE PROCEEDED TO TELL ME ABOUT ALL THE TIMES PEOPLE CAME IN AND QUESTIONED HER ABOUT THE DATE, TIME, PRESIDENT, ETC AND SHE WAS ABLE TO ALWAYS ANSWER ALL THEIR QUESTIONS. SHE STATED THE PATIENT WAS ABLE TO SIGN FOR HERSELF. UP TO THIS POINT, THE PATIENT HAD NOT OPENED HER EYES AND HAD NOT SAID ANYTHING. IT TOOK ME TOUCHING THE PATIENT'S ARM TO GET HER TO OPEN HER EYES AND ACKNOWLEDGE MY PRESENCE AND ANSWER MY QUESTIONS. THE PATIENT IS WITH IT AND ABLE TO ANSWER QUESTIONS. AT THIS POINT I ASKED HER IF SHE WANTED TO HAVE THE KYPHOPLASTY DONE. SHE STATED YES. THE LADY AT BEDSIDE BECAME VERY AGITATED STATING THAT SHE KNEW ABOUT HIPPA LAWS AND WANTED TO KNOW WHY ANYONE EVEN ALLOWED THINGS TO HAPPEN UP UNTIL NOW. NO ONE HAD ASKED FOR ANYONE'S DRIVERS LICENES TO VERIFY THEY WERE WHO THEY SAID THEY WERE. I TRIED TO EXPLAINE THAT EVEN WITH THAT, WE HAD NO WAY TO ACTUALLY VERIFY THAT WITH A DRIVERS LICENSE BECAUSE ANYONE CAN SAY THEY ARE SOMEONES FAMILY AND WE DON'T KNOW OTHERWISE UNLESS THE PATIENT SAYS SO, BUT SHE CUT ME OFF I WAS TALKING. I STOOD AT BEDSIDE AND LISTENED TO HER RANT ABOUT ALL THE THINGS THAT SHE HAS WITNESSED HERE AT THIS HOSPITAL THAT HAS MADE HER SICK TO HER STOMACH ESPECIALLY ABOUT THE FACT THAT SHE CAME IN HERE WITH A HURT BACK AND NOW THEY ARE JUST WATCHING HER . I APOLOGIZED TO HER ABOUT ALL OF THE THINGS THAT [facility] WAS UPSET ABOUT, AND THEN DIRECTED MY CONVERSATION TO THE PATIENT, EXPLAINING THAT IF SHE WANTED THEY KYPHOPLASTY AND HER URINE WAS CLEAR THAT I WOULD EXPLAIN THIS TO THE NURSE PRACTITIONER. THAT ULTIMATELY I AM HERE TO TAKE CARE OF HER AND MAKE SURE WE ARE DOING WHAT SHE WANTS. I ALSO EXPLAINED TO HER THAT SHE NEEDS TO SIGN ALL OF HER OWN PAPERWORK, EVEN IF IT IS JUST WITH AN "X". THAT WE SIGN WITNESSES TO STATE WE KNOW SHE UNDERSTANDS AND SHE IS SIGNING. EXPLAINED THAT LONG SHE IS ABLE TO MAKE ALL HER OWN DECISIONS, WE DID NOT NEED HER POA PAPERWORK. SHE IS IN AGREEMENT. THE GREAT NEPHEWS WHO IS AT BEDSIDE CONTINUED WITH HER RANT, I AGAIN APOLOGIZED AND THE BEDSIDE NURSE AND I LEFT THE ROOM. I EXPLAINED TO RADHA THAT THE PATIENT WAS CURRENTLY IN HER RIGHT MIND AND SHE IS WANTING THEY KYPHOPLASTY, AND SHE RECONSULTED IR TO SEE THE PATIENT. DCP- Discharge Planning Updated by [id number]: Josie Mccoy on 05/27/18 4:[address] CM RECEIVED AN ORDER REGARDING PLANS TO DISCHARGE TO HOME W/ HOSPITAL BED , TUBE FEEDING AND HOME HEALTH. PATIENT'S NUTRITION NOTE IS 05/25/18. WILL NEED NUTRITION NOTE REGARDING PATIENT NEEDS FOR DISCHARGE. CM UNDERSTANDS THE PATIENT DOES EAT AND TAKE HER MEDICATIONS BY MOUTH. SHE IS PRESENTLY ON FEEDINGS VIA PUMP. SHE HAS BEEN ADVANCED TO 60 CC/HR TODAY WHICH IS HER GOAL RATE. SPOKE WITH PRIMARY ARTURO AND SHE REPORTS NO RESIDUAL AT THIS TIME. WILL NEED TO HAVE [facility] PROVIDE BED AND SPECIALTY MATTRESS FOR HOME AND DETERMINE COVERAGE FOR TUBE FEEDING AND EQUIPMENT. CM TO FOLLOW UP IN AM. DCP- Discharge Planning Updated by [id number]: Ashia Benítez on 05/25/18 7:[address] Patient Name: MADELEINE WONG Encounter No: [id number] : 1930 Primary Insurance: HUMANA CHOICE PPO MCR ADVANT Anticipated DC Date: 05-24-2018 Planned Disposition: Long-Term Facility External Planned Provider: [facility], MEDICARE REHAB BED DCP follow-up note: CM FAXED UPDATE TO [facility], FOR REHAB REQUEST. CM WAITING ADMISSION DETERMINATION FROM [facility] FOR REHAB PLACEMENT. ASHIA BENÍTEZ, CASE MANAGEMENT DCP- Discharge Planning Updated by [id number]: Ashia Benítez on 05/24/18 3:[address] Patient Name: MADELEINE WONG Encounter No: [id number] : 1930 Primary Insurance: HUMANA CHOICE PPO MCR ADVANT Anticipated DC Date: 05-24-2018 Planned Disposition: Long-Term Facility External Planned Provider: [facility], MEDICARE REHAB BED DCP follow-up note: CM MET WITH PT'S HAN SALCEDO BY MARRIAGE, NOLA QUINN, . NOLA STATES THAT KARINA QUINN IS PT'S FIANCE. PT HAS POWER OF FLAME CHANNELER WITH GREAT NEPHEW, REBECCA SPOUSE, JOON QUINN, WHO WORKS IN [employer]. NOLA WILL GET JOON TO HOSPITAL ALONG WITH POWER OF FLAME CHANNELER PAPERWORK SOON POSSIBLE. THEY ARE IN AGREEMENT WITH REHAB AT [facility], BUT [facility] MAY NOT ACCEPT PT HAS CONTINUED DECLINE. [facility] TO COME TOMORROW TO EVALUATE PT FOR REHAB. IF [facility] DOES NOT ACCEPT FOR REHAB, THEY ARE THINKING TO TAKE PT HOME TO [facility] HERE IN [place] AND NOLA ALONG WITH FAMILY WILL CARE FOR PT WITH HOME HOSPICE. NOLA REPORTS THEY WILL MAKE THAT DECISION TOMORROW. CM EXPLAINED THAT THE POWER OF FLAME CHANNELER WILL HAVE TO BE IN AGREEMENT AND SIGN ANY NEEDED AUTHORIZATIONS FOR ENROLLMENT IN REHAB OR HOSPICE CARE. NOLA REPORTS UNDERSTANDING, PROVIDED CELL PHONE NUMBER FOR JOON QUINN, . CM WAITING ADMISSION DETERMINATION FROM [facility] FOR REHAB PLACEMENT. ASHIA BENÍTEZ, CASE MANAGEMENT DCP- Discharge Planning Updated by [id number]: Ashia Benítez on 05/23/18 3:[address] Patient Name: MADELEINE WONG Encounter No: [id number] : 1930 Primary Insurance: HUMANA CHOICE PPO MCR ADVANT Anticipated DC Date: 05-24-2018 Planned Disposition: Long-Term Facility External Planned Provider: [facility], MEDICARE REHAB BED DCP follow-up note: CM MET WITH PT AND SON/POA, KARINA QUINN, AT FAMILY REQUEST. MR. QUINN REPORTS IT IS NOW TIME TO SEND REFERRAL TO [facility] FOR REHAB PLACEMENT. IMPORTANT MESSAGE FROM MEDICARE PROVIDED AND EXPLAINED. [facility], . CM WAITING ADMISSION DETERMINATION FROM [facility] FOR REHAB PLACEMENT. ASHIA BENÍTEZ, CASE MANAGEMENT DCP- Discharge Planning Updated by [id number]: Ashia Benítez on 05/11/18 4:[address] Patient Name: MADELEINE WONG Admission Status: Elective Accout number: [id number] Admission Date: 05-09-2018 : 1930 Admission Diagnosis:ACUTE KIDNEY FAILURE, UNSPECIFIED Attending: LEXA BENAVIDES Current LOS: 2 Anticipated DC Date: Planned Disposition: Long-Term Facility Primary Insurance: [employer] CHOICE PPO MCR ADVANT PLANNED EXTERNAL PROVIDER: [facility], MEDICARE REHAB BED Discharge Planning Comments: CM RECEIVED ORDER INDICATING PT WANTS [facility] CARE. CM MET WITH PT AND SON IN ROOM TO DISCUSS DISCHARGE PLANNING AND NEEDS. PT REPORTS THAT BEFORE GETTING SICK, SHE WAS LIVING AT HOME WITH HER SON, INDEPENDENT IN HER CARE. PT REPORTS SHE DID TELL THE DOCTOR THAT SHE WOULD BE BETTER OFF IN A [facility] BEFORE FAMILY ARRIVED TODAY. PT WANTS REHAB, NOT DETENTION CARE. PT HAS NO MEDICAL EQUIPMENT AND NO OUTSIDE SERVICES ASSISTING IN THE HOME. CM DISCUSSED AVAILABILITY OF HOME HEALTH, REHAB SERVICES AND MEDICAL EQUIPMENT. PT'S SON INITIALLY DECLINED TO PARTICIPATE IN DISCHARGE PLANNING REPORTING PT WAS SENT TO REHAB DOWNSTAIRS TOO SOON WHEN SHE WAS NOT ABLE TO WALK OR EVEN FEED HERSELF. SON WANTS PT CONSIDERED FOR INPATIENT REHAB AGAIN STATING THEY SENT HER BACK HERE BECAUSE SHE USED ALL OF HER DAYS DOWN THERE. PT DOES NOT THINK SHE CAN PARTICIPATE IN THREE HOURS OF PROGRESSIVE THERAPY PER DAY. CM EXPLAINED THAT IF PT IS NOT ABLE TO PARTICIPATE IN THE THREE HOURS OF PROGRESSIVE THERAPY, IS NOT ABLE TO STAND OR FEED HERSELF, SHE IS NOT GOING TO BE APPROPRIATE FOR READMISSION TO INPATENT REHAB. CM DISCUSSED AVAILABILITY OF [facility] SERVICES AND PROVIDED CHOICE FORM. PT'S SON REPORTS HE ALREADY SIGNED ONE OF THESE FOR [facility] THE LAST VISIT AND SPEAKING WITH THIS CM. CM EXPLAINED A NEW ONE WAS NEEDED. PT'S SON SIGNED THE FORM AND DOES NOT WANT PT SENT TO REHAB BEFORE SHE IS STABLE. CM EXPLAINED THAT ALL DOCTORS WOULD HAVE TO INDICATE PT IS READY TO DISCHARGE AND CM IS ONLY WANTING TO BE PROACTIVE ON PT'S BEHALF FOR DISCHARGE PLANNING AND SECURE REHAB BED AHEAD OF TIME TO ENSURE THAT PT IS ABLE TO GET INTO [facility] WHEN DISCHARGED [facility] IS POPULAR REHAB AND DOES FILL UP. PT'S SON WILL WANTS PT TO BE STABLE FOR DISCHARGE FOR CM TO SEND REFERRALS. CHOICE SIGNED. CM PROVIDED PT'S SON WITH CM CONTACT INFORMATION. CM TO SEND REFERRAL TO [facility] WHEN PROJECTED DISCHARGE DATE IS KNOWN, PT'S SON DOES NOT WANT REHAB REFERRAL SENT OUT PRIOR TO PT'S MEDICAL STABILITY FOR DISCHARGE TO REHAB. Oil Lease Buyer: Ashia Benítez DCPIA - Discharge Planning Initial Assessment Updated by [id number]: Ashia Benítez on 05/28/18 1:21 pm * Is the patient Alert and Oriented? Yes * How many steps to enter\\exit or inside your home? NONE * PCP DR. PONCE * Pharmacy [facility] * Preadmission Environment Acute Inpatient Rehab * Facility Name [facility] INPATIENT [facility] * ADLs Total Dependent * Equipment None * Other Equipment NO MEDICAL EQUIPMENT PROVIDER PREFERECE * List name and contact numbers for known caregivers / representatives who currently or will assist patient after discharge: KARINA ADELINE QUINN [phone] * Verbal permission to speak to the caregivers and representatives has been obtained from the patient. Yes * Community resources currently utilized None * Please name any agencies selected above. NONE * Additional services required to return to the preadmission environment? Yes * Can the patient safely return to the preadmission environment? Yes * Has this patient been hospitalized within the prior 30 days at any hospital? Yes Coverage Notice Reviewer: [id number] Benítez Notice Issued Date-Time: 05/11/2018 13:00 Notice Type: Patient Choice Letter Notice Delivered To: Family Member Relationship to Patient: Other Relationship Instrument Lens Grinder Apprentice Name: KARINA QUINN Delivery Method: HAND - Hand Delivered Dawna Days: Prior Verbal Notification: Recipient Understood Notice: Yes Recipient Signature: Yes Med Rec Note Co-signed by Attending: Coverage Notice Comment: [facility] Reviewer: [id number] Adriel Benítez Notice Issued Date-Time: 05/23/2018 12:20 Notice Type: IM Discharge Notice Notice Delivered To: Family Member Relationship to Patient: Other Relationship Instrument Lens Grinder Apprentice Name: KARINA QUINN Delivery Method: HAND - Hand Delivered Dawna Days: Prior Verbal Notification: Recipient Understood Notice: Yes Recipient Signature: Yes Med Rec Note Co-signed by Attending: Coverage Notice Comment: Reviewer: [id number] Adriel Benítez Notice Issued Date-Time: 05/28/2018 16:20 Notice Type: IM Discharge Notice Notice Delivered To: Family Member Relationship to Patient: Other Relationship Instrument Lens Grinder Apprentice Name: NOLA QUINN Delivery Method: HAND - Hand Delivered Dawna Days: Prior Verbal Notification: Recipient Understood Notice: Yes Recipient Signature: Yes Med Rec Note Co-signed by Attending: Coverage Notice Comment: Reviewer: [id number] Adriel Benítez Notice Issued Date-Time: 05/28/2018 16:20 Notice Type: Patient Choice Letter Notice Delivered To: Family Member Relationship to Patient: Other Relationship Instrument Lens Grinder Apprentice Name: NOLA QUINN Delivery Method: HAND - Hand Delivered Dawna Days: Prior Verbal Notification: Recipient Understood Notice: Yes Recipient Signature: Yes Med Rec Note Co-signed by Attending: Coverage Notice Comment: [facility] Last DP export: 05/29/18 3:09 p Patient Name: MADELEINE WONG Page [id number] at 1210 All edits/amendments must be made on the electronic document DICTATION DATE: 05/30/18 1210 SINGLE CORNER CUTTER: JULIA 05/30/18 1210 RPT#: [id number] DC DATE: STATUS: ADM IN [facility] [address] [place] [address] END OF REPORT
--- NOTE | 2018-05-30 12:28 | NUR ---
CHECKED TO SEE IF PT WAS SOILED AND PULLED HER UP IN BED FOR COMFORT. NO CURRENT NEEDS AND PT IS DRY. TAMAYO DRAINING TO GRAVITY OFF R.SIDE OF BED, NO KINKS OR ISSUES NOTED. CL IN REACH, BED IN LOWEST, SIDE RAILS X2. WILL CTM.
--- NOTE | 2018-05-30 14:20 | NUR ---
Nutrition follow-up: Labs reviewed Pt to surgery today then will discharge to home with TF Recommend decreasing to 40 ml/hr to encourage increased po intake. If po intake improves to > 50% of meals, recommend TF stopped. RDN following.
--- NOTE | 2018-05-30 14:26 | NUR ---
IR CALLED TO PRE-OP PT. PRE-OP MEDICATIONS GIVEN AND PT IS CLEAN AND DRY WAITING TO BE PICKED UP. VISITORS AT BEDSIDE. NO FURTHER NEEDS AT THIS TIME. WILL CTM.
--- NOTE | 2018-05-30 17:00 | NUR ---
PT BACK FROM PROCEDURE AWAKENS EASILY PT IS CURRENTLY SLEEPY. PT IS TO LAY FLAT X2 HOURS AND VERBALIZED UNDERSTANDING. PT STATES SHE FEELS "WONDERFUL" RIGHT NOW AND DENIES ANY PAIN. PT HAS DRSG TO L.SIDE IN THE BACK CDI NO S/S OF HEMATOMA OR BLEEDING NOTED. VSS AND BEING MONITERED PER POST PROCEDURE PROTOCOL. PT HAS NEW BRUISING AND REDDNESS NOTED TO HER NECK AND TO THE R.SIDE OF HER CHEEKBONE, APPEARS TO BE JUST FROM THIN WRINKLED SKIN AND HOW SHE WAS LAYING FOR PROCEDURE, PT DENIES ANY PAIN WITH IT AND SKIN IS INTACT, WILL CONTINUE TO MONITER IT. TAMAYO DRAINING TO GRAVITY. FAMILY SURROUNDING BEDSIDE. NO CURRENT NEEDS AT THIS TIME. WILL CTM.
[2018-05-31] VITALS: BP 169/63
--- NOTE | 2018-05-31 00:21 | NUR ---
PT RESTING COMFORTABLY IN BED. RESPIRATIONS EVEN AND UNLABORED. PT FEEDING PUMP RESTARTED AT 40ML/HR WITH 100ML FLUSH PER HOUR. 600ML OF 1.5CAL JEVITY IN BAG WITH 600ML OF WATER. RESIDUAL 10ML. PT TOLERATING WELL. PT DENIES ANY NEEDS OR PAIN AT THIS TIME. DRESSING TO LEFT SIDE OF BACK CLEAN DRY AND INTACT. REPOSTIONED PT TO RIGHT SIDE. WILL CONTINUE TO MONITOR.
[2018-05-31 04:00] VITALS: BP 116/53
[2018-05-31 06:23] LABS: BASOPHILS 0.6 % (0-2); EOSINOPHILS 2.7 % (0-7); HEMATOCRIT 24.9 % (36.0-48.0); HEMOGLOBIN 7.8 g/dL (12-16); IMMATURE GRANULOCYTES 0.4 % (0-5); LYMPHOCYTES 10.8 % (15-50); MCH 31.5 pg (26.0-34.0); MCHC 31.3 g/dL (31.0-37.0); MCV 100.4 fL (80.0-100.0); MEAN PLATELET VOLUME 10.1 fL (7.4-10.4); MONOCYTES 14.2 % (2-11); NEUTROPHILS 71.3 % (40-80); PLATELET COUNT 355 10x3/uL (130-400); RBC 2.48 10x6/uL (4.00-5.40); WBC 7.1 10x3/uL (4.8-10.8)
[2018-05-31 06:53] LABS: ANION GAP 10.2 mmol/L (8-16); CALCIUM 7.6 mg/dL (8.5-10.1); CARBON DIOXIDE 30.5 mmol/L (21.0-32.0); CREATININE - SERUM 1.4 mg/dL (0.6-1.3); POTASSIUM - SERUM 4.7 mmol/L (3.5-5.1)
--- NOTE | 2018-05-31 07:30 | NUR ---
RECEIVED A/A/OX3. DENIES ANY PAIN LONG SHE IS STILL IN BED. STATES SHE HAS A LOT OF PAIN WHEN BEING TURNED. NO REQUESTS AT THIS TIME. PEG TUBE PATENT AND PLACEMENT CHECKED PER A/A. JEVITY 1.5 IN PROGRESS AT 40CC HR WITH 25CC WATER FLUSH Q HOUR. PEG SITE IS CLEAN AND DRY WITH DRESSING C/D/I. DRESSING TO HEELS C/D/I. DRESSING TO POSTERIOR LEFT UPPER BACK C/D/I. FOLOEY PATENT AND DRAINING LIGHT YELLOW COLORED URINE. PT IN ON 1ST STEP OVERLAY.
--- NOTE | 2018-05-31 07:49 | MORECARE ---
CASE MANAGEMENT DISCHARGE SUMMARY PATIENT: MADELEINE WONG UNIT: [id number] ADM DATE: 05/09/18 AGE: 88 : [birth year] SEX: F ROOM/BED: D.2112 AUTHOR: TEENADOC PHYSICIAN: REFERRING PHYSICIAN: LEXA BENAVIDES MD DATE OF SERVICE: 05/31/18 Discharge Plan Patient Name: MADELEINE WONG Facility: [facility]:[place] : 1930 Planned Disposition: Home with Home Health Anticipated Discharge Date: 05/31/18 Discharge Date: Expected LOS: 22 Initial Reviewer: [id number] Initial Review Date: 05/09/2018 Generated: 05/31/18 8:49 am Comments DCP- Discharge Planning Updated by [id number]: Ashia Benítez on 05/30/18 11:[address] Patient Name: MADELEINE WONG Encounter No: [id number] : 1930 Primary Insurance: HUMANA CHOICE PPO MCR ADVANT Anticipated DC Date: 05-30-2018 Planned Disposition: Home with Home Health External Planned Provider: [facility] DCP follow-up note: CM SPOKE TO PT IN ROOM THIS MORNING, PT REPORTS SHE IS HAVING KYPHOPLASTY TODAY BEFORE GOING HOME. CM INFORMED PT THAT QUOTE FOR TUBE FEEDING MATERIALS RECEIVED, CM PROVIDED TO PT. PT REPORTS SHE WILL NOTIFY NOLA THIS MORNING WHEN SHE GETS HERE. PT DENIES NEEDS. OSVALDO SPOKE TO NOLA QUINN, , IN PERSON AT NURSES STATION. NOLA REPORTS THAT [facility] FOR DELIVERY OF THE HOSPITAL BED AND BEDSIDE COMMODE TODAY. SHE HAS NOT HEARD FROM [facility] ABOUT TUBE FEEDING; SHE DID RECEIVE THE QUOTE FOR PRIVATE PAY AND WANTS TO MAKE THE ARRAGNEMENTS. NOLA HAS NOT CALLED [facility] HERSELF. CM CALLED [facility], , NOTIFED FRANKY THAT PT'S FAMILY WANTS TO PRIVATE PAY THE PUMP AND FEEDING SUPPLIES AND ASKED HER TO CALL NOLA SOON POSSIBLE AND MAKE ARRANGEMENTS FOR DELIVERY TODAY. ADRIANA REPORTS MATERIALS AND SUPPLIES ARE [place] ON DELIVERY AND SHE WILL CALL NOLA IMMEDIATELY TO MAKE DELIVERY AND EDUCATION ARRANGEMENTS. NOTIFY [facility], , OF DISCHARGE. FAX DISCHARGE TO [facility], . Ashia Benítez, CASE MANAGEMENT DCP- Discharge Planning Updated by [id number]: Ashia Benítez on 05/29/18 3:[address] Patient Name: MADELEINE WONG Encounter No: [id number] : 1930 Primary Insurance: HUMANA CHOICE PPO MCR ADVANT Anticipated DC Date: 05-30-2018 Planned Disposition: Home with Home Health External Planned Provider: [facility] DCP follow-up note: CM CALLED PAYAL AT [facility], , PROVIDED INFORMATION FOR HOSPITAL BED AND BEDSIDE COMMODE, INFORMED OF PLANNED DISCHARGE TOMORROW. CM FAXED ORDER AND REFERRAL INFORMATION TO [facility] AT [phone]. [facility] TO ARRANGE DELIVERY OF MEDICAL EQUIPMENT WITH PT'S FAMILY. [facility], , SPOKE TO [place] REGARDING TUBE FEEDING ORDER; [facility] ADVISED THAT PT'S INSURANCE WILL NOT PAY FOR SUPPLEMENTAL NUTRITION PT IS ON REGULAR DIET AND ABLE TO EAT BY MOUTH. [facility] WILL REVIEW REFERRAL TO SEE IF THERE IS SOME WAY THAT INSURANCE MAY COVER THE SERVICE. CM SPOKE TO PT IN ROOM, INFORMED OF ABOVE; PT ASKED FOR CM TO GET [place] PAY SHAY FOR TUBE FEEDING AND DISCUSS WITH NOLA, HER NIECE. CM FAXED REFERRAL TO [facility] AT [phone]. CM CALLED [facility], , SPOKE TO NEGRA, PROVIDED REFERRAL INFORMATION AND ADVISED OF PLANNED DISCHARGE 05-30-18. THEY WILL ACCEPT PT FOR ADMIT ON 05-31-18. CM FAXED HOME HEALTH REFERRAL TO [facility] AT [phone]. CM SPOKE TO NOLA QUINN IN HALLWAY DIRECTED BY PT; INFORMED OF ABOVE ARRANGEMENTS. CM SPOKE TO BEDSIDE NURSE REGARDING FAMILY CONCERN OF OXYGEN NEED, BEDSIDE NURSE INFORMED CM THAT SHE WOULD ATTEMPT OXYGEN WEANING. [facility] HOSPITAL BED AND BEDSIDE COMMODE WITH FAMILY. PT'S INSURANCE WILL NOT PAY FOR TUBE FEEDING MATERIALS OR SUPPLIES - [facility] / [facility] GETTING QUOTE FOR [place] PAY. [facility] WILL ACCEPT PT AT DISCHARGE. FOR DISCHARGE, NOTIFY [facility] AT [phone], FAX DISCHARGE INFORMATION TO [facility] AT [phone]. CM TO CONTINUE TO FOLLOW AND ASSIST NEEDED. Ashia Mccloudwell, HIEN EDWARD Appended by Ashia Benítez on 05/29/2018 16:06 SCIENTIFIC LINGUIST: CM SPOKE TO PT'S GREAT NIECE IN LAW WHO INFORMED CM THAT [facility] HAS CALLED TO ARRANGE DELIVERY OF HOSPITAL BED AND BEDSIDE COMMODE. SHE HAS NOT HEARD FROM [facility] REGARDING TUBE FEEDING. CM CALLED [facility], , SPOKE TO FRANKY WHO REPORTS INSURANCE WILL NOT COVER COSTS OF TUBE FEEDING AND PROVIDED QUOTE OVER THE PHONE AND WILL FAX QUOTE TO CM FOR PT'S FAMILY. BEDSIDE NURSE NOTIFIED. PT'S FAMILY ARE NOT IN ROOM, CM LEFT NOTE ON WHITE BOARD FOR FAMILY NOTIFYING THAT TUBE FEEDING COSTS ARE NOT COVERED BY INSURANCE WITH QUOTED PRICES. [facility] BED AND BEDSIDE COMMODE WITH FAMILY. PT'S INSURANCE WILL NOT PAY FOR TUBE FEEDING MATERIALS OR SUPPLIES - [facility] / [facility] QUOTED FOR [place] PAY OF $8 PER DAY FOR PUMP AND SUPPLIES / $1.50 PER CAN FOR JEVITY 1.2. [facility] WILL ACCEPT PT AT DISCHARGE. FOR DISCHARGE, NOTIFY [facility] AT [phone], FAX DISCHARGE INFORMATION TO [facility] AT [phone]. CM TO CONTINUE TO FOLLOW AND ASSIST NEEDED. HIEN Dai DCP- Discharge Planning Updated by [id number]: Ashia Benítez on 05/28/18 4:[address] Patient Name: MADELEINE WONG Encounter No: [id number] : 1930 Primary Insurance: HUMANA CHOICE PPO MCR ADVANT Anticipated DC Date: 05-24-2018 Planned Disposition: HOME WITH HOME HEALTH External Planned Provider[facility] follow-up note: CM RECEIVED ORDER FOR HOME HEALTH, TUBE FEEDING AND HOSPITAL BED. CM MET WITH PT AND GRAND NEPHEW'S SPOUSE IN ROOM. CM BEGAN DISCUSSING ORDER, PT'S GRAND NEPHEW'S SPOUSE INFORMED CM THAT PT PLANS TO DISCHARGE TO [facility] FOR REHAB AND ASKED IF CM HAS HEARD FROM [facility] SHE DID NOT SEE THEM MONDAY THEY WERE SUPPOSED TO EVALUATE PT THEN. CM CALLED [facility], SPOKE TO SHAWN WHO WILL CHECK WITH CELIA TO FIND OUT WHAT HAS HAPPENED. SHAWN WILL HAVE CELIA CALL CM SOON POSSIBLE. CM MET WITH PT, PT'S FIJESSICA AND PT'S GRAND NEPHEW'S NIECE. PT'S ADELINE INFORMED CM THAT CM DOES NOT NEED TO SEE THEM AND THAT DR. DIXON HAS TAKEN CARE OF EVERYTHING. CM ASKED WHAT HAD BEEN WORKED OUT. CM WAS ADVISED THAT PT WILL HAVE THE KYPHOPLASTY ON MONDAY AND THEN GO TO [facility] FOR REHAB, DR. DIXON WILL TALK TO CELIA AT [facility] AND WORK THIS OUT. CM NOTIFIED CELSO BRICENO AND DR. DIXON. CM RECEIVED CALL BACK FROM [facility] WHO SPOKE TO FAMILY, INFORMED THEM THAT PT IS NOT APPROPRIATE CANDIDATE FOR REHAB SHE IS REFUSING THERAPY SERICES AND INFORMED CM THAT FAMILY HAS REFUSED GRAPHIC ARTIST CARE PLACEMENT AT [facility]. CM MET WITH PT AND PT'S GRAND NEPHEWS SPOUSE IN ROOM. OSVALDO DISCUSSED IMPORTANT MESSAGE FROM MEDICARE AND DISCUSSED HOW TO COMPLAIN IF NEEDED TO THORACIC MEDICINE PHYSICIAN, ADMINISTRATION AND IF NEEDED, QUALITY IMPROVEMENT OFFICE FOR MEDICARE. NOLA INFORMED CM THAT SHE HAS COMPLAINED TO THE DOCTORS BUT HAS BEEN THINKING SHE NEEDS TO COMPLAIN TO SOMEONE ELSE. CM DISCUSSED DISCHARGE PLAN. NOLA HAS TALKED TO PT, PT'S ADELINE AND CELIA AT [facility]. THEY ARE NOT GOING TO PUT PT INTO GRAPHIC ARTIST CARE AND WILL BE TAKING PT HOME DISCUSSED LAST WEEK; NOLA STATES PT IS NOT READY FOR HOSPICE BUT WANTS HOME HEALTH. HOME HEALTH LISTING PROVIDED AND DISCUSSED, NOLA WANTS TO USE [employer], PT TOLD NOLA TO SIGN THE FORMS. NOLA SIGNED THE IMPORTANT MESSAGE FROM MEDICARE AND CHOICE FOR [facility]. NOLA STATES THAT THEY WILL NEED A HOSPITAL BED, BEDSIDE COMMODE, OXYGEN AND TUBE FEEDING SET UP FOR PT AT HOME. OSVALDO EXPLAINED THAT PT'S INSURANCE HAS TO PRE AUTHORIZE ALL MEDICAL EQUIPMENT AND THAT SINCE PT IS ABLE TO EAT, INSURANCE MAY NOT COVER TUBE FEEDING. THEY HAVE NO PREFERENCE ON PROVIDER AND NOLA ASKED TO BE CONTACTED REGARDING ANY COPAYS FOR EQUIPMENT AT [phone]. CM HAS ORDER FOR HOME HEALTH, HOSPITAL BED AND TUBE FEEDING. CM WILL NEED ADDITIONAL ORDERS FOR BEDSIDE COMMODE AND OXYGEN TESTING. CM TO FIND IN NETWORK PROVIDER FOR PT'S INSURANCE TO ARRANGE NEEDED MEDICAL EQUIPMENT SOON POSSIBLE. CM TO COMPLETE HOME HEALTH ARRANGEMENTS WITH [employer]. Ashia Benítez DCP- Discharge Planning Updated by [id number]: Roxi Greenfield on 05/28/18 11:[address] RECEIVED NOTICE THAT THE PATIENTS FAMILY WAS WANTING HER TO HAVE THE KYPHOPLASTY BEFORE SHE LEAVES THE HOSPITAL. IT WAS MENTIONED THAT THE PATIENTS POA HAS NOT BEEN HER AND THERE IS NO POA PAPERWORK IN THE CHART. I ASKED THE BEDSIDE NURSE RUDY BENJAMIN TO COME INTO THE ROOM WITH ME TO DISCUSS THE NEED FOR POA PAPERWORK IN ORDER TO HAVE ANY CONSENTS FOR PROCEDURES SIGNED SINCE THE PATIENT WAS NOT ABLE TO SIGN HERSELF, AND BY THE HIERACHY OF LAW, THE POA OR NEXT OF KIN WOULD BE WHO NEEDED TO SIGN AND SINCE THEY (THE LADY AND ADELINE) WERE NOT BLOOD RELATED, THEY COULD NOT SIGN FOR HER THEY HAVE BEEN. AT THIS TIME I WAS QUICKLY TOLD THAT SHE WAS IN HER RIGHT MIND AND ABLE TO MAKE ALL HER OWN DECISIONS. THE LADY AT BEDSIDE PROCEEDED TO TELL ME ABOUT ALL THE TIMES PEOPLE CAME IN AND QUESTIONED HER ABOUT THE DATE, TIME, PRESIDENT, ETC AND SHE WAS ABLE TO ALWAYS ANSWER ALL THEIR QUESTIONS. SHE STATED THE PATIENT WAS ABLE TO SIGN FOR HERSELF. UP TO THIS POINT, THE PATIENT HAD NOT OPENED HER EYES AND HAD NOT SAID ANYTHING. IT TOOK ME TOUCHING THE PATIENT'S ARM TO GET HER TO OPEN HER EYES AND ACKNOWLEDGE MY PRESENCE AND ANSWER MY QUESTIONS. THE PATIENT IS WITH IT AND ABLE TO ANSWER QUESTIONS. AT THIS POINT I ASKED HER IF SHE WANTED TO HAVE THE KYPHOPLASTY DONE. SHE STATED YES. THE LADY AT BEDSIDE BECAME VERY AGITATED STATING THAT SHE KNEW ABOUT HIPPA LAWS AND WANTED TO KNOW WHY ANYONE EVEN ALLOWED THINGS TO HAPPEN UP UNTIL NOW. NO ONE HAD ASKED FOR ANYONE'S DRIVERS LICENES TO VERIFY THEY WERE WHO THEY SAID THEY WERE. I TRIED TO EXPLAINE THAT EVEN WITH THAT, WE HAD NO WAY TO ACTUALLY VERIFY THAT WITH A DRIVERS LICENSE BECAUSE ANYONE CAN SAY THEY ARE SOMEONES FAMILY AND WE DON'T KNOW OTHERWISE UNLESS THE PATIENT SAYS SO, BUT SHE CUT ME OFF I WAS TALKING. I STOOD AT BEDSIDE AND LISTENED TO HER RANT ABOUT ALL THE THINGS THAT SHE HAS WITNESSED HERE AT THIS HOSPITAL THAT HAS MADE HER SICK TO HER STOMACH ESPECIALLY ABOUT THE FACT THAT SHE CAME IN HERE WITH A HURT BACK AND NOW THEY ARE JUST WATCHING HER . I APOLOGIZED TO HER ABOUT ALL OF THE THINGS THAT [facility] WAS UPSET ABOUT, AND THEN DIRECTED MY CONVERSATION TO THE PATIENT, EXPLAINING THAT IF SHE WANTED THEY KYPHOPLASTY AND HER URINE WAS CLEAR THAT I WOULD EXPLAIN THIS TO THE NURSE PRACTITIONER. THAT ULTIMATELY I AM HERE TO TAKE CARE OF HER AND MAKE SURE WE ARE DOING WHAT SHE WANTS. I ALSO EXPLAINED TO HER THAT SHE NEEDS TO SIGN ALL OF HER OWN PAPERWORK, EVEN IF IT IS JUST WITH AN "X". THAT WE SIGN WITNESSES TO STATE WE KNOW SHE UNDERSTANDS AND SHE IS SIGNING. EXPLAINED THAT LONG SHE IS ABLE TO MAKE ALL HER OWN DECISIONS, WE DID NOT NEED HER POA PAPERWORK. SHE IS IN AGREEMENT. THE GREAT NEPHEWS WHO IS AT BEDSIDE CONTINUED WITH HER RANT, I AGAIN APOLOGIZED AND THE BEDSIDE NURSE AND I LEFT THE ROOM. I EXPLAINED TO RADHA THAT THE PATIENT WAS CURRENTLY IN HER RIGHT MIND AND SHE IS WANTING THEY KYPHOPLASTY, AND SHE RECONSULTED IR TO SEE THE PATIENT. DCP- Discharge Planning Updated by [id number]: Josie Mccoy on 05/27/18 4:[address] CM RECEIVED AN ORDER REGARDING PLANS TO DISCHARGE TO HOME W/ HOSPITAL BED , TUBE FEEDING AND HOME HEALTH. PATIENT'S NUTRITION NOTE IS 05/25/18. WILL NEED NUTRITION NOTE REGARDING PATIENT NEEDS FOR DISCHARGE. CM UNDERSTANDS THE PATIENT DOES EAT AND TAKE HER MEDICATIONS BY MOUTH. SHE IS PRESENTLY ON FEEDINGS VIA PUMP. SHE HAS BEEN ADVANCED TO 60 CC/HR TODAY WHICH IS HER GOAL RATE. SPOKE WITH PRIMARY ARTURO AND SHE REPORTS NO RESIDUAL AT THIS TIME. WILL NEED TO HAVE [facility] PROVIDE BED AND SPECIALTY MATTRESS FOR HOME AND DETERMINE COVERAGE FOR TUBE FEEDING AND EQUIPMENT. CM TO FOLLOW UP IN AM. DCP- Discharge Planning Updated by [id number]: Ashia Benítez on 05/25/18 7:[address] Patient Name: MADELEINE WONG Encounter No: [id number] : 1930 Primary Insurance: HUMANA CHOICE PPO MCR ADVANT Anticipated DC Date: 05-24-2018 Planned Disposition: Shelter Facility External Planned Provider: [facility], MEDICARE REHAB BED DCP follow-up note: CM FAXED UPDATE TO [facility], FOR REHAB REQUEST. CM WAITING ADMISSION DETERMINATION FROM [facility] FOR REHAB PLACEMENT. ASHIA BENÍTEZ, CASE MANAGEMENT DCP- Discharge Planning Updated by [id number]: Ashia Benítez on 05/24/18 3:[address] Patient Name: MADELEINE WONG Encounter No: [id number] : 1930 Primary Insurance: HUMANA CHOICE PPO MCR ADVANT Anticipated DC Date: 05-24-2018 Planned Disposition: Shelter Facility External Planned Provider: [facility], MEDICARE REHAB BED DCP follow-up note: CM MET WITH PT'S HAN SALCEDO BY MARRIAGE, NOLA QUINN, . NOLA STATES THAT KARINA QUINN IS PT'S FIANCE. 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 NOLA WILL GET JOON TO HOSPITAL ALONG WITH POWER OF HYDROELECTRIC COMPONENT MACHINIST PAPERWORK SOON POSSIBLE. THEY ARE IN AGREEMENT WITH REHAB AT [facility], BUT [facility] MAY NOT ACCEPT PT HAS CONTINUED DECLINE. [facility] TO COME TOMORROW TO EVALUATE PT FOR REHAB. IF [facility] DOES NOT ACCEPT FOR REHAB, THEY ARE THINKING TO TAKE PT HOME TO [facility] HERE IN [place] AND NOLA ALONG WITH FAMILY WILL CARE FOR PT WITH HOME HOSPICE. NOLA REPORTS THEY WILL MAKE THAT DECISION TOMORROW. CM EXPLAINED THAT THE POWER OF HYDROELECTRIC COMPONENT MACHINIST WILL HAVE TO BE IN AGREEMENT AND SIGN ANY NEEDED AUTHORIZATIONS FOR ENROLLMENT IN REHAB OR HOSPICE CARE. NOLA REPORTS UNDERSTANDING, PROVIDED CELL PHONE NUMBER FOR JOON QUINN, . CM WAITING ADMISSION DETERMINATION FROM [facility] FOR REHAB PLACEMENT. ASHIA BENÍTEZ, CASE MANAGEMENT DCP- Discharge Planning Updated by [id number]: Ashia Benítez on 05/23/18 3:[address] Patient Name: MADELEINE WONG Encounter No: [id number] : 1930 Primary Insurance: HUMANA CHOICE PPO MCR ADVANT Anticipated DC Date: 05-24-2018 Planned Disposition: Shelter Facility External Planned Provider: [facility], MEDICARE REHAB BED DCP follow-up note: CM MET WITH PT AND SON/POA, KARINA QUINN, AT FAMILY REQUEST. MR. QUINN REPORTS IT IS NOW TIME TO SEND REFERRAL TO [facility] FOR REHAB PLACEMENT. IMPORTANT MESSAGE FROM MEDICARE PROVIDED AND EXPLAINED. CM [facility], . CM WAITING ADMISSION DETERMINATION FROM [facility] FOR REHAB PLACEMENT. ASHIA BENÍTEZ, CASE MANAGEMENT DCP- Discharge Planning Updated by [id number]: Ashia Benítez on 05/11/18 4:[address] Patient Name: MADELEINE WONG Admission Status: Elective Accout number: [id number] Admission Date: 05-09-2018 : 1930 Admission Diagnosis:ACUTE KIDNEY FAILURE, UNSPECIFIED Attending: LEXA BENAVIDES Current LOS: 2 Anticipated DC Date: Planned Disposition: Shelter Facility Primary Insurance: [employer] CHOICE PPO MCR ADVANT PLANNED EXTERNAL PROVIDER: [facility], MEDICARE REHAB BED Discharge Planning Comments: CM RECEIVED ORDER INDICATING PT WANTS JAIL CARE. CM MET WITH PT AND SON IN ROOM TO DISCUSS DISCHARGE PLANNING AND NEEDS. PT REPORTS THAT BEFORE GETTING SICK, SHE WAS LIVING AT HOME WITH HER SON, INDEPENDENT IN HER CARE. PT REPORTS SHE DID TELL THE DOCTOR THAT SHE WOULD BE BETTER OFF IN A JAIL BEFORE FAMILY ARRIVED TODAY. PT WANTS REHAB, NOT NURSING HOME CARE. PT HAS NO MEDICAL EQUIPMENT AND NO OUTSIDE SERVICES ASSISTING IN THE HOME. CM DISCUSSED AVAILABILITY OF HOME HEALTH, REHAB SERVICES AND MEDICAL EQUIPMENT. PT'S SON INITIALLY DECLINED TO PARTICIPATE IN DISCHARGE PLANNING REPORTING PT WAS SENT TO REHAB DOWNSTAIRS TOO SOON WHEN SHE WAS NOT ABLE TO WALK OR EVEN FEED HERSELF. SON WANTS PT CONSIDERED FOR INPATIENT REHAB AGAIN STATING THEY SENT HER BACK HERE BECAUSE SHE USED ALL OF HER DAYS DOWN THERE. PT DOES NOT THINK SHE CAN PARTICIPATE IN THREE HOURS OF PROGRESSIVE THERAPY PER DAY. CM EXPLAINED THAT IF PT IS NOT ABLE TO PARTICIPATE IN THE THREE HOURS OF PROGRESSIVE THERAPY, IS NOT ABLE TO STAND OR FEED HERSELF, SHE IS NOT GOING TO BE APPROPRIATE FOR READMISSION TO INPATENT REHAB. CM DISCUSSED AVAILABILITY OF RESIDENTIAL REHAB SERVICES AND PROVIDED CHOICE FORM. PT'S SON REPORTS HE ALREADY SIGNED ONE OF THESE FOR [facility] THE LAST VISIT AND SPEAKING WITH THIS CM. CM EXPLAINED A NEW ONE WAS NEEDED. PT'S SON SIGNED THE FORM AND DOES NOT WANT PT SENT TO REHAB BEFORE SHE IS STABLE. CM EXPLAINED THAT ALL DOCTORS WOULD HAVE TO INDICATE PT IS READY TO DISCHARGE AND CM IS ONLY WANTING TO BE PROACTIVE ON PT'S BEHALF FOR DISCHARGE PLANNING AND SECURE REHAB BED AHEAD OF TIME TO ENSURE THAT PT IS ABLE TO GET INTO [facility] WHEN DISCHARGED [facility] IS POPULAR REHAB AND DOES FILL UP. PT'S SON WILL WANTS PT TO BE STABLE FOR DISCHARGE FOR CM TO SEND REFERRALS. CHOICE SIGNED. CM PROVIDED PT'S SON WITH CM CONTACT INFORMATION. CM TO SEND REFERRAL TO [facility] WHEN PROJECTED DISCHARGE DATE IS KNOWN, PT'S SON DOES NOT WANT REHAB REFERRAL SENT OUT PRIOR TO PT'S MEDICAL STABILITY FOR DISCHARGE TO REHAB. Taxation Economist: Ashia Benítez DCPIA - Discharge Planning Initial Assessment Updated by [id number]: Ashia Benítez on 05/28/18 1:21 pm * Is the patient Alert and Oriented? Yes * How many steps to enter\\exit or inside your home? NONE * PCP DR. PONCE * Pharmacy [facility] * Preadmission Environment Acute Inpatient Rehab * Facility Name [facility] IN[facility]IENT [facility] * ADLs Total Dependent * Equipment None * Other Equipment NO MEDICAL EQUIPMENT PROVIDER PREFERECE * List name and contact numbers for known caregivers / representatives who currently or will assist patient after discharge: KARINA AEDLINE QUINN [phone] * Verbal permission to speak to the caregivers and representatives has been obtained from the patient. Yes * Community resources currently utilized None * Please name any agencies selected above. NONE * Additional services required to return to the preadmission environment? Yes * Can the patient safely return to the preadmission environment? Yes * Has this patient been hospitalized within the prior 30 days at any hospital? Yes Coverage Notice Reviewer: [id number] Benítez Notice Issued Date-Time: 05/11/2018 13:00 Notice Type: Patient Choice Letter Notice Delivered To: Family Member Relationship to Patient: Other Relationship Solderer Electronic Name: KARINA QUINN Delivery Method: HAND - Hand Delivered Dawna Days: Prior Verbal Notification: Recipient Understood Notice: Yes Recipient Signature: Yes Med Rec Note Co-signed by Attending: Coverage Notice Comment: [facility] Reviewer: [id number] Adriel Benítez Notice Issued Date-Time: 05/23/2018 12:20 Notice Type: IM Discharge Notice Notice Delivered To: Family Member Relationship to Patient: Other Relationship Solderer Electronic Name: KARINA QUINN Delivery Method: HAND - Hand Delivered Dawna Days: Prior Verbal Notification: Recipient Understood Notice: Yes Recipient Signature: Yes Med Rec Note Co-signed by Attending: Coverage Notice Comment: Reviewer: [id number] Adriel Benítez Notice Issued Date-Time: 05/28/2018 16:20 Notice Type: IM Discharge Notice Notice Delivered To: Family Member Relationship to Patient: Other Relationship Solderer Electronic Name: NOLA QUINN Delivery Method: HAND - Hand Delivered Dawna Days: Prior Verbal Notification: Recipient Understood Notice: Yes Recipient Signature: Yes Med Rec Note Co-signed by Attending: Coverage Notice Comment: Reviewer: [id number] Adriel Benítez Notice Issued Date-Time: 05/28/2018 16:20 Notice Type: Patient Choice Letter Notice Delivered To: Family Member Relationship to Patient: Other Relationship Solderer Electronic Name: NOLA QUINN Delivery Method: HAND - Hand Delivered Dawna Days: Prior Verbal Notification: Recipient Understood Notice: Yes Recipient Signature: Yes Med Rec Note Co-signed by Attending: Coverage Notice Comment: [facility] Last DP export: 05/30/18 11:10 a Patient Name: MADELEINE WONG Page [id number] at 0749 All edits/amendments must be made on the electronic document DICTATION DATE: 05/31/18 0749 LOG MARKER: JULIA 05/31/18 0749 RPT#: [id number] DC DATE: STATUS: ADM IN [facility] [address] [place] [address] END OF REPORT
--- NOTE | 2018-05-31 07:56 | MORECARE ---
CASE MANAGEMENT DISCHARGE SUMMARY PATIENT: MADELEINE WONG UNIT: [id number] ADM DATE: 05/09/18 AGE: 88 : [birth year] SEX: F ROOM/BED: D.2112 AUTHOR: TEENA,DOC PHYSICIAN: REFERRING PHYSICIAN: LEXA BENAVIDES MD DATE OF SERVICE: 05/31/18 Discharge Plan Patient Name: MADELEINE WONG Facility: [facility]:[place] : 1930 Planned Disposition: Home with Home Health Anticipated Discharge Date: 05/31/18 Discharge Date: Expected LOS: 22 Initial Reviewer: [id number] Initial Review Date: 05/09/2018 Generated: 05/31/18 8:56 am Comments DCP- Discharge Planning Updated by [id number]: Ashia Benítez on 05/31/18 6:[address] Patient Name: MADELEINE WONG Encounter No: [id number] : 1930 Primary Insurance: HUMANA CHOICE PPO MCR ADVANT Anticipated DC Date: 05-31-2018 Planned Disposition: Home with Home Health External Planned Provider: [facility] DCP follow-up note: CM REVIEWED CHART, PT DID NOT DISCHARGE HOME YESTERDAY. CM FAXED UPDATE TO [facility] AT [phone]. NOTIFY [facility], , OF DISCHARGE. FAX DISCHARGE TO [facility] AT, . Ashia Benítez, CASE MANAGEMENT DCP- Discharge Planning Updated by [id number]: Ashia Benítez on 05/30/18 11:[address] Patient Name: MADELEINE WONG Encounter No: [id number] : 1930 Primary Insurance: HUMANA CHOICE PPO MCR ADVANT Anticipated DC Date: 05-30-2018 Planned Disposition: Home with Home Health External Planned Provider: [facility] DCP follow-up note: CM SPOKE TO PT IN ROOM THIS MORNING, PT REPORTS SHE IS HAVING KYPHOPLASTY TODAY BEFORE GOING HOME. CM INFORMED PT THAT QUOTE FOR TUBE FEEDING MATERIALS RECEIVED, CM PROVIDED TO PT. PT REPORTS SHE WILL NOTIFY NOLA THIS MORNING WHEN SHE GETS HERE. PT DENIES NEEDS. OSVALDO SPOKE TO NOLA QUINN, , IN PERSON AT [employer]. NOLA REPORTS THAT [facility] HAS MADE ARRAGMENTS FOR DELIVERY OF THE HOSPITAL BED AND BEDSIDE COMMODE TODAY. SHE HAS NOT HEARD FROM [facility] ABOUT TUBE FEEDING; SHE DID RECEIVE THE QUOTE FOR PRIVATE PAY AND WANTS TO MAKE THE ARRAGNEMENTS. NOLA HAS NOT CALLED [facility] HERSELF. CM CALLED [facility], , NOTIFED FRANKY THAT PT'S FAMILY WANTS TO PRIVATE PAY THE PUMP AND FEEDING SUPPLIES AND ASKED HER TO CALL NOLA SOON POSSIBLE AND MAKE ARRANGEMENTS FOR DELIVERY TODAY. ADRIANA REPORTS MATERIALS AND SUPPLIES ARE [place] ON DELIVERY AND SHE WILL CALL NOLA IMMEDIATELY TO MAKE DELIVERY AND EDUCATION ARRANGEMENTS. NOTIFY [facility], , OF DISCHARGE. FAX DISCHARGE TO [facility] AT, . Ashia Benítez, CASE MANAGEMENT DCP- Discharge Planning Updated by [id number]: Ashia Benítez on 05/29/18 3:[address] Patient Name: MADELEINE WONG Encounter No: [id number] : 1930 Primary Insurance: HUMANA CHOICE PPO MCR ADVANT Anticipated DC Date: 05-30-2018 Planned Disposition: Home with Home Health External Planned Provider: [facility] DCP follow-up note: CM CALLED PAYAL AT [facility], , PROVIDED INFORMATION FOR HOSPITAL BED AND BEDSIDE COMMODE, INFORMED OF PLANNED DISCHARGE TOMORROW. CM FAXED ORDER AND REFERRAL INFORMATION TO [facility] AT [phone]. [facility] TO ARRANGE DELIVERY OF MEDICAL EQUIPMENT WITH PT'S FAMILY. CM CALLED [facility], , SPOKE TO EN[place] REGARDING TUBE FEEDING ORDER; [facility] ADVISED THAT PT'S INSURANCE WILL NOT PAY FOR SUPPLEMENTAL NUTRITION PT IS ON REGULAR DIET AND ABLE TO EAT BY MOUTH. [facility] WILL REVIEW REFERRAL TO SEE IF THERE IS SOME WAY THAT INSURANCE MAY COVER THE SERVICE. CM SPOKE TO PT IN ROOM, INFORMED OF ABOVE; PT ASKED FOR CM TO GET [place] PAY SHYA FOR TUBE FEEDING AND DISCUSS WITH NOLA, HER NIECE. CM FAXED REFERRAL TO [facility] AT [phone]. CM CALLED [facility], , SPOKE TO NEGRA, PROVIDED REFERRAL INFORMATION AND ADVISED OF PLANNED DISCHARGE 05-30-18. THEY WILL ACCEPT PT FOR ADMIT ON 05-31-18. CM FAXED HOME HEALTH REFERRAL TO [facility] AT [phone]. CM SPOKE TO NOLA QUINN IN HALLWAY DIRECTED BY PT; INFORMED OF ABOVE ARRANGEMENTS. CM SPOKE TO BEDSIDE NURSE REGARDING FAMILY CONCERN OF OXYGEN NEED, BEDSIDE NURSE INFORMED CM THAT SHE WOULD ATTEMPT OXYGEN WEANING. [facility] ARRANGING HOSPITAL BED AND BEDSIDE COMMODE WITH FAMILY. PT'S INSURANCE WILL NOT PAY FOR TUBE FEEDING MATERIALS OR SUPPLIES - [facility] GETTING QUOTE FOR [place] PAY. [facility] WILL ACCEPT PT AT DISCHARGE. FOR DISCHARGE, NOTIFY [facility] AT [phone], FAX DISCHARGE INFORMATION TO [facility] AT [phone]. CM TO CONTINUE TO FOLLOW AND ASSIST NEEDED. Ashia Benítez, CASE MANGEMENT Appended by Ashia Benítez on 05/29/2018 16:06 BILLING MANAGER: CM SPOKE TO PT'S GREAT NIECE IN LAW WHO INFORMED CM THAT [facility] HAS CALLED TO ARRANGE DELIVERY OF HOSPITAL BED AND BEDSIDE COMMODE. SHE HAS NOT HEARD FROM [facility] REGARDING TUBE FEEDING. CM CALLED [facility], , SPOKE TO FRANKY WHO REPORTS INSURANCE WILL NOT COVER COSTS OF TUBE FEEDING AND PROVIDED QUOTE OVER THE PHONE AND WILL FAX QUOTE TO CM FOR PT'S FAMILY. BEDSIDE NURSE NOTIFIED. PT'S FAMILY ARE NOT IN ROOM, CM LEFT NOTE ON WHITE BOARD FOR FAMILY NOTIFYING THAT TUBE FEEDING COSTS ARE NOT COVERED BY INSURANCE WITH QUOTED PRICES. [facility] ARRANGING HOSPITAL BED AND BEDSIDE COMMODE WITH FAMILY. PT'S INSURANCE WILL NOT PAY FOR TUBE FEEDING MATERIALS OR SUPPLIES - [facility] QUOTED FOR TINS[place] PAY OF $8 PER DAY FOR PUMP AND SUPPLIES / $1.50 PER CAN FOR JEVITY 1.2. [facility] WILL ACCEPT PT AT DISCHARGE. FOR DISCHARGE, NOTIFY [facility] AT [phone], FAX DISCHARGE INFORMATION TO [facility] AT [phone]. CM TO CONTINUE TO FOLLOW AND ASSIST NEEDED. Ashia Benítez, CASE MANGEMENT DCP- Discharge Planning Updated by [id number]: Ashia Benítez on 05/28/18 4:[address] Patient Name: MADELEINE WONG Encounter No: [id number] : 1930 Primary Insurance: HUMANA CHOICE PPO MCR ADVANT Anticipated DC Date: 05-24-2018 Planned Disposition: HOME WITH HOME HEALTH External Planned Provider: [facility] DCP follow-up note: CM RECEIVED ORDER FOR HOME HEALTH, TUBE FEEDING AND HOSPITAL BED. CM MET WITH PT AND GRAND NEPHEW'S SPOUSE IN ROOM. CM BEGAN DISCUSSING ORDER, PT'S GRAND NEPHEW'S SPOUSE INFORMED CM THAT PT PLANS TO DISCHARGE TO [facility] FOR REHAB AND ASKED IF CM HAS HEARD FROM [facility] SHE DID NOT SEE THEM MONDAY THEY WERE SUPPOSED TO EVALUATE PT THEN. CM CALLED [facility], SPOKE TO SHAWN WHO WILL CHECK WITH CELIA TO FIND OUT WHAT HAS HAPPENED. SHAWN WILL HAVE CELIA CALL CM SOON POSSIBLE. CM MET WITH PT, PT'S ADELINE AND PT'S GRAND NEPHEW'S NIECE. PT'S ADELINE INFORMED CM THAT CM DOES NOT NEED TO SEE THEM AND THAT DR. DIXON HAS TAKEN CARE OF EVERYTHING. CM ASKED WHAT HAD BEEN WORKED OUT. CM WAS ADVISED THAT PT WILL HAVE THE KYPHOPLASTY ON MONDAY AND THEN GO TO [facility] FOR REHAB, DR. DIXON WILL TALK TO CELIA AT [facility] AND WORK THIS OUT. CM NOTIFIED CELSO BRICENO AND DR. DIXON. CM RECEIVED CALL BACK FROM CELIA WHO SPOKE TO FAMILY, INFORMED THEM THAT PT IS NOT APPROPRIATE CANDIDATE FOR REHAB SHE IS REFUSING THERAPY SERICES AND INFORMED CM THAT FAMILY HAS REFUSED JAIL CARE PLACEMENT AT [facility]. CM MET WITH PT AND PT'S GRAND NEPHEWS SPOUSE IN ROOM. CM DISCUSSED IMPORTANT MESSAGE FROM MEDICARE AND DISCUSSED HOW TO COMPLAIN IF NEEDED TO HOME CARE COMPANION, ADMINISTRATION AND IF NEEDED, QUALITY IMPROVEMENT OFFICE FOR MEDICARE. NOLA INFORMED CM THAT SHE HAS COMPLAINED TO THE DOCTORS BUT HAS BEEN THINKING SHE NEEDS TO COMPLAIN TO SOMEONE ELSE. CM DISCUSSED DISCHARGE PLAN. NOLA HAS TALKED TO PT, PT'S ADELINE AND CELIA AT [facility]. THEY ARE NOT GOING TO PUT PT INTO JAIL CARE AND WILL BE TAKING PT HOME DISCUSSED LAST WEEK; NOLA STATES PT IS NOT READY FOR HOSPICE BUT WANTS HOME HEALTH. HOME HEALTH LISTING PROVIDED AND DISCUSSED, NOLA WANTS TO USE THE [employer], PT TOLD NOLA TO SIGN THE FORMS. NOLA SIGNED THE IMPORTANT MESSAGE FROM MEDICARE AND [facility] FOR [facility] HOME HEALTH. NOLA STATES THAT THEY WILL NEED A HOSPITAL BED, BEDSIDE COMMODE, OXYGEN AND TUBE FEEDING SET UP FOR PT AT HOME. CM EXPLAINED THAT PT'S INSURANCE HAS TO PRE AUTHORIZE ALL MEDICAL EQUIPMENT AND THAT SINCE PT IS ABLE TO EAT, INSURANCE MAY NOT COVER TUBE FEEDING. THEY HAVE NO PREFERENCE ON PROVIDER AND NOLA ASKED TO BE CONTACTED REGARDING ANY COPAYS FOR EQUIPMENT AT [phone]. CM HAS ORDER FOR HOME HEALTH, HOSPITAL BED AND TUBE FEEDING. CM WILL NEED ADDITIONAL ORDERS FOR BEDSIDE COMMODE AND OXYGEN TESTING. CM TO FIND IN NETWORK PROVIDER FOR PT'S INSURANCE TO ARRANGE NEEDED MEDICAL EQUIPMENT SOON POSSIBLE. CM TO COMPLETE HOME HEALTH ARRANGEMENTS WITH [employer]. Ashia Benítez DCP- Discharge Planning Updated by [id number]: Roxi Jean Pierre on 05/28/18 11:[address] RECEIVED NOTICE THAT THE PATIENTS FAMILY WAS WANTING HER TO HAVE THE KYPHOPLASTY BEFORE SHE LEAVES THE HOSPITAL. IT WAS MENTIONED THAT THE PATIENTS POA HAS NOT BEEN HER AND THERE IS NO POA PAPERWORK IN THE CHART. I ASKED THE BEDSIDE NURSE RUDY BENJAMIN TO COME INTO THE ROOM WITH ME TO DISCUSS THE NEED FOR POA PAPERWORK IN ORDER TO HAVE ANY CONSENTS FOR PROCEDURES SIGNED SINCE THE PATIENT WAS NOT ABLE TO SIGN HERSELF, AND BY THE HIERACHY OF LAW, THE POA OR NEXT OF KIN WOULD BE WHO NEEDED TO SIGN AND SINCE THEY (THE LADY AND FIJESSICA) WERE NOT BLOOD RELATED, THEY COULD NOT SIGN FOR HER THEY HAVE BEEN. AT THIS TIME I WAS QUICKLY TOLD THAT SHE WAS IN HER RIGHT MIND AND ABLE TO MAKE ALL HER OWN DECISIONS. THE LADY AT BEDSIDE PROCEEDED TO TELL ME ABOUT ALL THE TIMES PEOPLE CAME IN AND QUESTIONED HER ABOUT THE DATE, TIME, PRESIDENT, ETC AND SHE WAS ABLE TO ALWAYS ANSWER ALL THEIR QUESTIONS. SHE STATED THE PATIENT WAS ABLE TO SIGN FOR HERSELF. UP TO THIS POINT, THE PATIENT HAD NOT OPENED HER EYES AND HAD NOT SAID ANYTHING. IT TOOK ME TOUCHING THE PATIENT'S ARM TO GET HER TO OPEN HER EYES AND ACKNOWLEDGE MY PRESENCE AND ANSWER MY QUESTIONS. THE PATIENT IS WITH IT AND ABLE TO ANSWER QUESTIONS. AT THIS POINT I ASKED HER IF SHE WANTED TO HAVE THE KYPHOPLASTY DONE. SHE STATED YES. THE LADY AT BEDSIDE BECAME VERY AGITATED STATING THAT SHE KNEW ABOUT HIPPA LAWS AND WANTED TO KNOW WHY ANYONE EVEN ALLOWED THINGS TO HAPPEN UP UNTIL NOW. NO ONE HAD ASKED FOR ANYONE'S DRIVERS LICENES TO VERIFY THEY WERE WHO THEY SAID THEY WERE. I TRIED TO EXPLAINE THAT EVEN WITH THAT, WE HAD NO WAY TO ACTUALLY VERIFY THAT WITH A DRIVERS LICENSE BECAUSE ANYONE CAN SAY THEY ARE SOMEONES FAMILY AND WE DON'T KNOW OTHERWISE UNLESS THE PATIENT SAYS SO, BUT SHE CUT ME OFF I WAS TALKING. I STOOD AT BEDSIDE AND LISTENED TO HER RANT ABOUT ALL THE THINGS THAT SHE HAS WITNESSED HERE AT THIS HOSPITAL THAT HAS MADE HER SICK TO HER STOMACH ESPECIALLY ABOUT THE FACT THAT SHE CAME IN HERE WITH A HURT BACK AND NOW THEY ARE JUST WATCHING HER . I APOLOGIZED TO HER ABOUT ALL OF THE THINGS THAT MICHAEL WAS UPSET ABOUT, AND THEN DIRECTED MY CONVERSATION TO THE PATIENT, EXPLAINING THAT IF SHE WANTED THEY KYPHOPLASTY AND HER URINE WAS CLEAR THAT I WOULD EXPLAIN THIS TO THE NURSE PRACTITIONER. THAT ULTIMATELY I AM HERE TO TAKE CARE OF HER AND MAKE SURE WE ARE DOING WHAT SHE WANTS. I ALSO EXPLAINED TO HER THAT SHE NEEDS TO SIGN ALL OF HER OWN PAPERWORK, EVEN IF IT IS JUST WITH AN "X". THAT WE SIGN WITNESSES TO STATE WE KNOW SHE UNDERSTANDS AND SHE IS SIGNING. EXPLAINED THAT LONG SHE IS ABLE TO MAKE ALL HER OWN DECISIONS, WE DID NOT NEED HER POA PAPERWORK. SHE IS IN AGREEMENT. THE GREAT NEPHEWS WHO IS AT BEDSIDE CONTINUED WITH HER RANT, I AGAIN APOLOGIZED AND THE BEDSIDE NURSE AND I LEFT THE ROOM. I EXPLAINED TO RADHA THAT THE PATIENT WAS CURRENTLY IN HER RIGHT MIND AND SHE IS WANTING THEY KYPHOPLASTY, AND SHE RECONSULTED IR TO SEE THE PATIENT. DCP- Discharge Planning Updated by [id number]: Josie Mccoy on 05/27/18 4:[address] CM RECEIVED AN ORDER REGARDING PLANS TO DISCHARGE TO HOME W/ HOSPITAL BED , TUBE FEEDING AND HOME HEALTH. PATIENT'S NUTRITION NOTE IS 05/25/18. WILL NEED NUTRITION NOTE REGARDING PATIENT NEEDS FOR DISCHARGE. CM UNDERSTANDS THE PATIENT DOES EAT AND TAKE HER MEDICATIONS BY MOUTH. SHE IS PRESENTLY ON FEEDINGS VIA PUMP. SHE HAS BEEN ADVANCED TO 60 CC/HR TODAY WHICH IS HER GOAL RATE. SPOKE WITH BRANDON MORRIS AND SHE REPORTS NO RESIDUAL AT THIS TIME. WILL NEED TO HAVE [facility] PROVIDE BED AND SPECIALTY MATTRESS FOR HOME AND DETERMINE COVERAGE FOR TUBE FEEDING AND EQUIPMENT. CM TO FOLLOW UP IN AM. DCP- Discharge Planning Updated by [id number]: Ashia Benítez on 05/25/18 7:[address] Patient Name: MADELEINE WONG Encounter No: [id number] : 1930 Primary Insurance: HUMANA CHOICE PPO MCR ADVANT Anticipated DC Date: 05-24-2018 Planned Disposition: Group Home Facility External Planned Provider: [facility], MEDICARE REHAB BED DCP follow-up note: CM FAXED UPDATE TO [facility], FOR REHAB REQUEST. CM WAITING ADMISSION DETERMINATION FROM [facility] FOR REHAB PLACEMENT. ASHIA BENÍTEZ CASE MANAGEMENT DCP- Discharge Planning Updated by [id number]: Ashia Benítez on 05/24/18 3:[address] Patient Name: MADELEINE WONG Encounter No: [id number] : 1930 Primary Insurance: HUMANA CHOICE PPO MCR ADVANT Anticipated DC Date: 05-24-2018 Planned Disposition: Group Home Facility External Planned Provider: [facility], MEDICARE REHAB BED DCP follow-up note: CM MET WITH PT'S HAN SALCEDO BY MARRIAGE, NOLA QUINN, . NOLA STATES THAT KARINA QUINN IS PT'S FIANCE. PT HAS POWER OF REGIONAL SALES CONSULTANT WITH [employer] NEPHEW, REBECCA SPOUSE, JOON QUINN, WHO WORKS IN [employer]. NOLA WILL GET JOON TO HOSPITAL ALONG WITH POWER OF REGIONAL SALES CONSULTANT PAPERWORK SOON POSSIBLE. THEY ARE IN AGREEMENT WITH REHAB AT [facility], BUT [facility] MAY NOT ACCEPT PT HAS CONTINUED DECLINE. [facility] TO COME TOMORROW TO EVALUATE PT FOR REHAB. IF [facility] DOES NOT ACCEPT FOR REHAB, THEY ARE THINKING TO TAKE PT HOME TO [facility] HERE IN [place] AND NOLA ALONG WITH FAMILY WILL CARE FOR PT WITH HOME HOSPICE. NOLA REPORTS THEY WILL MAKE THAT DECISION TOMORROW. CM EXPLAINED THAT THE POWER OF REGIONAL SALES CONSULTANT WILL HAVE TO BE IN AGREEMENT AND SIGN ANY NEEDED AUTHORIZATIONS FOR ENROLLMENT IN REHAB OR HOSPICE CARE. NOLA REPORTS UNDERSTANDING, PROVIDED CELL PHONE NUMBER FOR JOON QUINN, . CM WAITING ADMISSION DETERMINATION FROM [facility] AND [facility] FOR REHAB PLACEMENT. HIEN BARRY MANAGEMENT DCP- Discharge Planning Updated by [id number]: Ashia Benítez on 05/23/18 3:[address] Patient Name: MADELEINE WONG Encounter No: [id number] : 1930 Primary Insurance: HUMANA CHOICE PPO MCR ADVANT Anticipated DC Date: 05-24-2018 Planned Disposition: Group Home Facility External Planned Provider: [facility], MEDICARE REHAB BED DCP follow-up note: CM MET WITH PT AND SON/POA, KARINA QUINN, AT FAMILY REQUEST. MR. QUINN REPORTS IT IS NOW TIME TO SEND REFERRAL TO [facility] FOR REHAB PLACEMENT. IMPORTANT MESSAGE FROM MEDICARE PROVIDED AND EXPLAINED. CM [facility], . CM WAITING ADMISSION DETERMINATION FROM [facility] FOR REHAB PLACEMENT. ASHIA BENÍTEZ, CASE MANAGEMENT DCP- Discharge Planning Updated by [id number]: Ashia Benítez on 05/11/18 4:[address] Patient Name: MADELEINE WONG Admission Status: Elective Accout number: [id number] Admission Date: 05-09-2018 : 1930 Admission Diagnosis:ACUTE KIDNEY FAILURE, UNSPECIFIED Attending: LEXA BENAVIDES Current LOS: 2 Anticipated DC Date: Planned Disposition: Group Home Facility Primary Insurance: HUMANA CHOICE PPO MCR ADVANT PLANNED EXTERNAL PROVIDER: [facility], MEDICARE REHAB BED Discharge Planning Comments: CM RECEIVED ORDER INDICATING PT WANTS FDC CARE. CM MET WITH PT AND SON IN ROOM TO DISCUSS DISCHARGE PLANNING AND NEEDS. PT REPORTS THAT BEFORE GETTING SICK, SHE WAS LIVING AT HOME WITH HER SON, INDEPENDENT IN HER CARE. PT REPORTS SHE DID TELL THE DOCTOR THAT SHE WOULD BE BETTER OFF IN A FDC BEFORE FAMILY ARRIVED TODAY. PT WANTS REHAB, NOT JAIL CARE. PT HAS NO MEDICAL EQUIPMENT AND NO OUTSIDE SERVICES ASSISTING IN THE HOME. CM DISCUSSED AVAILABILITY OF HOME HEALTH, REHAB SERVICES AND MEDICAL EQUIPMENT. PT'S SON INITIALLY DECLINED TO PARTICIPATE IN DISCHARGE PLANNING REPORTING PT WAS SENT TO REHAB [place]STA[place] TOO SO[place] WHEN SHE WAS NOT ABLE TO WALK OR EVEN FEED HERSELF. SON WANTS PT CONSIDERED FOR INPATIENT REHAB AGAIN STATING THEY SENT HER BACK HERE BECAUSE SHE USED ALL OF HER DAYS DOWN THERE. PT DOES NOT THINK SHE CAN PARTICIPATE IN THREE HOURS OF PROGRESSIVE THERAPY PER DAY. CM EXPLAINED THAT IF PT IS NOT ABLE TO PARTICIPATE IN THE THREE HOURS OF PROGRESSIVE THERAPY, IS NOT ABLE TO STAND OR FEED HERSELF, SHE IS NOT GOING TO BE APPROPRIATE FOR READMISSION TO INPATENT REHAB. CM DISCUSSED AVAILABILITY OF PRISON REHAB SERVICES AND PROVIDED CHOICE FORM. PT'S SON REPORTS HE ALREADY SIGNED ONE OF THESE FOR [facility] THE LAST VISIT AND SPEAKING WITH THIS CM. CM EXPLAINED A NEW ONE WAS NEEDED. PT'S SON SIGNED THE FORM AND DOES NOT WANT PT SENT TO REHAB BEFORE SHE IS STABLE. CM EXPLAINED THAT ALL DOCTORS WOULD HAVE TO INDICATE PT IS READY TO DISCHARGE AND CM IS ONLY WANTING TO BE PROACTIVE ON PT'S BEHALF FOR DISCHARGE PLANNING AND SECURE REHAB BED AHEAD OF TIME TO ENSURE THAT PT IS ABLE TO GET INTO [facility] WHEN DISCHARGED [facility] IS POPULAR [facility]HAB AND DOES FILL UP. PT'S SON WILL WANTS PT TO BE STABLE FOR DISCHARGE FOR CM TO SEND REFERRALS. CHOICE SIGNED. CM PROVIDED PT'S SON WITH CM CONTACT INFORMATION. CM TO SEND REFERRAL TO [facility] WHEN PROJECTED DISCHARGE DATE IS KNOWN, PT'S SON DOES NOT WANT REHAB REFERRAL SENT OUT PRIOR TO PT'S MEDICAL STABILITY FOR DISCHARGE TO REHAB. Clinical Pharmacy Coordinator: Ashia Benítez DCPIA - Discharge Planning Initial Assessment Updated by [id number]: Ashia Benítez on 05/28/18 1:21 pm * Is the patient Alert and Oriented? Yes * How many steps to enter\\exit or inside your home? NONE * PCP DR. PONCE * Pharmacy [facility] * Preadmission Environment Acute Inpatient Rehab * Facility Name [facility] * ADLs Total Dependent * Equipment None * Other Equipment NO MEDICAL EQUIPMENT PROVIDER PREFERECE * List name and contact numbers for known caregivers / representatives who currently or will assist patient after discharge: ADELINE BRANNON [phone] * Verbal permission to speak to the caregivers and representatives has been obtained from the patient. Yes * Community resources currently utilized None * Please name any agencies selected above. NONE * Additional services required to return to the preadmission environment? Yes * Can the patient safely return to the preadmission environment? Yes * Has this patient been hospitalized within the prior 30 days at any hospital? Yes Coverage Notice Reviewer: [id number] - Ashia Benítez Notice Issued Date-Time: 05/11/2018 13:00 Notice Type: Patient Choice Letter Notice Delivered To: Family Member Relationship to Patient: Other Relationship Exceptional Needs Teacher Name: KARINA QUINN Delivery Method: HAND - Hand Delivered Dawna Days: Prior Verbal Notification: Recipient Understood Notice: Yes Recipient Signature: Yes Med Rec Note Co-signed by Attending: Coverage Notice Comment: [facility] Reviewer: JEWEL Benítez Notice Issued Date-Time: 05/23/2018 12:20 Notice Type: IM Discharge Notice Notice Delivered To: Family Member Relationship to Patient: Other Relationship Exceptional Needs Teacher Name: KARINA QUINN Delivery Method: HAND - Hand Delivered Dawna Days: Prior Verbal Notification: Recipient Understood Notice: Yes Recipient Signature: Yes Med Rec Note Co-signed by Attending: Coverage Notice Comment: Reviewer: JEWEL Benítez Notice Issued Date-Time: 05/28/2018 16:20 Notice Type: IM Discharge Notice Notice Delivered To: Family Member Relationship to Patient: Other Relationship Exceptional Needs Teacher Name: NOLA QUINN Delivery Method: HAND - Hand Delivered Dawna Days: Prior Verbal Notification: Recipient Understood Notice: Yes Recipient Signature: Yes Med Rec Note Co-signed by Attending: Coverage Notice Comment: Reviewer: JEWEL Benítez Notice Issued Date-Time: 05/28/2018 16:20 Notice Type: Patient Choice Letter Notice Delivered To: Family Member Relationship to Patient: Other Relationship Exceptional Needs Teacher Name: NOLA QUINN Delivery Method: HAND - Hand Delivered Dawna Days: Prior Verbal Notification: Recipient Understood Notice: Yes Recipient Signature: Yes Med Rec Note Co-signed by Attending: Coverage Notice Comment: [facility] Last DP export: 05/31/18 6:49 a Patient Name: MADELEINE WONG Page [id number] at 0756 All edits/amendments must be made on the electronic document DICTATION DATE: 05/31/18755 LAND SURVEYOR ASSISTANT: JULIA 05/31/18 0756 RPT#: [id number] DC DATE: STATUS: ADM IN [facility] [address] [place] [address] END OF REPORT
[2018-05-31 07:57] VITALS: BP 146/59
--- NOTE | 2018-05-31 09:52 | NUR ---
RESP UL ON . PT AT BS. CALL LIGHT IN REACH. WILL CONT. PLAN OF CARE.
--- NOTE | 2018-05-31 13:00 | NUR ---
DISCHARGE ORDERS RECEIVED. DENISSE STATES SHE DID NOT HAVE TAMAYO AT HOME. TAMAYO REMOVED WITHOUT DIFFICULTY. PT HAS BEEN UP IN CHAIR SINCE 10 AM AND IS READY TO GO BACK TO BED. PT HERE TO PUT HER BACK IN BED, TOLERATED WELL. RIGHT CHEST CVL REMOVED BY Archie NEWTON RN WITH OUT DIFFICULTY.
--- NOTE | 2018-05-31 13:30 | NUR ---
DISCHARGE INSTRUCTIONS REVIEWED WITH PTS NEICE AND VOICES UNDERSTANDING. HAD SOME QUESTIONS FOR DR. DIXON AND HE WENT IN TO SPEAK WITH HER AND ANSWERED HER QUESTIONS.
--- NOTE | 2018-05-31 14:46 | MORECARE ---
CASE MANAGEMENT DISCHARGE SUMMARY PATIENT: MADELEINE WONG UNIT: [id number] ADM DATE: 05/09/18 AGE: 88 : [birth year] SEX: F ROOM/BED: D.2112 AUTHOR: TEENA,DOC PHYSICIAN: REFERRING PHYSICIAN: LEXA BENAVIDES MD DATE OF SERVICE: 05/31/18 Discharge Plan Patient Name: MADELEINE WONG Facility: [facility]:[place] : 1930 Planned Disposition: Home with Home Health Anticipated Discharge Date: 05/31/18 Discharge Date: Expected LOS: 22 Initial Reviewer: [id number] Initial Review Date: 05/09/2018 Generated: 05/31/18 3:46 pm Comments DCP- Discharge Planning Updated by [id number]: Ashia Benítez on 05/31/18 6:[address] Patient Name: MADELEINE WONG Encounter No: [id number] : 1930 Primary Insurance: HUMANA CHOICE PPO MCR ADVANT Anticipated DC Date: 05-31-2018 Planned Disposition: Home with Home Health External Planned Provider: [facility] DCP follow-up note: CM REVIEWED CHART, PT DID NOT DISCHARGE HOME YESTERDAY. CM FAXED UPDATE TO [employer] AT [phone]. NOTIFY [facility], , OF DISCHARGE. FAX DISCHARGE TO [employer] AT, . Ashia Benítez, CASE MANAGEMENT DCP- Discharge Planning Updated by [id number]: Ashia Benítez on 05/30/18 11:[address] Patient Name: MADELEINE WONG Encounter No: [id number] : 1930 Primary Insurance: HUMANA CHOICE PPO MCR ADVANT Anticipated DC Date: 05-30-2018 Planned Disposition: Home with Home Health External Planned Provider: [facility] DCP follow-up note: CM SPOKE TO PT IN ROOM THIS MORNING, PT REPORTS SHE IS HAVING KYPHOPLASTY TODAY BEFORE GOING HOME. CM INFORMED PT THAT QUOTE FOR TUBE FEEDING MATERIALS RECEIVED, CM PROVIDED TO PT. PT REPORTS SHE WILL NOTIFY NOLA THIS MORNING WHEN SHE GETS HERE. PT DENIES NEEDS. OSVALDO SPOKE TO NOLA QUINN, , IN PERSON AT [employer]. NOLA REPORTS THAT [facility] HAS MADE ARRAGMENTS FOR DELIVERY OF THE HOSPITAL BED AND BEDSIDE COMMODE TODAY. SHE HAS NOT HEARD FROM [facility] ABOUT TUBE FEEDING; SHE DID RECEIVE THE QUOTE FOR PRIVATE PAY AND WANTS TO MAKE THE ARRAGNEMENTS. NOLA HAS NOT CALLED [facility] HERSELF. CM CALLED [facility], , NOTIFED FRANKY THAT PT'S FAMILY WANTS TO PRIVATE PAY THE PUMP AND FEEDING SUPPLIES AND ASKED HER TO CALL [facility] SOON POSSIBLE AND MAKE ARRANGEMENTS FOR DELIVERY TODAY. ADRIANA REPORTS MATERIALS AND SUPPLIES ARE [place] ON DELIVERY AND SHE WILL CALL [facility] IMMEDIATELY TO MAKE DELIVERY AND EDUCATION ARRANGEMENTS. NOTIFY [facility], , OF DISCHARGE. FAX DISCHARGE TO [employer] AT, . Ashia Benítez, CASE MANAGEMENT DCP- Discharge Planning Updated by [id number]: Ashia Benítez on 05/29/18 3:[address] Patient Name: MADELEINE WONG Encounter No: [id number] : 1930 Primary Insurance: HUMANA CHOICE PPO MCR ADVANT Anticipated DC Date: 05-30-2018 Planned Disposition: Home with Home Health External Planned Provider: [facility] DCP follow-up note: CM CALLED PAYAL AT [facility], , PROVIDED INFORMATION FOR HOSPITAL BED AND BEDSIDE COMMODE, INFORMED OF PLANNED DISCHARGE TOMORROW. CM FAXED ORDER AND REFERRAL INFORMATION TO [facility] AT [phone]. [facility] TO ARRANGE DELIVERY OF MEDICAL EQUIPMENT WITH PT'S FAMILY. CM CALLED [facility], , SPOKE TO [facility] REGARDING TUBE FEEDING ORDER; [facility] ADVISED THAT PT'S INSURANCE WILL NOT PAY FOR SUPPLEMENTAL NUTRITION PT IS ON REGULAR DIET AND ABLE TO EAT BY MOUTH. [facility] WILL REVIEW REFERRAL TO SEE IF THERE IS SOME WAY THAT INSURANCE MAY COVER THE SERVICE. CM SPOKE TO PT IN ROOM, INFORMED OF ABOVE; PT ASKED FOR CM TO GET [place] PAY SHAY FOR TUBE FEEDING AND DISCUSS WITH NOLA, HER NIECE. CM FAXED REFERRAL TO [facility] AT [phone]. CM CALLED [facility], , SPOKE TO NEGRA, PROVIDED REFERRAL INFORMATION AND ADVISED OF PLANNED DISCHARGE 05-30-18. THEY WILL ACCEPT PT FOR ADMIT ON 05-31-18. CM FAXED HOME HEALTH REFERRAL TO [facility] AT [phone]. CM SPOKE TO NOLA QUINN IN HALLWAY DIRECTED BY PT; INFORMED OF ABOVE ARRANGEMENTS. CM SPOKE TO BEDSIDE NURSE REGARDING FAMILY CONCERN OF OXYGEN NEED, BEDSIDE NURSE INFORMED CM THAT SHE WOULD ATTEMPT OXYGEN WEANING. COUNTS INCLUDE 234 BEDS AT THE [facility] BED AND BEDSIDE COMMODE WITH FAMILY. PT'S INSURANCE WILL NOT PAY FOR TUBE FEEDING MATERIALS OR SUPPLIES - [facility] GETTING QUOTE FOR [place] PAY. [facility] WILL ACCEPT PT AT DISCHARGE. FOR DISCHARGE, NOTIFY [facility] AT [phone], FAX DISCHARGE INFORMATION TO [facility] AT [phone]. CM TO CONTINUE TO FOLLOW AND ASSIST NEEDED. Ashia Benítez, CASE MANGEMENT Appended by Ashia Benítez on 05/29/2018 16:06 HOGSHEAD FILLER: CM SPOKE TO PT'S GREAT NIECE IN LAW WHO INFORMED CM THAT [facility] HAS CALLED TO ARRANGE DELIVERY OF HOSPITAL BED AND BEDSIDE COMMODE. SHE HAS NOT HEARD FROM [facility] REGARDING TUBE FEEDING. CM CALLED [facility], , SPOKE TO FRANKY WHO REPORTS INSURANCE WILL NOT COVER COSTS OF TUBE FEEDING AND PROVIDED QUOTE OVER THE PHONE AND WILL FAX QUOTE TO CM FOR PT'S FAMILY. BEDSIDE NURSE NOTIFIED. PT'S FAMILY ARE NOT IN ROOM, CM LEFT NOTE ON WHITE BOARD FOR FAMILY NOTIFYING THAT TUBE FEEDING COSTS ARE NOT COVERED BY INSURANCE WITH QUOTED PRICES. COUNTS INCLUDE 234 BEDS AT THE [facility] BED AND BEDSIDE COMMODE WITH FAMILY. PT'S INSURANCE WILL NOT PAY FOR TUBE FEEDING MATERIALS OR SUPPLIES - [facility] QUOTED FOR T[place] PAY OF $8 PER DAY FOR PUMP AND SUPPLIES / $1.50 PER CAN FOR JEVITY 1.2. [facility] WILL ACCEPT PT AT DISCHARGE. FOR DISCHARGE, NOTIFY [facility] AT [phone], FAX DISCHARGE INFORMATION TO [facility] AT [phone]. CM TO CONTINUE TO FOLLOW AND ASSIST NEEDED. Ashia Benítez, CASE MANGEMENT DCP- Discharge Planning Updated by [id number]: Ashia Benítez on 05/28/18 4:[address] Patient Name: MADELEINE WONG Encounter No: [id number] : 1930 Primary Insurance: HUMANA CHOICE PPO MCR ADVANT Anticipated DC Date: 05-24-2018 Planned Disposition: HOME WITH HOME HEALTH External Planned Provider: [facility] DCP follow-up note: CM RECEIVED ORDER FOR HOME HEALTH, TUBE FEEDING AND HOSPITAL BED. CM MET WITH PT AND GRAND NEPHEW'S SPOUSE IN ROOM. CM BEGAN DISCUSSING ORDER, PT'S GRAND NEPHEW'S SPOUSE INFORMED CM THAT PT PLANS TO DISCHARGE TO [facility] FOR REHAB AND ASKED IF CM HAS HEARD FROM [facility] SHE DID NOT SEE THEM MONDAY THEY WERE SUPPOSED TO EVALUATE PT THEN. CM CALLED [facility], SPOKE TO SHAWN WHO WILL CHECK WITH CELIA TO FIND OUT WHAT HAS HAPPENED. SHAWN WILL HAVE CEL[facility] CALL CM SOON POSSIBLE. CM MET WITH PT, PT'S ADELINE AND PT'S GRAND NEPHEW'S NIECE. PT'S ADELINE INFORMED CM THAT CM DOES NOT NEED TO SEE THEM AND THAT DR. DIXON HAS TAKEN CARE OF EVERYTHING. CM ASKED WHAT HAD BEEN WORKED OUT. CM WAS ADVISED THAT PT WILL HAVE THE KYPHOPLASTY ON MONDAY AND THEN GO TO [facility] FOR REHAB, DR. DIXON WILL TALK TO CELIA AT [facility] AND WORK THIS OUT. CM NOTIFIED CELSO BRICENO AND DR. DIXON. CM RECEIVED CALL BACK FROM CELIA WHO SPOKE TO FAMILY, INFORMED THEM THAT PT IS NOT APPROPRIATE CANDIDATE FOR REHAB SHE IS REFUSING THERAPY SERICES AND INFORMED CM THAT FAMILY HAS REFUSED [facility] PLACEMENT AT [facility]. CM MET WITH PT AND PT'S GRAND NEPHEWS SPOUSE IN ROOM. CM DISCUSSED IMPORTANT MESSAGE FROM MEDICARE AND DISCUSSED HOW TO COMPLAIN IF NEEDED TO ROLL UP OPERATOR, ADMINISTRATION AND IF NEEDED, QUALITY IMPROVEMENT OFFICE FOR MEDICARE. NOLA INFORMED CM THAT SHE HAS COMPLAINED TO THE DOCTORS BUT HAS BEEN THINKING SHE NEEDS TO COMPLAIN TO SOMEONE ELSE. CM DISCUSSED DISCHARGE PLAN. NOLA HAS TALKED TO PT, PT'S ADELINE AND CELIA AT [facility]. THEY ARE NOT GOING TO PUT PT INTO [facility] AND WILL BE TAKING PT HOME DISCUSSED LAST WEEK; NOLA STATES PT IS NOT READY FOR HOSPICE BUT WANTS HOME HEALTH. HOME HEALTH LISTING PROVIDED AND DISCUSSED, NOLA WANTS TO USE [employer], PT TOLD NOLA TO SIGN THE FORMS. NOLA SIGNED THE IMPORTANT MESSAGE FROM MEDICARE AND [facility] FOR [employer] [facility]. NOLA STATES THAT THEY WILL NEED A HOSPITAL BED, BEDSIDE COMMODE, OXYGEN AND TUBE FEEDING SET UP FOR PT AT HOME. CM EXPLAINED THAT PT'S INSURANCE HAS TO PRE AUTHORIZE ALL MEDICAL EQUIPMENT AND THAT SINCE PT IS ABLE TO EAT, INSURANCE MAY NOT COVER TUBE FEEDING. THEY HAVE NO PREFERENCE ON PROVIDER AND NOLA ASKED TO BE CONTACTED REGARDING ANY COPAYS FOR EQUIPMENT AT [phone]. CM HAS ORDER FOR HOME HEALTH, HOSPITAL BED AND TUBE FEEDING. CM WILL NEED ADDITIONAL ORDERS FOR BEDSIDE COMMODE AND OXYGEN TESTING. CM TO FIND IN NETWORK PROVIDER FOR PT'S INSURANCE TO ARRANGE NEEDED MEDICAL EQUIPMENT SOON POSSIBLE. CM TO COMPLETE HOME HEALTH ARRANGEMENTS WITH [employer]. Ashia Benítez DCP- Discharge Planning Updated by [id number]: Roxi Jean Pierre on 05/28/18 11:[address] RECEIVED NOTICE THAT THE PATIENTS FAMILY WAS WANTING HER TO HAVE THE KYPHOPLASTY BEFORE SHE LEAVES THE HOSPITAL. IT WAS MENTIONED THAT THE PATIENTS POA HAS NOT BEEN HER AND THERE IS NO POA PAPERWORK IN THE CHART. I ASKED THE BEDSIDE NURSE RUDY BENJAMIN TO COME INTO THE ROOM WITH ME TO DISCUSS THE NEED FOR POA PAPERWORK IN ORDER TO HAVE ANY CONSENTS FOR PROCEDURES SIGNED SINCE THE PATIENT WAS NOT ABLE TO SIGN HERSELF, AND BY THE HIERACHY OF LAW, THE POA OR NEXT OF KIN WOULD BE WHO NEEDED TO SIGN AND SINCE THEY (THE LADY AND FIJESSICA) WERE NOT BLOOD RELATED, THEY COULD NOT SIGN FOR HER THEY HAVE BEEN. AT THIS TIME I WAS QUICKLY TOLD THAT SHE WAS IN HER RIGHT MIND AND ABLE TO MAKE ALL HER OWN DECISIONS. THE LADY AT BEDSIDE PROCEEDED TO TELL ME ABOUT ALL THE TIMES PEOPLE CAME IN AND QUESTIONED HER ABOUT THE DATE, TIME, PRESIDENT, ETC AND SHE WAS ABLE TO ALWAYS ANSWER ALL THEIR QUESTIONS. SHE STATED THE PATIENT WAS ABLE TO SIGN FOR HERSELF. UP TO THIS POINT, THE PATIENT HAD NOT OPENED HER EYES AND HAD NOT SAID ANYTHING. IT TOOK ME TOUCHING THE PATIENT'S ARM TO GET HER TO OPEN HER EYES AND ACKNOWLEDGE MY PRESENCE AND ANSWER MY QUESTIONS. THE PATIENT IS WITH IT AND ABLE TO ANSWER QUESTIONS. AT THIS POINT I ASKED HER IF SHE WANTED TO HAVE THE KYPHOPLASTY DONE. SHE STATED YES. THE LADY AT BEDSIDE BECAME VERY AGITATED STATING THAT SHE KNEW ABOUT HIPPA LAWS AND WANTED TO KNOW WHY ANYONE EVEN ALLOWED THINGS TO HAPPEN UP UNTIL NOW. NO ONE HAD ASKED FOR ANYONE'S DRIVERS LICENES TO VERIFY THEY WERE WHO THEY SAID THEY WERE. I TRIED TO EXPLAINE THAT EVEN WITH THAT, WE HAD NO WAY TO ACTUALLY VERIFY THAT WITH A DRIVERS LICENSE BECAUSE ANYONE CAN SAY THEY ARE SOMEONES FAMILY AND WE DON'T KNOW OTHERWISE UNLESS THE PATIENT SAYS SO, BUT SHE CUT ME OFF I WAS TALKING. I STOOD AT BEDSIDE AND LISTENED TO HER RANT ABOUT ALL THE THINGS THAT SHE HAS WITNESSED HERE AT THIS HOSPITAL THAT HAS MADE HER SICK TO HER STOMACH ESPECIALLY ABOUT THE FACT THAT SHE CAME IN HERE WITH A HURT BACK AND NOW THEY ARE JUST WATCHING HER . I APOLOGIZED TO HER ABOUT ALL OF THE THINGS THAT MICHAEL WAS UPSET ABOUT, AND THEN DIRECTED MY CONVERSATION TO THE PATIENT, EXPLAINING THAT IF SHE WANTED THEY KYPHOPLASTY AND HER URINE WAS CLEAR THAT I WOULD EXPLAIN THIS TO THE NURSE PRACTITIONER. THAT ULTIMATELY I AM HERE TO TAKE CARE OF HER AND MAKE SURE WE ARE DOING WHAT SHE WANTS. I ALSO EXPLAINED TO HER THAT SHE NEEDS TO SIGN ALL OF HER OWN PAPERWORK, EVEN IF IT IS JUST WITH AN "X". THAT WE SIGN WITNESSES TO STATE WE KNOW SHE UNDERSTANDS AND SHE IS SIGNING. EXPLAINED THAT LONG SHE IS ABLE TO MAKE ALL HER OWN DECISIONS, WE DID NOT NEED HER POA PAPERWORK. SHE IS IN AGREEMENT. THE GREAT NEPHEWS WHO IS AT BEDSIDE CONTINUED WITH HER RANT, I AGAIN APOLOGIZED AND THE BEDSIDE NURSE AND I LEFT THE ROOM. I EXPLAINED TO RADHA THAT THE PATIENT WAS CURRENTLY IN HER RIGHT MIND AND SHE IS WANTING THEY KYPHOPLASTY, AND SHE RECONSULTED IR TO SEE THE PATIENT. DCP- Discharge Planning Updated by [id number]: Josie Mccoy on 05/27/18 4:[address] CM RECEIVED AN ORDER REGARDING PLANS TO DISCHARGE TO HOME W/ HOSPITAL BED , TUBE FEEDING AND HOME HEALTH. PATIENT'S NUTRITION NOTE IS 05/25/18. WILL NEED NUTRITION NOTE REGARDING PATIENT NEEDS FOR DISCHARGE. CM UNDERSTANDS THE PATIENT DOES EAT AND TAKE HER MEDICATIONS BY MOUTH. SHE IS PRESENTLY ON FEEDINGS VIA PUMP. SHE HAS BEEN ADVANCED TO 60 CC/HR TODAY WHICH IS HER GOAL RATE. SPOKE WITH BRANDON MORRIS AND SHE REPORTS NO RESIDUAL AT THIS TIME. WILL NEED TO HAVE [facility] PROVIDE BED AND SPECIALTY MATTRESS FOR HOME AND DETERMINE COVERAGE FOR TUBE FEEDING AND EQUIPMENT. CM TO FOLLOW UP IN AM. DCP- Discharge Planning Updated by [id number]: Ashia Benítez on 05/25/18 7:[address] Patient Name: MADELEINE WONG Encounter No: [id number] : 1930 Primary Insurance: HUMANA CHOICE PPO MCR ADVANT Anticipated DC Date: 05-24-2018 Planned Disposition: [facility] Facility External Planned Provider: [facility], MEDICARE REHAB BED DCP follow-up note: CM FAXED UPDATE TO [facility], FOR REHAB REQUEST. CM WAITING ADMISSION DETERMINATION FROM [facility] FOR REHAB PLACEMENT. ASHIA BENÍTEZ CASE MANAGEMENT DCP- Discharge Planning Updated by [id number]: Ashia Benítez on 05/24/18 3:[address] Patient Name: MADELEINE WONG Encounter No: [id number] : 1930 Primary Insurance: HUMANA CHOICE PPO MCR ADVANT Anticipated DC Date: 05-24-2018 Planned Disposition: [facility] Facility External Planned Provider: [facility], MEDICARE REHAB BED DCP follow-up note: CM MET WITH PT'S HAN SALCEDO BY MARRIAGE, NOLA QUINN, . NOLA STATES THAT KARINA QUINN IS PT'S FIANCE. PT HAS POWER OF NOZZLEMAN WITH GREAT NEPHEW, REBECCA SPOUSE, JOON QUINN, WHO WORKS IN [employer]. NOLA WILL GET JOON TO HOSPITAL ALONG WITH POWER OF NOZZLEMAN PAPERWORK SOON POSSIBLE. THEY ARE IN AGREEMENT WITH REHAB AT [facility], BUT [facility] MAY NOT ACCEPT PT HAS CONTINUED DECLINE. [facility] TO COME TOMORROW TO EVALUATE PT FOR REHAB. IF [facility] DOES NOT ACCEPT FOR REHAB, THEY ARE THINKING TO TAKE PT HOME TO [facility] HERE IN [place] AND NOLA ALONG WITH FAMILY WILL CARE FOR PT WITH HOME HOSPICE. NOLA REPORTS THEY WILL MAKE THAT DECISION TOMORROW. CM EXPLAINED THAT THE POWER OF NOZZLEMAN WILL HAVE TO BE IN AGREEMENT AND SIGN ANY NEEDED AUTHORIZATIONS FOR ENROLLMENT IN REHAB OR HOSPICE CARE. NOLA REPORTS UNDERSTANDING, PROVIDED CELL PHONE NUMBER FOR JOON QUINN, . CM WAITING ADMISSION DETERMINATION FROM [facility] FOR REHAB PLACEMENT. HIEN BARRY MANAGEMENT DCP- Discharge Planning Updated by [id number]: Ashia Benítez on 05/23/18 3:[address] Patient Name: MADELEINE WONG Encounter No: [id number] : 1930 Primary Insurance: HUMANA CHOICE PPO MCR ADVANT Anticipated DC Date: 05-24-2018 Planned Disposition: [facility] Facility External Planned Provider: [facility], MEDICARE REHAB BED DCP follow-up note: CM MET WITH PT AND SON/POA, KARINA QUINN, AT FAMILY REQUEST. MR. QUINN REPORTS IT IS NOW TIME TO SEND REFERRAL TO [facility] FOR REHAB PLACEMENT. IMPORTANT MESSAGE FROM MEDICARE PROVIDED AND EXPLAINED. CM [facility], . CM WAITING ADMISSION DETERMINATION FROM [facility] FOR REHAB PLACEMENT. ASHIA BENÍTEZ, CASE MANAGEMENT DCP- Discharge Planning Updated by [id number]: Ashia Benítez on 05/11/18 4:[address] Patient Name: MADELEINE WONG Admission Status: Elective Accout number: [id number] Admission Date: 05-09-2018 : 1930 Admission Diagnosis:ACUTE KIDNEY FAILURE, UNSPECIFIED Attending: LEXA BENAVIDES Current LOS: 2 Anticipated DC Date: Planned Disposition: [facility] Facility Primary Insurance: HUMANA CHOICE PPO MCR ADVANT PLANNED EXTERNAL PROVIDER: [facility], MEDICARE REHAB BED Discharge Planning Comments: CM RECEIVED ORDER INDICATING PT WANTS CUSTODIAL CARE. CM MET WITH PT AND SON IN ROOM TO DISCUSS DISCHARGE PLANNING AND NEEDS. PT REPORTS THAT BEFORE GETTING SICK, SHE WAS LIVING AT HOME WITH HER SON, INDEPENDENT IN HER CARE. PT REPORTS SHE DID TELL THE DOCTOR THAT SHE WOULD BE BETTER OFF IN A CUSTODIAL BEFORE FAMILY ARRIVED TODAY. PT WANTS REHAB, NOT [facility] CARE. PT HAS NO MEDICAL EQUIPMENT AND NO OUTSIDE SERVICES ASSISTING IN THE HOME. CM DISCUSSED AVAILABILITY OF HOME HEALTH, REHAB SERVICES AND MEDICAL EQUIPMENT. PT'S SON INITIALLY DECLINED TO PARTICIPATE IN DISCHARGE PLANNING REPORTING PT WAS SENT TO REHAB DOWNSTAIRS TOO SOON WHEN SHE WAS NOT ABLE TO WALK OR EVEN FEED HERSELF. SON WANTS PT CONSIDERED FOR INPATIENT REHAB AGAIN STATING THEY SENT HER BACK HERE BECAUSE SHE USED ALL OF HER DAYS DOWN THERE. PT DOES NOT THINK SHE CAN PARTICIPATE IN THREE HOURS OF PROGRESSIVE THERAPY PER DAY. CM EXPLAINED THAT IF PT IS NOT ABLE TO PARTICIPATE IN THE THREE HOURS OF PROGRESSIVE THERAPY, IS NOT ABLE TO STAND OR FEED HERSELF, SHE IS NOT GOING TO BE APPROPRIATE FOR READMISSION TO INPATENT REHAB. CM DISCUSSED AVAILABILITY OF [facility] SERVICES AND PROVIDED CHOICE FORM. PT'S SON REPORTS HE ALREADY SIGNED ONE OF THESE FOR [facility] THE LAST VISIT AND SPEAKING WITH THIS CM. CM EXPLAINED A NEW ONE WAS NEEDED. PT'S SON SIGNED THE FORM AND DOES NOT WANT PT SENT TO REHAB BEFORE SHE IS STABLE. CM EXPLAINED THAT ALL DOCTORS WOULD HAVE TO INDICATE PT IS READY TO DISCHARGE AND CM IS ONLY WANTING TO BE PROACTIVE ON PT'S BEHALF FOR DISCHARGE PLANNING AND SECURE REHAB BED AHEAD OF TIME TO ENSURE THAT PT IS ABLE TO GET INTO [facility] WHEN DISCHARGED [facility] IS POPULAR REHAB AND DOES FILL UP. PT'S SON WILL WANTS PT TO BE STABLE FOR DISCHARGE FOR CM TO SEND REFERRALS. CHOICE SIGNED. CM PROVIDED PT'S SON WITH CM CONTACT INFORMATION. CM TO SEND REFERRAL TO [facility] WHEN PROJECTED DISCHARGE DATE IS KNOWN, PT'S SON DOES NOT WANT REHAB REFERRAL SENT OUT PRIOR TO PT'S MEDICAL STABILITY FOR DISCHARGE TO REHAB. Pocket Flap Creasing Machine Operator: Ashia Benítez DCPIA - Discharge Planning Initial Assessment Updated by [id number]: Ashia Benítez on 05/28/18 1:21 pm * Is the patient Alert and Oriented? Yes * How many steps to enter\\exit or inside your home? NONE * PCP DR. PONCE * Pharmacy [facility] * Preadmission Environment Acute Inpatient Rehab * Facility Name [facility] * ADLs Total Dependent * Equipment None * Other Equipment NO MEDICAL EQUIPMENT PROVIDER PREFERECE * List name and contact numbers for known caregivers / representatives who currently or will assist patient after discharge: ADELINE BRANNON [phone] * Verbal permission to speak to the caregivers and representatives has been obtained from the patient. Yes * Community resources currently utilized None * Please name any agencies selected above. NONE * Additional services required to return to the preadmission environment? Yes * Can the patient safely return to the preadmission environment? Yes * Has this patient been hospitalized within the prior 30 days at any hospital? Yes Coverage Notice Reviewer: [id number] - Ashia Benítez Notice Issued Date-Time: 05/11/2018 13:00 Notice Type: Patient Choice Letter Notice Delivered To: Family Member Relationship to Patient: Other Relationship Analytics Developer Name: KARINA QUINN Delivery Method: HAND - Hand Delivered Dawna Days: Prior Verbal Notification: Recipient Understood Notice: Yes Recipient Signature: Yes Med Rec Note Co-signed by Attending: Coverage Notice Comment: [facility] Reviewer: JEWEL Benítez Notice Issued Date-Time: 05/23/2018 12:20 Notice Type: IM Discharge Notice Notice Delivered To: Family Member Relationship to Patient: Other Relationship Analytics Developer Name: KARINA QUINN Delivery Method: HAND - Hand Delivered Dawna Days: Prior Verbal Notification: Recipient Understood Notice: Yes Recipient Signature: Yes Med Rec Note Co-signed by Attending: Coverage Notice Comment: Reviewer: JEWEL Benítez Notice Issued Date-Time: 05/28/2018 16:20 Notice Type: IM Discharge Notice Notice Delivered To: Family Member Relationship to Patient: Other Relationship Analytics Developer Name: NOLA QUINN Delivery Method: HAND - Hand Delivered Dawna Days: Prior Verbal Notification: Recipient Understood Notice: Yes Recipient Signature: Yes Med Rec Note Co-signed by Attending: Coverage Notice Comment: Reviewer: JEWEL Benítez Notice Issued Date-Time: 05/28/2018 16:20 Notice Type: Patient Choice Letter Notice Delivered To: Family Member Relationship to Patient: Other Relationship Analytics Developer Name: NOAL QUINN Delivery Method: HAND - Hand Delivered Dawna Days: Prior Verbal Notification: Recipient Understood Notice: Yes Recipient Signature: Yes Med Rec Note Co-signed by Attending: Coverage Notice Comment: [facility] DP export: 05/31/18 6:56 a Patient Name: MADELEINE WONG Page [phone] at 1446 All edits/amendments must be made on the electronic document DICTATION DATE: 05/31/18 1445 UTILITY BILL COLLECTION CLERK: JULIA 05/31/18 1445 RPT#: [id number] DC DATE: STATUS: ADM IN [facility] [address] [place] [address] END OF REPORT
--- NOTE | 2018-05-31 14:55 | MORECARE ---
CASE MANAGEMENT DISCHARGE SUMMARY PATIENT: MADELEINE WONG UNIT: [id number] ADM DATE: 05/09/18 AGE: 88 : [birth year] SEX: F ROOM/BED: D.2112 AUTHOR: TEENA,DOC PHYSICIAN: REFERRING PHYSICIAN: LEXA BENAVIDES MD DATE OF SERVICE: 05/31/18 Discharge Plan Patient Name: MADELEINE WONG Facility: [facility]:[place] : 1930 Planned Disposition: Home with Home Health Anticipated Discharge Date: 05/31/18 Discharge Date: Expected LOS: 22 Initial Reviewer: JEWEL Initial Review Date: 05/09/2018 Generated: 05/31/18 3:55 pm Comments DCP- Discharge Planning Updated by [id number]: Ashia Benítez on 05/31/18 1:[address] Patient Name: MADELEINE WONG Encounter No: [id number] : 1930 Primary Insurance: HUMANA CHOICE PPO [facility] ADVANT Anticipated DC Date: 05-31-2018 Planned Disposition: Home with Home Health External Planned Provider: [facility] DCP follow-up note: CM RECEIVED DISCHARGE ORDER, SPOKE TO PT'S GRAND NIECE IN LAW WHO INFORMED CM THAT EVERYTHING WAS DELIVERED AND READY FOR PT'S DISCHARGE TODAY. CM CALLED AND NOTIFIED [facility], , FAXED DISCHARGE INFORMATION TO [facility] AT [phone]. [facility] TO ADMIT PT FOR HOME HEALTH SERVICES TOMORROW. JAYLEN BENÍTEZ, CASE MANAGEMENT Ashia Benítez, CASE MANAGEMENT Ashia Benítez DCP- Discharge Planning Updated by [id number]: Ashia Benítez on 05/31/18 6:[address] Patient Name: MADELEINE WONG Encounter No: [id number] : 1930 Primary Insurance: HUMANA CHOICE PPO [facility] AD[facility]ANT Anticipated DC Date: 05-31-2018 Planned Disposition: Home with Home Health External Planned Provider: [facility] DCP follow-up note: CM REVIEWED CHART, PT DID NOT DISCHARGE HOME YESTERDAY. CM FAXED UPDATE TO [facility] AT [phone]. NOTIFY [facility], , OF DISCHARGE. FAX DISCHARGE TO [facility] AT, . Ashia Benítez CASE MANAGEMENT DCP- Discharge Planning Updated by [id number]: Ashia Benítez on 05/30/18 11:[address] Patient Name: MADELEINE WONG Encounter No: [id number] : 1930 Primary Insurance: HUMANA CHOICE PPO MCR ADVANT Anticipated DC Date: 05-30-2018 Planned Disposition: Home with Home Health External Planned Provider: [facility] DCP follow-up note: CM SPOKE TO PT IN ROOM THIS MORNING, PT REPORTS SHE IS HAVING KYPHOPLASTY TODAY BEFORE GOING HOME. CM INFORMED PT THAT QUOTE FOR TUBE FEEDING MATERIALS RECEIVED, CM PROVIDED TO PT. PT REPORTS SHE WILL NOTIFY NOLA THIS MORNING WHEN SHE GETS HERE. PT DENIES NEEDS. CM SPOKE TO NOLA QUINN, , IN PERSON AT NURSES STATION. NOLA REPORTS THAT [facility] HAS MADE ARRAGMENTS FOR DELIVERY OF THE HOSPITAL BED AND BEDSIDE COMMODE TODAY. SHE HAS NOT HEARD FROM [facility] ABOUT TUBE FEEDING; SHE DID RECEIVE THE QUOTE FOR PRIVATE PAY AND WANTS TO MAKE THE ARRAGNEMENTS. NOLA HAS NOT CALLED [facility] HERSELF. CM CALLED [facility], , NOTIFED FRANKY THAT PT'S FAMILY WANTS TO PRIVATE PAY THE PUMP AND FEEDING SUPPLIES AND ASKED HER TO CALL [facility] SOON POSSIBLE AND MAKE ARRANGEMENTS FOR DELIVERY TODAY. ADRIANA REPORTS MATERIALS AND SUPPLIES ARE [place] ON DELIVERY AND SHE WILL CALL [facility] IMMEDIATELY TO MAKE DELIVERY AND EDUCATION ARRANGEMENTS. NOTIFY [facility], , OF DISCHARGE. FAX DISCHARGE TO [facility] , . Ashia Benítez CASE MANAGEMENT DCP- Discharge Planning Updated by [id number]: Ashia Benítez on 05/29/18 3:[address] Patient Name: MADELEINE WONG Encounter No: [id number] : 1930 Primary Insurance: HUMANA CHOICE PPO MCR ADVANT Anticipated DC Date: 05-30-2018 Planned Disposition: Home with Home Health External Planned Provider: [facility] DCP follow-up note: CM CALLED PAYAL AT [facility], , PROVIDED INFORMATION FOR HOSPITAL BED AND BEDSIDE COMMODE, INFORMED OF PLANNED DISCHARGE TOMORROW. CM FAXED ORDER AND REFERRAL INFORMATION TO [facility] AT [phone]. [facility] TO ARRANGE DELIVERY OF MEDICAL EQUIPMENT WITH PT'S FAMILY. CM CALLED [facility], , SPOKE TO [place] REGARDING TUBE FEEDING ORDER; [facility] ADVISED THAT PT'S INSURANCE WILL NOT PAY FOR SUPPLEMENTAL NUTRITION PT IS ON REGULAR DIET AND ABLE TO EAT BY MOUTH. [facility] WILL REVIEW REFERRAL TO SEE IF THERE IS SOME WAY THAT INSURANCE MAY COVER THE SERVICE. CM SPOKE TO PT IN ROOM, INFORMED OF ABOVE; PT ASKED FOR CM TO GET [place] PAY SHAY FOR TUBE FEEDING AND DISCUSS WITH NOLA, HER NIECE. CM FAXED REFERRAL TO [facility] AT [phone]. CM CALLED [facility], , SPOKE TO NEGRA, PROVIDED REFERRAL INFORMATION AND ADVISED OF PLANNED DISCHARGE 05-30-18. THEY WILL ACCEPT PT FOR ADMIT ON 05-31-18. CM FAXED HOME HEALTH REFERRAL TO [facility] AT [phone]. CM SPOKE TO N[place] QUINN IN [place] DIRECTED BY PT; INFORMED OF ABOVE ARRANGEMENTS. CM SPOKE TO BEDSIDE NURSE REGARDING FAMILY CONCERN OF OXYGEN NEED, BEDSIDE NURSE INFORMED CM THAT SHE WOULD ATTEMPT OXYGEN WEANING. [facility] HOSPITAL BED AND BEDSIDE COMMODE WITH FAMILY. PT'S INSURANCE WILL NOT PAY FOR TUBE FEEDING MATERIALS OR SUPPLIES - [facility] GETTING QUOTE FOR [place] PAY. [facility] WILL ACCEPT PT AT DISCHARGE. FOR DISCHARGE, NOTIFY [facility] AT [phone], FAX DISCHARGE INFORMATION TO [facility] AT [phone]. CM TO CONTINUE TO FOLLOW AND ASSIST NEEDED. Ashia Benítez, CASE MANGEMENT Appended by Ashia Benítez on 05/29/2018 16:06 CLOTH FOLDER MACHINE: CM SPOKE TO PT'S GREAT NIECE IN LAW WHO INFORMED CM THAT [facility] HAS CALLED TO ARRANGE DELIVERY OF HOSPITAL BED AND BEDSIDE COMMODE. SHE HAS NOT HEARD FROM [facility] REGARDING TUBE FEEDING. CM CALLED [facility], , SPOKE TO FRANKY WHO REPORTS INSURANCE WILL NOT COVER COSTS OF TUBE FEEDING AND PROVIDED QUOTE OVER THE PHONE AND WILL FAX QUOTE TO FOR PT'S FAMILY. BEDSIDE NURSE NOTIFIED. PT'S FAMILY ARE NOT IN ROOM, CM LEFT NOTE ON WHITE BOARD FOR FAMILY NOTIFYING THAT TUBE FEEDING COSTS ARE NOT COVERED BY INSURANCE WITH QUOTED PRICES. [facility] HOSPITAL BED AND BEDSIDE COMMODE WITH FAMILY. PT'S INSURANCE WILL NOT PAY FOR TUBE FEEDING MATERIALS OR SUPPLIES - [facility] QUOTED FOR [place] PAY OF $8 PER DAY FOR PUMP AND SUPPLIES / $1.50 PER CAN FOR JEVITY 1.2. [facility] WILL ACCEPT PT AT DISCHARGE. FOR DISCHARGE, NOTIFY [facility] AT [phone], FAX DISCHARGE INFORMATION TO [facility] AT [phone]. CM TO CONTINUE TO FOLLOW AND ASSIST NEEDED. Ashia Benítez, CASE MANGEMENT DCP- Discharge Planning Updated by [id number]: Ashia Benítez on 05/28/18 4:[address] Patient Name: MADELEINE WONG Encounter No: [id number] : 1930 Primary Insurance: HUMANA CHOICE PPO MCR ADVANT Anticipated DC Date: 05-24-2018 Planned Disposition: HOME WITH HOME HEALTH External Planned Provider: [facility] DCP follow-up note: CM RECEIVED ORDER FOR HOME HEALTH, TUBE FEEDING AND HOSPITAL BED. CM MET WITH PT AND GRAND NEPHEW'S SPOUSE IN ROOM. CM BEGAN DISCUSSING ORDER, PT'S GRAND NEPHEW'S SPOUSE INFORMED CM THAT PT PLANS TO DISCHARGE TO [facility] FOR REHAB AND ASKED IF CM HAS HEARD FROM [facility] SHE DID NOT SEE THEM MONDAY THEY WERE SUPPOSED TO EVALUATE PT THEN. CM [facility], SPOKE TO SHAWN WHO WILL CHECK WITH CELIA TO FIND OUT WHAT HAS HAPPENED. SHAWN WILL HAVE CELIA CALL CM SOON POSSIBLE. CM MET WITH PT, PT'S ADELINE AND PT'S GRAND NEPHEW'S NIECE. PT'S ADELINE INFORMED CM THAT CM DOES NOT NEED TO SEE THEM AND THAT DR. DIXON HAS TAKEN CARE OF EVERYTHING. CM ASKED WHAT HAD BEEN WORKED OUT. CM WAS ADVISED THAT PT WILL HAVE THE KYPHOPLASTY ON MONDAY AND THEN GO TO [facility] FOR REHAB, DR. DIXON WILL TALK TO CELIA AT [facility] AND WORK THIS OUT. CM NOTIFIED CELSO BRICENO AND DR. DIXON. CM RECEIVED CALL BACK FROM [facility]EL[facility] WHO SPOKE TO FAMILY, INFORMED THEM THAT PT IS NOT APPROPRIATE CANDIDATE FOR REHAB SHE IS REFUSING THERAPY SERICES AND INFORMED CM THAT FAMILY HAS REFUSED [facility]ARE PLACEMENT AT [facility]. CM MET WITH PT AND PT'S GRAND NEPHEWS SPOUSE IN ROOM. CM DISCUSSED IMPORTANT MESSAGE FROM MEDICARE AND DISCUSSED HOW TO COMPLAIN IF NEEDED TO PRECISION JIG GRINDER, ADMINISTRATION AND IF NEEDED, QUALITY IMPROVEMENT OFFICE FOR MEDICARE. NOLA INFORMED CM THAT SHE HAS COMPLAINED TO THE DOCTORS BUT HAS BEEN THINKING SHE NEEDS TO COMPLAIN TO SOMEONE ELSE. CM DISCUSSED DISCHARGE PLAN. NOLA HAS TALKED TO PT, PT'S ADELINE AND CELIA AT [facility]. THEY ARE NOT GOING TO PUT PT INTO TRANSMISSION REBUILDER CARE AND WILL BE TAKING PT HOME DISCUSSED LAST WEEK; NOLA STATES PT IS NOT READY FOR HOSPICE BUT WANTS HOME HEALTH. HOME HEALTH LISTING PROVIDED AND DISCUSSED, NOLA WANTS TO USE THE [employer], PT TOLD NOLA TO SIGN THE FORMS. NOLA SIGNED THE IMPORTANT MESSAGE FROM MEDICARE AND CHOICE FOR [facility]. NOLA STATES THAT THEY WILL NEED A HOSPITAL BED, BEDSIDE COMMODE, OXYGEN AND TUBE FEEDING SET UP FOR PT AT HOME. OSVALDO EXPLAINED THAT PT'S INSURANCE HAS TO PRE AUTHORIZE ALL MEDICAL EQUIPMENT AND THAT SINCE PT IS ABLE TO EAT, INSURANCE MAY NOT COVER TUBE FEEDING. THEY HAVE NO PREFERENCE ON PROVIDER AND NLOA ASKED TO BE CONTACTED REGARDING ANY COPAYS FOR EQUIPMENT AT [phone]. CM HAS ORDER FOR HOME HEALTH, HOSPITAL BED AND TUBE FEEDING. CM WILL NEED ADDITIONAL ORDERS FOR BEDSIDE COMMODE AND OXYGEN TESTING. CM TO FIND IN NETWORK PROVIDER FOR PT'S INSURANCE TO ARRANGE NEEDED MEDICAL EQUIPMENT SOON POSSIBLE. CM TO COMPLETE HOME HEALTH ARRANGEMENTS WITH [employer]. Ashia Benítez DCP- Discharge Planning Updated by [id number]: Roxi Jean Pierre on 05/28/18 11:[address] RECEIVED NOTICE THAT THE PATIENTS FAMILY WAS WANTING HER TO HAVE THE KYPHOPLASTY BEFORE SHE LEAVES THE HOSPITAL. IT WAS MENTIONED THAT THE PATIENTS POA HAS NOT BEEN HER AND THERE IS NO POA PAPERWORK IN THE CHART. I ASKED THE BEDSIDE NURSE RUDY BENJAMIN TO COME INTO THE ROOM WITH ME TO DISCUSS THE NEED FOR POA PAPERWORK IN ORDER TO HAVE ANY CONSENTS FOR PROCEDURES SIGNED SINCE THE PATIENT WAS NOT ABLE TO SIGN HERSELF, AND BY THE HIERACHY OF LAW, THE POA OR NEXT OF KIN WOULD BE WHO NEEDED TO SIGN AND SINCE THEY (THE LADY AND ADELINE) WERE NOT BLOOD RELATED, THEY COULD NOT SIGN FOR HER THEY HAVE BEEN. AT THIS TIME I WAS QUICKLY TOLD THAT SHE WAS IN HER RIGHT MIND AND ABLE TO MAKE ALL HER OWN DECISIONS. THE LADY AT BEDSIDE PROCEEDED TO TELL ME ABOUT ALL THE TIMES PEOPLE CAME IN AND QUESTIONED HER ABOUT THE DATE, TIME, PRESIDENT, ETC AND SHE WAS ABLE TO ALWAYS ANSWER ALL THEIR QUESTIONS. SHE STATED THE PATIENT WAS ABLE TO SIGN FOR HERSELF. UP TO THIS POINT, THE PATIENT HAD NOT OPENED HER EYES AND HAD NOT SAID ANYTHING. IT TOOK ME TOUCHING THE PATIENT'S ARM TO GET HER TO OPEN HER EYES AND ACKNOWLEDGE MY PRESENCE AND ANSWER MY QUESTIONS. THE PATIENT IS WITH IT AND ABLE TO ANSWER QUESTIONS. AT THIS POINT I ASKED HER IF SHE WANTED TO HAVE THE KYPHOPLASTY DONE. SHE STATED YES. THE LADY AT BEDSIDE BECAME VERY AGITATED STATING THAT SHE KNEW ABOUT HIPPA LAWS AND WANTED TO KNOW WHY ANYONE EVEN ALLOWED THINGS TO HAPPEN UP UNTIL NOW. NO ONE HAD ASKED FOR ANYONE'S DRIVERS LICENES TO VERIFY THEY WERE WHO THEY SAID THEY WERE. I TRIED TO EXPLAINE THAT EVEN WITH THAT, WE HAD NO WAY TO ACTUALLY VERIFY THAT WITH A DRIVERS LICENSE BECAUSE ANYONE CAN SAY THEY ARE SOMEONES FAMILY AND WE DON'T KNOW OTHERWISE UNLESS THE PATIENT SAYS SO, BUT SHE CUT ME OFF I WAS TALKING. I STOOD AT BEDSIDE AND LISTENED TO HER RANT ABOUT ALL THE THINGS THAT SHE HAS WITNESSED HERE AT THIS HOSPITAL THAT HAS MADE HER SICK TO HER STOMACH ESPECIALLY ABOUT THE FACT THAT SHE CAME IN HERE WITH A HURT BACK AND NOW THEY ARE JUST WATCHING HER . I APOLOGIZED TO HER ABOUT ALL OF THE THINGS THAT [facility] WAS UPSET ABOUT, AND THEN DIRECTED MY CONVERSATION TO THE PATIENT, EXPLAINING THAT IF SHE WANTED THEY KYPHOPLASTY AND HER URINE WAS CLEAR THAT I WOULD EXPLAIN THIS TO THE NURSE PRACTITIONER. THAT ULTIMATELY I AM HERE TO TAKE CARE OF HER AND MAKE SURE WE ARE DOING WHAT SHE WANTS. I ALSO EXPLAINED TO HER THAT SHE NEEDS TO SIGN ALL OF HER OWN PAPERWORK, EVEN IF IT IS JUST WITH AN "X". THAT WE SIGN WITNESSES TO STATE WE KNOW SHE UNDERSTANDS AND SHE IS SIGNING. EXPLAINED THAT LONG SHE IS ABLE TO MAKE ALL HER OWN DECISIONS, WE DID NOT NEED HER POA PAPERWORK. SHE IS IN AGREEMENT. THE GREAT NEPHEWS WHO IS AT BEDSIDE CONTINUED WITH HER RANT, I AGAIN APOLOGIZED AND THE BEDSIDE NURSE AND I LEFT THE ROOM. I EXPLAINED TO RADHA THAT THE PATIENT WAS CURRENTLY IN HER RIGHT MIND AND SHE IS WANTING THEY KYPHOPLASTY, AND SHE RECONSULTED IR TO SEE THE PATIENT. DCP- Discharge Planning Updated by [id number]: Josie Mccoy on 05/27/18 4:[address] CM RECEIVED AN ORDER REGARDING PLANS TO DISCHARGE TO HOME W/ HOSPITAL BED , TUBE FEEDING AND HOME HEALTH. PATIENT'S NUTRITION NOTE IS 05/25/18. WILL NEED NUTRITION NOTE REGARDING PATIENT NEEDS FOR DISCHARGE. CM UNDERSTANDS THE PATIENT DOES EAT AND TAKE HER MEDICATIONS BY MOUTH. SHE IS PRESENTLY ON FEEDINGS VIA PUMP. SHE HAS BEEN ADVANCED TO 60 CC/HR TODAY WHICH IS HER GOAL RATE. SPOKE WITH PRIMARY ARTURO AND SHE REPORTS NO RESIDUAL AT THIS TIME. WILL NEED TO HAVE [facility] PROVIDE BED AND SPECIALTY MATTRESS FOR HOME AND DETERMINE COVERAGE FOR TUBE FEEDING AND EQUIPMENT. CM TO FOLLOW UP IN AM. DCP- Discharge Planning Updated by [id number]: Ashia Benítez on 05/25/18 7:[address] Patient Name: MADELEINE WONG Encounter No: [id number] : 1930 Primary Insurance: HUMANA CHOICE PPO [facility] ADVANT Anticipated DC Date: 05-24-2018 Planned Disposition: Alf Facility External Planned Provider: [facility], MEDICARE REHAB BED DCP follow-up note: CM FAXED UPDATE TO [facility], FOR REHAB REQUEST. CM WAITING ADMISSION DETERMINATION FROM [facility] FOR REHAB PLACEMENT. ASHIA BENÍTEZ, CASE MANAGEMENT DCP- Discharge Planning Updated by [id number]: Ashia Benítez on 05/24/18 3:[address] Patient Name: MADELEINE WONG Encounter No: [id number] : 1930 Primary Insurance: HUMANA CHOICE PPO MCR ADVANT Anticipated DC Date: 05-24-2018 Planned Disposition: Alf Facility External Planned Provider: [facility], MEDICARE REHAB BED DCP follow-up note: CM MET WITH PT'S HAN SALCEDO BY NOLA BISHOP, . NOLA STATES THAT KARINA QUINN IS PT'S FIANCE. PT HAS POWER OF OUTREACH LIBRARIAN WITH GREAT NEPHEWREBECCA SPOUSE, JOON QUINN, WHO WORKS IN [employer]. NOLA WILL GET JOON TO HOSPITAL ALONG WITH POWER OF OUTREACH LIBRARIAN PAPERWORK SOON POSSIBLE. THEY ARE IN AGREEMENT WITH REHAB AT [facility], BUT [facility] MAY NOT ACCEPT PT HAS CONTINUED DECLINE. [facility] TO COME TOMORROW TO EVALUATE PT FOR REHAB. IF [facility] DOES NOT ACCEPT FOR REHAB, THEY ARE THINKING TO TAKE PT HOME TO [facility] HERE IN [place] AND NOLA ALONG WITH FAMILY WILL CARE FOR PT WITH HOME HOSPICE. NOLA REPORTS THEY WILL MAKE THAT DECISION TOMORROW. CM EXPLAINED THAT THE POWER OF OUTREACH LIBRARIAN WILL HAVE TO BE IN AGREEMENT AND SIGN ANY NEEDED AUTHORIZATIONS FOR ENROLLMENT IN REHAB OR HOSPICE CARE. NOLA REPORTS UNDERSTANDING, PROVIDED CELL PHONE NUMBER FOR JOON QUINN, . CM WAITING ADMISSION DETERMINATION FROM [facility] FOR REHAB PLACEMENT. HIEN BARRY DCP- Discharge Planning Updated by [id number]: Ashia Benítez on 05/23/18 3:[address] Patient Name: MADELEINE WONG Encounter No: [id number] : 1930 Primary Insurance: HUMANA [employer] PPO MCR ADVANT Anticipated DC Date: 05-24-2018 Planned Disposition: Alf Facility External Planned Provider: [facility], MEDICARE REHAB BED DCP follow-up note: CM MET WITH PT AND SON/POA, KARINA QUINN, AT FAMILY REQUEST. MR. QUINN REPORTS IT IS NOW TIME TO SEND REFERRAL TO [facility] FOR REHAB PLACEMENT. IMPORTANT MESSAGE FROM MEDICARE PROVIDED AND EXPLAINED. CM FAXED REFERRAL TO [facility], . CM WAITING ADMISSION DETERMINATION FROM [facility] FOR REHAB PLACEMENT. HIEN BARRY DCP- Discharge Planning Updated by [id number]: Ashia Benítez on 05/11/18 4:[address] Patient Name: MADELEINE WONG Admission Status: Elective Accout number: [id number] Admission Date: 05-09-2018 : 1930 Admission Diagnosis:ACUTE KIDNEY FAILURE, UNSPECIFIED Attending: LEXA BENAVIDES Current LOS: 2 Anticipated DC Date: Planned Disposition: Alf Facility Primary Insurance: HUMANA CHOICE PPO MCR [employer]VANT PLANNED EXTERNAL PROVIDER: [facility], MEDICARE REHAB BED Discharge Planning Comments: CM RECEIVED ORDER INDICATING PT WANTS LONG TERM CARE. CM MET WITH PT AND SON IN ROOM TO DISCUSS DISCHARGE PLANNING AND NEEDS. PT REPORTS THAT BEFORE GETTING SICK, SHE WAS LIVING AT HOME WITH HER SON, INDEPENDENT IN HER CARE. PT REPORTS SHE DID TELL THE DOCTOR THAT SHE WOULD BE BETTER OFF IN A LONG TERM BEFORE FAMILY ARRIVED TODAY. PT WANTS REHAB, NOT TRANSMISSION REBUILDER CARE. PT HAS NO MEDICAL EQUIPMENT AND NO OUTSIDE SERVICES ASSISTING IN THE HOME. CM DISCUSSED AVAILABILITY OF HOME HEALTH, REHAB SERVICES AND MEDICAL EQUIPMENT. PT'S SON INITIALLY DECLINED TO PARTICIPATE IN DISCHARGE PLANNING REPORTING PT WAS SENT TO REHAB [place]STAIRS TOO SO[place] WHEN SHE WAS NOT ABLE TO WALK OR EVEN FEED HERSELF. SON WANTS PT CONSIDERED FOR INPATIENT REHAB AGAIN STATING THEY SENT HER BACK HERE BECAUSE SHE USED ALL OF HER DAYS DOWN THERE. PT DOES NOT THINK SHE CAN PARTICIPATE IN THREE HOURS OF PROGRESSIVE THERAPY PER DAY. CM EXPLAINED THAT IF PT IS NOT ABLE TO PARTICIPATE IN THE THREE HOURS OF PROGRESSIVE THERAPY, IS NOT ABLE TO STAND OR FEED HERSELF, SHE IS NOT GOING TO BE APPROPRIATE FOR READMISSION TO INPATENT REHAB. CM DISCUSSED AVAILABILITY OF [facility] RE[facility]AB SERVICES AND PROVIDED CHOICE FORM. PT'S SON REPORTS HE ALREADY SIGNED ONE OF THESE FOR [facility] THE LAST VISIT AND SPEAKING WITH THIS CM. CM EXPLAINED A NEW ONE WAS NEEDED. PT'S SON SIGNED THE FORM AND DOES NOT WANT PT SENT TO REHAB BEFORE SHE IS STABLE. CM EXPLAINED THAT ALL DOCTORS WOULD HAVE TO INDICATE PT IS READY TO DISCHARGE AND CM IS ONLY WANTING TO BE PROACTIVE ON PT'S BEHALF FOR DISCHARGE PLANNING AND SECURE REHAB BED AHEAD OF TIME TO ENSURE THAT PT IS ABLE TO GET INTO [facility] WHEN DISCHARGED [facility] IS POPULAR REHAB AND DOES FILL UP. PT'S SON WILL WANTS PT TO BE STABLE FOR DISCHARGE FOR CM TO SEND REFERRALS. CHOICE SIGNED. CM PROVIDED PT'S SON WITH CM CONTACT INFORMATION. CM TO SEND REFERRAL TO [facility] WHEN PROJECTED DISCHARGE DATE IS KNOWN, PT'S SON DOES NOT WANT REHAB REFERRAL SENT OUT PRIOR TO PT'S MEDICAL STABILITY FOR DISCHARGE TO REHAB. Display Decorator: Ashia Benítez DCPIA - Discharge Planning Initial Assessment Updated by [id number]: Ashia Benítez on 05/28/18 1:21 pm * Is the patient Alert and Oriented? Yes * How many steps to enter\\exit or inside your home? NONE * PCP DR. PONCE * Pharmacy [facility] * Preadmission Environment Acute Inpatient Rehab * Facility Name [facility] * ADLs Total Dependent * Equipment None * Other Equipment NO MEDICAL EQUIPMENT PROVIDER PREFERECE * List name and contact numbers for known caregivers / representatives who currently or will assist patient after discharge: ADELINE BRANNON [phone] * Verbal permission to speak to the caregivers and representatives has been obtained from the patient. Yes * Community resources currently utilized None * Please name any agencies selected above. NONE * Additional services required to return to the preadmission environment? Yes * Can the patient safely return to the preadmission environment? Yes * Has this patient been hospitalized within the prior 30 days at any hospital? Yes Coverage Notice Reviewer: JEWEL Benítez Notice Issued Date-Time: 05/11/2018 13:00 Notice Type: Patient Choice Letter Notice Delivered To: Family Member Relationship to Patient: Other Relationship Boat Rental Clerk Name: KARINA QUINN Delivery Method: HAND - Hand Delivered Dawna Days: Prior Verbal Notification: Recipient Understood Notice: Yes Recipient Signature: Yes Med Rec Note Co-signed by Attending: Coverage Notice [facility] Reviewer: JEWEL Benítez Notice Issued Date-Time: 05/23/2018 12:20 Notice Type: IM Discharge Notice Notice Delivered To: Family Member Relationship to Patient: Other Relationship Boat Rental Clerk Name: KARINA QUINN Delivery Method: HAND - Hand Delivered Dawna Days: Prior Verbal Notification: Recipient Understood Notice: Yes Recipient Signature: Yes Med Rec Note Co-signed by Attending: Coverage Notice Comment: Reviewer: JEWEL Benítez Notice Issued Date-Time: 05/28/2018 16:20 Notice Type: IM Discharge Notice Notice Delivered To: Family Member Relationship to Patient: Other Relationship Boat Rental Clerk Name: NOLA QUINN Delivery Method: HAND - Hand Delivered Dawna Days: Prior Verbal Notification: Recipient Understood Notice: Yes Recipient Signature: Yes Med Rec Note Co-signed by Attending: Coverage Notice Comment: Reviewer: JEWEL Benítez Notice Issued Date-Time: 05/28/2018 16:20 Notice Type: Patient Choice Letter Notice Delivered To: Family Member Relationship to Patient: Other Relationship Boat Rental Clerk Name: NOLA QUINN Delivery Method: HAND - Hand Delivered Dawna Days: Prior Verbal Notification: Recipient Understood Notice: Yes Recipient Signature: Yes Med Rec Note Co-signed by Attending: Coverage Notice Comment: [facility] Last DP export: 1/24/19 1:46 p Patient Name: MADELEINE WONG Page [id number] at 1455 All edits/amendments must be made on the electronic document DICTATION DATE: 05/31/181454 AIRFIELD ENGINEER OFFICER: JULIA 05/31/181454 RPT#: [id number] DC DATE: STATUS: ADM IN [facility] [address] [place] [address] END OF REPORT
--- NOTE | 2018-05-31 15:42 | NUR ---
[facility] CALLED FOR TRANSPORT OF PT TO HOME.
--- NOTE | 2018-05-31 17:29 | NUR ---
[facility] HER TO TRANSPORT PT HOME.
== END 2018-05-31 17:29 | disposition home health service (06) | DRG 981 ==
LOC: D.M2 14:45 → D.SDCHOLD 05-15 10:07 → D.M2 05-15 10:14
PROVIDERS: Family Medicine; General Practice; Internal Medicine Nephrology; Radiology Diagnostic Radiology; Surgery; ADMIT Emergency Medicine
PROC: 0DB58ZX Excision of Esophagus, Via Natural or Artificial Opening Endoscopic, Diagnostic (ICD-10-PCS; 2018-05-23)
PROC: 0DB68ZX Excision of Stomach, Via Natural or Artificial Opening Endoscopic, Diagnostic (ICD-10-PCS; 2018-05-23)
PROC: 0DH63UZ Insertion of Feeding Device into Stomach, Percutaneous Approach (ICD-10-PCS; 2018-05-23)
PROC: 0PU43JZ Supplement Thoracic Vertebra with Synthetic Substitute, Percutaneous Approach (ICD-10-PCS; 2018-05-30)
PROC: 0PB43ZX Excision of Thoracic Vertebra, Percutaneous Approach, Diagnostic (ICD-10-PCS; 2018-05-30)
PROC: 0PS43ZZ Reposition Thoracic Vertebra, Percutaneous Approach (ICD-10-PCS; principal; 2018-05-30 14:00)
DX: N17.9 Acute kidney failure, unspecified (principal); G93.41 Metabolic encephalopathy; E43 Unspecified severe protein-calorie malnutrition; N39.0 Urinary tract infection, site not specified; B37.81 Candidal esophagitis; A04.72 Enterocolitis due to Clostridium difficile, not specified as recurrent; M48.55XD Collapsed vertebra, not elsewhere classified, thoracolumbar region, subsequent encounter for fracture with routine healing; E11.22 Type 2 diabetes mellitus with diabetic chronic kidney disease; R62.7 Adult failure to thrive; I12.9 Hypertensive chronic kidney disease with stage 1 through stage 4 chronic kidney disease, or unspecified chronic kidney disease; N18.9 Chronic kidney disease, unspecified; E78.5 Hyperlipidemia, unspecified; E03.9 Hypothyroidism, unspecified; D75.89 Other specified diseases of blood and blood-forming organs; F03.90 Unspecified dementia, unspecified severity, without behavioral disturbance, psychotic disturbance, mood disturbance, and anxiety; I48.91 Unspecified atrial fibrillation; Z79.01 Long term (current) use of anticoagulants; B95.2 Enterococcus as the cause of diseases classified elsewhere; E87.5 Hyperkalemia; Z68.23 Body mass index [BMI] 23.0-23.9, adult; Z95.0 Presence of cardiac pacemaker; Z86.73 Personal history of transient ischemic attack (TIA), and cerebral infarction without residual deficits

== ENCOUNTER 2018-05-31 22:16 | Inpatient (IN) | payer MEDICARE, OTHER ==
[~2018-05-31] VITALS: Ht 165.1 cm; Wt 65.3 kg
[2018-05-31 22:37] LABS: BASOPHILS 0.3 % (0-2); EOSINOPHILS 2.2 % (0-7); IMMATURE GRANULOCYTES 0.6 % (0-5); LYMPHOCYTES 11.2 % (15-50); MCH 31.8 pg (26.0-34.0); MCHC 31.8 g/dL (31.0-37.0); MEAN PLATELET VOLUME 9.6 fL (7.4-10.4); MONOCYTES 10.9 % (2-11); NEUTROPHILS 74.8 % (40-80); PLATELET COUNT 395 10x3/uL (130-400); RDW 16.5 % (11.5-14.5)
[2018-05-31 22:39] LABS: HEMATOCRIT 30.5 % (36.0-48.0); HEMOGLOBIN 9.7 g/dL (12-16); RBC 3.05 10x6/uL (4.00-5.40); WBC 10.4 10x3/uL (4.8-10.8)
[2018-05-31 22:52] LABS: ANION GAP 11.5 mmol/L (8-16); BILIRUBIN - TOTAL 0.47 mg/dL (0.2-1.3); CALCIUM 7.9 mg/dL (8.5-10.1); CARBON DIOXIDE 31.2 mmol/L (21.0-32.0); CREATININE - SERUM 1.5 mg/dL (0.6-1.3); POTASSIUM - SERUM 4.7 mmol/L (3.5-5.1); PROTEIN - SERUM 5.9 g/dL (6.4-8.2)
[2018-05-31 23:08] LABS: MAGNESIUM - SERUM 2.2 mg/dL (1.8-2.4); TROPONIN-I 0.019 ng/mL (0.000-0.060)
[2018-06-01 02:54] VITALS: BMI 24.0
--- NOTE | 2018-06-01 09:28 | NUR ---
PT LYING IN BED ANSWERS APPROPRIATELY, NO FAMILY AT BEDSIDE, NO ORDERS FOR DIET PLACED, WILL SEE WHAT DIET PT NEEDS TO BE ON, NO NEEDS VOICED, CONTINUE WITH PLAN OF CARE
[2018-06-01 10:27] VITALS: BMI 23.9
[2018-06-01 10:53] VITALS: Ht 165.1 cm; Wt 65.3 kg
[2018-06-01 12:27] VITALS: BP 134/65
[2018-06-01 14:23] LABS: APPEARANCE CLEAR (CLEAR); BILIRUBIN NEGATIVE (NEGATIVE); COLOR YELLOW (YELLOW); GLUCOSE NEGATIVE (NEGATIVE); KETONE NEGATIVE (NEGATIVE); NITRITE NEGATIVE (NEGATIVE); PH 7.5 (5.0-6.0); PROTEIN NEGATIVE (NEGATIVE); UROBILINOGEN NORMAL (NORMAL)
[2018-06-01 14:38] LABS: BASOPHILS 0.7 % (0-2); EOSINOPHILS 2.8 % (0-7); HEMATOCRIT 31.1 % (36.0-48.0); HEMOGLOBIN 9.8 g/dL (12-16); IMMATURE GRANULOCYTES 0.7 % (0-5); LYMPHOCYTES 11.5 % (15-50); MCH 31.1 pg (26.0-34.0); MCHC 31.5 g/dL (31.0-37.0); MCV 98.7 fL (80.0-100.0); MEAN PLATELET VOLUME 9.9 fL (7.4-10.4); MONOCYTES 10.7 % (2-11); NEUTROPHILS 73.6 % (40-80); PLATELET COUNT 424 10x3/uL (130-400); RBC 3.15 10x6/uL (4.00-5.40); RDW 16.8 % (11.5-14.5); WBC 8.9 10x3/uL (4.8-10.8)
[2018-06-01 14:56] LABS: ALBUMIN 2.2 g/dL (3.4-5.0); ANION GAP 13.2 mmol/L (8-16); BILIRUBIN - TOTAL 0.54 mg/dL (0.2-1.3); CALCIUM 8.1 mg/dL (8.5-10.1); CARBON DIOXIDE 30.5 mmol/L (21.0-32.0); CREATININE - SERUM 1.5 mg/dL (0.6-1.3); POTASSIUM - SERUM 4.7 mmol/L (3.5-5.1); PROTEIN - SERUM 5.5 g/dL (6.4-8.2); TROPONIN-I 0.021 ng/mL (0.000-0.060)
--- NOTE | 2018-06-01 15:08 | NUR ---
PT CLEANED OF INCONT STOOL AND THEN I/O CATH DONE FOR URINE ORDERED. PEG SITE CLEAN AND DRY WITH NO REDDNESS OR DRAINAGE NOTED. FLUSHES EASILY FOR MEDS. DRESSINGS REMOVED FROM BILAT HEELS. NO SKIN BREAKDOWN NOTED ON LEFT AND QUARTER SIZE STAGE 2 NOTED TO RIGHT HEEL-MEDIPLEX DRESSING APPLIED AND DATED. SPOUSE AT BEDSIDE. FALL PRECAUTIONS IN PLACE
[2018-06-01 16:32] VITALS: BP 103/56
--- NOTE | 2018-06-01 16:47 | MORECARE ---
CASE MANAGEMENT DISCHARGE SUMMARY PATIENT: MADELEINE WONG UNIT: [id number] ADM DATE: 05/31/18 AGE: 88 : [birth year] SEX: F ROOM/BED: D.2216 AUTHOR: BELINDA DICKINOSN PHYSICIAN: REFERRING PHYSICIAN: LIV DIXON MD DATE OF SERVICE: 06/01/18 Discharge Plan Patient Name: MADELEINE WONG Facility: [facility]:[place] : 1930 Planned Disposition: Anticipated Discharge Date: Discharge Date: Expected LOS: Initial Reviewer: [email or web address] Initial Review Date: 06/01/2018 Generated: 06/01/18 5:46 pm Comments DCP- Discharge Planning Updated by [email or web address]: Yamile Thompson on 06/01/18 3:[address] SPOKE WITH JOON (POA, NEPHEW) & NOLA (NIECE) ABOUT HOSPICE IN [facility]. THEY WOULD LIKE HER TO DO IN PATIENT HOSPICE IF POSSIBLE EXPLAINED TO THEM THEIR 3 CHOICES (IF SHE WOULD QUALIFY, FOR GIP) THEIR FIRST CHOICE IS JACKI HERE AT [facility], THEN IF THEY SAY SHE IS NOT GIP THEY WOULD LIKE [facility] OF [facility] AND [facility] TO COME AND EVALUATE HER FOR GIP. IF ALL THREE SAY NO, THEN THEY WOULD LIKE TO DO HOSPICE AT [place]. I HAVE CONTACTED MARIA M WITH JACKI. I HAVE SPOKEN WITH IMANI GOSS ABOUT THE ABOVE CM WILL CONTIUE TO FOLLOW AND ASSIST WITH DC PLANNING JOON QUINN (ISAIAH) [phone] NOLA QUINN [phone] External Providers External Provider: [facility] [place] Next Contact Date: Service Request Date: Service Type: Resolution: Reviewer: Comments: Patient Name: MADELEINE WONG Page [phone] at 1647 All edits/amendments must be made on the electronic document DICTATION DATE: 06/01/181645 PLANT BREEDER SCIENTIST: JULIA 06/01/181645 RPT#: [id number] DC DATE: STATUS: ADM IN [facility] [address] [place] [address] END OF REPORT
--- NOTE | 2018-06-01 18:04 | NUR ---
PT CHECKED FOR INCONT. DRY AT THE MOMENT. TURNED AND POSITIONED ON RIGHT SIDE FOR COMFORT. FAMILY VISITING WITH HOSPICE IN [place]. FALL PRECAUTIONS IN PLACE
--- NOTE | 2018-06-05 12:27 | MORECARE ---
CASE MANAGEMENT DISCHARGE SUMMARY PATIENT: MADELEINE WONG UNIT: [id number] ADM DATE: 05/31/18 AGE: 88 : [birth year] SEX: F ROOM/BED: D.2216 AUTHOR: BELINDA DICKINSON PHYSICIAN: REFERRING PHYSICIAN: LIV DIXON MD DATE OF SERVICE: 06/05/18 Discharge Plan Patient Name: MADELEINE WONG Facility: [facility]:[place] : 1930 Planned Disposition: Anticipated Discharge Date: Discharge Date: 06/01/2018 Expected LOS: Initial Reviewer: [email or web address] Initial Review Date: 06/01/2018 Generated: 06/05/18 1:27 pm Comments DCP- Discharge Planning Updated by [email or web address]: Yamile Thompson on 06/01/18 3:[address] SPOKE WITH JOON (POA, NEPHEW) & NOLA (NIECE) ABOUT HOSPICE IN [facility]. THEY WOULD LIKE HER TO DO IN PATIENT HOSPICE IF POSSIBLE EXPLAINED TO THEM THEIR 3 CHOICES (IF SHE WOULD QUALIFY, FOR GIP) THEIR FIRST CHOICE IS [facility]ACKI HERE AT [facility], THEN IF THEY SAY SHE IS NOT GIP THEY WOULD LIKE [facility] AND [facility] TO COME AND EVALUATE HER FOR GIP. IF ALL THREE SAY NO, THEN THEY WOULD LIKE TO DO HOSPICE AT [place]. I HAVE CONTACTED MARIA M WITH [facility]. I HAVE SPOKEN WITH IMANI GOSS ABOUT THE ABOVE CM WILL CONTIUE TO FOLLOW AND ASSIST WITH DC PLANNING JOON QUINN (POA) [phone] NOLA QUINN [phone] Last DP export: 06/01/18 3:47 p Patient Name: MADELEINE WONG Page [id number] at 1227 All edits/amendments must be made on the electronic document DICTATION DATE: 06/05/187 CORK INSULATOR HELPER: JULIA 06/05/18 1227 RPT#: [id number] DC DATE:06/01/18 STATUS: DIS IN [facility] [address] [place] [address] END OF REPORT
--- NOTE | 2018-06-08 12:11 | EC ---
PATIENT:MADELEINE WONG DATE OF SERVICE: 05/31/18 SEX: F MEDICAL RECORD: [id number] DATE OF : [birth year] LOCATION:[facility] AGE OF PATIENT: 88 ADMISSION DATE: 05/31/18 REFERRING PHYSICIAN: INTERPRETING PHYSICIAN: ANDERS BLAKE MD ECHOCARDIOGRAM REPORT ECHO CHARGES 5 ECHO LIMITED Date: 06/01/18 CLINICAL DIAGNOSIS: PLEURAL EFFUSION, HX OF PACER,HTN/AFIB,CVA,MVR([facility]) ECHOCARDIOGRAPHIC MEASUREMENTS (adult normal given) AC root (d.<3.7cm) cm LV Septum d (<1.2 cm> cm Valve Excursion cm LV Septum (systole) cm Left Atria (s.<4.0cm> cm LVPW d(<1.2cm) cm RV (d.<2.3cm) cm LVPW (sytole) cm LV diastole(<5.6CM) cm MV E-F(>70mm/sec) cm LV systole cm LVOT Diameter cm MV exc.(>10mm) cm Est.ejection fraction (50-75%) % DOPPLER: LVIT cm/sec A cm/sec E cm/sec LA cm/sec RVSP 56 mmHg LVOT cm/sec AOP1/2T m/s Asc. Ao cm/sec RVOT cm/sec RA cm/sec PA cm/sec AV Gradient Peak mmHg AV Mean mmHg AV Area cm MV Gradient Peak mmHg MV Mean mmHg MV Area cm COMMENTS: Security Solutions Engineer: Jacob WOLF [employer]: 1 Dr. Blake TAPE# PACS Pericardial Effusion N DATE OF SERVICE: FINDINGS: 1. Left ventricular chamber size is within normal limits. Left ventricular systolic function is normal. Overall ejection fraction estimated at 55%. 2. Left atrium is enlarged at 5.1 cm. Right atrium and right ventricle chamber sizes are as well mildly dilated. 3. 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 The remaining valvular structures have normal structure and motion. ECHOCARDIOGRAM REPORT [id number] MADELEINE WONG 4. Doppler interrogation reveals only mild mitral regurgitation, severe tricuspid regurgitation. Pulmonary systolic pressure is elevated estimated at 56 mmHg. 5. A large pleural effusion is present, but no pericardial effusion is present. No evidence of left ventricular thrombus. TRANSINT:[id number] Voice Confirmation ID: [id number] DOCUMENT ID: [id number] ANDERS BLAKE MD at 1211 CC: [id number] DICTATION DATE: 06/01/18 1511 VIDEO CLERK: 06/01/181957 DIS IN 06/01/18 [place] [id number] [place] [id number]
== END 2018-06-01 20:44 | disposition hospice, inpatient (51) | DRG 186 ==
LOC: D.ER 22:16 → D.MS 23:33
PROVIDERS: Family Medicine; ADMIT Family Medicine
DX: J90 Pleural effusion, not elsewhere classified (principal); R53.2 Functional quadriplegia; I10 Essential (primary) hypertension; E11.9 Type 2 diabetes mellitus without complications; I48.91 Unspecified atrial fibrillation

== ENCOUNTER 2018-06-01 21:00 | Inpatient (IN) | payer OTHER ==
[~2018-06-01] VITALS: Ht 165.1 cm; Wt 65.0 kg
--- NOTE | 2018-06-01 21:40 | NUR ---
16 MALAY TAMAYO INSERTED PER ORDER USING COLLAR FOLDER OPERATOR.
[2018-06-02 01:22] VITALS: BP 155/84; Ht 165.1 cm; Wt 65.0 kg
--- NOTE | 2018-06-02 08:09 | NUR ---
PT LYING IN BED, EASILY AWAKENED, NO S/S OF DISTRESS, CONTINUE WITH PLAN OF CARE
[2018-06-02 08:55] VITALS: BP 190/69
--- NOTE | 2018-06-02 10:00 | NUR ---
ASSISTED SENIOR DATABASE PROGRAMMER'S WITH BED CHANGE FOR PT, PT STATED SHE NEEDED TO HAVE A BM BUT TOO WEAK TO PUSH IT OUT, AFTER TURNING PT ON SIDE PT STARTED TO BLEED ADVISED HOSPICE NURSE Elder CHINCHILLA RN
--- NOTE | 2018-06-02 15:59 | NUR ---
PATIENT IN BED WITH EYES CLOSED RESTING QUIETLY. FAMILY AT BEDSIDE. CALL LIGHT WITHIN REACH.
--- NOTE | 2018-06-02 19:00 | NUR ---
REPORT RECEIVED AND CARE OF PT ASSUMED. PT LYING IN LOW KHOURY'S POSITION WITH EYES CLOSED. LEFT MIDLINE PATENT WITH NS INFUSING AT KVO. TAMAYO CATHETER DRAINING TO GRAVITY WITH YELLOW URINE IN COLLECTION BAG. WILL MONITOR FOR NEEDS. SIDE RAILS UP X2 FOR SAFETY.
--- NOTE | 2018-06-02 19:13 | NUR ---
RECEIVED CALL FROM [facility] INSTRUCTOR ROBOTICS MARIA M, ASKED IF PT FAMILY HAS ASKED ABOUT FEEDINGS, ADVISED HIM PT AND FAMILY HAS NOT ASKED ME ABOUT FEEDINGS AND PT DID NOT TELL ME SHE WAS HUNGRY, HOSPICE NURSE IN [place] BUT DID NOT KNOW ABOUT REQUEST EITHER, WILL CONTINUE WITH PLAN OF CARE
[2018-06-02 20:03] VITALS: BP 179/78
--- NOTE | 2018-06-02 21:16 | NUR ---
HS MEDICAITONS GIVEN. WILL CONTINUE TO MONITOR FOR NEEDS.
[2018-06-03 00:40] VITALS: BP 146/93
--- NOTE | 2018-06-03 07:00 | NUR ---
REPORT RECIEVED. PATIENT IN BED RESTING QUIETLY WITH NO COMPLAINTS OR SIGNS OF DISTRESS. IV INTACT. CALL LIGHT WITHIN REACH.
--- NOTE | 2018-06-03 08:45 | NUR ---
ASSESSMENT COMPLETE, VS STABLE. PATIENT IN BED WITH IV INTACT. EYES OPEN, DENIES PAIN. REFUSES TO TURN AT THIS TIME. CALL LIGHT WITHIN REACH.
[2018-06-03 08:46] VITALS: BP 172/73
--- NOTE | 2018-06-03 11:23 | NUR ---
PATIENT IN BED WITH EYES CLOSED RESTING QUIETLY. NO COMPLAINTS OR SIGNS OF DISTRESS. CALL LIGHT WITHIN REACH.
[2018-06-03 13:10] VITALS: BP 127/73
--- NOTE | 2018-06-03 15:30 | NUR ---
PATIENT IN BED WITH EYES OPEN. NO COMPLAINTS OR SIGNS OF DISTRESS. STATES SHE WANTS HER CLOTHES. EXPLAINED TO PATIENT THAT SHE DOESNT HAVE ANY RIGHT NOW AND THAT IF SHE WAS COLD I COULD GIVE HER A BLANKET. VEBALIZED UNDERSTANDING. CALL LIGHT WITHIN REACH.
--- NOTE | 2018-06-03 18:38 | NUR ---
PATIENT IN BED WITH IV INTACT. NO COMPLAINTS OR SIGNS OF DISTRESS. FAMILY AT BEDSIDE. RECIEVED MORPHINE FOR PAIN BY PHIL LEWIS. STATED SHE HAD BACK PAIN. PATIENT WANTING TO DRINK WATER. CALL HOSPICE NURSE AT THIS TIME. WAITING FOR CALL BACK. CALL LIGHT WITHIN REACH.
--- NOTE | 2018-06-03 19:00 | NUR ---
REPORT RECEIVED AND CARE OF PT ASSUMED. PT LYING IN HIGH KHOURY'S POSITION VISITING WITH FAMILY MEMBERS. LEFT MIDLINE PATENT WITH NS INFUSING AT KVO. FAMILY ASKING ABOUT PT BEGINNING PO INTAKE.
[2018-06-03 20:00] VITALS: BP 141/75
--- NOTE | 2018-06-03 20:45 | NUR ---
HOSPICE NURSE HERE VISITING WITH FAMILY MEMBERS. NEW ORDERS TO RE-START TUBE FEEDING IN AM: JEVITY 1.2 @ 60 ML/HR; AND START REGULAR / SOFT DIET.
--- NOTE | 2018-06-03 21:29 | NUR ---
HS MEDICATIONS GIVEN.
--- NOTE | 2018-06-03 22:44 | NUR ---
FAMILY BROUGHT FOOD FOR PT...SHE ATE SOME GRITS AND EGGS WITHOUT DIFFICULTY...FEEDER.
--- NOTE | 2018-06-04 00:31 | NUR ---
GAE MORPHINE IVP PER PT REQUEST FOR BACK PAIN. RE-POSITIONED PT FOR COMFORT ONTO LEFT SIDE PROPPED WITH PILLOWS. SIDE RAILS UP X2 FOR SAFETY.
[2018-06-04 08:53] VITALS: BP 156/62
--- NOTE | 2018-06-04 13:00 | NUR ---
NUTRITION MONITORING AND EVAL SPOKE WITH NURSING, TUBE FEEDS JEVITY 1.2 TO RESUME WITH GOAL RATE 60 CC/HR. RECOMMEND GOAL RATE BE 40 CC/HR WITH 20 CC H2O FLUSH Q HOUR. RD FOLLOWING
[2018-06-04 13:25] VITALS: BP 110/81
[2018-06-04 20:00] VITALS: BP 173/77
--- NOTE | 2018-06-04 20:20 | NUR ---
PT IN BED EYES OPEN ALERTS TO VERBAL STIMULI. PT CONFUSED PLACE TIME SITUATION. NO SIGNS OF DISTRESS. BREATHING EVEN AND UNLABORED. PT STATES NO PROBLEMS AT THIS TIME. IV SITE LT UPPER ARM MIDLINE. DRESSING CLEAN DRY AND INTACT. NO SIGNS OF INFECTION. 2LO2 NASAL CANNULA. BOWEL SOUNDS ACTIVE. PEG TUBE LT UPPER ABD. JEVITY UP TO 30 ML PER HOUR WITH GOAL OF 40. TAMAYO IN PLACE NO SIGNS OF INFECTION CLEAN DRY AND INTACT WITH YELLOW CLEAR URINE DRAINING. WILL CONTINUE PLAN OF CARE. CALL LIGHT IN REACH. BED ALARM ON. BED LOWERED AND LOCKED BED RAILS X3.
[2018-06-05 08:28] VITALS: BP 178/70
[2018-06-05 11:53] VITALS: BP 142/53
--- NOTE | 2018-06-05 13:49 | MORECARE ---
CASE MANAGEMENT DISCHARGE SUMMARY PATIENT: MADELEINE WONG UNIT: [id number] ADM DATE: 06/01/18 AGE: 88 : [birth year] SEX: F ROOM/BED: D.2216 AUTHOR: BELINDA DICKINSON PHYSICIAN: REFERRING PHYSICIAN: ROHIT PATTON MD DATE OF SERVICE: 06/05/18 Discharge Plan Patient Name: [facility]ADELEINE WONG [facility] [facility] 1930 Planned Disposition: Anticipated Discharge Date: Discharge Date: Expected LOS: Initial Reviewer: [email or web address] Initial Review Date: 06/01/2018 Generated: 06/05/18 2:49 pm Comments DCP- Discharge Planning Updated by [email or web address]: Yamile Thompson on 06/05/18 12:[address] Patient no longer meets GIP and will be discharging to [place] [facility] Hospice. CM will follow as needed Patient Name: MADELEINE WONG Page [phone] at 1349 All edits/amendments must be made on the electronic document DICTATION DATE: 06/05/18 1349 PROPOSAL MANAGER WRITER: JULIA 06/05/18 1349 RPT#: [id number] DC DATE: STATUS: ADM IN [facility] [address] [place] [address] END OF REPORT
--- NOTE | 2018-06-05 16:18 | MORECARE ---
CASE MANAGEMENT DISCHARGE SUMMARY PATIENT: MADELEINE WONG UNIT: [id number] ADM DATE: 06/01/18 AGE: 88 : [birth year] SEX: F ROOM/BED: D.2216 AUTHOR: BELINDA DICKINSON PHYSICIAN: REFERRING PHYSICIAN: ROHIT PATTON MD DATE OF SERVICE: 06/05/18 Discharge Plan Patient Name: MADELEINE WONG [facility] [facility] 1930 Planned Disposition: Anticipated Discharge Date: Discharge Date: Expected LOS: Initial Reviewer: [email or web address] Initial Review Date: 06/01/2018 Generated: 06/05/18 5:18 pm Comments DCP- Discharge Planning Updated by [email or web address]: Yamile Thompson on 06/05/18 3:[address] SPOKE WITH MITCHELL AT [facility], THEY ARE ACCEPTING PATIENT TODAY AND HAVE EVERYTHING THEY WILL NEED. PATIENT WILL TRANSFER THERE VIA EMS DCP- Discharge Planning Updated by [email or web address]: Yamile Thompson on 06/05/18 12:[address] Patient no longer meets GIP and will be discharging to [place] [facility] H[facility]. CM will follow as needed Last DP export: 06/05/18 12:49 p Patient Name: MADELEINE WONG Page [phone] at 1618 All edits/amendments must be made on the electronic document DICTATION DATE: 06/05/181617 ARTS AND HUMANITIES COUNCIL DIRECTOR: JULIA 06/05/181617 RPT#: [id number] DC DATE: STATUS: ADM IN [facility] [address] [place] [address] END OF REPORT
--- NOTE | 2018-06-05 18:47 | NUR ---
MIDLINE DC'ED WITH TIP INTACT. AMBULANCE HERE TO WEED CONTROL INSPECTOR. TAMAYO LEFT IN FOR HOSPICE.
--- NOTE | 2018-06-11 10:34 | MORECARE ---
CASE MANAGEMENT DISCHARGE SUMMARY PATIENT: MADELEINE WONG UNIT: [id number] ADM DATE: 06/01/18 AGE: 88 : [birth year] SEX: F ROOM/BED: D.2216 AUTHOR: BELINDA DICKINSON PHYSICIAN: REFERRING PHYSICIAN: ROHIT PATTON MD DATE OF SERVICE: 06/11/18 Discharge Plan Patient Name: [facility]ADELEINE WONG [facility] [facility] 1930 Planned Disposition: Anticipated Discharge Date: Discharge Date: 06/05/2018 Expected LOS: 0 Initial Reviewer: [email or web address] Initial Review Date: 06/01/2018 Generated: 06/11/18 11:34 am Comments DCP- Discharge Planning Updated by [email or web address]: Yamile Thompson on 06/05/18 3:[address] SPOKE WITH MITCHELL AT [facility], THEY ARE ACCEPTING PATIENT TODAY AND HAVE EVERYTHING THEY WILL NEED. PATIENT WILL TRANSFER THERE VIA EMS DCP- Discharge Planning Updated by [email or web address]: Yamile Thompson on 06/05/18 12:[address] Patient no longer meets GIP and will be discharging to [place] [facility] H[facility]. CM will follow as needed Last DP export: 06/05/18 3:18 p Patient Name: MADELEINE WONG Page [phone] at 1034 All edits/amendments must be made on the electronic document DICTATION DATE: 06/11/18 1034 MUSEUM DIRECTOR: JULIA 06/11/18 1034 RPT#: [id number] DC DATE:06/05/18 STATUS: DIS IN [facility] [address] [place] [address] END OF REPORT
== END 2018-06-05 18:48 | disposition hospice, inpatient (51) | DRG 193 ==
LOC: D.MS 21:00 → D.SDCHOLD 06-04 13:40 → D.MS 06-04 13:44 → D.SDCHOLD 06-04 14:06 → D.MS 06-04 14:15
PROVIDERS: ADMIT Legal Medicine
DX: J18.9 Pneumonia, unspecified organism (principal); R53.2 Functional quadriplegia; E11.9 Type 2 diabetes mellitus without complications; I48.91 Unspecified atrial fibrillation; R06.03 Acute respiratory distress

== ENCOUNTER 2018-08-05 15:56 | Emergency (ER) | payer OTHER, MEDICAID ==
[~2018-08-05] VITALS: Ht 165.1 cm; Wt 57.7 kg
[2018-08-05 15:58] VITALS: Ht 165.1 cm; Wt 57.7 kg
[2018-08-05] MEDS ORDERED: CHRONULAC30 ML PO (17:27)
[2018-08-05 18:42] VITALS: BP 142/80
== END 2018-08-05 18:43 ==
LOC: D.ER 15:56
DX: K94.23 Gastrostomy malfunction (principal); K59.00 Constipation, unspecified